=== PATIENT | male | born 1935 | race Caucasian/White ===

== ENCOUNTER → 2017-05-15 | Outpatient (CLI) | payer MEDICARE, OTHER ==
[2017-05-15 14:56] LABS: Blood Urea Nitrogen 20 mg/dL (9-20); Non-African American GFR(MDRD) >60 (>60 ml/min/1.73 sqM)
--- NOTE | 2017-05-15 21:36 | CT ---
EXAMINATION TYPE: CT lumbar spine wo/w con DATE OF EXAM: 05/15/2017 COMPARISON: CT chest abdomen and pelvis July 28, 2014 HISTORY: Low back and right hip pain. History of prostate, liver and lung cancer. Possible wedge defo rmity L3 level per order. CT DLP: 4098.10 mGycm Automated exposure control for dose reduction was used. CONTRAST: Performed without and with IV Contrast, patient injected with 100 mL of Omnipaque 300. FINDINGS: There are 5 lumbar type vertebra identified. Lumbar spine shows satisfactory alignment without eviden ce of acute fracture or dislocation. There is persistent round lytic area with surrounding sclerosis felt to reflect enchondroma are prominent Schmorl node in the inferior L2 endplate unchanged from janice or CT. Vertebral body heights are maintained. There is multilevel fairly moderate disc space narrowin g with more advanced disc space narrowing and vacuum disc phenomenon noted at L4-L5 level. There is m oderate multilevel anterior and lateral spurring. Posterior disc herniations are seen effacing anteri or thecal sac at L2-L3, L3-L4, and L4-L5 levels on sagittal images. No suspicious postcontrast enhanc ement is seen. Axial images at the T12-L1 level are felt within normal limits. Axial images at the L1-L2 level show mild facet degenerative changes and mild broad disc bulge mildly effacing anterior thecal sac. Bilateral neural foramina are patent. Axial images at the L2-L3 level show mild facet degenerative changes with broad-based central disc pr otrusion effacing anterior thecal sac causing spinal canal stenosis on axial image 38. There is moder ate to severe bilateral neural foraminal narrowing at this level identified. Axial images at the L3-L4 level show moderate facet degenerative changes bilaterally. There is modera te to severe broad disc bulge causing more prominent spinal canal stenosis on axial image 55. There i s moderate to severe bilateral neural foraminal narrowing at this level identified. Axial images at L4-L5 level show moderate facet degenerative changes bilaterally. There is broad-base d posterior disc protrusion causing spinal canal stenosis at this level on axial image 64. There is m oderate to severe bilateral neural foraminal narrowing at this level identified. Axial images at L5-S1 level show posterior spur disc complex but spinal canal is preserved. There are mild to moderate facet degenerative changes seen bilaterally. Bilateral neural foramina are patent. Elevated left hemidiaphragm is redemonstrated. Visualized liver is hypodense consistent with fatty in filtration. Surgical clips along posterior margin of liver are redemonstrated from partial hepatectom y. There is moderate to severe mixed plaque in the aorta extending into branch vessels. There is stab le stenosis likely greater than 50% in the right common iliac artery. Prominent sigmoid colonic diver ticulosis is partially imaged. IMPRESSION: MULTILEVEL DEGENERATIVE CHANGES IN LUMBAR SPINE DETAILED ABOVE WITH MOST PROMINENT FINDINGS AT L2- L3 THROUGH THE L4-L5 LEVELS THERE IS MODERATE TO SEVERE BILATERAL NEURAL FORAMINAL NARROWING AND S MEY CANAL STENOSIS PRESENT AT ALL LEVELS MORE PROMINENT AT L3-L4 AND L4-L5 LEVELS. NO SUSPICIOUS FO UMM OSSEOUS LESIONS ARE SEEN TO SUGGEST METASTATIC DISEASE.
== END | disposition home or self-care (01) ==
LOC: RADCTMAIN 14:08
PROVIDERS: ATTEND Physical Medicine & Rehabilitation
DX: M99.73 Connective tissue and disc stenosis of intervertebral foramina of lumbar region (principal); M47.816 Spondylosis without myelopathy or radiculopathy, lumbar region; M54.5 Low back pain
CPT/HCPCS: 82565; 84520; 72133; 36415; Q9967

== ENCOUNTER → 2018-06-11 | Outpatient (CLI) | payer MEDICARE ==
--- NOTE | 2018-06-11 14:41 | US ---
EXAMINATION TYPE: US venous doppler duplex LE DATE OF EXAM: 06/11/2018 1:50 PM COMPARISON: LOWER EXTREMITY VENOUS INSUFFICIENCY SIDE PERFORMED: Bilateral 1) Color flow is present and patency is documented in the following vessels. No DVT or SVT is noted . EIV Common Femoral Vein Deep Femoral Vein Femoral Vein Popliteal Vein Proximal Calf Veins Greater Saph Vein Upper Small Saph Vein 2) no venous reflux noted at the following venous levels: No reflux visualized IMPRESSION: 1. Lower extremity venous system negative for venous reflux. Thrombosis is not identified.
--- NOTE | 2018-06-17 09:08 | P.ARTDOP ---
Arterial Doppler LOWER EXTREMITY ARTERIAL DOPPLER: DATE OF SERVICE: 06/11/2018 Reason for study: Right leg ulcer. Doppler waveforms: Multiphasic bilaterally throughout. Pulse volume recording: Normal configuration. Pressure gradients: None. Ankle-brachial indices: Greater than 1 bilaterally. Toe pressures: 107 on the right, 100 on the left Impression: Normal study.
== END | disposition home or self-care (01) ==
LOC: RADUSWWP 13:14
PROVIDERS: ATTEND Internal Medicine Infectious Disease
DX: R60.9 Edema, unspecified (principal); E63.8 Other specified nutritional deficiencies
CPT/HCPCS: 93923; 93970

== ENCOUNTER → 2018-09-04 | Outpatient (CLI) | payer MEDICARE ==
[2018-09-04 14:51] LABS: Anion Gap 6 mmol/L; Blood Urea Nitrogen 18 mg/dL (9-20); Carbon Dioxide 31 mmol/L (22-30); Chloride 107 mmol/L (98-107); Sodium 144 mmol/L (137-145)
[2018-09-04 14:53] LABS: HCT 49.1 % (39.0-53.0); HGB 16.6 gm/dL (13.0-17.5); MCH 33.1 pg (25.0-35.0); MCHC 33.9 g/dL (31.0-37.0); MCV 97.6 fL (80.0-100.0); Mean Platelet Volume 7.5; Platelet Count 133 k/uL (150-450); RBC 5.03 m/uL (4.30-5.90); RDW 14.5 % (11.5-15.5); WBC 8.6 k/uL (3.8-10.6)
[2018-09-04 15:07] LABS: INR 2.4 (<1.2); Partial Thromboplastin Time 32.6 sec (22.0-30.0); Prothrombin Time 21.3 sec (9.0-12.0)
[2018-09-04 15:30] LABS: Amorphous Sediment,Urine Rare /hpf; Appearance,Urine Clear (Clear); Bilirubin,Urine Negative (Negative); Blood,Urine Negative (Negative); Color,Urine Yellow; Glucose,Urine (UA) Negative (Negative); Hyaline Casts,Urine 4 /lpf (0-2); Ketones,Urine Negative (Negative); Leukocyte Esterase,Urine Moderate (Negative); Mucus,Urine Occasional /hpf; Nitrite,Urine Negative (Negative); Protein,Urine Negative (Negative); RBC,Urine 6 /hpf (0-5); Specific Gravity,Urine 1.018 (1.001-1.035); Squamous Epithelial Cell,Urine 4 /hpf (0-4); Urobilinogen,Urine <2.0 mg/dL (<2.0); WBC,Urine 18 /hpf (0-5)
== END | disposition home or self-care (01) ==
LOC: LABPAT 14:08
PROVIDERS: ATTEND Orthopaedic Surgery
DX: Z01.812 Encounter for preprocedural laboratory examination (principal)
CPT/HCPCS: 80051; 81001; 82565; 84520; 85027; 85610; 85730; 86850; 86900; 86901; 87070

== ENCOUNTER 2018-09-15 14:00 | Inpatient (IN) | payer MEDICARE ==
[2018-10-21 09:38] VITALS: BMI 37.3
[2018-10-27] MEDS ORDERED: TRANEXAMIC ACID 1,000 MG in SODIUM CHLORIDE 0.9% 50 ML IVPB ONE ×4 (05:00)
[2018-10-27] MEDS ORDERED: MELOXICAM 7.5 MG TAB PO ONE (05:00)
[2018-10-27] MEDS ORDERED: ACETAMINOPHEN TAB 500 MG TAB PO ONE (05:00)
[2018-10-27] MEDS ORDERED: ROPIVACAINE 246.25 MG, EPINEPHrine 0.5 MG, KETOROLAC 30 MG, cloNIDine HCL/PF 80 MCG, WA... MISCELLANE ONE ×5 (06:01)
[2018-10-27] MEDS ORDERED: ONDANSETRON 4 MG/2 ML VIAL IVP ONE (06:25)
[2018-10-27] MEDS ORDERED: DEXAMETHASONE SOD PHOSPHATE 10 MG/ML 1 ML VIAL IV ONE (06:25)
[2018-10-27] MEDS ORDERED: SCOPOLAMINE 1.5MG/72HR PATCH TRANSDERM ONE (06:25)
[2018-10-27] MEDS ORDERED: LIDOCAINE 1% 20 ML VIAL (10MG/ML) FOR IV START INTRADERMA PRN (06:25)
[2018-10-27] MEDS ORDERED: LIDOCAINE 1% 20 ML VIAL (10MG/ML) FOR IV START INTRADERMA ONE (06:42)
[2018-10-27] MEDS: LACTATED RINGERS 1,000 ML IV SCH (06:42)
[2018-10-27 07:01] LABS: Glucose,Whole Blood 109 mg/dL (75-99)
[2018-10-27] MEDS ORDERED: HYDROmorphone 0.5 MG/0.5 ML SYRINGE IVP PRN ×3 (07:04)
[2018-10-27] MEDS ORDERED: hydrOXYzine PAMOATE 25 MG CAP PO PRN (07:04)
[2018-10-27] MEDS ORDERED: ONDANSETRON 4 MG/2 ML VIAL IVP PRN (07:04)
[2018-10-27] MEDS ORDERED: MAGNESIUM HYDROXIDE 2,400 MG/10 ML CUP PO PRN (07:04)
[2018-10-27] MEDS ORDERED: DIAZEPAM 5 MG TAB PO PRN (07:04)
[2018-10-27] MEDS ORDERED: NALOXONE 0.4 MG/ML 1 ML VIAL IV PRN (07:04)
[2018-10-27 07:06] LABS: INR 1.5 (<1.2); Prothrombin Time 14.9 sec (9.0-12.0)
[2018-10-27] MEDS ORDERED: PROPOFOL 10 MG/ML 20 ML VIAL IV ONE (07:08)
[2018-10-27] MEDS ORDERED: SODIUM CHLORIDE 0.9% 100 ML BAG ONE (07:08)
[2018-10-27] MEDS ORDERED: ROCURONIUM BROMIDE 10 MG/ML 10 ML VIAL IV ONE (07:08)
[2018-10-27] MEDS ORDERED: TRANEXAMIC ACID 1,000 MG/10 ML VIAL ONE (07:08)
[2018-10-27] MEDS ORDERED: GLYCOPYRROLATE 0.2 MG/ML 2 ML VIAL ONE (07:08)
[2018-10-27] MEDS ORDERED: PHENYLEPHRINE-0.9% NACL SYG 1 MG/10 ML SYRINGE ONE (07:08)
[2018-10-27] MEDS ORDERED: SUCCINYLCHOLINE CHLORIDE VIAL 200 MG/10 ML VIAL IV ONE (07:08)
[2018-10-27] MEDS ORDERED: NEOSTIGMINE 1 MG/ML 10 ML VIAL ONE (07:08)
[2018-10-27] MEDS ORDERED: ePHEDrine SULFATE/0.9% NACL/PF 50 MG/5 ML SYRINGE IV ONE (07:08)
[2018-10-27] MEDS ORDERED: WATER FOR INJECTION, STERILE 10 ML VIAL IV ONE (07:08)
[2018-10-27] MEDS ORDERED: ceFAZolin 3,000 MG in SODIUM CHLORIDE 0.9% IRRIGATIO 3,000 ML IRRIGATION ONE (07:15)
[2018-10-27] MEDS ORDERED: LACTATED RINGERS 1,000 ML IV ONE (08:05)
--- NOTE | 2018-10-27 08:56 | P.OP ---
Date of Procedure: 10/27/18 Preoperative Diagnosis: Severe osteoarthritis right hip Postoperative Diagnosis: Severe osteoarthritis right hip Procedure(s) Performed: Right total hip arthroplasty with a direct anterior approach Implants: Nation and nephew Polarstem size 6 standard [employer]hew R3, 3 hole acetabular shell, 54 mm [employer]hew reflection 6.5 mm cancellus screw, 20 mm 2 [employer]hew R3, XLPE 20 acetabular liner [employer]hew Oxinium femoral head 36 m, +0 All components were press-fit. The articulation is Oxinium on polyethylene. Anesthesia: spinal Surgeon: Juan Luis Joaquin Right Of Way Buyer #1: Traci Figueredo Estimated Blood Loss (ml): 350 (139 mL returned with Cell Saver) Pathology: other (Femoral head) Condition: stable Disposition: PACU Indications for Procedure: After failure of conservative treatment we discussed the surgical and nonsurgical treatment options at length. Patient wishes to proceed with a total hip arthroplasty with a direct anterior approach. Complications specific to this procedure were discussed at length, including but not limited to infection, leg length discrepancy, dislocation, and nerve injury. Patient is aware of all these complications and informed consent was obtained Operative Findings: The operative findings are consistent with severe osteoarthritis of the right hip Description of Procedure: Patient was seen and evaluated in the preoperative area, consent was reviewed, and the surgical site was marked with a skin marker. Patient was then brought to the operating room and given prophylactic antibiotics intravenously. 1 g of Tranexamic acid was also given. A spinal anesthetic was administered by the anesthesia department. The patient was then placed on the Chandler table with the bony prominences well-padded. The hip area was then prepped and draped in usual sterile fashion. A universal timeout was then performed, which confirmed the patient's name, surgical site, ALLERGIES, and procedure being performed. Next the incision site was located at 1 cm distal and 1 cm lateral to the anterior superior iliac spine. The skin and subcutaneous tissues were sharply incised. Incision was carefully dissected down to the fascia overlying the tensor fascia amie muscle. This fascia was then incised in line with the incision. Next, using blunt finger dissection, the tensor fascia amie muscle was dissected off its investing fascia. The muscle was then carefully retracted laterally with a cobra retractor over the lateral neck of the femur. Next, the circumflex vessels were identified and cauterized using the AquaMantis device. The anterior hip capsule was then exposed. The capsule was then opened and an inverted T fashion. Cobra retractors were then placed intracapsularly. The proximal femur was then visualized. The femoral neck was then osteotomized appropriate level above the lesser trochanter. Small amount of traction was placed with the Chandler table. A small wedge of bone was then removed from the remaining femoral head. Next, using a corkscrew femoral head was easily removed from the acetabulum. On gross visual inspection, the femoral head had complete loss of articular cartilage in multiple periarticular osteophytes. Attention was then turned to the acetabulum. the acetabulum was exposed and any remaining labrum was excised. Sequential reaming of the acetabulum was performed using fluoroscopic guidance. When the appropriate size was reached, a trial was then placed. The position and fit of the trial was checked with fluoroscopy. The trial was then removed. Then, using fluoroscopic guidance, the final implant was impacted at 20 of anteversion and 40 of abduction, and fully seated in the acetabulum. 2 screws were then placed in the acetabulum. Again fluoroscopy was used to check position of the screws. Next, the liner was then impacted, with a 20 elevated liner located in the anterior superior quadrant. Component locking was confirmed. Attention was then directed to the femur. With the aid of the Chandler table, the femur was externally rotated to approximately 130, extended, and abducted under the opposite leg. A side hook was then placed under the proximal femur, and the side hook elevator was used to elevate the proximal femur. Retractors were then placed. A capsular release was performed, as well as a release of the conjoined tendon, which afforded excellent visualization of the proximal femur. Next, a box osteotome was used to lateralize the proximal femur. A hand box coverer was then used to locate the femoral canal. Sequential broaching was then performed with appropriate size which afforded excellent fixation in the proximal femur. A trial was then placed with appropriate head and neck, and the hip was gently reduced with the aid of the Chandler table. Fluoroscopy was then used to check position of the components, as well as to ensure equal leg lengths. The hip was then gently dislocated and the trials were then removed. Final implants were then impacted and the hip was again reduced. Final fluoroscopic x-rays confirmed that the components were in anatomic position, as well as equal leg lengths. The hip was also taken through range of motion, and found to be stable. The hip was then copiously irrigated with antibiotic solution with pulsatile lavage. The hip was then irrigated with Irrisept solution. The soft tissues were then injected with a ropivacaine solution, which consisted of 246.25 mg of ropivacaine, 0.5 mg of epinephrine, 30 mg of Toradol, 80 g of clonidine, and 48.45 mL of sterile water, for a total of 100 mL of fluid injected. A second dose of 1 g of Tranexamic acid was also given. the fascia was then closed with 2-0 strata fix suture. The subcutaneous tissue was closed with 3-0 Vicryl. The subcuticular tissue was closed with 3-0 strata fix suture. The skin was then closed with Dermabond glue and a sterile silver dressing. The patient was then transferred to the recovery room in stable condition. The financial legal assistant DELPHINE Grover was required due to the complexity of surgery, and the need for skilled surgical instrument mechanic for positioning, draping, exposure, retraction, and closure of the wound.
[2018-10-27] MEDS: HYDROmorphone 0.5 MG/0.5 ML SYRINGE IVP PRN ×2 (09:16→09:21)
[2018-10-27] MEDS: fentaNYL (PF) 50 MCG/ML 2 ML AMP IVP ONE ×3 (09:31→10:50)
[2018-10-27 09:52] LABS: Glucose,Whole Blood 162 mg/dL (75-99)
--- NOTE | 2018-10-27 10:10 | XR ---
Limited right hip HISTORY: Status post right hip arthroplasty Single frontal view of the right hip Patient is status post right hip arthroplasty. There is anatomic alignment. Surgical clips present in the right hemipelvis. Vascular calcifications are noted incidentally. Technique somewhat limited by patient body habitus. Lucency in the soft tissues compatible with postop state. IMPRESSION: Orthopedic follow-up as described.
--- NOTE | 2018-10-27 12:54 | XR ---
Limited right hip HISTORY: Anterior hip replacement 2 intraoperative C-arm images document the procedure
--- NOTE | 2018-10-27 12:55 | FL ---
Fluoroscopy HISTORY: Anterior hip replacement 50 seconds fluoroscopy time supplied to the referring clinician. 2 intraoperative C-arm images docum ent the procedure. See dictated report from orthopedic surgery.
[2018-10-27] MEDS: SODIUM CHLORIDE 0.9% 1,000 ML IV SCH (13:51)
--- NOTE | 2018-10-27 14:15 | P.CONS ---
History of Present Illness - Reason for Consult Consult date: 10/27/18 Medical management - History of Present Illness This is an 83-year-old male patient of Dr. Blake Patiño with past history of chronic atrial fibrillation on Coumadin, diabetes mellitus type 2, hyperlipidemia, hypothyroidism, history of prostate, liver and lung cancers all primary status post resections. Patient did receive chemotherapy with lung cancer. No radiation treatment. Past history for pacemaker placement in 2004 with battery replacement 2017, heart catheterization and stent done in 2005. Patient was brought into the hospital by Dr. Joaquin and is status post right total hip arthroplasty with anterior approach. Patient states his pain is currently controlled. He denies having any chest pain, shortness of breath, lightheadedness dizziness, no abdominal pain, nausea is improved. No diarrhea. Patient's is at the bedside. Medication reconciliation completed. Noted blood pressures on the low side and losartan will be held for today, parameters placed on amlodipine for bedtime dose. Review of Systems All systems: negative Constitutional: Denies anorexia, Denies chills, Denies fatigue, Denies fever, Denies lethargy, Denies malaise, Denies poor appetite, Denies weakness Eyes: denies blurred vision, denies pain Ears, nose, mouth and throat: Denies dental pain, Denies headache, Denies hoarseness, Denies mouth pain, Denies nasal congestion, Denies sore throat, Denies vertigo Cardiovascular: Denies chest pain, Denies decreased exercise tolerance, Denies dyspnea on exertion, Denies edema, Denies leg edema, Denies shortness of breath , Denies syncope Respiratory: Denies cough, Denies cough with sputum, Denies dyspnea, Denies excessive sputum, Denies hemoptysis, Denies home oxygen, Denies wheezing Gastrointestinal: Denies abdominal pain, Denies diarrhea, Denies loss of appetite, Denies melena, Denies nausea, Denies vomiting Genitourinary: Denies dysuria, Denies urinary frequency Musculoskeletal: Denies frequent falls, Denies gait dysfunction, Denies muscle weakness, Denies myalgias Integumentary: Denies color changes, Denies darkening of skin, Denies pruritus, Denies rash Neurological: Denies aphasia, Denies change in mentation, Denies change in speech, Denies confusion, Denies gait dysfunction, Denies head injury, Denies headaches, Denies numbness, Denies seizures, Denies weakness Psychiatric: Denies anxiety, Denies depression Endocrine: Denies fatigue, Denies weight change Past Medical History Past Medical History: Atrial Fibrillation, Cancer, Diabetes Mellitus, Hyperlipidemia, Osteoarthritis (OA), Thyroid Disorder Additional Past Medical History / Comment(s): Hx prostate, liver, lung cancer, diet controllled diabetes. History of Any Multi-Drug Resistant Organisms: None Reported Past Surgical History: Heart Catheterization, Heart Catheterization With Stent, Joint Replacement, Orthopedic Surgery, Pacemaker, Prostate Surgery, Tonsillectomy Additional Past Surgical History / Comment(s): Removal of right lobe of liver, upper left lobe of lung removed, right knee replacement, left arm fx surgery. Past Anesthesia/Blood Transfusion Reactions: No Reported Reaction Date of Last Stent Placement:: 2005 Type of Cardiac Device: Permanent Pacemaker Device Placement Date:: 2005 Past Psychological History: No Psychological Hx Reported Smoking Status: Former smoker Past Alcohol Use History: Heavy Additional Past Alcohol Use History / Comment(s): 2 alcoholic drinks 5-6 days per week the patient has had no alcohol intake since October 06. He lives at home with his .. Past Drug Use History: None Reported - Past Family History Father Family Medical History: Cancer Additional Family Medical History / Comment(s): Father from lung cancer with history of heavy smoking. Mother Additional Family Medical History / Comment(s): Mother from complications of diabetes. No history of cancer. Brother(s) Additional Family Medical History / Comment(s): Patient has one brother and 4 sisters with no major medical problems. Patient has 2 sons with no major medical problems. No cancers. Medications and Allergies Home Medications Medication Instructions Recorded Confirmed Type Cholecalciferol [Vitamin D3] 1,000 unit PO DAILY 06/09/15 10/27/18 History Levothyroxine Sodium [Levoxyl] 75 mcg PO QAM 06/09/15 10/27/18 History Metoprolol Succinate [Toprol XL] 100 mg PO HS 06/09/15 10/27/18 History Simvastatin [Zocor] 20 mg PO HS 06/09/15 10/27/18 History Warfarin [Coumadin] 5 mg PO SUWEFR 06/09/15 10/27/18 History amLODIPine BESYLATE [Norvasc] 5 mg PO HS 06/09/15 10/27/18 History Acetaminophen Tab [Tylenol] 650 mg PO Q6HR PRN #0 tab 06/14/15 10/27/18 Rx HYDROcodone/APAP 5-325MG [[place] 1 each PO Q4HR PRN #10 tab 06/14/15 10/27/18 Rx 5-325] Losartan [Cozaar] 50 mg PO HS 10/21/18 10/27/18 History Warfarin [Coumadin] 2.5 mg PO MOTUTHSA 10/21/18 10/27/18 History Allergies Allergy/AdvReac Type Severity Reaction Status Date / Time No Known Allergies Allergy Verified 10/27/18 12:50 Physical Exam Vitals: Vital Signs Temp Pulse Pulse Resp BP BP Pulse Ox 10/27/18 10:45 74 18 93/63 96 10/27/18 10:30 69 18 85/47 97 10/27/18 10:15 74 18 84/50 95 10/27/18 10:00 71 18 82/58 94 L 10/27/18 09:55 63 16 95/48 94 L 10/27/18 09:40 79 18 101/52 92 L 10/27/18 09:25 82 16 113/56 96 10/27/18 09:09 98.4 F 76 16 114/68 96 10/27/18 06:33 97.7 F 64 16 104/67 96 Intake and Output 10/26/18 10/27/18 10/27/18 22:59 06:59 14:59 Intake Total 300 1351 Output Total 350 Balance 300 1001 Intake: IV 300 1351 Output: Estimated Blood Loss 350 Gen: This is an 83-year-old male. He is sitting up in bed and appears to be comfortable and in no acute distress. HEENT: Head is atraumatic, normocephalic. Pupils equal, round. Sclerae is anicteric. NECK: Supple. No JVD. No lymphadenopathy. No thyromegaly. LUNGS: Clear to auscultation. No wheezes or rhonchi. No intercostal retractions. HEART: Regular rate and rhythm. No murmur. ABDOMEN: Soft. Bowel sounds are present. No masses. No tenderness. EXTREMITIES: No pedal edema. No calf tenderness. Small dressing in place to the right hip with no breakthrough bleeding or drainage. NEUROLOGICAL: Patient is awake, alert and oriented x3. Cranial nerves 2 through 12 are grossly intact. Results CBC & Chem 7: 10/27/18 07:04 Labs: Abnormal Lab Results - Last 24 Hours (Table) 10/27/18 10/27/18 10/27/18 Range/Units 06:43 06:44 09:38 PT 14.9 H (9.0-12.0) sec INR 1.5 H (<1.2) POC Glucose (mg/dL) 109 H 162 H (75-99) mg/dL Assessment and Plan Plan: 1. Severe osteoarthritis of the right hip status post right total hip arthroplasty direct anterior approach. Patient has had no postop complications. Continue current pain management, PT OT per orthopedics, incentive spirometry to reduce incidence of atelectasis and hospital-acquired pneumonia. 2. Chronic atrial fibrillation. Continue Coumadin at home dosing, metoprolol succinate 100 mg at bedtime. 3. Hypertension. Continue Norvasc 5 mg at bedtime, Toprol-XL 100 mg at bedtime , losartan 50 mg will be held as blood pressures on the low side. 4. Hypothyroidism. Continue levothyroxine 75 g daily. 5. Hyperlipidemia. Continue simvastatin 20 mg at bedtime. 6. GI prophylaxis. Pepcid. 7. DVT prophylaxis. Coumadin. Patient will be admitted to the hospital for a minimum of 2 night stay. Discharge plan: To be determined Impression and plan of care have been directed as dictated by the signing physician. Joceline Hoyos nurse practitioner acting as scribe for signing physician.
[2018-10-27] MEDS: HYDROcodone/APAP 5-325MG 1 EACH TAB PO PRN (15:29)
[2018-10-27] MEDS ORDERED: WARFARIN 5 MG TAB PO ONE (18:00)
[2018-10-27 20:03] LABS: Glucose,Whole Blood 235 mg/dL (75-99)
[2018-10-27] MEDS: ATORVASTATIN 10 MG TAB PO SCH (20:54)
[2018-10-27] MEDS: amLODIPine 5 MG TAB PO SCH (20:55)
[2018-10-27] MEDS: SENNOSIDES-DOCUSATE SODIUM 1 EACH TAB PO SCH (20:55)
[2018-10-27] MEDS: METOPROLOL SUCCINATE (ER) 100 MG TAB.ER.24H PO SCH (20:55)
[2018-10-28] MEDS: SODIUM CHLORIDE 0.9% 1,000 ML IV SCH ×2 (01:55→16:20)
[2018-10-28 07:22] LABS: Glucose,Whole Blood 128 mg/dL (75-99)
[2018-10-28] MEDS: LEVOTHYROXINE 75 MCG TAB PO SCH (07:42)
[2018-10-28] MEDS: LACTATED RINGERS 1,000 ML IV SCH (07:44)
[2018-10-28] MEDS: CHOLECALCIFEROL 1,000 UNIT TAB PO SCH (07:45)
[2018-10-28 07:47] LABS: INR 1.2 (<1.2); Prothrombin Time 12.3 sec (9.0-12.0)
[2018-10-28 09:02] LABS: Basophils % (A) 0 %; Eosinophils % (A) 0 %; HCT 44.8 % (39.0-53.0); HGB 13.9 gm/dL (13.0-17.5); Lymphocytes # (A) 1.5 k/uL (1.0-4.8); Lymphocytes % (A) 10 %; MCH 31.4 pg (25.0-35.0); MCHC 31.1 g/dL (31.0-37.0); Macrocytosis Slight; Mean Platelet Volume 7.4; Monocytes # (A) 0.7 k/uL (0-1.0); Monocytes % (A) 4 %; Neutrophils % (A) 84 %; RBC 4.43 m/uL (4.30-5.90); RDW 13.5 % (11.5-15.5); WBC 15.4 k/uL (3.8-10.6)
--- NOTE | 2018-10-28 09:22 | P.PN ---
Subjective Progress Note Date: 10/28/18 This is an 83-year-old male who is status post right total hip arthroplasty. This is postoperative day #1. Patient is seen and evaluated at bedside with Dr. Juan Luis Joaquin. Patient states that his pain is well controlled and he has been up and walking with physical therapy. Patient denies any fever/chills, numbness, weakness, tingling, abdominal pain, shortness of breath or chest pain. Objective - Vital Signs Vital signs: Vital Signs Temp 97.5 F L 10/28/18 07:00 Pulse 66 10/28/18 07:00 Resp 16 10/28/18 07:36 BP 108/72 10/28/18 07:00 Pulse Ox 96 10/28/18 07:00 Intake & Output 10/27/18 10/28/18 10/28/18 18:59 06:59 18:59 Intake Total 1416 Output Total 350 Balance 1066 Intake: IV 1351 Intake, IV Titration 65 Amount Sodium Chloride 0.9% 1, 65 000 ml @ 65 mls/hr IV . [id number] [facility] Rx#:[id number] Output: Estimated Blood Loss 350 Other: # Voids 1 - Exam Vital signs are stable. Patient is in no acute distress and is alert and oriented 3. Calf is soft and nontender to palpation. Dressing is clean, dry, and intact. Patient has full foot and ankle motion without pain or difficulty. Neurovascular status and circulatory status are intact. - Labs CBC & Chem 7: 10/28/18 06:39 10/27/18 07:04 Labs: Abnormal Lab Results - Last 24 Hours (Table) 10/27/18 10/27/18 10/28/18 Range/Units 09:38 19:51 06:39 WBC 15.4 H (3.8-10.6) k/uL MCV 101.0 H (80.0-100.0) fL PT (9.0-12.0) sec INR (<1.2) POC Glucose (mg/dL) 162 H 235 H (75-99) mg/dL 10/28/18 10/28/18 Range/Units 06:39 07:10 WBC (3.8-10.6) k/uL MCV (80.0-100.0) fL PT 12.3 H (9.0-12.0) sec INR 1.2 H (<1.2) POC Glucose (mg/dL) 128 H (75-99) mg/dL Assessment and Plan Assessment: Atrial fibrillation Diabetes mellitus Hyperlipidemia Thyroid disorder History of prostate, liver and lung cancer Plan: Continue routine postop care. Continue antocoagulation with Coumadin. Weightbearing as tolerated with a walker. Leave dressing in place for 10 days. Patient would like to discharge to [facility]. Anticipate discharge in the next 1-2 days.
[2018-10-28 10:19] LABS: Platelet Count 94 k/uL (150-450)
[2018-10-28] MEDS: HYDROcodone/APAP 5-325MG 1 EACH TAB PO PRN ×2 (11:05→22:39)
[2018-10-28 11:59] LABS: Glucose,Whole Blood 109 mg/dL (75-99)
--- NOTE | 2018-10-28 14:31 | P.PN ---
Subjective Progress Note Date: 10/28/18 This is an 83-year-old male patient of Dr. Blake Patiño with past history of chronic atrial fibrillation on Coumadin, diabetes mellitus type 2, hyperlipidemia, hypothyroidism, history of prostate, liver and lung cancers all primary status post resections. Patient did receive chemotherapy with lung cancer. No radiation treatment. Past history for pacemaker placement in 2004 with battery replacement 2018, heart catheterization and stent done in 2005. Patient was brought into the hospital by Dr. Joaquin and is status post right total hip arthroplasty with anterior approach. Patient states his pain is currently controlled. He denies having any chest pain, shortness of breath, lightheadedness dizziness, no abdominal pain, nausea is improved. No diarrhea. Patient's is at the bedside. Medication reconciliation completed. Noted blood pressures on the low side and losartan will be held for today, parameters placed on amlodipine for bedtime dose. 10/28: Patient states that he is feeling well this morning and pain is well controlled. He is ambulating in the hallway and back without difficulty. He has had no difficulty with urination. No bowel movement yet. White count was 15.4, hemoglobin 13.9, INR 1.2, pharmacy is dosing Coumadin. Blood sugars running between 128 and 235. Patient states that he was hoping to go to subacute rehab but he is doing so well that he'll probably have to go home with homecare. Discharge is planned for tomorrow. Review of Systems All systems: negative Constitutional: Denies anorexia, Denies chills, Denies fatigue, Denies fever, Denies lethargy, Denies malaise, Denies poor appetite, Denies weakness Eyes: denies blurred vision, denies pain Ears, nose, mouth and throat: Denies dental pain, Denies headache, Denies hoarseness, Denies mouth pain, Denies nasal congestion, Denies sore throat, Denies vertigo Cardiovascular: Denies chest pain, Denies decreased exercise tolerance, Denies dyspnea on exertion, Denies edema, Denies leg edema, Denies shortness of breath , Denies syncope Respiratory: Denies cough, Denies cough with sputum, Denies dyspnea, Denies excessive sputum, Denies hemoptysis, Denies home oxygen, Denies wheezing Gastrointestinal: Denies abdominal pain, Denies diarrhea, Denies loss of appetite, Denies melena, Denies nausea, Denies vomiting Genitourinary: Denies dysuria, Denies urinary frequency Musculoskeletal: Denies frequent falls, Denies gait dysfunction, Denies muscle weakness, Denies myalgias, denies hip pain Integumentary: Denies color changes, Denies darkening of skin, Denies pruritus, Denies rash Neurological: Denies aphasia, Denies change in mentation, Denies change in speech, Denies confusion, Denies gait dysfunction, Denies head injury, Denies headaches, Denies numbness, Denies seizures, Denies weakness Psychiatric: Denies anxiety, Denies depression Endocrine: Denies fatigue, Denies weight change Objective - Vital Signs Vital signs: Vital Signs Temp 97.5 F L 10/28/18 07:00 Pulse 66 10/28/18 07:00 Resp 16 10/28/18 07:36 BP 108/72 10/28/18 07:00 Pulse Ox 96 10/28/18 07:00 Intake & Output 10/27/18 10/28/18 10/28/18 18:59 06:59 18:59 Intake Total 1416 Output Total 350 Balance 1066 Intake: IV 1351 Intake, IV Titration 65 Amount Sodium Chloride 0.9% 1, 65 000 ml @ 65 mls/hr IV . [id number] [facility] Rx#:[id number] Output: Estimated Blood Loss 350 Other: # Voids 1 - Exam Gen: This is an 83-year-old male. He is sitting up in recliner and appears to be comfortable and in no acute distress. HEENT: Head is atraumatic, normocephalic. Pupils equal, round. Sclerae is anicteric. NECK: Supple. No JVD. No lymphadenopathy. No thyromegaly. LUNGS: Clear to auscultation. No wheezes or rhonchi. No intercostal retractions. HEART: Regular rate and rhythm. No murmur. ABDOMEN: Soft. Bowel sounds are present. No masses. No tenderness. EXTREMITIES: No pedal edema. No calf tenderness. Small dressing in place to the right hip with no breakthrough bleeding or drainage. NEUROLOGICAL: Patient is awake, alert and oriented x3. Cranial nerves 2 through 12 are grossly intact. - Labs CBC & Chem 7: 10/28/18 06:39 10/27/18 07:04 Labs: Abnormal Lab Results - Last 24 Hours (Table) 10/27/18 10/27/18 10/28/18 Range/Units 09:38 19:51 06:39 PT 12.3 H (9.0-12.0) sec INR 1.2 H (<1.2) POC Glucose (mg/dL) 162 H 235 H (75-99) mg/dL 10/28/18 Range/Units 07:10 PT (9.0-12.0) sec INR (<1.2) POC Glucose (mg/dL) 128 H (75-99) mg/dL Assessment and Plan Plan: 1. Severe osteoarthritis of the right hip status post right total hip arthroplasty direct anterior approach. Patient has had no postop complications. Continue current pain management, PT OT per orthopedics, incentive spirometry to reduce incidence of atelectasis and hospital-acquired pneumonia. 2. Chronic atrial fibrillation. Continue Coumadin-pharmacy dosing, metoprolol succinate 100 mg at bedtime. INR daily 3. Hypertension. Continue Norvasc 5 mg at bedtime, Toprol-XL 100 mg at bedtime , losartan 50 mg will be held as blood pressures on the low side. 4. Hypothyroidism. Continue levothyroxine 75 g daily. 5. Hyperlipidemia. Continue simvastatin 20 mg at bedtime. 6. GI prophylaxis. Pepcid. 7. DVT prophylaxis. Coumadin. Discharge plan: Most likely home with homecare Impression and plan of care have been directed as dictated by the signing physician. Joceline Hoyos nurse practitioner acting as scribe for signing physician.
[2018-10-28 16:36] LABS: Glucose,Whole Blood 129 mg/dL (75-99)
[2018-10-28] MEDS ORDERED: WARFARIN 5 MG TAB PO ONE (18:00)
[2018-10-28 20:11] LABS: Glucose,Whole Blood 138 mg/dL (75-99)
[2018-10-28] MEDS: ATORVASTATIN 10 MG TAB PO SCH (21:19)
[2018-10-28] MEDS: SENNOSIDES-DOCUSATE SODIUM 1 EACH TAB PO SCH (21:19)
[2018-10-28] MEDS: METOPROLOL SUCCINATE (ER) 100 MG TAB.ER.24H PO SCH (21:19)
[2018-10-28] MEDS: amLODIPine 5 MG TAB PO SCH (21:19)
[2018-10-29] MEDS: SODIUM CHLORIDE 0.9% 1,000 ML IV SCH ×2 (05:53→22:17)
[2018-10-29] MEDS: LEVOTHYROXINE 75 MCG TAB PO SCH (05:54)
[2018-10-29] MEDS: HYDROcodone/APAP 5-325MG 1 EACH TAB PO PRN ×3 (05:54→22:09)
[2018-10-29 07:08] LABS: Glucose,Whole Blood 136 mg/dL (75-99)
[2018-10-29] MEDS: LACTATED RINGERS 1,000 ML IV SCH (08:29)
[2018-10-29 08:38] LABS: INR 1.2 (<1.2); Prothrombin Time 12.8 sec (9.0-12.0)
--- NOTE | 2018-10-29 08:45 | P.PN ---
Subjective Progress Note Date: 10/29/18 This is an 83-year-old male who is status post right total hip arthroplasty. This is postoperative day #2. Patient is seen and evaluated at bedside. Patient states that his pain is well controlled and he has been up and walking with physical therapy. Patient denies any fever/chills, numbness, weakness, tingling, abdominal pain, shortness of breath or chest pain. Objective - Vital Signs Vital signs: Vital Signs Temp 98.4 F 10/29/18 07:39 Pulse 64 10/29/18 07:39 Resp 16 10/29/18 07:39 BP 115/88 10/29/18 07:39 Pulse Ox 97 10/29/18 07:39 Intake & Output 10/28/18 10/29/18 10/29/18 18:59 06:59 18:59 Intake Total 550 Balance 550 Intake: Oral 550 Other: # Voids 2 1 - Exam Vital signs are stable. Patient is in no acute distress and is alert and oriented 3. Calf is soft and nontender to palpation. Dressing is clean, dry, and intact. Patient has full foot and ankle motion without pain or difficulty. Neurovascular status and circulatory status are intact. - Labs CBC & Chem 7: 10/28/18 06:39 10/27/18 07:04 Labs: Abnormal Lab Results - Last 24 Hours (Table) 10/28/18 10/28/18 10/28/18 Range/Units 06:39 11:45 16:24 WBC 15.4 H (3.8-10.6) k/uL MCV 101.0 H (80.0-100.0) fL Plt Count 94 L (150-450) k/uL Neutrophils # 13.0 H (1.3-7.7) k/uL PT (9.0-12.0) sec INR (<1.2) POC Glucose (mg/dL) 109 H 129 H (75-99) mg/dL 10/28/18 10/29/18 10/29/18 Range/Units 20:00 07:04 07:37 WBC (3.8-10.6) k/uL MCV (80.0-100.0) fL Plt Count (150-450) k/uL Neutrophils # (1.3-7.7) k/uL PT 12.8 H (9.0-12.0) sec INR 1.2 H (<1.2) POC Glucose (mg/dL) 138 H 136 H (75-99) mg/dL Assessment and Plan Assessment: Atrial fibrillation Diabetes mellitus Hyperlipidemia Thyroid disorder History of prostate, liver and lung cancer Plan: Continue routine postop care. Continue antocoagulation with Coumadin. Weightbearing as tolerated with a walker. Leave dressing in place for 10 days. Awaiting approval for rehab placement. Anticipate discharge in the next 1-2 days.
[2018-10-29] MEDS: CHOLECALCIFEROL 1,000 UNIT TAB PO SCH (08:46)
[2018-10-29 12:12] LABS: Glucose,Whole Blood 101 mg/dL (75-99)
[2018-10-29] MEDS ORDERED: HYDROmorphone 2 MG TAB PO PRN ×3 (12:25→12:27)
--- NOTE | 2018-10-29 13:17 | P.PN ---
Subjective Progress Note Date: 10/29/18 This is an 83-year-old male patient of Dr. Blake Patiño with past history of chronic atrial fibrillation on Coumadin, diabetes mellitus type 2, hyperlipidemia, hypothyroidism, history of prostate, liver and lung cancers all primary status post resections. Patient did receive chemotherapy with lung cancer. No radiation treatment. Past history for pacemaker placement in 2004 with battery replacement 2017, heart catheterization and stent done in 2005. Patient was brought into the hospital by Dr. Joaquin and is status post right total hip arthroplasty with anterior approach. Patient states his pain is currently controlled. He denies having any chest pain, shortness of breath, lightheadedness dizziness, no abdominal pain, nausea is improved. No diarrhea. Patient's is at the bedside. Medication reconciliation completed. Noted blood pressures on the low side and losartan will be held for today, parameters placed on amlodipine for bedtime dose. 10/28: Patient states that he is feeling well this morning and pain is well controlled. He is ambulating in the hallway and back without difficulty. He has had no difficulty with urination. No bowel movement yet. White count was 15.4, hemoglobin 13.9, INR 1.2, pharmacy is dosing Coumadin. Blood sugars running between 128 and 235. Patient states that he was hoping to go to subacute rehab but he is doing so well that he'll probably have to go home with homecare. Discharge is planned for tomorrow. 10/29: Patient remains afebrile, heart rate running in the 60s and 70s, blood pressure 115/88. INR is 1.2. Patient is hoping to go to subacute rehab tomorrow. He is complaining of some abdominal discomfort which was thought to be related to positioning for his surgery at across the mid abdomen. The patient has not had a bowel movement since admission. MiraLAX will be added to his stool softeners. Anticipate discharge tomorrow. Review of Systems All systems: negative Constitutional: Denies anorexia, Denies chills, Denies fatigue, Denies fever, Denies lethargy, Denies malaise, Denies poor appetite Eyes: denies blurred vision, denies pain Ears, nose, mouth and throat: Denies dental pain, Denies headache, Denies hoarseness, Denies mouth pain, Denies nasal congestion, Denies sore throat, Denies vertigo Cardiovascular: Denies chest pain, Denies decreased exercise tolerance, Denies dyspnea on exertion, Denies edema, Denies leg edema, Denies shortness of breath , Denies syncope Respiratory: Denies cough, Denies cough with sputum, Denies dyspnea, Denies excessive sputum, Denies hemoptysis, Denies home oxygen, Denies wheezing Gastrointestinal: Denies abdominal pain, Denies diarrhea, Denies loss of appetite, Denies melena, Denies nausea, Denies vomiting Genitourinary: Denies dysuria, Denies urinary frequency Musculoskeletal: Denies frequent falls, Denies gait dysfunction, Denies muscle weakness, Denies myalgias, denies hip pain Integumentary: Denies color changes, Denies darkening of skin, Denies pruritus, Denies rash Neurological: Denies aphasia, Denies change in mentation, Denies change in speech, Denies confusion, Denies gait dysfunction, Denies head injury, Denies headaches, Denies numbness, Denies seizures, Denies weakness Psychiatric: Denies anxiety, Denies depression Endocrine: Denies fatigue, Denies weight change Objective - Vital Signs Vital signs: Vital Signs Temp 98.4 F 10/29/18 07:39 Pulse 64 10/29/18 07:39 Resp 16 10/29/18 07:39 BP 115/88 10/29/18 07:39 Pulse Ox 97 10/29/18 07:39 Intake & Output 10/28/18 10/29/18 10/29/18 18:59 06:59 18:59 Intake Total 550 Balance 550 Intake: Oral 550 Other: # Voids 2 1 - Exam Gen: This is an 83-year-old male. He is sitting up in recliner and appears to be comfortable and in no acute distress. HEENT: Head is atraumatic, normocephalic. Pupils equal, round. Sclerae is anicteric. NECK: Supple. No JVD. No lymphadenopathy. No thyromegaly. LUNGS: Clear to auscultation. No wheezes or rhonchi. No intercostal retractions. HEART: Regular rate and rhythm. No murmur. ABDOMEN: Soft. Bowel sounds are present. No masses. Mild generalized tenderness. EXTREMITIES: No pedal edema. No calf tenderness. Small dressing in place to the right hip with no breakthrough bleeding or drainage. NEUROLOGICAL: Patient is awake, alert and oriented x3. Cranial nerves 2 through 12 are grossly intact. - Labs CBC & Chem 7: 10/28/18 06:39 10/27/18 07:04 Labs: Abnormal Lab Results - Last 24 Hours (Table) 10/28/18 10/28/18 10/28/18 Range/Units 06:39 11:45 16:24 WBC 15.4 H (3.8-10.6) k/uL MCV 101.0 H (80.0-100.0) fL Plt Count 94 L (150-450) k/uL Neutrophils # 13.0 H (1.3-7.7) k/uL PT (9.0-12.0) sec INR (<1.2) POC Glucose (mg/dL) 109 H 129 H (75-99) mg/dL 10/28/18 10/29/18 10/29/18 Range/Units 20:00 07:04 07:37 WBC (3.8-10.6) k/uL MCV (80.0-100.0) fL Plt Count (150-450) k/uL Neutrophils # (1.3-7.7) k/uL PT 12.8 H (9.0-12.0) sec INR 1.2 H (<1.2) POC Glucose (mg/dL) 138 H 136 H (75-99) mg/dL Assessment and Plan Plan: 1. Severe osteoarthritis of the right hip status post right total hip arthroplasty direct anterior approach. Patient has had no postop complications. Continue current pain management, PT OT per orthopedics, incentive spirometry to reduce incidence of atelectasis and hospital-acquired pneumonia. 2. Chronic atrial fibrillation. Continue Coumadin-pharmacy dosing, metoprolol succinate 100 mg at bedtime. INR daily 3. Hypertension. Continue Norvasc 5 mg at bedtime, Toprol-XL 100 mg at bedtime , losartan 50 mg will be held as blood pressures on the low side. 4. Hypothyroidism. Continue levothyroxine 75 g daily. 5. Hyperlipidemia. Continue simvastatin 20 mg at bedtime. 6. GI prophylaxis. Pepcid. 7. DVT prophylaxis. Coumadin. 8. Constipation. MiraLAX added to stool softeners. Discharge plan: Subacute rehab or home with homecare tomorrow. Impression and plan of care have been directed as dictated by the signing physician. Joceline Hoyos nurse practitioner acting as scribe for signing physician.
[2018-10-29] MEDS: POLYETHYLENE GLYCOL 3350 17 GM POWD.PACK PO SCH (17:30)
[2018-10-29 17:34] LABS: Glucose,Whole Blood 139 mg/dL (75-99)
[2018-10-29] MEDS ORDERED: WARFARIN 3 MG TAB PO ONE (18:00)
[2018-10-29 20:11] VITALS: RESP 16
[2018-10-29 20:14] LABS: Glucose,Whole Blood 107 mg/dL (75-99)
[2018-10-29] MEDS: amLODIPine 5 MG TAB PO SCH (20:55)
[2018-10-29] MEDS: ATORVASTATIN 10 MG TAB PO SCH (20:56)
[2018-10-29] MEDS: METOPROLOL SUCCINATE (ER) 100 MG TAB.ER.24H PO SCH (20:56)
[2018-10-29] MEDS: SENNOSIDES-DOCUSATE SODIUM 1 EACH TAB PO SCH (20:56)
[2018-10-30] MEDS: LACTATED RINGERS 1,000 ML IV SCH (05:29)
[2018-10-30] MEDS: LEVOTHYROXINE 75 MCG TAB PO SCH (05:30)
[2018-10-30 07:23] LABS: Glucose,Whole Blood 103 mg/dL (75-99)
[2018-10-30 07:54] LABS: Basophils # (A) 0.1 k/uL (0-0.2); Basophils % (A) 0 %; Eosinophils # (A) 0.2 k/uL (0-0.7); Eosinophils % (A) 2 %; HCT 44.9 % (39.0-53.0); HGB 14.6 gm/dL (13.0-17.5); Lymphocytes # (A) 4.3 k/uL (1.0-4.8); Lymphocytes % (A) 34 %; MCH 32.5 pg (25.0-35.0); MCHC 32.5 g/dL (31.0-37.0); MCV 100.1 fL (80.0-100.0); Mean Platelet Volume 7.9; Monocytes # (A) 0.7 k/uL (0-1.0); Monocytes % (A) 6 %; Neutrophils % (A) 55 %; Platelet Count 124 k/uL (150-450); RBC 4.49 m/uL (4.30-5.90); RDW 13.8 % (11.5-15.5); WBC 12.6 k/uL (3.8-10.6)
[2018-10-30] MEDS: CHOLECALCIFEROL 1,000 UNIT TAB PO SCH (07:57)
[2018-10-30] MEDS: POLYETHYLENE GLYCOL 3350 17 GM POWD.PACK PO SCH (07:57)
[2018-10-30 08:01] VITALS: BP 94/61; PULSE 71; TEMP 98.9
[2018-10-30 08:17] LABS: INR 1.3 (<1.2); Prothrombin Time 13.7 sec (9.0-12.0)
--- NOTE | 2018-10-30 08:44 | P.DS ---
Providers Date of admission: 10/27/18 06:07 Expected date of discharge: 10/30/18 Attending physician: Juan Luis Joaquin Consults: 10/27/18 07:04 Consult Physician Routine Consulting Provider: Blake Patiño Consult Reason/Comments: medical management Do you want consulting provider notified?: Yes 10/27/18 11:09 Consult Physician Routine Consulting Provider: Mariano Mckeon Consult Reason/Comments: medical managment Do you want consulting provider notified?: Already Contacted Primary care physician: Blake Patiño - Discharge Diagnosis(es) (1) Primary osteoarthritis of right hip Current Visit: Yes Status: Acute (2) Status post total replacement of right hip Current Visit: Yes Status: Acute Hospital Course: This is a 83-year-old male with known history of degenerative arthritis of the right hip. The patient presents for evaluation. After discussion and consideration patient elects to proceed with total hip arthroplasty. The patient is seen preoperatively by Dr. Joaquin and medically cleared for surgery by their primary care physician. Patient is admitted to [facility] on 10/27/2018 for total hip arthroplasty. The procedures performed without complication or sequelae. The patient is doing well postoperatively. Labs and vital signs are stable on day of discharge. On day of discharge patient's hip incision is healing well. There is minimal erythema. There is no drainage noted at this time. There is minimal soft tissue swelling to the hip and thigh. Patient has full foot and ankle motion without difficulty or pain. Neurovascular status to the right lower extremity is intact. Patient is discharged to rehab in good condition. Please see med rec for accurate list of home medications. Plan - Discharge Summary Discharge Rx Participant: Yes New Discharge Prescriptions: New HYDROcodone/APAP 5-325MG [[place] 5-325] 1 - 2 tab PO Q4-6H PRN #84 tab PRN Reason: Pain Sennosides [Senokot] 1 tab PO BID #60 tablet No Action Metoprolol Succinate [Toprol XL] 100 mg PO HS amLODIPine BESYLATE [Norvasc] 5 mg PO HS Levothyroxine Sodium [Levoxyl] 75 mcg PO QAM Warfarin [Coumadin] 5 mg PO SUWEFR Simvastatin [Zocor] 20 mg PO HS Cholecalciferol [Vitamin D3] 1,000 unit PO DAILY Acetaminophen Tab [Tylenol] 650 mg PO Q6HR PRN #0 tab PRN Reason: Mild Pain HYDROcodone/APAP 5-325MG [[place] 5-325] 1 each PO Q4HR PRN #10 tab PRN Reason: Pain Losartan [Cozaar] 50 mg PO HS Warfarin [Coumadin] 2.5 mg PO MOTUTHSA Discharge Medication List Cholecalciferol [Vitamin D3] 1,000 unit PO DAILY 06/09/15 [History] Levothyroxine Sodium [Levoxyl] 75 mcg PO QAM 06/09/15 [History] Metoprolol Succinate [Toprol XL] 100 mg PO HS 06/09/15 [History] Simvastatin [Zocor] 20 mg PO HS 06/09/15 [History] Warfarin [Coumadin] 5 mg PO SUWEFR 06/09/15 [History] amLODIPine BESYLATE [Norvasc] 5 mg PO HS 06/09/15 [History] Acetaminophen Tab [Tylenol] 650 mg PO Q6HR PRN #0 tab 06/14/15 [Rx] HYDROcodone/APAP 5-325MG [[place] 5-325] 1 each PO Q4HR PRN #10 tab 06/14/15 [Rx] Losartan [Cozaar] 50 mg PO HS 10/21/18 [History] Warfarin [Coumadin] 2.5 mg PO MOTUTHSA 10/21/18 [History] HYDROcodone/APAP 5-325MG [[place] 5-325] 1 - 2 tab PO Q4-6H PRN #84 tab 10/29/18 [ Rx] Sennosides [Senokot] 1 tab PO BID #60 tablet 10/29/18 [Rx] Follow up Appointment(s)/Referral(s): [facility], [NON-STAFF] - As Needed Blake Patiño MD [Primary Care Provider] - 1 Week [facility], [NON-STAFF] - As Needed Juan Luis Joaquin DO [Doctor of Osteopathic Medicine] - 2 Weeks Activity/Diet/Wound Care/Special Instructions: Weightbearing as tolerated with walker. DVT prophylaxis with Coumadin. Coumadin dosing per internal medicine. Leave dressing intact. Dressing may be removed by home care nurse in 10 days. May shower with dressing on. Please follow-up with [facility] in 2 weeks and call with any questions or concerns, . Discharge Disposition: TRANSFER TO SNF/ECF
[2018-10-30 11:57] LABS: Glucose,Whole Blood 101 mg/dL (75-99)
--- NOTE | 2018-10-30 13:58 | P.PN ---
Subjective Progress Note Date: 10/30/18 This is an 83-year-old male patient of Dr. Blake Patiño with past history of chronic atrial fibrillation on Coumadin, diabetes mellitus type 2, hyperlipidemia, hypothyroidism, history of prostate, liver and lung cancers all primary status post resections. Patient did receive chemotherapy with lung cancer. No radiation treatment. Past history for pacemaker placement in 2004 with battery replacement 2017, heart catheterization and stent done in 2005. Patient was brought into the hospital by Dr. Joaquin and is status post right total hip arthroplasty with anterior approach. Patient states his pain is currently controlled. He denies having any chest pain, shortness of breath, lightheadedness dizziness, no abdominal pain, nausea is improved. No diarrhea. Patient's is at the bedside. Medication reconciliation completed. Noted blood pressures on the low side and losartan will be held for today, parameters placed on amlodipine for bedtime dose. 10/28: Patient states that he is feeling well this morning and pain is well controlled. He is ambulating in the hallway and back without difficulty. He has had no difficulty with urination. No bowel movement yet. White count was 15.4, hemoglobin 13.9, INR 1.2, pharmacy is dosing Coumadin. Blood sugars running between 128 and 235. Patient states that he was hoping to go to subacute rehab but he is doing so well that he'll probably have to go home with homecare. Discharge is planned for tomorrow. 10/29: Patient remains afebrile, heart rate running in the 60s and 70s, blood pressure 115/88. INR is 1.2. Patient is hoping to go to subacute rehab tomorrow. He is complaining of some abdominal discomfort which was thought to be related to positioning for his surgery at across the mid abdomen. The patient has not had a bowel movement since admission. MiraLAX will be added to his stool softeners. Anticipate discharge tomorrow. 10/30: Patient denies any new complaints. Pain is currently controlled. He did have a bowel movement today. INR is at 1.3 and patient will be placed on Lovenox for the next 3 days and Coumadin will be at 5 mg daily and then resume his normal dosing. Repeat INR on Friday. Medication reconciliation has been reviewed. Patient is scheduled for discharge to [facility] today in stable condition. Review of Systems All systems: negative Constitutional: Denies anorexia, Denies chills, Denies fatigue, Denies fever, Denies lethargy, Denies malaise, Denies poor appetite Eyes: denies blurred vision, denies pain Ears, nose, mouth and throat: Denies dental pain, Denies headache, Denies hoarseness, Denies mouth pain, Denies nasal congestion, Denies sore throat, Denies vertigo Cardiovascular: Denies chest pain, Denies decreased exercise tolerance, Denies dyspnea on exertion, Denies edema, Denies leg edema, Denies shortness of breath , Denies syncope Respiratory: Denies cough, Denies cough with sputum, Denies dyspnea, Denies excessive sputum, Denies hemoptysis, Denies home oxygen, Denies wheezing Gastrointestinal: Denies abdominal pain, Denies diarrhea, Denies loss of appetite, Denies melena, Denies nausea, Denies vomiting, constipation resolved Genitourinary: Denies dysuria, Denies urinary frequency Musculoskeletal: Denies frequent falls, Denies gait dysfunction, Denies muscle weakness, Denies myalgias, denies hip pain Integumentary: Denies color changes, Denies darkening of skin, Denies pruritus, Denies rash Neurological: Denies aphasia, Denies change in mentation, Denies change in speech, Denies confusion, Denies gait dysfunction, Denies head injury, Denies headaches, Denies numbness, Denies seizures, Denies weakness Psychiatric: Denies anxiety, Denies depression Endocrine: Denies fatigue, Denies weight change Objective - Vital Signs Vital signs: Vital Signs Temp 98.9 F 10/30/18 07:58 Pulse 71 10/30/18 07:58 Resp 16 10/30/18 07:58 BP 94/61 10/30/18 07:58 Pulse Ox 97 10/30/18 07:58 Intake & Output 10/29/18 10/30/18 10/30/18 18:59 06:59 18:59 Intake Total 280 Balance 280 Intake: Oral 280 Other: # Voids 2 2 1 - Exam Gen: This is an 83-year-old male. He is sitting up in recliner and appears to be comfortable and in no acute distress. HEENT: Head is atraumatic, normocephalic. Pupils equal, round. Sclerae is anicteric. NECK: Supple. No JVD. No lymphadenopathy. No thyromegaly. LUNGS: Clear to auscultation. No wheezes or rhonchi. No intercostal retractions. HEART: Regular rate and rhythm. No murmur. ABDOMEN: Soft. Bowel sounds are present. No masses. No tenderness. EXTREMITIES: No pedal edema. No calf tenderness. Small dressing in place to the right hip with no breakthrough bleeding or drainage. NEUROLOGICAL: Patient is awake, alert and oriented x3. Cranial nerves 2 through 12 are grossly intact. - Labs CBC & Chem 7: 10/30/18 07:24 10/27/18 07:04 Labs: Abnormal Lab Results - Last 24 Hours (Table) 10/29/18 10/29/18 10/30/18 Range/Units 17:32 20:13 07:11 WBC (3.8-10.6) k/uL MCV (80.0-100.0) fL Plt Count (150-450) k/uL PT (9.0-12.0) sec INR (<1.2) POC Glucose (mg/dL) 139 H 107 H 103 H (75-99) mg/dL 10/30/18 10/30/18 10/30/18 Range/Units 07:24 07:24 11:44 WBC 12.6 H (3.8-10.6) k/uL MCV 100.1 H (80.0-100.0) fL Plt Count 124 L (150-450) k/uL PT 13.7 H (9.0-12.0) sec INR 1.3 H (<1.2) POC Glucose (mg/dL) 101 H (75-99) mg/dL Assessment and Plan Plan: 1. Severe osteoarthritis of the right hip status post right total hip arthroplasty direct anterior approach. Patient has had no postop complications. Continue current pain management, PT OT per orthopedics, incentive spirometry to reduce incidence of atelectasis and hospital-acquired pneumonia. 2. Chronic atrial fibrillation. Continue Coumadin-pharmacy dosing, metoprolol succinate 100 mg at bedtime. At [facility], patient will be placed on Lovenox for the next 3 days and Coumadin will be at 5 mg daily and then resume his normal dosing. Repeat INR on Friday. 3. Hypertension. Continue Norvasc 5 mg at bedtime, Toprol-XL 100 mg at bedtime , losartan 50 mg will be held as blood pressures on the low side. 4. Hypothyroidism. Continue levothyroxine 75 g daily. 5. Hyperlipidemia. Continue simvastatin 20 mg at bedtime. 6. GI prophylaxis. Pepcid. 7. DVT prophylaxis. Coumadin. 8. Constipation. MiraLAX added to stool softeners. Discharge plan: [facility]. Impression and plan of care have been directed as dictated by the signing physician. Joceline Hoyos nurse practitioner acting as scribe for signing physician.
[2018-10-30] MEDS ORDERED: WARFARIN 3 MG TAB PO ONE (18:00)
== END 2018-10-30 14:15 | DRG 470 ==
LOC: 2ORMAIN 10-27 06:07 → 4SSUR 10-27 09:02
PROVIDERS: ADMIT Orthopaedic Surgery; ATTEND Orthopaedic Surgery
PROC: 30233N0 Transfusion of Autologous Red Blood Cells into Peripheral Vein, Percutaneous Approach (ICD-10-PCS; 2018-10-27)
PROC: 0SR906A Replacement of Right Hip Joint with Oxidized Zirconium on Polyethylene Synthetic Substitute, Uncemented, Open Approach (ICD-10-PCS; principal; 2018-10-27 07:00)
DX: M16.11 Unilateral primary osteoarthritis, right hip (principal); I48.2 Chronic atrial fibrillation; E11.9 Type 2 diabetes mellitus without complications; E03.9 Hypothyroidism, unspecified; E78.2 Mixed hyperlipidemia; I25.10 Atherosclerotic heart disease of native coronary artery without angina pectoris; K59.00 Constipation, unspecified; Z79.01 Long term (current) use of anticoagulants; Z79.890 Hormone replacement therapy; Z79.899 Other long term (current) drug therapy; Z85.118 Personal history of other malignant neoplasm of bronchus and lung; Z96.651 Presence of right artificial knee joint; Z95.0 Presence of cardiac pacemaker; Z87.891 Personal history of nicotine dependence; Z85.46 Personal history of malignant neoplasm of prostate; Z85.05 Personal history of malignant neoplasm of liver; Z90.2 Acquired absence of lung [part of]; Z90.79 Acquired absence of other genital organ(s); Z90.49 Acquired absence of other specified parts of digestive tract; Z95.5 Presence of coronary angioplasty implant and graft; Z88.7 Allergy status to serum and vaccine; Z92.21 Personal history of antineoplastic chemotherapy; Z80.1 Family history of malignant neoplasm of trachea, bronchus and lung; Z81.2 Family history of tobacco abuse and dependence; Z83.3 Family history of diabetes mellitus
CPT/HCPCS: 73501; 84132; 85025; 85610; 86850; 86891; 86900; 86901; 88305; 88311

== ENCOUNTER → 2018-10-16 | Outpatient (CLI) | payer MEDICARE ==
[2018-10-16 14:56] LABS: HGB 16.6 gm/dL (13.0-17.5); MCH 31.8 pg (25.0-35.0); MCHC 31.9 g/dL (31.0-37.0); MCV 99.6 fL (80.0-100.0); Mean Platelet Volume 7.5; Platelet Count 128 k/uL (150-450); RBC 5.22 m/uL (4.30-5.90); RDW 13.8 % (11.5-15.5); WBC 9.2 k/uL (3.8-10.6)
[2018-10-16 15:04] LABS: Appearance,Urine Clear (Clear); Bilirubin,Urine Negative (Negative); Blood,Urine Negative (Negative); Color,Urine Yellow; Glucose,Urine (UA) Negative (Negative); Ketones,Urine Negative (Negative); Leukocyte Esterase,Urine Small (Negative); Mucus,Urine Occasional /hpf; Nitrite,Urine Negative (Negative); Protein,Urine Trace (Negative); RBC,Urine <1 /hpf (0-5); Squamous Epithelial Cell,Urine 3 /hpf (0-4); Urobilinogen,Urine <2.0 mg/dL (<2.0); WBC,Urine 3 /hpf (0-5)
[2018-10-16 15:05] LABS: ALT 45 U/L (21-72); AST 53 U/L (17-59); Albumin 4.4 g/dL (3.5-5.0); Alkaline Phosphatase 135 U/L (38-126); Anion Gap 6 mmol/L; Blood Urea Nitrogen 18 mg/dL (9-20); Calcium 9.7 mg/dL (8.4-10.2); Carbon Dioxide 28 mmol/L (22-30); Chloride 108 mmol/L (98-107); Glucose 93 mg/dL (74-99); Potassium 5.5 mmol/L (3.5-5.1); Sodium 142 mmol/L (137-145); Total Bilirubin 0.9 mg/dL (0.2-1.3); Total Protein 7.4 g/dL (6.3-8.2)
[2018-10-16 15:10] LABS: INR 1.7 (<1.2); Prothrombin Time 17.2 sec (9.0-12.0)
== END | disposition home or self-care (01) ==
LOC: LABPAT 13:40
PROVIDERS: ATTEND Orthopaedic Surgery
DX: Z01.812 Encounter for preprocedural laboratory examination (principal); Z79.01 Long term (current) use of anticoagulants
CPT/HCPCS: 36415; 80053; 81001; 85027; 85610; 85730; 86850; 86900; 86901

== ENCOUNTER 2018-12-30 12:24 | Emergency (ER) | payer MEDICARE ==
[2018-12-30 12:56] VITALS: TEMP 97.4
--- NOTE | 2018-12-30 13:46 | ED ---
Eye Problem HPI - General Chief complaint: Eye Problems Stated complaint: Rt eye vision problems Time Seen by Provider: 12/30/18 13:05 Source: patient Mode of arrival: ambulatory Limitations: no limitations - History of Present Illness Initial comments: 83-year-old male past medical history of atrial fibrillation on warfarin with subtherapeutic INR of 1.2 presents today as sent by ophthalmology for evaluation of BRAO. Patient states that on he has been following ophthalmology due to retinal scarring of the left eye for the past 4 months. She states he presented for evaluation of vision change of the right eye. Patient states Friday around 5:30 the whole room 18 bright blue he states this lasted 15 minutes and went away. He states he then noticed a curtaining of the top of the right eye. Patient states this has stayed constant since Friday. Patient was evaluated today eye doctor Murray, the neurologist specializing in retina's. 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 Patient states he felt it be helpful to have his INR checked prior to presentation. He states he stopped the clinic where he has his INR checked revealing an INR of 1.2. Patient then presented to the ER for evaluation. Both eyes dilated by ophthalmology. Patient denies any muscle weakness, speech changes, paresthesias or sensation deficit denies any differences of facial expressions, difficulty speaking or articulating sentences he denies any acute changes of the left eye, headache, nausea, vomiting, chest pain, dyspnea, dyspepsia exertion. Patient states he feels like his usual self aside from the right upper visual loss that has been present since Friday. - Related Data Home Medications Medication Instructions Recorded Confirmed Cholecalciferol [Vitamin D3] 1,000 unit PO DAILY 06/09/15 10/27/18 Levothyroxine Sodium [Levoxyl] 75 mcg PO QAM 06/09/15 10/27/18 Metoprolol Succinate [Toprol XL] 100 mg PO HS 06/09/15 10/27/18 Simvastatin [Zocor] 20 mg PO HS 06/09/15 10/27/18 Warfarin [Coumadin] 5 mg PO SUWEFR 06/09/15 10/27/18 Losartan [Cozaar] 50 mg PO HS 10/21/18 10/27/18 Warfarin [Coumadin] 2.5 mg PO MOTUTHSA 10/21/18 10/27/18 Atenolol [Tenormin] 50 mg PO HS 12/30/18 12/30/18 Previous Rx's Medication Instructions Recorded Acetaminophen Tab [Tylenol] 650 mg PO Q6HR PRN #0 tab 06/14/15 HYDROcodone/APAP 5-325MG [[place] 1 - 2 tab PO Q4-6H PRN #84 tab 10/29/18 5-325] Allergies Allergy/AdvReac Type Severity Reaction Status Date / Time No Known Allergies Allergy Verified 12/30/18 13:53 Review of Systems ROS Statement: Those systems with pertinent positive or pertinent negative responses have been documented in the HPI. ROS Other: All systems not noted in ROS Statement are negative. Past Medical History Past Medical History: Cancer, Diabetes Mellitus, Hyperlipidemia, Prostate Disorder, Thyroid Disorder Additional Past Medical History / Comment(s): SOB, hx prostate,liver,lung cancer, see Dr Ambrosio H&P, diet control diabetic History of Any Multi-Drug Resistant Organisms: None Reported Past Surgical History: Heart Catheterization, Heart Catheterization With Stent, Joint Replacement, Orthopedic Surgery, Pacemaker, Prostate Surgery, Tonsillectomy Additional Past Surgical History / Comment(s): removal of rt lobe of liver, upper left lobe of lung removed, rt knee replacement, left arm-fx, Past Anesthesia/Blood Transfusion Reactions: No Reported Reaction Date of Last Stent Placement:: 2005 Type of Cardiac Device: Permanent Pacemaker Device Placement Date:: 2005 Past Psychological History: No Psychological Hx Reported Smoking Status: Former smoker Past Alcohol Use History: Daily Past Drug Use History: None Reported - Past Family History Mother Additional Family Medical History / Comment(s): Mother from complications of diabetes. No history of cancer. Brother(s) Additional Family Medical History / Comment(s): Patient has one brother and 4 sisters with no major medical problems. Patient has 2 sons with no major medical problems. No cancers. Father Family Medical History: Cancer Additional Family Medical History / Comment(s): Father from lung cancer with history of heavy smoking. General Exam - General Exam Comments Initial Comments: General: The patient is awake and alert, in no distress, and does not appear acutely ill. Eye: +5mm pupils are equal, round and reactive to light, extra-ocular movements are intact. No nystagmus. There is normal conjunctiva bilaterally. No signs of icterus. (chemically dilated, prior to arrival) Ears, nose, mouth and throat: There are moist mucous membranes and no oral lesions. Neck: The neck is supple, there is no tenderness or JVD. Cardiovascular: There is a regular rate and rhythm. No murmur, rub or gallop is appreciated. Respiratory: Lungs are clear to auscultation, respirations are non-labored, breath sounds are equal. No wheezes, stridor, rales, or rhonchi. Gastrointestinal: Soft, non-distended, non-tender abdomen without masses or organomegaly noted. There is no rebound or guarding present. No CVA tenderness. Bowel sounds are unremarkable. Musculoskeletal: Normal ROM, no tenderness. Strength 5/5. Sensation intact. Pulses equal bilaterally 2+. Neurological: A&O x 3. CN II-XII intact,memory intact to immediately, intermedi ate and airline lounge receptionist recall. Able to follow simple verbal. Able to name a common object (pen). High quality, labial (pa) and lingual (la) speech. Low quality posterior pharynx/larynx (ga) voice sounds. Able to express general knowledge (days in a week). No hemineglect or inattention noted. Finger agnosia (-) and spatially oriented. Light touch and temperature sensation present over the face, chest, abdomen, back, UE bilaterally, and LE bilaterally. Able to localize point during point localization b/l and extinction. No visible bulk atrophy, hypertrophy, fasciculations, or myoclonus of the UE or LE b/l. Full PROM in UE and LE b/l. Bilateral muscle strength 5/5 for the following muscles: deltoid, biceps, triceps, brachioradialis, wrist extensors/flexor, hip flexor, hip abductors/adductors, hamstrings, quadriceps, feet dorsiflexors/plantar flexors. Finger to nose, finger to the examiners finger, and heel to matthews coordinated and accurate b/l. Coordinated and even demonstration of hand flip, finger to thumb, and toe tap b/l. (-) pronator drift. No nuchal rigidity. (-) Brudzinskis and Kernig signs . Skin: Skin is warm and dry and no rashes or lesions are noted. Psychiatric: Cooperative, appropriate mood & affect, normal judgment. Limitations: no limitations Course Vital Signs 12/30/18 12:52 Temperature 97.4 F L Pulse Rate 78 Respiratory 16 Rate Blood Pressure 110/74 O2 Sat by Pulse 96 Oximetry Medical Decision Making - Medical Decision Making 83-year-old male presenting today for chief complaint of sent by ophthalmology. Patient was sent for evaluation of branch retinal artery occlusion. Of the right eye. This appears acute, patient has history of atrial fibrillation most likely cause. Patient has been subtherapeutic on INR. Patient has no focal neurological deficits on examination aside from visual field defect of upper right ceja. Remaining ROS (-). CT (-). US pending. His time given we have no neurology available for consult patient be transferred to facility with both ophthalmology and neurology available for consultation. [facility] accepted transfer via EMS-Dr. Stephens. I discussed the case with attending provider Dr. Joiner prior to patient's transfer. Patient remained stable in the emergency department transferred appearing well. - Lab Data Result diagrams: 12/30/18 13:18 12/30/18 13:18 Lab Results 12/30/18 12/30/18 12/30/18 Range/Units 13:18 13:18 13:18 WBC 10.2 (3.8-10.6) k/uL RBC 5.35 (4.30-5.90) m/uL Hgb 16.1 (13.0-17.5) gm/dL Hct 51.7 (39.0-53.0) % MCV 96.6 (80.0-100.0) fL MCH 30.0 (25.0-35.0) pg MCHC 31.1 (31.0-37.0) g/dL RDW 14.8 (11.5-15.5) % Plt Count 148 L (150-450) k/uL Neutrophils % 58 % Lymphocytes % 31 % Monocytes % 6 % Eosinophils % 2 % Basophils % 0 % Neutrophils # 5.9 (1.3-7.7) k/uL Lymphocytes # 3.2 (1.0-4.8) k/uL Monocytes # 0.6 (0-1.0) k/uL Eosinophils # 0.2 (0-0.7) k/uL Basophils # 0.0 (0-0.2) k/uL PT 15.0 H (9.0-12.0) sec INR 1.5 H (<1.2) APTT 27.6 (22.0-30.0) sec Sodium 141 (137-145) mmol/L Potassium 4.8 (3.5-5.1) mmol/L Chloride 105 (98-107) mmol/L Carbon Dioxide 29 (22-30) mmol/L Anion Gap 7 mmol/L BUN 19 (9-20) mg/dL Creatinine 0.76 (0.66-1.25) mg/dL Est GFR (CKD-EPI)AfAm >90 (>60 ml/min/1.73 sqM) Est GFR (CKD-EPI)NonAf 85 (>60 ml/min/1.73 sqM) Glucose 93 (74-99) mg/dL Calcium 9.7 (8.4-10.2) mg/dL Total Bilirubin 0.9 (0.2-1.3) mg/dL AST 39 (17-59) U/L ALT 47 (21-72) U/L Alkaline Phosphatase 220 H (38-126) U/L Total Protein 7.8 (6.3-8.2) g/dL Albumin 4.6 (3.5-5.0) g/dL Ventricular rate 61 bpm, QRS duration 112 ms, QT/QTC 450/453. This is atrial fibrillation with PVCs. Left axis. Incomplete LBBB. No previous EKG for comparison. Nonspecific ST. 12/30/18 14:21 Disposition Clinical Impression: Branch retinal artery occlusion of right eye, Posterior vitreous detachment of both eyes Disposition: OTHER INSTITUTION NOT DEFINED Condition: Stable Is patient prescribed a controlled substance at d/c from ED?: No Referrals: Blake Patiño MD [Primary Care Provider] - 1-2 days Time of Disposition: 14:20 - Out of Hospital Transfer - Req. Specs Out of Hospital Transfer - Requested Specifics: Other Emergency Center ([facility])
[2018-12-30 13:49] LABS: Basophils % (A) 0 %; Eosinophils # (A) 0.2 k/uL (0-0.7); Eosinophils % (A) 2 %; HCT 51.7 % (39.0-53.0); HGB 16.1 gm/dL (13.0-17.5); Lymphocytes # (A) 3.2 k/uL (1.0-4.8); Lymphocytes % (A) 31 %; MCHC 31.1 g/dL (31.0-37.0); MCV 96.6 fL (80.0-100.0); Mean Platelet Volume 7.8; Monocytes # (A) 0.6 k/uL (0-1.0); Monocytes % (A) 6 %; Neutrophils # (A) 5.9 k/uL (1.3-7.7); Neutrophils % (A) 58 %; Platelet Count 148 k/uL (150-450); RBC 5.35 m/uL (4.30-5.90); RDW 14.8 % (11.5-15.5); WBC 10.2 k/uL (3.8-10.6)
--- NOTE | 2018-12-30 13:55 | CT ---
EXAMINATION TYPE: CT brain wo con DATE OF EXAM: 12/30/2018 COMPARISON: None HISTORY: 83-year-old male with right eye vision disturbance, abn eye exam, branch retinal artery occl usion TECHNIQUE: Examination was done in axial plane without intravenous contrast. Coronal and sagittal r econstructions performed. CT DLP: 1094.4 mGycm Automated exposure control for dose reduction was used. FINDINGS: There is no evidence of acute intracranial hemorrhage, acute ischemic changes, mass, mass-effect, or extra-axial fluid collection. There is no effacement of cerebral sulci or basal subarachnoid cister ns. There is no hydrocephalus. There is no midline shift. Camacho-white matter distinction is preserv ed. Mild age-related cerebral cortical atrophy. Mild mucosal thickening right maxillary sinus and trace within the ethmoid air cells. Bilateral cataract surgery. Orbits and globes otherwise appear intact. Mastoid air cells well pneumat ized. IMPRESSION: Age-related mild cerebral atrophy. No acute intracranial abnormality seen. Mild chronic right maxilla ry sinus disease.
[2018-12-30 14:01] LABS: ALT 47 U/L (21-72); AST 39 U/L (17-59); Albumin 4.6 g/dL (3.5-5.0); Alkaline Phosphatase 220 U/L (38-126); Anion Gap 7 mmol/L; Blood Urea Nitrogen 19 mg/dL (9-20); Calcium 9.7 mg/dL (8.4-10.2); Carbon Dioxide 29 mmol/L (22-30); Chloride 105 mmol/L (98-107); Glucose 93 mg/dL (74-99); Potassium 4.8 mmol/L (3.5-5.1); Sodium 141 mmol/L (137-145); Total Bilirubin 0.9 mg/dL (0.2-1.3); Total Protein 7.8 g/dL (6.3-8.2)
[2018-12-30 14:04] LABS: INR 1.5 (<1.2); Partial Thromboplastin Time 27.6 sec (22.0-30.0)
[2018-12-30 14:50] LABS: Erythrocyte Sedimentation Rate 7 mm/hr (0-15)
--- NOTE | 2018-12-30 15:05 | US ---
EXAMINATION TYPE: US carotid duplex BILAT DATE OF EXAM: 12/30/2018 COMPARISON: NONE CLINICAL HISTORY: Pain. right eye visual disturbance EXAM MEASUREMENTS: RIGHT: Peak Systolic Velocity (PSV) cm/sec ----- Right CCA: 42.7 ----- Right ICA: 124.2 ----- Right ECA: 49.4 ICA/CCA ratio: 2.9 RIGHT: End Diastole cm/sec ----- Right CCA: 11.3 ----- Right ICA: 54.8 ----- Right ECA: 7.6 LEFT: Peak Systolic Velocity (PSV) cm/sec ----- Left CCA: 49.0 ----- Left ICA: 56.6 ----- Left ECA: 59.4 ICA/CCA ratio: 1.2 LEFT: End Diastole cm/sec ----- Left CCA: 14.1 ----- Left ICA: 25.4 ----- Left ECA: 7.5 VERTEBRALS (direction of flow): Right Vertebral: Antegrade Left Vertebral: Antegrade Rhythm: Normal Moderate atherosclerotic changes bilaterallly bulbs extending into proximal ICAs Stenosis noted on right. IMPRESSION: 1. Right internal carotid artery stenosis is present and estimated by criteria to be 50-69%. 2. No hemodynamically significant stenosis on the left with moderate atherosclerosis of the common ca rotid artery on the left. Criteria for Assigning % of Stenosis / Diameter reduction (Estimation based on the indirect measurements of the internal carotid artery velocities (ICA PSV). 1. Normal (no stenosis)=ICA PSV < 125 cm/s: ratio < 2.0: ICA EDV<40 cm/s. 2. Less than 50% stenosis=ICA PSV < 125 cm/s: ratio < 2.0: ICA EDV<40 cm/s. 3. 50 to 69% stenosis=ICA PSV of 125 to 230 cm/s: ration 2.0 ? 4.0: ICA EDV 40-100 cm/s. 4. Greater than 70% stenosis to near occlusion= ICA PSV > 230 cm/s: ratio > 4.0: ICA EDV > 100 cm/s. 5. Near occlusion= ICA PSV velocities may be low or undetectable: variable ratio and ICA EDV. 6. Total occlusion=unable to detect flow.
[2018-12-30 17:12] VITALS: BP 131/78; PULSE 80; RESP 18
== END 2018-12-30 17:24 | disposition other institution (70) ==
LOC: EC 12:24
DX: H34.231 Retinal artery branch occlusion, right eye (principal); H43.813 Vitreous degeneration, bilateral; E78.5 Hyperlipidemia, unspecified; E07.9 Disorder of thyroid, unspecified; I48.91 Unspecified atrial fibrillation; Z85.46 Personal history of malignant neoplasm of prostate; Z85.118 Personal history of other malignant neoplasm of bronchus and lung; Z85.05 Personal history of malignant neoplasm of liver; Z95.818 Presence of other cardiac implants and grafts; Z95.5 Presence of coronary angioplasty implant and graft; Z95.0 Presence of cardiac pacemaker; Z96.651 Presence of right artificial knee joint; Z87.891 Personal history of nicotine dependence; Z79.890 Hormone replacement therapy; Z79.01 Long term (current) use of anticoagulants; Z79.899 Other long term (current) drug therapy
CPT/HCPCS: 36415; 70450; 80053; 85025; 85610; 85652; 85730; 86140; 93880; 99285

== ENCOUNTER → 2020-03-13 | Outpatient (CLI) | payer MEDICARE ==
[2020-03-13 18:00] LABS: African American GFR (CKD) 80.3 (60.0-200.0); Albumin 4.3 g/dL (3.80-4.90); Albumin/Globulin Ratio 1.79 (1.60-3.17); Anion Gap 5.9 mmol/L (4.00-12.00); Calcium 9.5 mg/dL (8.7-10.3); Carbon Dioxide 29.1 mmol/L (21.6-31.8); Globulin 2.4 g/dL (1.6-3.3); Non-African American GFR(CKD) 69.3 (60.0-200.0); Potassium 4.9 mmol/L (3.5-5.5); Total Bilirubin 1.3 mg/dL (0.3-1.2); Total Protein 6.7 g/dL (6.2-8.2)
== END | disposition home or self-care (01) ==
LOC: LABWHC1 10:48
PROVIDERS: ATTEND Family Medicine
DX: I10 Essential (primary) hypertension (principal); E11.9 Type 2 diabetes mellitus without complications; E55.9 Vitamin D deficiency, unspecified
CPT/HCPCS: 36415; 80053; 82306; 83036; 84443

== ENCOUNTER → 2020-03-13 | Outpatient (CLI) | payer MEDICARE ==
[2020-03-13 11:38] LABS: Basophils % (A) 0 %; Eosinophils # (A) 0.3 k/uL (0-0.7); Eosinophils % (A) 2 %; HCT 46.6 % (39.0-53.0); HGB 15.2 gm/dL (13.0-17.5); Lymphocytes # (A) 4.3 k/uL (1.0-4.8); Lymphocytes % (A) 35 %; MCH 32.3 pg (25.0-35.0); MCHC 32.6 g/dL (31.0-37.0); MCV 99.3 fL (80.0-100.0); Mean Platelet Volume 7.7; Monocytes # (A) 0.8 k/uL (0-1.0); Monocytes % (A) 7 %; Neutrophils # (A) 6.5 k/uL (1.3-7.7); Neutrophils % (A) 54 %; Platelet Count 105 k/uL (150-450); RBC 4.69 m/uL (4.30-5.90); RDW 14.8 % (11.5-15.5); WBC 12.1 k/uL (3.8-10.6)
== END | disposition home or self-care (01) ==
LOC: LABWHC1 10:44
PROVIDERS: ATTEND Internal Medicine Cardiovascular Disease
DX: Z01.818 Encounter for other preprocedural examination (principal); I20.0 Unstable angina
CPT/HCPCS: 85025; 36415; U0003; 80053; 82306; 83036; 84443

== ENCOUNTER 2020-03-15 09:26 | Day surgery (SDC) | payer MEDICARE ==
[2020-03-14 08:47] VITALS: BMI 38.7
[~2020-03-15 09:26] MED LIST: ALPRAZolam 0.25 MG TAB PO PRN; ALPRAZolam 0.5 MG TAB PO PRN; ASPIRIN 325 MG TAB PO STA; ATORVASTATIN 80 MG TAB PO STA; NITROGLYCERIN SL TABS 0.4 MG TAB SUBLINGUAL PRN; SODIUM CHLORIDE 0.9% 1,000 ML in EMPTY BAG 1 BAG IV ONE
[2020-03-15] MEDS ORDERED: ASPIRIN 81 MG ONE (09:59)
[2020-03-15 10:19] LABS: Glucose,Whole Blood 127 mg/dL (75-99)
[2020-03-15] MEDS ORDERED: SODIUM CHLORIDE 0.9% 1,000 ML IV ONE (10:27)
[2020-03-15 10:29] LABS: Basophils % (A) 0 %; Eosinophils # (A) 0.3 k/uL (0-0.7); Eosinophils % (A) 3 %; HCT 46.3 % (39.0-53.0); HGB 14.7 gm/dL (13.0-17.5); Lymphocytes % (A) 40 %; MCH 31.2 pg (25.0-35.0); MCHC 31.7 g/dL (31.0-37.0); MCV 98.3 fL (80.0-100.0); Mean Platelet Volume 7.9; Monocytes # (A) 0.6 k/uL (0-1.0); Monocytes % (A) 6 %; Neutrophils # (A) 4.8 k/uL (1.3-7.7); Neutrophils % (A) 48 %; Platelet Count 119 k/uL (150-450); RBC 4.71 m/uL (4.30-5.90); RDW 14.9 % (11.5-15.5); WBC 9.9 k/uL (3.8-10.6)
[2020-03-15] MEDS ORDERED: LIDOCAINE 1% INJ 10MG/ML (20 ML MDV) ONE (10:50)
[2020-03-15] MEDS ORDERED: fentaNYL (PF) 50 MCG/ML 2 ML AMP ONE (10:51)
[2020-03-15] MEDS ORDERED: MIDAZOLAM 2 MG/2 ML VIAL IV ONE (10:57)
[2020-03-15] MEDS ORDERED: LIDOCAINE 1% INJ 10MG/ML (20 ML MDV) SQ ONE (10:57)
[2020-03-15] MEDS ORDERED: BIVALIRUDIN BOLUS 250 MG/50 ML IV ONE (11:30)
[2020-03-15] MEDS ORDERED: BIVALIRUDIN 250 MG in SODIUM CHLORIDE 0.9% 50 ML IV ONE (11:32)
[2020-03-15] MEDS ORDERED: IOPAMIDOL-370 125ML BTL INJ ONE (11:37)
[2020-03-15] MEDS ORDERED: CLOPIDOGREL 75 MG TAB ONE (11:50)
[2020-03-15] MEDS ORDERED: NITROGLYCERIN 1000MCG/10ML SYRINGE INTRACORON ONE (11:50)
[2020-03-15] MEDS ORDERED: niCARdipine 25 MG/10 ML VIAL ONE (11:52)
[2020-03-15] MEDS ORDERED: niCARdipine Syringe (1,000 mcg/10 mL) INTRACORON ONE (11:53)
[2020-03-15] MEDS ORDERED: CLOPIDOGREL 75 MG TAB PO ONE (11:53)
[2020-03-15] MEDS ORDERED: MAG HYDROX/AL HYDROX/SIMETH 30 ML CUP PO PRN (12:00)
[2020-03-15] MEDS ORDERED: ATROPINE SULFATE 0.1 MG/ML 10ML SYRINGE IV PRN (12:00)
[2020-03-15] MEDS ORDERED: SODIUM CHLORIDE 0.9% 1,000 ML IV SCH (12:00)
[2020-03-15] MEDS ORDERED: NITROGLYCERIN SL TABS 0.4 MG TAB SUBLINGUAL PRN (12:00)
[2020-03-15] MEDS ORDERED: ZOLPIDEM 5 MG TAB PO PRN (12:00)
[2020-03-15] MEDS ORDERED: RX INFO: IV CONTRAST WAS GIVEN 1 EACH MISC MISCELLANE PRN (12:00)
[2020-03-15] MEDS ORDERED: IOPAMIDOL-370 100ML BTL INJ ONE (12:03)
[2020-03-15] MEDS ORDERED: fentaNYL (PF) 50 MCG/ML 2 ML AMP IV ONE (12:03)
[2020-03-15] MEDS ORDERED: ACETAMINOPHEN TAB 325 MG TAB ONE (12:46)
--- NOTE | 2020-03-15 15:26 | CC ---
CARDIAC CATHETERIZATION REPORT INDICATION: Unstable angina in a patient with known CAD status post prior angioplasty of circumflex coronary artery. PROCEDURE NOTE: After obtaining informed consent, left heart catheterization and coronary angiogram were performed via the right femoral artery using standard Maryann catheters. The patient tolerated the procedure well without any obvious immediate complication. A femoral angiogram was performed. The patient received moderate conscious sedation. Total sedation time was 18 minutes. FINDINGS: HEMODYNAMICS: Left ventricular end-diastolic pressure is 12 mm. There is no gradient across the atrial valve. LEFT VENTRICULOGRAM: Left ventriculogram nephrogram is not performed. ANGIOGRAPHIC DATA LEFT MAIN CORONARY ARTERY: Left main coronary artery is a normal-sized vessel and is free of stenosis. Divides into left anterior descending coronary artery and circumflex coronary artery, Circumflex coronary artery gives off a large caliber OM branch that has a long segment of narrowing in the proximal part, at its worst it seems to be a 70% stenosis. The [place] circumflex continues in the AV groove circumflex and is free of significant disease. There are extensive collaterals to the distal RCA. LAD is a short vessel that does not reach the apex of the heart, shows a mild to moderate atherosclerotic plaque in the proximal portion. Right coronary artery appears totally occluded in the midportion. CONCLUSION: 1. Chronic occlusion of the right coronary artery. 2. Long segment of moderate to severe stenosis involving the OM branch. PLAN: Patient will have angioplasty of the same by Dr. Mane, the on-call chief operating engineer. MMBEENA / CARMELITA: [id number] /
--- NOTE | 2020-03-15 15:32 | LTR ---
DATE OF SERVICE: 03/15/2020 RE: Edwin Jeong Dear Pat; I performed cardiac catheterization on Edwin Jeong. A detailed catheterization note is enclosed for your records. In brief, this 84-year-old gentleman care presented to me with symptoms of unstable angina and underwent cardiac catheterization that revealed a moderate to severe obstructive disease involving the OM branch and he will undergo angioplasty with stent placement of the same. Thank you for giving me the privilege to participate in the care of this pleasant gentleman. Sincerely, MD MALIKA Celis / CARMELITA: [id number] /
--- NOTE | 2020-03-15 16:11 | PTCA ---
PERCUTANEOUSTRANS CORORONARY ANGIOGRAPHY DATE OF SERVICE: 03/15/2020 PERFORMING PHYSICIAN: Nikhil Mane MD. PROCEDURE PERFORMED: Successful stenting of OM1 of the left circumflex using a 3.0 x 18 mm Xience WENDY with an excellent angiographic results and reduction of stenosis from 80% to 0%. INDICATION: This is an 84-year-old gentleman who sees Dr. Khalil in the office as an outpatient with coronary artery disease and prior stenting of the left circumflex as well as hypertension and dyslipidemia who was experiencing symptoms of chest discomfort concerning for angina. He was seen by Dr. Khalil who performed a heart catheterization and that revealed severe disease involving OM1 of the left circumflex. The decision was made toward percutaneous coronary intervention. APPROACH: Right common femoral artery. COMPLICATION: None. LEVEL OF SEDATION: Moderate with sedation length of 26 minutes. PROCEDURE DESCRIPTION: Please refer to diagnostic heart catheterization that was performed by Dr. Khalil earlier today. Anticoagulation was initiated using Angiomax. Subsequently, initially I tried to engage the left main using an XB 3.5 guide, but the guide will not engage the left main in coaxial way and because of that I decided to go with JL 4.5 guide. Subsequently. I did wire the left circumflex and then OM1 using initially a run-through wire and subsequently with a annabelle wire which was a run-through wire because OM1 has a very tortuous takeoff. After that, I did balloon angioplasty using 3.0 x 12 mm balloon which was inflated twice in the OM1 of the left circumflex. Subsequently, I did advance a 3.0 x 18 mm Xience WENDY where the stent was positioned under fluoroscopy guidance and deployed under 18 atmospheres for 20 seconds. The following angiogram showed excellent angiographic results and the procedure was completed without any complication. POSTPROCEDURE MANAGEMENT: 1. Dual anti-platelet therapy. 2. Risk factor modifications. 3. Follow up with the patient. MMODL / IJN: [id number] /
[2020-03-15 20:33] LABS: Glucose,Whole Blood 145 mg/dL (75-99)
[2020-03-15] MEDS ORDERED: CHOLECALCIFEROL 1,000 UNIT TAB PO SCH (21:00)
[2020-03-15] MEDS ORDERED: LOSARTAN 50 MG TAB PO SCH (21:00)
[2020-03-15] MEDS ORDERED: METOPROLOL SUCCINATE (ER) 100 MG TAB.ER.24H PO SCH (21:00)
[2020-03-16 04:42] VITALS: TEMP 98.2
[2020-03-16 06:13] LABS: Glucose,Whole Blood 120 mg/dL (75-99)
[2020-03-16] MEDS ORDERED: LEVOTHYROXINE 75 MCG TAB PO SCH (06:30)
[2020-03-16 07:03] LABS: Basophils % (A) 0 %; Eosinophils # (A) 0.2 k/uL (0-0.7); Eosinophils % (A) 2 %; HGB 13.9 gm/dL (13.0-17.5); Lymphocytes # (A) 2.9 k/uL (1.0-4.8); Lymphocytes % (A) 36 %; MCH 32.3 pg (25.0-35.0); MCHC 32.3 g/dL (31.0-37.0); MCV 99.9 fL (80.0-100.0); Macrocytosis Slight; Monocytes # (A) 0.5 k/uL (0-1.0); Monocytes % (A) 7 %; Neutrophils # (A) 4.3 k/uL (1.3-7.7); Neutrophils % (A) 53 %; RDW 14.8 % (11.5-15.5); WBC 8.1 k/uL (3.8-10.6)
[2020-03-16 07:19] LABS: African American GFR (CKD) >90 (>60 ml/min/1.73 sqM); Anion Gap 6 mmol/L; Blood Urea Nitrogen 18 mg/dL (9-20); Calcium 8.5 mg/dL (8.4-10.2); Carbon Dioxide 27 mmol/L (22-30); Chloride 106 mmol/L (98-107); Glucose 118 mg/dL (74-99); Non-African American GFR(CKD) 81 (>60 ml/min/1.73 sqM); Potassium 4.5 mmol/L (3.5-5.1); Sodium 139 mmol/L (137-145)
[2020-03-16 07:42] VITALS: PULSE 63
[2020-03-16] MEDS ORDERED: ISOSORBIDE MONONITRATE ER 30 MG TAB.ER.24H PO SCH (09:00)
[2020-03-16] MEDS ORDERED: ASPIRIN 81 MG PO SCH (09:00)
[2020-03-16] MEDS ORDERED: CLOPIDOGREL 75 MG TAB PO SCH (09:00)
[2020-03-16] MEDS ORDERED: MONTELUKAST 10 MG TAB PO SCH (09:00)
[2020-03-16] MEDS ORDERED: amLODIPine 5 MG TAB PO SCH (09:00)
[2020-03-16] MEDS ORDERED: ATORVASTATIN 40 MG TAB PO SCH (09:00)
[2020-03-16 10:46] LABS: Platelet Count 97 k/uL (150-450)
[2020-03-16 11:48] LABS: Glucose,Whole Blood 98 mg/dL (75-99)
[2020-03-16 12:39] VITALS: BP 103/58; RESP 18
--- NOTE | 2020-03-16 13:53 | P.DS ---
Providers Attending physician: Luis Enrique Khalil Consults: 03/15/20 12:00 Consult Physician Routine Consulting Provider: [facility] Consult Reason/Comments: Post Interventional patient Do you want consulting provider notified?: Already Contacted Primary care physician: Blake Pena [facility] Course: This is a pleasant 84-year-old male past medical history significant for coronary artery disease, chronic persistent atrial fibrillation, hypertension, sick sinus syndrome s/p permanent pacemaker implantation and dyslipidemia. He presented to the hospital for an elective outpatient cardiac catheterization that revealed left main artery free of stenosis, circumflex gives off 2 large OM has a long segment of narrowing in the proximal portion greater than 70%, the [place] circumflex is free of significant disease, there is extensive collaterals to the distal artery CVA, LAD shows mild to moderate atherosclerotic plaque in the proximal portion, the RCA is totally occluded in the midportion. He underwent successful stenting of the OM branch of the circumflex by Dr. Mane. Plavix was initiated along with aspirin and Xarelto he will be on triple therapy for one month. Right groin is soft, nontender with no evidence of hematoma, bleeding, bruising or tenderness. Blood pressure 103/58 heart rate 63 afebrile maintaining oxygen saturation on room air. Laboratory data reviewed, WBC 8.1, hemoglobin 13.9, platelets 97, sodium 139, potassium 4.5, creatinine 0.83. He has been up ambulating without difficulty. He has no symptoms of chest pain, shortness of breath, dizziness or palpitations. EKG is paced. GENERAL: Well-appearing, well-nourished and in no acute distress. Obese. NECK: Supple without JVD or thyromegaly. LUNGS: Breath sounds clear to auscultation bilaterally. Respiration equal and unlabored. No wheezes, rales or rhonchi. HEART: Irregular rate and rhythm without murmurs, rubs or gallops. S1 and S2 heard. EXTREMITIES: Normal range of motion, no edema. No clubbing or cyanosis. P eripheral pulses intact. Right femoral groin site soft, non-tender, no hematoma, no ecchymosis or oozing. ASSESSMENT Coronary artery disease status post PCI Chronic persistent atrial fibrillation on long-term anticoagulation Permanent pacemaker implantation secondary to sick sinus syndrome Hypertension Dyslipidemia PLAN Patient will be maintained on triple therapy for 30 days then will be decreased in the office. Plavix has been sent to the pharmacy. Follow up with Dr. Khalil in 1-week for groin check. Nurse Practitioner note has been reviewed, I agree with a documented findings and plan of care. Patient was seen and examined. Plan - Discharge Summary Discharge Rx Participant: No New Discharge Prescriptions: New Clopidogrel [Plavix] 75 mg PO DAILY #90 tab Continue Metoprolol Succinate [Toprol XL] 100 mg PO HS Levothyroxine Sodium [Levoxyl] 75 mcg PO QAM Cholecalciferol [Vitamin D3 (25 Mcg = 1000 Iu)] 1,000 unit PO HS Losartan [Cozaar] 50 mg PO HS Rivaroxaban [Xarelto] 20 mg PO DAILY Montelukast [Singulair] 10 mg PO DAILY Isosorbide Mononitrate [Isosorbide Mononitrate ER] 30 mg PO DAILY Atorvastatin [Lipitor] 40 mg PO DAILY amLODIPine BESYLATE 5 mg PO DAILY Aspirin [Adult Low Dose Aspirin EC] 81 mg PO DAILY Discharge Medication List Cholecalciferol [Vitamin D3 (25 Mcg = 1000 Iu)] 1,000 unit PO HS 06/09/15 [History] Levothyroxine Sodium [Levoxyl] 75 mcg PO QAM 06/09/15 [History] Metoprolol Succinate [Toprol XL] 100 mg PO HS 06/09/15 [History] Losartan [Cozaar] 50 mg PO HS 10/21/18 [History] Aspirin [Adult Low Dose Aspirin EC] 81 mg PO DAILY 03/14/20 [History] Atorvastatin [Lipitor] 40 mg PO DAILY 03/14/20 [History] Isosorbide Mononitrate [Isosorbide Mononitrate ER] 30 mg PO DAILY 03/14/20 [History] Montelukast [Singulair] 10 mg PO DAILY 03/14/20 [History] Rivaroxaban [Xarelto] 20 mg PO DAILY 03/14/20 [History] amLODIPine BESYLATE 5 mg PO DAILY 03/14/20 [History] Clopidogrel [Plavix] 75 mg PO DAILY #90 tab 03/16/20 [Rx] Follow up Appointment(s)/Referral(s): Luis Enrique Khalil MD [STAFF PHYSICIAN] - 03/22/20 12:45 pm Patient Instructions/Handouts: *Surgery [facility] - After Heart Catheterization - [employer] Instructions, Left Heart Catheterization (DC) Activity/Diet/Wound Care/Special Instructions: low fat/low salt diet activity limitations post cath do not submerge area in water no heavy lifting for 1 week apply pressure if straining during a bowel movement
== END 2020-03-16 13:43 | disposition home or self-care (01) ==
LOC: CATHCVL 09:26 → 3SCARD 17:34 → CATHCVL 03-16 13:43
PROVIDERS: ATTEND Internal Medicine Cardiovascular Disease
DX: I25.110 Atherosclerotic heart disease of native coronary artery with unstable angina pectoris (principal); I25.82 Chronic total occlusion of coronary artery; I10 Essential (primary) hypertension; I48.21 Permanent atrial fibrillation; I49.5 Sick sinus syndrome; I65.23 Occlusion and stenosis of bilateral carotid arteries; E78.2 Mixed hyperlipidemia; E11.9 Type 2 diabetes mellitus without complications; E66.9 Obesity, unspecified; Z79.82 Long term (current) use of aspirin; Z79.01 Long term (current) use of anticoagulants; Z79.890 Hormone replacement therapy; Z79.899 Other long term (current) drug therapy; Z95.0 Presence of cardiac pacemaker; Z68.39 Body mass index [BMI] 39.0-39.9, adult; Z72.0 Tobacco use
CPT/HCPCS: 93458; 80048; 85025 ×2; C9600; C1769 ×4; C1887 ×2; C1725; C1894; C1874; J2250; J2001; J3010; J0583; Q9967 ×2

== ENCOUNTER 2020-08-29 18:39 | Emergency (ER) | payer MEDICARE ==
[2020-08-29 18:47] VITALS: BP 167/100; PULSE 84; RESP 18; TEMP 97.2
[2020-08-29 19:53] LABS: Basophils % (A) 1 %; Eosinophils # (A) 0.2 k/uL (0-0.7); Eosinophils % (A) 3 %; HCT 43.6 % (39.0-53.0); Lymphocytes # (A) 1.9 k/uL (1.0-4.8); Lymphocytes % (A) 25 %; MCH 31.1 pg (25.0-35.0); MCHC 32.2 g/dL (31.0-37.0); MCV 96.8 fL (80.0-100.0); Mean Platelet Volume 7.9; Monocytes # (A) 0.5 k/uL (0-1.0); Monocytes % (A) 6 %; Neutrophils # (A) 4.7 k/uL (1.3-7.7); Neutrophils % (A) 64 %; Platelet Count 113 k/uL (150-450); WBC 7.4 k/uL (3.8-10.6)
[2020-08-29 20:00] LABS: ALT 35 U/L (4-49); AST 50 U/L (17-59); African American GFR (CKD) >90 (>60 ml/min/1.73 sqM); Albumin 4.2 g/dL (3.5-5.0); Alkaline Phosphatase 178 U/L (38-126); Anion Gap 10 mmol/L; Blood Urea Nitrogen 15 mg/dL (9-20); Calcium 9.2 mg/dL (8.4-10.2); Carbon Dioxide 25 mmol/L (22-30); Chloride 106 mmol/L (98-107); Glucose 100 mg/dL (74-99); Non-African American GFR(CKD) 83 (>60 ml/min/1.73 sqM); Potassium 4.6 mmol/L (3.5-5.1); Sodium 141 mmol/L (137-145); Total Bilirubin 1.1 mg/dL (0.2-1.3); Total Protein 7.3 g/dL (6.3-8.2)
[2020-08-29 20:10] LABS: INR 1.2 (<1.2); Partial Thromboplastin Time 29.5 sec (22.0-30.0)
[2020-08-29 20:18] LABS: Appearance,Urine Clear (Clear); Bacteria,Urine Few /hpf; Bilirubin,Urine Negative (Negative); Blood,Urine Large (Negative); Color,Urine Light Red; Glucose,Urine (UA) Negative (Negative); Ketones,Urine Negative (Negative); Leukocyte Esterase,Urine Small (Negative); Nitrite,Urine Negative (Negative); Protein,Urine Trace (Negative); RBC,Urine >182 /hpf (0-5); Specific Gravity,Urine 1.014 (1.001-1.035); Urobilinogen,Urine <2.0 mg/dL (<2.0)
[2020-08-29] MEDS ORDERED: cefTRIAXone IN SWFI 1,000 MG/10 ML SYRINGE IVP STA (20:38)
--- NOTE | 2020-08-29 21:02 | ED ---
Male Urogenital HPI - General Chief complaint: Urogenital Stated complaint: Urogential/Bleeding Time Seen by Provider: 08/29/20 18:59 Source: patient Mode of arrival: ambulatory Limitations: no limitations - History of Present Illness Initial comments: 85-year-old male patient presents to the emergency department today for evaluation of bleeding from his penis. Patient states he went to go to the restroom around 6 PM this evening when he noticed his underwear was soaked with blood. Patient states that the bleeding persisted so presented here for further evaluation. Denies any history of similar symptoms. Denies any hematuria, dysuria, urinary frequency, urinary urgency leading up to the symptoms. He denies any abdominal pain. Denies any dizziness or weakness. He does take Xarelto. Does have a history of prostate cancer, completed treatment. Patient denies any recent rash, fever, chills, cough, shortness of breath, chest pain, nausea, vomiting, diarrhea, constipation, back pain, numbness, tingling, headache, visual changes, or any other complaints. - Related Data Home Medications Medication Instructions Recorded Confirmed Cholecalciferol [Vitamin D3 (25 1,000 unit PO HS 06/09/15 03/15/20 Mcg = 1000 Iu)] Levothyroxine Sodium [Levoxyl] 75 mcg PO QA 06/09/15 03/15/20 Metoprolol Succinate [Toprol XL] 100 mg PO HS 06/09/15 03/15/20 Losartan [Cozaar] 50 mg PO HS 10/21/18 03/15/20 Aspirin [Adult Low Dose Aspirin EC] 81 mg PO DAILY 03/14/20 03/15/20 Atorvastatin [Lipitor] 40 mg PO DAILY 03/14/20 03/15/20 Isosorbide Mononitrate [Isosorbide 30 mg PO DAILY 03/14/20 03/15/20 Mononitrate ER] Montelukast [Singulair] 10 mg PO DAILY 03/14/20 03/15/20 Rivaroxaban [Xarelto] 20 mg PO DAILY 03/14/20 03/14/20 amLODIPine BESYLATE 5 mg PO DAILY 03/14/20 03/15/20 Previous Rx's Medication Instructions Recorded Clopidogrel [Plavix] 75 mg PO DAILY #90 tab 03/16/20 Cephalexin [Keflex] 500 mg PO Q6HR #40 cap 08/29/20 Allergies Allergy/AdvReac Type Severity Reaction Status Date / Time Tetanus Vaccines and Toxoid Allergy Unknown Verified 08/29/20 18:49 Review of Systems ROS Statement: Those systems with pertinent positive or pertinent negative responses have been documented in the HPI. ROS Other: All systems not noted in ROS Statement are negative. Past Medical History Past Medical History: Cancer, Diabetes Mellitus, Hyperlipidemia, Hypertension, Prostate Disorder, Thyroid Disorder Additional Past Medical History / Comment(s): SOB, hx prostate,liver,lung cancer, see Dr Ambrosio H&P, diet control diabetic History of Any Multi-Drug Resistant Organisms: None Reported Past Surgical History: Heart Catheterization With Stent, Prostate Surgery, Tonsillectomy Additional Past Surgical History / Comment(s): removal of rt lobe of liver, upper left lobe of lung removed, rt knee replacement, left arm-fx, pacemaker, (R) hip replacement. Past Anesthesia/Blood Transfusion Reactions: No Reported Reaction Date of Last Stent Placement:: 2005 Type of Cardiac Device: Permanent Pacemaker Device Placement Date:: 2005 Past Psychological History: No Psychological Hx Reported Smoking Status: Never smoker Past Alcohol Use History: Daily Past Drug Use History: None Reported - Past Family History Mother Additional Family Medical History / Comment(s): Mother from complications of diabetes. No history of cancer. Brother(s) Additional Family Medical History / Comment(s): Patient has one brother and 4 sisters with no major medical problems. Patient has 2 sons with no major medical problems. No cancers. Father Family Medical History: Cancer Additional Family Medical History / Comment(s): Father from lung cancer with history of heavy smoking. General Exam Limitations: no limitations General appearance: alert, in no apparent distress, other (This is a well- developed, well-nourished elderly male patient in no acute distress. Vital signs upon presentation are temperature 97.2F, pulse 84, respirations 18, blood pressure 167/100, pulse ox 96% on room air) ENT exam: Present: normal exam, normal oropharynx, mucous membranes moist Respiratory exam: Present: normal lung sounds bilaterally. Absent: respiratory distress, wheezes, rales, rhonchi, stridor Cardiovascular Exam: Present: regular rate, normal rhythm, normal heart sounds. Absent: systolic murmur, diastolic murmur, rubs, gallop, clicks GI/Abdominal exam: Present: soft, normal bowel sounds. Absent: distended, te nderness, guarding, rebound, rigid exam: Present: other (Bleeding coming from the urinary meatus, persistent, bright red.) Neurological exam: Present: alert, oriented X3, CN II-XII intact Psychiatric exam: Present: normal affect, normal mood Skin exam: Present: warm, dry, intact, normal color. Absent: rash Course Vital Signs 08/29/20 18:40 Temperature 97.2 F L Pulse Rate 84 Respiratory 18 Rate Blood Pressure 167/100 O2 Sat by Pulse 96 Oximetry Medical Decision Making - Medical Decision Making 85-year-old male patient presented to the emergency department today for evalua tion of blood coming from his penis. Started around 6 PM this evening. Physical examination did reveal losing blood from the urinary meatus. Urinalysis did show bacteria and red blood cells. We will treat with antibiotics for possible infection. He does takes relatives is instructed to stop this. Labs reviewed and showed normal hemoglobin. My attending Dr. Joiner was in to evaluate the patient did speak with the urologist who recommends discharge home at this time. He'll be discharged follow-up with the urologist for recheck as soon as possible. He is instructed to return immediately should develop any dizziness, weakness, or syncope. He is instructed to follow up with his primary care physician for recheck in 1-2 days. Return parameters discussed in detail. He verbalizes understanding and agrees with this plan. - Lab Data Result diagrams: 08/29/20 19:31 08/29/20 19:31 Lab Results 08/29/20 08/29/20 08/29/20 Range/Units 19:31 19:31 19:31 WBC 7.4 (3.8-10.6) k/uL RBC 4.50 (4.30-5.90) m/uL Hgb 14.0 (13.0-17.5) gm/dL Hct 43.6 (39.0-53.0) % MCV 96.8 (80.0-100.0) fL MCH 31.1 (25.0-35.0) pg MCHC 32.2 (31.0-37.0) g/dL RDW 15.0 (11.5-15.5) % Plt Count 113 L (150-450) k/uL MPV 7.9 Neutrophils % 64 % Lymphocytes % 25 % Monocytes % 6 % Eosinophils % 3 % Basophils % 1 % Neutrophils # 4.7 (1.3-7.7) k/uL Lymphocytes # 1.9 (1.0-4.8) k/uL Monocytes # 0.5 (0-1.0) k/uL Eosinophils # 0.2 (0-0.7) k/uL Basophils # 0.0 (0-0.2) k/uL PT 12.0 (9.0-12.0) sec INR 1.2 H (<1.2) APTT 29.5 (22.0-30.0) sec Sodium 141 (137-145) mmol/L Potassium 4.6 (3.5-5.1) mmol/L Chloride 106 (98-107) mmol/L Carbon Dioxide 25 (22-30) mmol/L Anion Gap 10 mmol/L BUN 15 (9-20) mg/dL Creatinine 0.78 (0.66-1.25) mg/dL Est GFR (CKD-EPI)AfAm >90 (>60 ml/min/1.73 sqM) Est GFR (CKD-EPI)NonAf 83 (>60 ml/min/1.73 sqM) Glucose 100 H (74-99) mg/dL Calcium 9.2 (8.4-10.2) mg/dL Total Bilirubin 1.1 (0.2-1.3) mg/dL AST 50 (17-59) U/L ALT 35 (4-49) U/L Alkaline Phosphatase 178 H (38-126) U/L Total Protein 7.3 (6.3-8.2) g/dL Albumin 4.2 (3.5-5.0) g/dL Urine Color Urine Appearance (Clear) Urine pH (5.0-8.0) Ur Specific [place] (1.001-1.035) Urine Protein (Negative) Urine Glucose (UA) (Negative) Urine Ketones (Negative) Urine Blood (Negative) Urine Nitrite (Negative) Urine Bilirubin (Negative) Urine Urobilinogen (<2.0) mg/dL Ur Leukocyte Esterase (Negative) Urine RBC (0-5) /hpf Urine Bacteria (None) /hpf 08/29/20 Range/Units 19:56 WBC (3.8-10.6) k/uL RBC (4.30-5.90) m/uL Hgb (13.0-17.5) gm/dL Hct (39.0-53.0) % MCV (80.0-100.0) fL MCH (25.0-35.0) pg MCHC (31.0-37.0) g/dL RDW (11.5-15.5) % Plt Count (150-450) k/uL MPV Neutrophils % % Lymphocytes % % Monocytes % % Eosinophils % % Basophils % % Neutrophils # (1.3-7.7) k/uL Lymphocytes # (1.0-4.8) k/uL Monocytes # (0-1.0) k/uL Eosinophils # (0-0.7) k/uL Basophils # (0-0.2) k/uL PT (9.0-12.0) sec INR (<1.2) APTT (22.0-30.0) sec Sodium (137-145) mmol/L Potassium (3.5-5.1) mmol/L Chloride (98-107) mmol/L Carbon Dioxide (22-30) mmol/L Anion Gap mmol/L BUN (9-20) mg/dL Creatinine (0.66-1.25) mg/dL Est GFR (CKD-EPI)AfAm (>60 ml/min/1.73 sqM) Est GFR (CKD-EPI)NonAf (>60 ml/min/1.73 sqM) Glucose (74-99) mg/dL Calcium (8.4-10.2) mg/dL Total Bilirubin (0.2-1.3) mg/dL AST (17-59) U/L ALT (4-49) U/L Alkaline Phosphatase (38-126) U/L Total Protein (6.3-8.2) g/dL Albumin (3.5-5.0) g/dL Urine Color Light Red Urine Appearance Clear (Clear) Urine pH 5.0 (5.0-8.0) Ur Specific [place] 1.014 (1.001-1.035) Urine Protein Trace H (Negative) Urine Glucose (UA) Negative (Negative) Urine Ketones Negative (Negative) Urine Blood Large H (Negative) Urine Nitrite Negative (Negative) Urine Bilirubin Negative (Negative) Urine Urobilinogen <2.0 (<2.0) mg/dL Ur Leukocyte Esterase Small H (Negative) Urine RBC >182 H (0-5) /hpf Urine Bacteria Few H (None) /hpf Disposition Clinical Impression: Penile bleeding, UTI (urinary tract infection) Disposition: HOME SELF-CARE Condition: Good Instructions (If sedation given, give patient instructions): Urinary Tract Infection in Men (ED) Additional Instructions: Stop your xarelto for the next 2-3 days. Call the urologist in the morning for further instructions. Return to the emergency department if you become weak, dizzy, or short of breath. Follow up with her primary care physician for recheck in 1-2 days. Return to the emergency department immediately for any new, worsening, or concerning symptoms. Prescriptions: Cephalexin [Keflex] 500 mg PO Q6HR #40 cap Is patient prescribed a controlled substance at d/c from ED?: No Referrals: Blake Patiño MD [Primary Care Provider] - 1-2 days Rock Hollingsworth MD [STAFF PHYSICIAN] - 1-2 days Time of Disposition: 23:03
== END 2020-08-29 23:17 | disposition home or self-care (01) ==
LOC: EC 18:39
DX: N48.89 Other specified disorders of penis (principal); N39.0 Urinary tract infection, site not specified; I10 Essential (primary) hypertension; E78.5 Hyperlipidemia, unspecified; E07.9 Disorder of thyroid, unspecified; Z79.899 Other long term (current) drug therapy; Z79.82 Long term (current) use of aspirin; Z79.890 Hormone replacement therapy; Z79.01 Long term (current) use of anticoagulants; Z88.7 Allergy status to serum and vaccine; Z85.46 Personal history of malignant neoplasm of prostate; Z85.05 Personal history of malignant neoplasm of liver; Z85.118 Personal history of other malignant neoplasm of bronchus and lung; Z90.2 Acquired absence of lung [part of]; Z90.89 Acquired absence of other organs; Z96.651 Presence of right artificial knee joint; Z96.641 Presence of right artificial hip joint
CPT/HCPCS: 36415; 80053; 85025; 85610; 85730; 81001; 99283; 96374; J0696

== ENCOUNTER → 2020-11-27 | Outpatient (CLI) | payer MEDICARE ==
--- NOTE | 2020-11-27 14:10 | CT ---
EXAMINATION TYPE: High-resolution CT chest DATE OF EXAM: 11/27/2020 COMPARISON: Radiograph 11/16/[address] 07/28/2014 HISTORY: 85-year-old male R06.00, shortness of breath, Dyspnea TECHNIQUE: Contiguous high-resolution axial scanning of the chest without IV contrast utilizing 1 mm slice thickness and [address] protocol. Both supine and prone imaging is performed. CT DLP: 1257.8 mGycm Automated exposure control for dose reduction was used. FINDINGS: Left anterior chest wall pacemaker generator with right atrial and right ventricular leads. Heart borderline in size. Extensive three-vessel coronary artery calcifications are present in remark able for coronary artery disease. Mildly aneurysmal ascending aorta 4.1 cm, unchanged from 2014. In the chart was a branching anatomy. Scattered mild atherosclerotic calcifications throughout. Large caliber to the main right and left pulmonary arteries measuring up to 3.0 and 3.2 cm, respectiv zaynab, suggesting underlying pulmonary arterial hypertension. Allowing for HRCT technique, no obvious mediastinal lymphadenopathy though assessment is limited. The lungs show pleural parenchymal opacity at the peripheral left base which seems to have been prese nt to some extent on 07/28/2014. Difficult to determine if this has increased given HRCT technique. No thickening of the bronchovascular bundles, centrilobular nodules, tree-in-bud opacities, honeycomb ing, cystic change, or dominant groundglass. No consolidation or pleural effusion. 5 mm right lower lobe pulmonary nodule, axial image 22 is slightly larger from 3 mm on 2014. A 6 delano h follow-up exam can be performed. Visualized upper abdomen suggests prior right hepatectomy. Bones: Endplate spondylosis mid to lower thoracic spine. IMPRESSION: 1. CAD WITH EXTENSIVE THREE-VESSEL CORONARY ARTERY CALCIFICATIONS. EVIDENCE OF PULMONARY ARTERIAL HYP ERTENSION. 2. NO SPECIFIC HRCT FINDINGS OF INTERSTITIAL LUNG DISEASE. 3. PLEURAL PARENCHYMAL OPACITY AT THE PERIPHERY OF THE LEFT BASE APPEARS IN PART CHRONIC. GIVEN HRCT TECHNIQUE, DIFFICULT TO DETERMINE IF SOME OF THE OPACITY HAS INCREASED. SIX-MONTH FOLLOW-UP CONVENTIO NAL CT RECOMMENDED TO REASSESS. 4. A 5 MM RIGHT LOWER LOBE PULMONARY NODULE IS SLIGHTLY LARGER FROM 3 MM, PREVIOUSLY. THIS SHOULD ALS O BE REASSESSED AT THE 6 MONTH FOLLOW-UP. 5. 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 6. THERE APPEARS TO HAVE BEEN PRIOR RIGHT HEPATECTOMY.
== END | disposition home or self-care (01) ==
LOC: RADCTMAIN 11:55
PROVIDERS: ATTEND Internal Medicine Critical Care Medicine
DX: I25.10 Atherosclerotic heart disease of native coronary artery without angina pectoris (principal); I27.21 Secondary pulmonary arterial hypertension; I71.2 Thoracic aortic aneurysm, without rupture; R91.8 Other nonspecific abnormal finding of lung field; R91.1 Solitary pulmonary nodule
CPT/HCPCS: 71250

== ENCOUNTER 2021-03-07 12:32 | Emergency (ER) | payer MEDICARE ==
[2021-03-07 13:01] VITALS: RESP 18
[2021-03-07] MEDS ORDERED: OXYMETAZOLINE 0.05% NASL SPRAY 1 SPRAY BOTTLE NASAL STA (13:01)
--- NOTE | 2021-03-07 13:04 | ED ---
General Adult HPI <Jaya Joiner - Last Filed: 03/07/21 16:48> - General Source: patient, EMS Mode of arrival: EMS Limitations: no limitations <Ines Lucero - Last Filed: 03/07/21 19:10> - General Chief complaint: Recheck/Abnormal Lab/Rx Stated complaint: nosebleed Time Seen by Provider: 03/07/21 12:54 - History of Present Illness Initial comments: 85 year-old male patient presents to the emergency department for evaluation of nose bleed. States that around 12:00 this afternoon he blew his nose and started having bleeding out of the right nostril. He was unable to get it to stop so he came in for further evaluation. He takes xarelto. Denies history of nasal trauma or surgery. Denies any history of problems with nose bleeds. Denies any weakness or dizziness. (Ines Lucero) - Related Data Home Medications Medication Instructions Recorded Confirmed Levothyroxine Sodium [Levoxyl] 75 mcg PO DAILY 06/09/15 03/07/21 Metoprolol Succinate [Toprol XL] 100 mg PO HS 06/09/15 03/07/21 Losartan [Cozaar] 50 mg PO HS 10/21/18 03/07/21 Aspirin [Adult Low Dose Aspirin EC] 81 mg PO HS 03/14/20 03/07/21 Atorvastatin [Lipitor] 40 mg PO HS 03/14/20 03/07/21 Isosorbide Mononitrate [Isosorbide 30 mg PO DAILY 03/14/20 03/07/21 Mononitrate ER] Montelukast [Singulair] 10 mg PO HS 03/14/20 03/07/21 Rivaroxaban [Xarelto] 20 mg PO W/SUPPER 03/14/20 03/07/21 amLODIPine BESYLATE 5 mg PO HS 03/14/20 03/07/21 Budesonide [Pulmicort] 0.5 mg INHALATION RT-BID 03/07/21 03/07/21 Clopidogrel [Plavix] 75 mg PO HS 03/07/21 03/07/21 Allergies Allergy/AdvReac Type Severity Reaction Status Date / Time Tetanus Vaccines and Toxoid Allergy Unknown Verified 03/07/21 13:33 Review of Systems ROS Other: All systems not noted in ROS Statement are negative. <Jaya Joiner - Last Filed: 03/07/21 16:48> ROS Other: All systems not noted in ROS Statement are negative. <Ines Lucero - Last Filed: 03/07/21 19:10> ROS Statement: Those systems with pertinent positive or pertinent negative responses have been documented in the HPI. Past Medical History Past Medical History: Atrial Fibrillation, Cancer, Diabetes Mellitus, Hyperlipid emia, Hypertension, Prostate Disorder, Thyroid Disorder Additional Past Medical History / Comment(s): SOB, hx prostate,liver,lung cancer, see Dr Ambrosio H&P, diet control diabetic History of Any Multi-Drug Resistant Organisms: None Reported Past Surgical History: Heart Catheterization With Stent, Prostate Surgery, Tonsi llectomy Additional Past Surgical History / Comment(s): removal of rt lobe of liver, upper left lobe of lung removed, rt knee replacement, left arm-fx, pacemaker, (R) hip replacement. Past Anesthesia/Blood Transfusion Reactions: No Reported Reaction Date of Last Stent Placement:: 2005 Type of Cardiac Device: Permanent Pacemaker Device Placement Date:: 2005 Past Psychological History: No Psychological Hx Reported Smoking Status: Never smoker Past Alcohol Use History: Daily Past Drug Use History: None Reported - Past Family History Mother Additional Family Medical History / Comment(s): Mother from complications of diabetes. No history of cancer. Brother(s) Additional Family Medical History / Comment(s): Patient has one brother and 4 sisters with no major medical problems. Patient has 2 sons with no major medical problems. No cancers. Father Family Medical History: Cancer Additional Family Medical History / Comment(s): Father from lung cancer with history of heavy smoking. <Ines Lucero - Last Filed: 03/07/21 19:10> General Exam Limitations: no limitations General appearance: alert, in no apparent distress ENT exam: Present: mucous membranes moist, other (bleeding from right nare). Absent: normal exam Respiratory exam: Present: normal lung sounds bilaterally. Absent: respiratory distress, wheezes, rales, rhonchi, stridor Cardiovascular Exam: Present: regular rate, normal rhythm, normal heart sounds. Absent: systolic murmur, diastolic murmur, rubs, gallop, clicks Neurological exam: Present: alert, oriented X3, CN II-XII intact Psychiatric exam: Present: normal affect, normal mood Skin exam: Present: warm, dry, intact, normal color. Absent: rash <Ines Lucero - Last Filed: 03/07/21 19:10> Course <Jaya Joiner - Last Filed: 03/07/21 16:48> <Ines Lucero - Last Filed: 03/07/21 19:10> Vital Signs 03/07/21 03/07/21 03/07/21 12:54 15:28 16:37 Pulse Rate 65 69 62 Respiratory 18 18 18 Rate Blood Pressure 103/68 116/63 135/84 O2 Sat by Pulse 97 97 97 Oximetry - Reevaluation(s) Reevaluation #1: 03/07/21 16:48 Patient reevaluated by myself, Dr. Joiner. Patient resting at bedside with still some mild bleeding. Patient is having some bleeding down his throat. Patient has clear anterior nasal cavity without identifiable site of bleeding. Rhino Rocket placed on the right side with hemostasis at this time. (Jaya Joiner) 03/07/21 13:23 Patient blew all clots from nose. Sprayed afrin to the right nostril. Inserted gauze soaked with afrin, applied clamp and pressure. Will monitor bleeding. (Ines Lucero) Procedures <Jaya Joiner - Last Filed: 03/07/21 16:48> - Procedures Initial comment: Right nares cleared with patient blowing. Unable to identify site of bleeding. Rhino Rocket placed on the right without any complications. (Jaya Joiner) Medical Decision Making - Lab Data Result diagrams: 03/07/21 17:16 <Ines Lucero - Last Filed: 03/07/21 19:10> - Medical Decision Making 85 year-old male patient with multiple medical problems presents to ED with complaint of right sided nose bleed. Symptoms started around 12:00pm. Physical exam did show bleeding from the right nostril. Patient does take xarelto for afib. No history of nose bleeds or trauma. Afrin was ordered, patient blew all blood clots out of nose, afrin sprayed to right nostril, afrin soaked gauze was packed, clamp applied. Pressure held for about 25 minutes. Upon re-evaluation bleeding continued. Placed 8cm merocel to the right nasal passage, left in place for about 10 minutes, seemed fully expanded, bleeding persisted. Merocel was removed, rhino rocket placed to the right nostril. Approximately 3ml of air was instilled to each balloon. Bleeding persisted around the rocket. Rhino rocket removed. 200mg of aerosolized TXA as administered, bleeding persisted. TXA gauze was packed to the right nostril. Clamp applied for 35 minutes. Upon re-evaluation bleeding persists from the right nostril. Added CBC. My attending Dr. Joiner in to evaluate the patient. Unable to visualize source of bleeding. Bleeding slowed but still present. He placed rhino rocket to the right nasal passage. Bleeding cessation achieved. No bleeding noted to the pharynx. CBC resulted and showed Hgb 8.2. Called patient's primary care physician who stated that last Hgb was 11.5 in January 2021. I discussed result with the patient and recommend admission for serial hemoglobin and monitoring for further bleeding. I did call Dr. Mckeon glass ribbon machine operator assistant for his physician, she is not comfortable keeping the patient in this hospital due to not having ENT glass ribbon machine operator assistant today. I discussed this with the patient. After much deliberation with him and his family he has decided he is willing to be transferred to [facility] for ENT consultation. Dr. Dye accepting. ([facility] - Lab Data Lab Results 03/07/21 Range/Units 17:16 WBC 5.9 (3.8-10.6) k/uL RBC 3.14 L (4.30-5.90) m/uL Hgb 8.2 L (13.0-17.5) gm/dL Hct 26.1 L (39.0-53.0) % MCV 83.3 (80.0-100.0) fL MCH 26.2 (25.0-35.0) pg MCHC 31.5 (31.0-37.0) g/dL RDW 16.2 H (11.5-15.5) % Plt Count 102 L (150-450) k/uL MPV 8.4 Neutrophils % 62 % Lymphocytes % 25 % Monocytes % 8 % Eosinophils % 2 % Basophils % 0 % Neutrophils # 3.6 (1.3-7.7) k/uL Lymphocytes # 1.5 (1.0-4.8) k/uL Monocytes # 0.5 (0-1.0) k/uL Eosinophils # 0.1 (0-0.7) k/uL Basophils # 0.0 (0-0.2) k/uL Hypochromasia Marked Poikilocytosis Slight Anisocytosis Slight Disposition <Jaya Joiner - Last Filed: 03/07/21 16:48> - Out of Hospital Transfer - Req. Specs Out of Hospital Transfer - Requested Specifics: Other Emergency Center ([facility]) <Ines Lucero - Last Filed: 03/07/21 19:10> Clinical Impression: Epistaxis, Anemia Disposition: OTHER INSTITUTION NOT DEFINED Condition: Serious Referrals: Blake Patiño MD [Primary Care Provider] - 1-2 days Samuel Garcia MD [STAFF PHYSICIAN] - 1-2 days
[2021-03-07] MEDS ORDERED: BACITRACIN OINT 1 EACH PACKET TOPICAL ONE (14:02)
[2021-03-07] MEDS ORDERED: TRANEXAMIC ACID 1,000 MG/10 ML VIAL MISCELLANE STA (15:06)
[2021-03-07 16:40] VITALS: BP 135/84; PULSE 62
[2021-03-07 17:24] LABS: Anisocytosis Slight; Basophils % (A) 0 %; Eosinophils # (A) 0.1 k/uL (0-0.7); Eosinophils % (A) 2 %; HCT 26.1 % (39.0-53.0); HGB 8.2 gm/dL (13.0-17.5); Hypochromasia Marked; Lymphocytes # (A) 1.5 k/uL (1.0-4.8); Lymphocytes % (A) 25 %; MCH 26.2 pg (25.0-35.0); MCHC 31.5 g/dL (31.0-37.0); MCV 83.3 fL (80.0-100.0); Mean Platelet Volume 8.4; Monocytes # (A) 0.5 k/uL (0-1.0); Monocytes % (A) 8 %; Neutrophils # (A) 3.6 k/uL (1.3-7.7); Neutrophils % (A) 62 %; Platelet Count 102 k/uL (150-450); Poikilocytosis Slight; RBC 3.14 m/uL (4.30-5.90); RDW 16.2 % (11.5-15.5); WBC 5.9 k/uL (3.8-10.6)
[2021-03-07 19:34] LABS: INR 1.9 (<1.2); Partial Thromboplastin Time 32.4 sec (22.0-30.0); Prothrombin Time 18.8 sec (9.0-12.0)
[2021-03-07 20:20] LABS: Albumin 3.7 g/dL (3.5-5.0); Potassium 4.6 mmol/L (3.5-5.1); Total Bilirubin 0.9 mg/dL (0.2-1.3); Total Protein 6.4 g/dL (6.3-8.2)
== END 2021-03-07 19:54 | disposition other institution (70) ==
LOC: EC 12:32
DX: R04.0 Epistaxis (principal); D64.9 Anemia, unspecified; I48.91 Unspecified atrial fibrillation; E11.9 Type 2 diabetes mellitus without complications; E78.5 Hyperlipidemia, unspecified; I10 Essential (primary) hypertension; Z79.82 Long term (current) use of aspirin; Z79.01 Long term (current) use of anticoagulants
CPT/HCPCS: 30903; 36415; 80053; 85025; 85610; 85730; 99284

== ENCOUNTER 2021-04-24 13:45 | Inpatient (IN) | payer MEDICARE ==
[2021-04-24] MEDS ORDERED: ONDANSETRON 4 MG/2 ML VIAL IVP STA (15:08)
--- NOTE | 2021-04-24 15:16 | ED ---
General Adult HPI - General Chief complaint: Recheck/Abnormal Lab/Rx Stated complaint: dehydration Time Seen by Provider: 04/24/21 15:00 Source: patient Mode of arrival: wheelchair Limitations: no limitations - History of Present Illness Initial comments: 86 year-old male patient with past medical history significant for type 2 diabetes, hypertension, coronary artery disease, atrial fibrillation, with demand pacemaker, liver/lung/prostate cancer in remission, presents to the emergency department today for evaluation of generalized weakness, nausea, dehydration. Patient states that he went golfing for the first time in a while a couple days ago. States he only got to the third hole when he started to feel weak and nauseous. States he did have dry heaves yesterday. Had low grade temperature 100.1 degrees Fahrenheit. Denies any vomiting today. Denies any abdominal pain, constipation, or diarrhea. Denies any hematuria, dysuria, urinary frequency, urinary urgency. States he has been somewhat incontinent of urine. Denies any chest pain. States he just went to the bathroom and came back and he did feel winded but hasn't been feeling short of breath until now. Patient denies any recent rash, wounds, cough, back pain, numbness, tingling, dizziness, weakness, headache, visual changes, or any other complaints. - Related Data Home Medications Medication Instructions Recorded Confirmed Levothyroxine Sodium [Levoxyl] 75 mcg PO DAILY 06/09/15 04/24/21 Metoprolol Succinate [Toprol XL] 100 mg PO HS 06/09/15 04/24/21 Losartan [Cozaar] 50 mg PO HS 10/21/18 04/24/21 Aspirin [Adult Low Dose Aspirin EC] 81 mg PO HS 03/14/20 04/24/21 Atorvastatin [Lipitor] 40 mg PO HS 03/14/20 04/24/21 Isosorbide Mononitrate [Isosorbide 30 mg PO DAILY 03/14/20 04/24/21 Mononitrate ER] Montelukast [Singulair] 10 mg PO HS 03/14/20 04/24/21 Rivaroxaban [Xarelto] 20 mg PO W/SUPPER 03/14/20 04/24/21 amLODIPine BESYLATE 5 mg PO HS 03/14/20 04/24/21 Budesonide [Pulmicort] 0.5 mg INHALATION RT-BID 03/07/21 04/24/21 Clopidogrel [Plavix] 75 mg PO HS 03/07/21 04/24/21 Allergies Allergy/AdvReac Type Severity Reaction Status Date / Time Tetanus Vaccines and Toxoid Allergy Unknown Verified 04/24/21 14:09 Review of Systems ROS Statement: Those systems with pertinent positive or pertinent negative responses have been documented in the HPI. ROS Other: All systems not noted in ROS Statement are negative. Past Medical History Past Medical History: Cancer, Diabetes Mellitus, Hyperlipidemia, Hypertension, Prostate Disorder, Thyroid Disorder Additional Past Medical History / Comment(s): SOB, hx prostate,liver,lung cancer, see Dr Ambrosio H&P, diet control diabetic History of Any Multi-Drug Resistant Organisms: None Reported Past Surgical History: Heart Catheterization With Stent, Prostate Surgery, Tonsillectomy Additional Past Surgical History / Comment(s): removal of rt lobe of liver, upper left lobe of lung removed, rt knee replacement, left arm-fx, pacemaker, (R) hip replacement. Past Anesthesia/Blood Transfusion Reactions: No Reported Reaction Date of Last Stent Placement:: 2005 Type of Cardiac Device: Permanent Pacemaker Device Placement Date:: 2005 Past Psychological History: No Psychological Hx Reported Smoking Status: Never smoker Past Alcohol Use History: Daily Past Drug Use History: None Reported - Past Family History Mother Additional Family Medical History / Comment(s): Mother from complications of diabetes. No history of cancer. Brother(s) Additional Family Medical History / Comment(s): Patient has one brother and 4 sisters with no major medical problems. Patient has 2 sons with no major medical problems. No cancers. Father Family Medical History: Cancer Additional Family Medical History / Comment(s): Father from lung cancer with history of heavy smoking. General Exam Limitations: no limitations General appearance: alert, in no apparent distress, other (This is a well- developed, well-nourished adult male patient in no acute distress. Vital signs upon presentation are temperature 100.0F, pulse 95, respirations 18, blood pressure 137/82, pulse ox 97% on room air.) ENT exam: Present: normal exam, normal oropharynx, mucous membranes moist Respiratory exam: Present: normal lung sounds bilaterally. Absent: respiratory distress, wheezes, rales, rhonchi, stridor Cardiovascular Exam: Present: tachycardia, irregular rhythm, normal heart sounds. Absent: systolic murmur, diastolic murmur, rubs, gallop, clicks GI/Abdominal exam: Present: soft, normal bowel sounds. Absent: distended, tende rness, guarding, rebound, rigid Neurological exam: Present: alert, oriented X3, CN II-XII intact Psychiatric exam: Present: normal affect, normal mood Skin exam: Present: warm, dry, intact, normal color. Absent: rash Course Vital Signs 04/24/21 04/24/21 04/24/21 14:07 15:12 15:57 Temperature 100.0 F H 100.2 F H 102.6 F H Pulse Rate 95 118 H Respiratory 18 18 Rate Blood Pressure 137/82 169/89 O2 Sat by Pulse 97 97 Oximetry 04/24/21 04/24/21 04/24/21 16:05 17:09 18:11 Temperature 99.5 F Pulse Rate 99 111 H 91 Respiratory 18 18 18 Rate Blood Pressure 149/94 119/96 91/58 O2 Sat by Pulse 95 98 94 L Oximetry 04/24/21 04/24/21 20:09 21:15 Temperature 98.3 F Pulse Rate 96 94 Respiratory 18 18 Rate Blood Pressure 151/94 110/74 O2 Sat by Pulse 95 98 Oximetry - Reevaluation(s) Reevaluation #1: 04/24/21 16:40 Lactic acid elevated at 3.4. Sepsis diagnosed at this time. Antibiotics ordered. EKG Findings - EKG Comments: EKG Findings:: EKG obtained at 1452 showed atrial fibrillation with RVR with a rate of 111, QRS duration 112, QT 324, QTC 440. No evidence of ST elevation or depression. Medical Decision Making - Medical Decision Making 86-year-old male patient presenting today for concerns for dehydration and weakness. Upon arrival temperature is elevated 102.6F. Labs reviewed and did reveal white blood cell count is 7.5, plasma lactic acid 3.2. Evidence for urinary tract infection. Covid was negative. Chest x-ray is negative. He did have A. fib RVR arrival, after receiving antipyretic medication his rate did improve. Does have history of A. fib and takes Xarelto. He'll be admitted to the hospital on IV antibiotics with IV fluids. Case was discussed with my attending Dr. Beth. - Lab Data Result diagrams: 04/24/21 15:54 04/24/21 15:54 Lab Results 04/24/21 04/24/21 04/24/21 Range/Units 15:54 15:54 15:54 WBC 7.5 (3.8-10.6) k/uL RBC 4.24 L (4.30-5.90) m/uL Hgb 11.5 L D (13.0-17.5) gm/dL Hct 36.5 L (39.0-53.0) % MCV 86.2 (80.0-100.0) fL MCH 27.1 (25.0-35.0) pg MCHC 31.4 (31.0-37.0) g/dL RDW 19.1 H (11.5-15.5) % Plt Count 86 L (150-450) k/uL MPV 8.3 Neutrophils % 81 % Lymphocytes % 10 % Monocytes % 7 % Eosinophils % 0 % Basophils % 0 % Neutrophils # 6.1 (1.3-7.7) k/uL Lymphocytes # 0.7 L (1.0-4.8) k/uL Monocytes # 0.5 (0-1.0) k/uL Eosinophils # 0.0 (0-0.7) k/uL Basophils # 0.0 (0-0.2) k/uL Anisocytosis Slight PT 13.4 H (9.0-12.0) sec INR 1.3 H (<1.2) APTT 29.1 (22.0-30.0) sec Sodium (137-145) mmol/L Potassium (3.5-5.1) mmol/L Chloride (98-107) mmol/L Carbon Dioxide (22-30) mmol/L Anion Gap mmol/L BUN (9-20) mg/dL Creatinine (0.66-1.25) mg/dL Est GFR (CKD-EPI)AfAm (>60 ml/min/1.73 sqM) Est GFR (CKD-EPI)NonAf (>60 ml/min/1.73 sqM) Glucose (74-99) mg/dL Lactic Ac Sepsis Rflx Plasma Lactic Acid Aren (0.7-2.0) mmol/L Calcium (8.4-10.2) mg/dL Total Bilirubin (0.2-1.3) mg/dL AST (17-59) U/L ALT (4-49) U/L Alkaline Phosphatase (38-126) U/L Troponin I (0.000-0.034) ng/mL Total Protein (6.3-8.2) g/dL Albumin (3.5-5.0) g/dL Urine Color Yellow Urine Appearance Cloudy (Clear) Urine pH 7.0 (5.0-8.0) Ur Specific [place] 1.009 (1.001-1.035) Urine Protein Trace H (Negative) Urine Glucose (UA) Negative (Negative) Urine Ketones Negative (Negative) Urine Blood Small H (Negative) Urine Nitrite Negative (Negative) Urine Bilirubin Negative (Negative) Urine Urobilinogen <2.0 (<2.0) mg/dL Ur Leukocyte Esterase Large H (Negative) Urine RBC 7 H (0-5) /hpf Urine WBC 74 H (0-5) /hpf Urine Bacteria Occasional H (None) /hpf Urine Mucus Rare H (None) /hpf Urine Yeast (Budding) Many H (None) /hpf Coronavirus (PCR) (Not Detectd) 04/24/21 04/24/21 04/24/21 Range/Units 15:54 15:54 15:54 WBC (3.8-10.6) k/uL RBC (4.30-5.90) m/uL Hgb (13.0-17.5) gm/dL Hct (39.0-53.0) % MCV (80.0-100.0) fL MCH (25.0-35.0) pg MCHC (31.0-37.0) g/dL RDW (11.5-15.5) % Plt Count (150-450) k/uL MPV Neutrophils % % Lymphocytes % % Monocytes % % Eosinophils % % Basophils % % Neutrophils # (1.3-7.7) k/uL Lymphocytes # (1.0-4.8) k/uL Monocytes # (0-1.0) k/uL Eosinophils # (0-0.7) k/uL Basophils # (0-0.2) k/uL Anisocytosis PT (9.0-12.0) sec INR (<1.2) APTT (22.0-30.0) sec Sodium 133 L (137-145) mmol/L Potassium 3.8 (3.5-5.1) mmol/L Chloride 97 L (98-107) mmol/L Carbon Dioxide 24 (22-30) mmol/L Anion Gap 12 mmol/L BUN 7 L (9-20) mg/dL Creatinine 0.70 (0.66-1.25) mg/dL Est GFR (CKD-EPI)AfAm >90 (>60 ml/min/1.73 sqM) Est GFR (CKD-EPI)NonAf 86 (>60 ml/min/1.73 sqM) Glucose 130 H (74-99) mg/dL Lactic Ac Sepsis Rflx Plasma Lactic Acid Aren 3.2 H* (0.7-2.0) mmol/L Calcium 8.9 (8.4-10.2) mg/dL Total Bilirubin 1.9 H (0.2-1.3) mg/dL AST 38 (17-59) U/L ALT 18 (4-49) U/L Alkaline Phosphatase 165 H (38-126) U/L Troponin I 0.021 (0.000-0.034) ng/mL Total Protein 7.0 (6.3-8.2) g/dL Albumin 4.0 (3.5-5.0) g/dL Urine Color Urine Appearance (Clear) Urine pH (5.0-8.0) Ur Specific [place] (1.001-1.035) Urine Protein (Negative) Urine Glucose (UA) (Negative) Urine Ketones (Negative) Urine Blood (Negative) Urine Nitrite (Negative) Urine Bilirubin (Negative) Urine Urobilinogen (<2.0) mg/dL Ur Leukocyte Esterase (Negative) Urine RBC (0-5) /hpf Urine WBC (0-5) /hpf Urine Bacteria (None) /hpf Urine Mucus (None) /hpf Urine Yeast (Budding) (None) /hpf Coronavirus (PCR) (Not Detectd) 04/24/21 04/24/21 Range/Units 16:37 18:13 WBC (3.8-10.6) k/uL RBC (4.30-5.90) m/uL Hgb (13.0-17.5) gm/dL Hct (39.0-53.0) % MCV (80.0-100.0) fL MCH (25.0-35.0) pg MCHC (31.0-37.0) g/dL RDW (11.5-15.5) % Plt Count (150-450) k/uL MPV Neutrophils % % Lymphocytes % % Monocytes % % Eosinophils % % Basophils % % Neutrophils # (1.3-7.7) k/uL Lymphocytes # (1.0-4.8) k/uL Monocytes # (0-1.0) k/uL Eosinophils # (0-0.7) k/uL Basophils # (0-0.2) k/uL Anisocytosis PT (9.0-12.0) sec INR (<1.2) APTT (22.0-30.0) sec Sodium (137-145) mmol/L Potassium (3.5-5.1) mmol/L Chloride (98-107) mmol/L Carbon Dioxide (22-30) mmol/L Anion Gap mmol/L BUN (9-20) mg/dL Creatinine (0.66-1.25) mg/dL Est GFR (CKD-EPI)AfAm (>60 ml/min/1.73 sqM) Est GFR (CKD-EPI)NonAf (>60 ml/min/1.73 sqM) Glucose (74-99) mg/dL Lactic Ac Sepsis Rflx Y Plasma Lactic Acid Aren (0.7-2.0) mmol/L Calcium (8.4-10.2) mg/dL Total Bilirubin (0.2-1.3) mg/dL AST (17-59) U/L ALT (4-49) U/L Alkaline Phosphatase (38-126) U/L Troponin I (0.000-0.034) ng/mL Total Protein (6.3-8.2) g/dL Albumin (3.5-5.0) g/dL Urine Color Urine Appearance (Clear) Urine pH (5.0-8.0) Ur Specific [place] (1.001-1.035) Urine Protein (Negative) Urine Glucose (UA) (Negative) Urine Ketones (Negative) Urine Blood (Negative) Urine Nitrite (Negative) Urine Bilirubin (Negative) Urine Urobilinogen (<2.0) mg/dL Ur Leukocyte Esterase (Negative) Urine RBC (0-5) /hpf Urine WBC (0-5) /hpf Urine Bacteria (None) /hpf Urine Mucus (None) /hpf Urine Yeast (Budding) (None) /hpf Coronavirus (PCR) Not Detected (Not Detectd) - Radiology Data Radiology results: report reviewed, image reviewed Two-view x-ray of the chest is obtained. Report was reviewed in its entirety. Impression by Dr. Miller shows cardiomegaly. No heart failure seen. There is some pleural reaction at the left lung base consistent with scarring that is not changed compared to old exam. Disposition Clinical Impression: Sepsis, UTI (urinary tract infection) Disposition: ADMITTED IP TO THIS HOSP Condition: Serious Decision to Admit Reason: Admit from EC Decision Date: 04/24/21 Decision Time: 18:18
[2021-04-24] MEDS: SODIUM CHLORIDE 0.9% 500 ML 500 ML IV SCH ×2 (16:02→16:04)
[2021-04-24 16:07] LABS: Anisocytosis Slight; Basophils % (A) 0 %; Eosinophils % (A) 0 %; HCT 36.5 % (39.0-53.0); Lymphocytes # (A) 0.7 k/uL (1.0-4.8); Lymphocytes % (A) 10 %; MCH 27.1 pg (25.0-35.0); MCHC 31.4 g/dL (31.0-37.0); MCV 86.2 fL (80.0-100.0); Mean Platelet Volume 8.3; Monocytes # (A) 0.5 k/uL (0-1.0); Monocytes % (A) 7 %; Neutrophils # (A) 6.1 k/uL (1.3-7.7); Neutrophils % (A) 81 %; RBC 4.24 m/uL (4.30-5.90); RDW 19.1 % (11.5-15.5); WBC 7.5 k/uL (3.8-10.6)
[2021-04-24] MEDS ORDERED: ACETAMINOPHEN TAB 500 MG TAB PO STA (16:07)
[2021-04-24 16:08] LABS: HGB 11.5 gm/dL (13.0-17.5); Platelet Count 86 k/uL (150-450)
[2021-04-24 16:12] LABS: Appearance,Urine Cloudy (Clear); Bacteria,Urine Occasional /hpf; Bilirubin,Urine Negative (Negative); Blood,Urine Small (Negative); Budding Yeast,Urine Many /hpf; Color,Urine Yellow; Glucose,Urine (UA) Negative (Negative); Ketones,Urine Negative (Negative); Leukocyte Esterase,Urine Large (Negative); Mucus,Urine Rare /hpf; Nitrite,Urine Negative (Negative); Protein,Urine Trace (Negative); RBC,Urine 7 /hpf (0-5); Specific Gravity,Urine 1.009 (1.001-1.035); Urobilinogen,Urine <2.0 mg/dL (<2.0); WBC,Urine 74 /hpf (0-5)
[2021-04-24 16:18] LABS: ALT 18 U/L (4-49); AST 38 U/L (17-59); African American GFR (CKD) >90 (>60 ml/min/1.73 sqM); Alkaline Phosphatase 165 U/L (38-126); Anion Gap 12 mmol/L; Blood Urea Nitrogen 7 mg/dL (9-20); Calcium 8.9 mg/dL (8.4-10.2); Carbon Dioxide 24 mmol/L (22-30); Chloride 97 mmol/L (98-107); Glucose 130 mg/dL (74-99); Non-African American GFR(CKD) 86 (>60 ml/min/1.73 sqM); Potassium 3.8 mmol/L (3.5-5.1); Sodium 133 mmol/L (137-145); Total Bilirubin 1.9 mg/dL (0.2-1.3)
[2021-04-24 16:19] LABS: INR 1.3 (<1.2); Partial Thromboplastin Time 29.1 sec (22.0-30.0); Prothrombin Time 13.4 sec (9.0-12.0)
[2021-04-24] MEDS ORDERED: cefTRIAXone IN SWFI 1,000 MG/10 ML SYRINGE IVP STA (16:39)
--- NOTE | 2021-04-24 17:13 | XR ---
EXAMINATION TYPE: XR chest 2V DATE OF EXAM: 04/24/2021 COMPARISON: 11/16/2020 HISTORY: Fever TECHNIQUE: FINDINGS: Heart is enlarged. There is no gross heart failure. There is blunting of the left costophre serafin angle. There is left axillary pacemaker. Bony thorax appears intact. IMPRESSION: Cardiomegaly. No heart failure seen. There is some pleural reaction at the left lung base consistent with scarring that is not changed compared to old exam.
[2021-04-24] MEDS ORDERED: SODIUM CHLORIDE 0.9% 1,000 ML IV ONE (18:05)
[2021-04-24] MEDS: SODIUM CHLORIDE 0.9% 1,000 ML IV SCH (18:11)
[2021-04-24] MEDS ORDERED: ONDANSETRON 4 MG/2 ML VIAL IVP PRN (18:16)
[2021-04-24] MEDS ORDERED: NALOXONE 0.4 MG/ML 1 ML VIAL IV PRN (18:16)
[2021-04-24] MEDS ORDERED: HYDROcodone/APAP 5-325MG 1 EACH TAB PO PRN (22:25)
[2021-04-24] MEDS: FERROUS SULFATE 325 MG TAB PO SCH (22:57)
[2021-04-24] MEDS: METOPROLOL SUCCINATE (ER) 100 MG TAB.ER.24H PO SCH (22:57)
[2021-04-24] MEDS: RIVAROXABAN 20 MG TAB PO SCH (22:57)
[2021-04-24] MEDS: amLODIPine 5 MG TAB PO SCH (22:57)
[2021-04-24] MEDS: MONTELUKAST 10 MG TAB PO SCH (22:57)
[2021-04-24] MEDS: LOSARTAN 50 MG TAB PO SCH (22:57)
[2021-04-24] MEDS: ATORVASTATIN 40 MG TAB PO SCH (22:57)
[2021-04-25] MEDS: ACETAMINOPHEN TAB 325 MG TAB PO PRN ×2 (02:30→21:37)
[2021-04-25] MEDS: LEVOTHYROXINE 75 MCG TAB PO SCH (05:28)
[2021-04-25] MEDS: SODIUM CHLORIDE 0.9% 1,000 ML IV SCH ×2 (05:28→16:22)
[2021-04-25] MEDS: BUDESONIDE 0.5 MG/2 ML NEBU INHALATION SCH ×2 (08:40→20:12)
[2021-04-25] MEDS: ISOSORBIDE MONONITRATE ER 30 MG TAB.ER.24H PO SCH (08:49)
[2021-04-25] MEDS: FUROSEMIDE 20 MG TAB PO SCH (08:49)
[2021-04-25 11:31] LABS: Glucose,Whole Blood 116 mg/dL (75-99)
[2021-04-25] MEDS: INSULIN ASPART (NovoLOG) 100 UNIT/ML VIAL SQ SCH ×3 (12:31→21:19)
[2021-04-25 16:28] LABS: Glucose,Whole Blood 112 mg/dL (75-99)
[2021-04-25] MEDS: RIVAROXABAN 20 MG TAB PO SCH (16:55)
[2021-04-25 20:16] LABS: Glucose,Whole Blood 110 mg/dL (75-99)
[2021-04-25] MEDS: METOPROLOL SUCCINATE (ER) 100 MG TAB.ER.24H PO SCH (21:37)
[2021-04-25] MEDS: LOSARTAN 50 MG TAB PO SCH (21:37)
[2021-04-25] MEDS: ATORVASTATIN 40 MG TAB PO SCH (21:37)
[2021-04-25] MEDS: MONTELUKAST 10 MG TAB PO SCH (21:37)
[2021-04-25] MEDS: amLODIPine 5 MG TAB PO SCH (21:37)
--- NOTE | 2021-04-25 22:11 | P.CONS ---
History of Present Illness - Reason for Consult Consult date: 04/25/21 Gram-negative bacteremia Requesting physician: Rojelio Louis - Chief Complaint Weakness 1 day - History of Present Illness Patient is 86-year male with a past medical history significant for cancer of the prostate lung and liver currently in remission and not on any chemotherapy presenting to the ER last evening for evaluation of generalized weakness nausea and dehydration apparently the patient went for golf Friday a day before presentation to the hospital after the third hold the patient started feeling weak and nauseous and did have dry heaves all day yesterday patient also have some fever and chills at home patient denies having any headache or URI sym ptoms no chest pain shortness with no cough no abdominal pain no diarrhea no burning or frequency of urine however did mention some incontinence of urine with the symptoms the patient was evaluated by ER physician on arrival to the ER the patient had did have a fever 100 F subsequently spiked a fever of 102.6 F patient did have an episode there was negative patient did have a normal white count with some lymphopenia kidney function was normal creatinine was normal lactic acid was mildly elevated AST ALT were normal did have a positive UA patient was started on Rocephin the blood cultures gram-positive gram-negative bacilli ID was consulted for further management of antibiotic therapy. Review of Systems Positive point has been mentioned in the HPI rest of the systems are negative Past Medical History Past Medical History: Atrial Fibrillation, Cancer, Diabetes Mellitus, Hyperlipidemia, Hypertension, Prostate Disorder, Thyroid Disorder Additional Past Medical History / Comment(s): hx prostate,liver,lung cancer, see Dr Ambrosio H&P, diet control diabetic, A-fib with pacemaker in on 2016 History of Any Multi-Drug Resistant Organisms: None Reported Past Surgical History: Heart Catheterization With Stent, Prostate Surgery, Tonsillectomy Additional Past Surgical History / Comment(s): removal of rt lobe of liver, upper left lobe of lung removed, rt knee replacement, left arm-fx, pacemaker, (R) hip replacement. Past Anesthesia/Blood Transfusion Reactions: No Reported Reaction Date of Last Stent Placement:: 2019 Type of Cardiac Device: Permanent Pacemaker Device Placement Date:: 2005 Past Psychological History: No Psychological Hx Reported Additional Psychological History / Comment(s): lives with family home with his . Retired. No recent travel. No animals. Reformed smoker Smoking Status: Former smoker Past Alcohol Use History: Daily Additional Past Alcohol Use History / Comment(s): 2 alcoholic drinks 5-6 days per week the patient has had no alcohol intake since October 06. He lives at home with his .. Past Drug Use History: None Reported - Past Family History Mother Additional Family Medical History / Comment(s): Mother from complications of diabetes. No history of cancer. Brother(s) Additional Family Medical History / Comment(s): Patient has one brother and 4 sisters with no major medical problems. Patient has 2 sons with no major medical problems. No cancers. Father Family Medical History: Cancer Additional Family Medical History / Comment(s): Father from lung cancer with history of heavy smoking. Medications and Allergies Home Medications Medication Instructions Recorded Confirmed Type Levothyroxine Sodium [Levoxyl] 75 mcg PO DAILY 06/09/15 04/24/21 History Metoprolol Succinate [Toprol XL] 100 mg PO HS 06/09/15 04/24/21 History Losartan [Cozaar] 50 mg PO HS 10/21/18 04/24/21 History Atorvastatin [Lipitor] 40 mg PO HS 03/14/20 04/24/21 History Isosorbide Mononitrate [Isosorbide 30 mg PO DAILY 03/14/20 04/24/21 History Mononitrate ER] Montelukast [Singulair] 10 mg PO HS 03/14/20 04/24/21 History Rivaroxaban [Xarelto] 20 mg PO W/SUPPER 03/14/20 04/24/21 History amLODIPine BESYLATE 5 mg PO HS 03/14/20 04/24/21 History Budesonide [Pulmicort] 0.5 mg INHALATION RT-BID 03/07/21 04/24/21 History Ferrous Sulfate [Iron] 325 mg PO Q48H 04/24/21 04/24/21 History Furosemide [Lasix] 20 mg PO DAILY 04/24/21 04/24/21 History HYDROcodone/APAP 5-325MG [[place] 1 tab PO Q6HR PRN 04/24/21 04/24/21 History 5-325] Allergies Allergy/AdvReac Type Severity Reaction Status Date / Time Tetanus Vaccines and Toxoid Allergy Unknown Verified 04/24/21 14:09 Physical Exam Vitals: Vital Signs Temp Pulse Pulse Resp BP BP Pulse Ox 04/25/21 12:24 98.9 F 78 17 128/78 04/25/21 08:50 80 04/25/21 08:43 72 04/25/21 07:15 98.3 F 69 18 107/71 04/25/21 02:00 99.9 F H 97 16 119/68 92 L 04/24/21 21:56 98.2 F 107 H 16 150/88 95 04/24/21 21:15 98.3 F 94 18 110/74 98 04/24/21 20:09 96 18 151/94 95 04/24/21 18:11 99.5 F 91 18 91/58 94 L 04/24/21 17:09 111 H 18 119/96 98 Intake and Output 04/25/21 04/25/21 04/25/21 06:59 14:59 22:59 Other: # Voids 3 GENERAL DESCRIPTION: An elderly male lying in bed, no distress. No tachypnea or accessory muscle of respiration use. HEENT: Shows Pallor , no scleral icterus. Oral mucous membrane is dry. No pharyngeal erythema or thrush NECK: Trachea central, no thyromegaly. LUNGS: Unlabored breathing. Clear to auscultation anteriorly. No wheeze or crackle. HEART: S1, S2, regular rate and rhythm. No loud murmur ABDOMEN: Soft, no tenderness , guarding or rigidity, no organomegaly EXTREMITIES: No edema of feet. SKIN: No rash, no masses palpable. NEUROLOGICAL: The patient is awake, alert, oriented x3, mood and affect normal. Results CBC & Chem 7: 04/24/21 15:54 04/24/21 15:54 Labs: Abnormal Lab Results - Last 24 Hours (Table) 04/25/21 04/25/21 Range/Units 11:29 16:26 POC Glucose (mg/dL) 116 H 112 H (75-99) mg/dL Microbiology - Last 24 Hours (Table) 04/24/21 15:54 Blood Culture Gram Stain - Preliminary Blood 04/24/21 15:54 Blood Culture - Final Blood 04/24/21 15:54 Urine Culture - Preliminary Urine,Clean Catch Assessment and Plan Assessment: patient with gram-negative bacteremia source likely urinary as the patient did have positive UA and did have some urinary symptoms of incontinence but no significant burning or suprapubic pain and the patient currently do not have any other obvious focus of infection abdominal soft on clinical admission no evidence of pneumonia clinically and no cellulitis (1) Gram-negative bacteremia Current Visit: Yes Status: Acute Code(s): R78.81 - BACTEREMIA SNOMED Code(s): 075312843603 (2) Sepsis Current Visit: Yes Status: Acute Code(s): A41.9 - SEPSIS, UNSPECIFIED ORGANISM SNOMED Code(s): 31462084 (3) UTI (urinary tract infection) Current Visit: Yes Status: Acute Code(s): N39.0 - URINARY TRACT INFECTION, SITE NOT SPECIFIED SNOMED Code(s): 47081302 Plan: 1-antibiotics switched to cefepime 2 g every 8 while waiting for the culture to finalize 2-obtain ultrasound of the kidneys to make sure evidence of any hydronephrosis or abscess 3-gentle IV fluid We will follow on clinical condition and cultures to further adjust medication if needed Thank you for this consultation we will follow the patient along with you Time with Patient: Greater than 30
[2021-04-26] MEDS: CEFEPIME 2 GM in SODIUM CHLORIDE 0.9% 100 ML IVPB SCH ×2 (00:54→08:18)
[2021-04-26] MEDS: LEVOTHYROXINE 75 MCG TAB PO SCH (06:24)
[2021-04-26] MEDS: SODIUM CHLORIDE 0.9% 1,000 ML IV SCH ×2 (06:24→16:35)
[2021-04-26 07:05] LABS: Glucose,Whole Blood 99 mg/dL (75-99)
[2021-04-26] MEDS: INSULIN ASPART (NovoLOG) 100 UNIT/ML VIAL SQ SCH ×4 (07:12→21:49)
[2021-04-26 07:50] LABS: Anisocytosis Slight; HGB 10.4 gm/dL (13.0-17.5); Hypochromasia Marked; MCH 27.8 pg (25.0-35.0); MCHC 30.7 g/dL (31.0-37.0); MCV 90.5 fL (80.0-100.0); Mean Platelet Volume 8.4; RBC 3.76 m/uL (4.30-5.90); RDW 18.9 % (11.5-15.5); WBC 4.6 k/uL (3.8-10.6)
[2021-04-26] MEDS: BUDESONIDE 0.5 MG/2 ML NEBU INHALATION SCH ×2 (08:01→20:03)
[2021-04-26 08:09] LABS: African American GFR (CKD) >90 (>60 ml/min/1.73 sqM); Anion Gap 8 mmol/L; Blood Urea Nitrogen 9 mg/dL (9-20); Calcium 8.3 mg/dL (8.4-10.2); Carbon Dioxide 23 mmol/L (22-30); Chloride 107 mmol/L (98-107); Glucose 98 mg/dL (74-99); Non-African American GFR(CKD) 88 (>60 ml/min/1.73 sqM); Potassium 3.3 mmol/L (3.5-5.1); Sodium 138 mmol/L (137-145)
[2021-04-26] MEDS: ISOSORBIDE MONONITRATE ER 30 MG TAB.ER.24H PO SCH (08:17)
[2021-04-26] MEDS: FUROSEMIDE 20 MG TAB PO SCH (08:17)
[2021-04-26 08:18] LABS: Platelet Count 83 k/uL (150-450)
--- NOTE | 2021-04-26 08:49 | US ---
EXAMINATION TYPE: US kidneys/renal and bladder DATE OF EXAM: 04/26/2021 COMPARISON: 07/28/2014 CLINICAL HISTORY: uti and bacteremia. Diabetic; Lung, prostate and liver CA. EXAM MEASUREMENTS: Right Kidney: 11.4 x 6.1 x 5.4 cm Left Kidney: 10.6 x 4.9 x 5.5 cm Post Void Residual Volume: not assessed on inpatient Right Kidney: No hydronephrosis or masses seen Left Kidney: No hydronephrosis or masses seen ; lobular cortex is noted Bladder: wnl Bilateral Jets seen: no, as constant motion artifact is present due to patient's respirations Ascites is noted in all 4 abdominal quadrants with largest in RLQ = 6.1cm A/P. There is no evidence for hydronephrosis at this point in time. No nephrolithiasis is seen. No pablito s are identified. The urinary bladder is anechoic. IMPRESSION: 1. Limited examination due to patient respirations. 2. Ascites.
[2021-04-26] MEDS ORDERED: POTASSIUM CHLORIDE ER 20 MEQ TAB.ER PO STA (09:26)
--- NOTE | 2021-04-26 09:55 | P.HPIM ---
History of Present Illness H&P Date: 04/25/21 HISTORY OF PRESENT ILLNESS This is an 86-year-old male patient of Dr. Patiño and Dr. Samra Khalil with past medical history of chronic persistent atrial fibrillation on Xarelto, coronary artery disease with prior stenting of the left circumflex and the OM branch of the circumflex on 03/15/2020, history of sick sinus syndrome with permanent pacemaker implantation, hypertension, hyperlipidemia, diabetes mellitus type 2- diet controlled, hypothyroidism, history of prostate, liver and lung cancers all primary status post resections. Patient did receive chemotherapy with lung cancer, no radiation treatment, history of nonhealing ulcer to the right tibial [facility]. Patient states that he was golfing with a friend and only made it to the third hole was not feeling well, drowsy, tired. He went home and his son stayed with him overnight the patient was not feeling much improved by Friday morning and his son brought him into the emergency center for evaluation. Patient does state that he was at [facility] 2 weeks ago. He states he was at his retinal specialist and he had some loss of vision on the right thigh there was concern that he had a stroke. He states he spent one week there and stroke was ruled out. It was only bleedin g in his eye. He has had a follow-up with Dr. Miguel. He is off aspirin and Plavix and on Xarelto only. He states he was also treated for fluid overload while in the hospital. Patient denies having dysuria. Patient presented to [facility] emergency center due to concerns for dehydration and weakness. Patient was found to be febrile with temperature of 102.6, heart rate 96, blood pressure 151/94, pulse ox 95% on room air. WBC 7.5, hemoglobin 11.5, platelet count 86. Sodium 133, potassium 3.8, chloride 97, CO2 24, BUN 7 and creatinine 0.7. Blood sugar 130. Urinalysis is cloudy, leukoesterase large, bacteria occasional, budding yeast many. Lactic acid 3.2 with repeat 1.1. Total bilirubin 1.9, AST 38, ALT 18, alkaline phosphatase 165. Troponin 0.021. Coronavirus PCR not detected. Chest x-ray reveals cardiomegaly. No heart failure. There is some pleural reaction at the left lung base consistent with scarring that is not changed compared to old exam. EKG was atrial fibrillation at a heart rate of 111. No acute ST changes. Patient admitted to the [facility] floor and consults requested with Dr. Hickman after her blood culture came back positive. REVIEW OF SYSTEMS Constitutional: Reports fever, Reports chills, no night sweats. No weight change. Reports weakness, Reports fatigue Reports lethargy. No daytime sleepiness. EENT: No headache. No blurred vision or double vision, no loss of vision. No loss of Hearing, no ringing in the ears, no dizziness. No nasal drainage or congestion. No epistaxis. No sore throat. Lungs: No shortness of breath, cough, no sputum production. No wheezing. Cardiovascular: No chest pain, no lower extremity edema. No palpitations. No paroxysmal nocturnal dyspnea. No orthopnea. No lightheadedness or dizziness. No syncopal episodes. Abdominal: No abdominal pain. Reports nausea, Reports vomiting. No diarrhea. No constipation. No bloody or tarry stools.. No loss of appetite. Genitourinary: No dysuria, increased frequency, urgency. No urinary retention. Musculoskeletal: No myalgias. Reports muscle weakness, no gait dysfunction, no frequent falls. No back pain. No neck pain. Integumentary: No wounds, no lesions. No rash or pruritus. No unusual bruising. No change in hair or nails. Neurologic: No aphasia. No facial droop. No change in mentation. No head injury. No headache. No paralysis. No paresthesia. Psychiatric: No depression. No anxiety. No mood swings. Endocrine: No abnormal blood sugars. No weight change. No excessive sweating or thirst. No cold intolerance. SOCIAL HISTORY Patient is a for one year and lives by himself. He smoked on and off for 15-20 years ago quit in 1983. He does drink a couple glasses of wine every day. He denies having any withdrawals or DTs in the past if he does not drink. Patient has a nebulizer at home that he uses twice a day. He does not have oxygen and he does not have CPAP but he is scheduled to have workup for obstructive sleep apnea. 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 FAMILY HISTORY Father from lung cancer with history of heavy smoking. Mother from complications of diabetes. No history of cancer. Patient has one brother and 4 sisters with no major medical problems. Patient has 2 sons with no major medical problems. No cancers. PHYSICAL EXAMINATION Gen: This is an 86-year-old male patient. Patient is resting bed appears to be comfortable and in no acute distress. HEENT: Head is atraumatic, normocephalic. Pupils equal, round. Sclerae is anicteric. NECK: Supple. No JVD. No lymphadenopathy. No thyromegaly. LUNGS: Clear to auscultation. No wheezes or rhonchi. No intercostal retractions. HEART: Irregular rate and rhythm. No murmur. ABDOMEN: Soft. Bowel sounds are present. No masses. No tenderness. EXTREMITIES: No pedal edema. No calf tenderness. NEUROLOGICAL: Patient is awake, alert and oriented x3. Cranial nerves 2 through 12 are grossly intact. ASSESSMENT AND PLAN 1. Sepsis secondary to UTI and possible bacteremia. Patient started on ROcephin 1 gm daily, urine culture in process. Consult with Dr. Hickman. Renal ultrasound 2. Lactic acidosis secondary to sepsis, resolved. 3. Thrombocytopenia most likely secondary to sepsis. 4. Chronic persistent atrial fibrillation. Continue Xarelto 20 mg daily, Toprol-XL 100 mg at bedtime. 5. Coronary artery disease with prior stenting of the left circumflex and OM branch of the circumflex. 6. History of sick sinus syndrome with permanent pacemaker implantation, stable. 7. Elevated alkaline phosphatase most likely secondary to history of liver cancer 8. Hypertension. Continue Norvasc 5 mg daily, Lasix 20 mg daily, Cozaar 50 mg daily, Toprol-XL 100 mg at bedtime. 9. Hyperlipidemia. Continue Lipitor 80 mg at bedtime 10. Diabetes mellitus type 2, diet controlled. Continue consistent carb diet. 11. History of prostate, liver and lung cancers, all primary status post resections with chemotherapy for lung cancer. 12. COVID-19 testing negative. Patient has been hospitalized during a pandemic. Patient will be admitted to the hospital for a minimum of 2 night stay. DISCHARGE PLAN TBD. Most likely return home with home care. Impression and plan of care have been directed as dictated by the signing physician. Joceline Hoyos nurse practitioner acting as scribe for signing physician. Past Medical History Past Medical History: Atrial Fibrillation, Cancer, Diabetes Mellitus, Hyperlipidemia, Hypertension, Prostate Disorder, Thyroid Disorder Additional Past Medical History / Comment(s): hx prostate,liver,lung cancer, see Dr Ambrosio H&P, diet control diabetic, A-fib with pacemaker in on 2017 History of Any Multi-Drug Resistant Organisms: None Reported Past Surgical History: Heart Catheterization With Stent, Prostate Surgery, Tonsillectomy Additional Past Surgical History / Comment(s): removal of rt lobe of liver, upper left lobe of lung removed, rt knee replacement, left arm-fx, pacemaker, (R) hip replacement. Past Anesthesia/Blood Transfusion Reactions: No Reported Reaction Date of Last Stent Placement:: 2019 Type of Cardiac Device: Permanent Pacemaker Device Placement Date:: 2005 Past Psychological History: No Psychological Hx Reported Additional Psychological History / Comment(s): lives with family home with his . Retired. No recent travel. No animals. Reformed smoker Smoking Status: Former smoker Past Alcohol Use History: Daily Additional Past Alcohol Use History / Comment(s): 2 alcoholic drinks 5-6 days per week the patient has had no alcohol intake since October 06. He lives at home with his .. Past Drug Use History: None Reported - Past Family History Mother Additional Family Medical History / Comment(s): Mother from complications of diabetes. No history of cancer. Brother(s) Additional Family Medical History / Comment(s): Patient has one brother and 4 sisters with no major medical problems. Patient has 2 sons with no major medical problems. No cancers. Father Family Medical History: Cancer Additional Family Medical History / Comment(s): Father from lung cancer with history of heavy smoking. Medications and Allergies Home Medications Medication Instructions Recorded Confirmed Type Levothyroxine Sodium [Levoxyl] 75 mcg PO DAILY 06/09/15 04/24/21 History Metoprolol Succinate [Toprol XL] 100 mg PO HS 06/09/15 04/24/21 History Losartan [Cozaar] 50 mg PO HS 10/21/18 04/24/21 History Atorvastatin [Lipitor] 40 mg PO HS 03/14/20 04/24/21 History Isosorbide Mononitrate [Isosorbide 30 mg PO DAILY 03/14/20 04/24/21 History Mononitrate ER] Montelukast [Singulair] 10 mg PO HS 03/14/20 04/24/21 History Rivaroxaban [Xarelto] 20 mg PO W/SUPPER 03/14/20 04/24/21 History amLODIPine BESYLATE 5 mg PO HS 03/14/20 04/24/21 History Budesonide [Pulmicort] 0.5 mg INHALATION RT-BID 03/07/21 04/24/21 History Ferrous Sulfate [Iron] 325 mg PO Q48H 04/24/21 04/24/21 History Furosemide [Lasix] 20 mg PO DAILY 04/24/21 04/24/21 History HYDROcodone/APAP 5-325MG [[place] 1 tab PO Q6HR PRN 04/24/21 04/24/21 History 5-325] Allergies Allergy/AdvReac Type Severity Reaction Status Date / Time Tetanus Vaccines and Toxoid Allergy Unknown Verified 04/24/21 14:09 Physical Exam Vitals: Vital Signs Temp Pulse Pulse Resp BP BP Pulse Ox 04/25/21 08:50 80 04/25/21 08:43 72 04/25/21 07:15 98.3 F 69 18 107/71 04/25/21 02:00 99.9 F H 97 16 119/68 92 L 04/24/21 21:56 98.2 F 107 H 16 150/88 95 04/24/21 21:15 98.3 F 94 18 110/74 98 04/24/21 20:09 96 18 151/94 95 04/24/21 18:11 99.5 F 91 18 91/58 94 L 04/24/21 17:09 111 H 18 119/96 98 04/24/21 16:05 99 18 149/94 95 04/24/21 15:57 102.6 F H 04/24/21 15:12 100.2 F H 118 H 18 169/89 97 04/24/21 14:07 100.0 F H 95 18 137/82 97 Intake and Output 04/24/21 04/25/21 04/25/21 22:59 06:59 14:59 Other: # Voids 3 Weight 116.12 kg Results CBC & Chem 7: 04/26/21 07:17 04/26/21 07:17 Labs: Abnormal Lab Results - Last 24 Hours (Table) 04/24/21 04/24/21 04/24/21 Range/Units 15:54 15:54 15:54 RBC 4.24 L (4.30-5.90) m/uL Hgb 11.5 L D (13.0-17.5) gm/dL Hct 36.5 L (39.0-53.0) % RDW 19.1 H (11.5-15.5) % Plt Count 86 L (150-450) k/uL Lymphocytes # 0.7 L (1.0-4.8) k/uL PT 13.4 H (9.0-12.0) sec INR 1.3 H (<1.2) Sodium (137-145) mmol/L Chloride (98-107) mmol/L BUN (9-20) mg/dL Glucose (74-99) mg/dL Plasma Lactic Acid Aren (0.7-2.0) mmol/L Total Bilirubin (0.2-1.3) mg/dL Alkaline Phosphatase (38-126) U/L Urine Protein Trace H (Negative) Urine Blood Small H (Negative) Ur Leukocyte Esterase Large H (Negative) Urine RBC 7 H (0-5) /hpf Urine WBC 74 H (0-5) /hpf Urine Bacteria Occasional H (None) /hpf Urine Mucus Rare H (None) /hpf Urine Yeast (Budding) Many H (None) /hpf 04/24/21 04/24/21 Range/Units 15:54 15:54 RBC (4.30-5.90) m/uL Hgb (13.0-17.5) gm/dL Hct (39.0-53.0) % RDW (11.5-15.5) % Plt Count (150-450) k/uL Lymphocytes # (1.0-4.8) k/uL PT (9.0-12.0) sec INR (<1.2) Sodium 133 L (137-145) mmol/L Chloride 97 L (98-107) mmol/L BUN 7 L (9-20) mg/dL Glucose 130 H (74-99) mg/dL Plasma Lactic Acid Aren 3.2 H* (0.7-2.0) mmol/L Total Bilirubin 1.9 H (0.2-1.3) mg/dL Alkaline Phosphatase 165 H (38-126) U/L Urine Protein (Negative) Urine Blood (Negative) Ur Leukocyte Esterase (Negative) Urine RBC (0-5) /hpf Urine WBC (0-5) /hpf Urine Bacteria (None) /hpf Urine Mucus (None) /hpf Urine Yeast (Budding) (None) /hpf Microbiology - Last 24 Hours (Table) 04/24/21 15:54 Urine Culture - Preliminary Urine,Clean Catch Thrombosis Risk Factor Assmnt - Choose All That Apply Each Factor Represents 1 point: Obesity (BMI >25) Each Risk Factor Represents 3 Points: Age 75 years or older Thrombosis Risk Factor Assessment Total Risk Factor Score: 4 Thrombosis Risk Factor Assessment Level: Moderate Risk
--- NOTE | 2021-04-26 09:59 | P.PN ---
Subjective Progress Note Date: 04/26/21 HISTORY OF PRESENT ILLNESS This is an 86-year-old male patient of Dr. Patiño and Dr. Samra Khalil with past medical history of chronic persistent atrial fibrillation on Xarelto, coronary artery disease with prior stenting of the left circumflex and the OM branch of the circumflex on 03/15/2020, history of sick sinus syndrome with permanent pacemaker implantation, hypertension, hyperlipidemia, diabetes mellitus type 2- diet controlled, hypothyroidism, history of prostate, liver and lung cancers all primary status post resections. Patient did receive chemotherapy with lung cancer, no radiation treatment, history of nonhealing ulcer to the right tibial [facility]. Patient states that he was golfing with a friend and only made it to the third hole was not feeling well, drowsy, tired. He went home and his son stayed with him overnight the patient was not feeling much improved by Friday morning and his son brought him into the emergency center for evaluation. Patient does state that he was at [facility] 2 weeks ago. He states he was at his retinal specialist and he had some loss of vision on the right thigh there was concern that he had a stroke. He states he spent one week there and stroke was ruled out. It was only bleeding in his eye. He has had a follow-up with Dr. Miguel. He is off aspirin and Plavix and on Xarelto only. He states he was also treated for fluid overload while in the hospital. Patient denies having dysuria. Patient presented to [facility] emergency center due to concerns for dehydration and weakness. Patient was found to be febrile with temperature of 102.6, heart rate 96, blood pressure 151/94, pulse ox 95% on room air. WBC 7.5, hemoglobin 11.5, platelet count 86. Sodium 133, potassium 3.8, chloride 97, CO2 24, BUN 7 and creatinine 0.7. Blood sugar 130. Urinalysis is cloudy, leukoesterase large, bacteria occasional, budding yeast many. Lactic acid 3.2 with repeat 1.1. Total bilirubin 1.9, AST 38, ALT 18, alkaline phosphatase 165. Troponin 0.021. Coronavirus PCR not detected. Chest x-ray reveals cardiomegaly. No heart failure. There is some pleural reaction at the left lung base consistent with scarring that is not changed compared to old exam. EKG was atrial fibrillation at a heart rate of 111. No acute ST changes. Patient admitted to the [facility] floor and consults requested with Dr. Hickman after her blood culture came back positive. 04/26: Patient has been seen by Dr. Hickman and patient placed on cefepime. Renal ultrasound showed no hydronephrosis. Patient had temperature max of 100.2, heart rate 81, blood pressure 150/88, pulse ox 97% on room air. Blood cultures positive for E. coli and sensitivity is pending. Urine culture is in process. Repeat blood work reveals WBC 4.6, hemoglobin 10.4, platelet count 83. Potassium was 3.3 otherwise basic metabolic panel normal. Potassium will be replaced with 40 mEq of potassium. Await finalization of cultures and recommendations from Dr. Hickman. Possible discharge tomorrow. REVIEW OF SYSTEMS Constitutional: Reports fever, Reports chills-improved, no night sweats. No weight change. Reports weakness, Reports fatigue Reports lethargy. No daytime sleepiness. EENT: No headache. No blurred vision or double vision, no loss of vision. No loss of Hearing, no ringing in the ears, no dizziness. No nasal drainage or congestion. No epistaxis. No sore throat. Lungs: No shortness of breath, cough, no sputum production. No wheezing. Cardiovascular: No chest pain, no lower extremity edema. No palpitations. No paroxysmal nocturnal dyspnea. No orthopnea. No lightheadedness or dizziness. No syncopal episodes. Abdominal: No abdominal pain. Reports nausea, Reports vomiting. No diarrhea. No constipation. No bloody or tarry stools. No loss of appetite. Genitourinary: No dysuria, increased frequency, urgency. No urinary retention. Musculoskeletal: No myalgias. Reports muscle weakness, no gait dysfunction, no frequent falls. No back pain. No neck pain. Integumentary: No wounds, no lesions. No rash or pruritus. No unusual bruising. No change in hair or nails. Neurologic: No aphasia. No facial droop. No change in mentation. No head injury. No headache. No paralysis. No paresthesia. Psychiatric: No depression. No anxiety. No mood swings. Endocrine: No abnormal blood sugars. No weight change. No excessive sweating or thirst. No cold intolerance. PHYSICAL EXAMINATION Gen: This is an 86-year-old male patient. Patient is resting bed appears to be comfortable and in no acute distress. HEENT: Head is atraumatic, normocephalic. Pupils equal, round. Sclerae is anicteric. NECK: Supple. No JVD. No lymphadenopathy. No thyromegaly. LUNGS: Clear to auscultation. No wheezes or rhonchi. No intercostal retractions. HEART: Irregular rate and rhythm. No murmur. ABDOMEN: Soft. Bowel sounds are present. No masses. No tenderness. EXTREMITIES: No pedal edema. No calf tenderness. NEUROLOGICAL: Patient is awake, alert and oriented x3. Cranial nerves 2 through 12 are grossly intact. ASSESSMENT AND PLAN 1. Sepsis secondary to UTI and E coli bacteremia. Patient started on ROcephin 1 gm daily, urine culture in process. Consult with Dr. Hickman. Renal ultrasound 2. Lactic acidosis secondary to sepsis, resolved. 3. Thrombocytopenia most likely secondary to sepsis. 4. Chronic persistent atrial fibrillation. Continue Xarelto 20 mg daily, Toprol-XL 100 mg at bedtime. 5. Coronary artery disease with prior stenting of the left circumflex and OM branch of the circumflex. 6. History of sick sinus syndrome with permanent pacemaker implantation, stable. 7. Elevated alkaline phosphatase most likely secondary to history of liver cancer 8. Hypertension. Continue Norvasc 5 mg daily, Lasix 20 mg daily, Cozaar 50 mg daily, Toprol-XL 100 mg at bedtime. 9. Hyperlipidemia. Continue Lipitor 80 mg at bedtime 10. Diabetes mellitus type 2, diet controlled. Continue consistent carb diet. 11. History of prostate, liver and lung cancers, all primary status post resections with chemotherapy for lung cancer. DISCHARGE PLAN TBD. Most likely return home with home care. Impression and plan of care have been directed as dictated by the signing physi cian. Joceline Hoyos nurse practitioner acting as scribe for signing physician. Objective - Vital Signs Vital signs: Vital Signs Temp 97.8 F 04/26/21 07:36 Pulse 76 04/26/21 08:10 Resp 18 04/26/21 07:36 BP 150/88 04/26/21 07:36 Pulse Ox 92 L 04/26/21 07:53 Intake & Output 04/25/21 04/26/21 04/26/21 18:59 06:59 18:59 Other: # Voids 3 2 - Labs CBC & Chem 7: 04/26/21 07:17 04/26/21 07:17 Labs: Abnormal Lab Results - Last 24 Hours (Table) 04/25/21 04/25/21 04/25/21 Range/Units 11:29 16:26 20:10 RBC (4.30-5.90) m/uL Hgb (13.0-17.5) gm/dL Hct (39.0-53.0) % MCHC (31.0-37.0) g/dL RDW (11.5-15.5) % Plt Count (150-450) k/uL Potassium (3.5-5.1) mmol/L POC Glucose (mg/dL) 116 H 112 H 110 H (75-99) mg/dL Calcium (8.4-10.2) mg/dL 04/26/21 04/26/21 Range/Units 07:17 07:17 RBC 3.76 L (4.30-5.90) m/uL Hgb 10.4 L (13.0-17.5) gm/dL Hct 34.0 L (39.0-53.0) % MCHC 30.7 L (31.0-37.0) g/dL RDW 18.9 H (11.5-15.5) % Plt Count 83 L (150-450) k/uL Potassium 3.3 L (3.5-5.1) mmol/L POC Glucose (mg/dL) (75-99) mg/dL Calcium 8.3 L (8.4-10.2) mg/dL Microbiology - Last 24 Hours (Table) 04/24/21 15:54 Blood Culture Gram Stain - Preliminary Blood Blood Culture - Preliminary Escherichia coli 04/24/21 15:54 Blood Culture - Preliminary Blood No Growth after 24 hours 04/24/21 15:54 Blood Culture - Final Blood
[2021-04-26 11:32] LABS: Glucose,Whole Blood 107 mg/dL (75-99)
[2021-04-26 16:19] LABS: Glucose,Whole Blood 101 mg/dL (75-99)
[2021-04-26] MEDS: RIVAROXABAN 20 MG TAB PO SCH (16:35)
--- NOTE | 2021-04-26 16:38 | PN ---
PROGRESS NOTE DATE OF SERVICE: 04/26/2021 REASON FOR FOLLOWUP: E coli UTI and bacteremia. INTERVAL HISTORY: Patient is afebrile. The patient is breathing comfortably. The patient denies having any chest pain, shortness of breath, abdominal pain or diarrhea. PHYSICAL EXAMINATION: Blood pressure 115/71, pulse of 73, temperature 98.3, he is 92% on room air. GENERAL DESCRIPTION: Patient is an elderly male lying in bed in no distress. RESPIRATORY SYSTEM: Unlabored breathing, clear to auscultation anteriorly. HEART: S1, S2. Regular rate and rhythm. ABDOMEN: Soft, no tenderness. LABS: Hemoglobin is 10.1, white count 4.7, BUN of 9, creatinine 0.66. Blood in urine is with Gram-negative E coli. Ultrasound on the bladder did not show any hydronephrosis or nephrolithiasis. DIAGNOSTIC IMPRESSION AND PLAN: Patient with an E coli bacteremia, source likely urinary. No evidence of any hydronephrosis. Also some ( ) on ultrasound of the kidneys. Patient ( ) to Rocephin and seems to be sensitive pathogen. Waiting for sensitivity to determine his discharge antibiotics. Continue supportive care. MMODL / IJN: [id number] /
[2021-04-26 20:23] LABS: Glucose,Whole Blood 130 mg/dL (75-99)
[2021-04-26] MEDS: FERROUS SULFATE 325 MG TAB PO SCH (21:57)
[2021-04-26] MEDS: ATORVASTATIN 40 MG TAB PO SCH (21:57)
[2021-04-26] MEDS: amLODIPine 5 MG TAB PO SCH (21:57)
[2021-04-26] MEDS: LOSARTAN 50 MG TAB PO SCH (21:57)
[2021-04-26] MEDS: MONTELUKAST 10 MG TAB PO SCH (21:57)
[2021-04-26] MEDS: METOPROLOL SUCCINATE (ER) 100 MG TAB.ER.24H PO SCH (22:14)
[2021-04-27] MEDS: LEVOTHYROXINE 75 MCG TAB PO SCH (06:38)
[2021-04-27] MEDS: SODIUM CHLORIDE 0.9% 1,000 ML IV SCH (06:38)
[2021-04-27 06:55] LABS: Glucose,Whole Blood 108 mg/dL (75-99)
[2021-04-27 07:08] VITALS: TEMP 98.1
[2021-04-27] MEDS: BUDESONIDE 0.5 MG/2 ML NEBU INHALATION SCH (07:23)
[2021-04-27] MEDS: INSULIN ASPART (NovoLOG) 100 UNIT/ML VIAL SQ SCH ×2 (08:00→13:02)
--- NOTE | 2021-04-27 10:34 | P.DS ---
Providers Date of admission: 04/24/21 19:57 Expected date of discharge: 04/27/21 Attending physician: Rojelio Louis Consults: 04/25/21 14:11 Consult Physician Routine Consulting Provider: Macario Hickman Consult Reason/Comments: sepsis, uti, bacteremia Do you want consulting provider notified?: Yes Primary care physician: Blake Patiño [facility] Course: HISTORY OF PRESENT ILLNESS This is an 86-year-old male patient of Dr. Patiño and Dr. Samra Khalil with past medical history of chronic persistent atrial fibrillation on Xarelto, coronary artery disease with prior stenting of the left circumflex and the OM branch of the circumflex on 03/15/2020, history of sick sinus syndrome with permanent pacemaker implantation, hypertension, hyperlipidemia, diabetes mellitus type 2- diet controlled, hypothyroidism, history of prostate, liver and lung cancers all primary status post resections. Patient did receive chemotherapy with lung cancer, no radiation treatment, history of nonhealing ulcer to the right tibial area [facility]. Patient states that he was golfing with a friend and only made it to the third hole was not feeling well, drowsy, tired. He went home and his son stayed with him overnight the patient was not feeling much improved by Friday and his son brought him into the emergency center for evaluation. Patient does state that he was at [facility] 2 weeks ago. He states he was at his retinal specialist and he had some loss of vision on the right thigh there was concern that he had a stroke. He states he spent one week there and stroke was ruled out. It was only bleeding in his eye. He has had a follow-up with Dr. Miguel. He is off aspirin and Plavix and on Xarelto only. He states he was also treated for fluid overload while in the hospital. Patient denies having dysuria. Patient presented to [facility] emergency center due to concerns for dehydration and weakness. Patient was found to be febrile with temperature of 102.6, heart rate 96, blood pressure 151/94, pulse ox 95% on room air. WBC 7.5, hemoglobin 11.5, platelet count 86. Sodium 133, potassium 3.8, chloride 97, CO2 24, BUN 7 and creatinine 0.7. Blood sugar 130. Urinalysis is cloudy, leukoesterase large, bacteria occasional, budding yeast many. Lactic acid 3.2 with repeat 1.1. Total bilirubin 1.9, AST 38, ALT 18, alkaline phosphatase 165. Troponin 0.021. Coronavirus PCR not detected. Chest x-ray reveals cardiomegaly. No heart failure. There is some pleural reaction at the left lung base consistent with scarring that is not changed compared to old exam. EKG was atrial fibrillation at a heart rate of 111. No acute ST changes. Patient admitted to the [facility] floor and consults requested with Dr. Hickman after her blood culture came back positive. 04/26: Patient has been seen by Dr. Hickman and patient placed on cefepime. Renal ultrasound showed no hydronephrosis. Patient had temperature max of 100.2, heart rate 81, blood pressure 150/88, pulse ox 97% on room air. Blood cultures positive for E. coli and sensitivity is pending. Urine culture is in process. Repeat blood work reveals WBC 4.6, hemoglobin 10.4, platelet count 83. Potassium was 3.3 otherwise basic metabolic panel normal. Potassium will be replaced with 40 mEq of potassium. Await finalization of cultures and recom mendations from Dr. Hickman. Possible discharge tomorrow. 04/27: Patient has been afebrile, heart rate 67, blood pressure 112/64, pulse ox 94% on room air. Repeat blood work reveals sodium 140, potassium 3.8, chloride 108, CO2 26, BUN 10 and creatinine 0.67. Blood sugar 126. Blood culture and urine culture positive for E. coli. Dr. Hickman is recommended oral Cipro for 12 days and patient will be discharged home today in stable condition. ASSESSMENT AND PLAN 1. Sepsis secondary to UTI and E coli bacteremia. 2. Lactic acidosis secondary to sepsis, resolved. 3. Thrombocytopenia most likely secondary to sepsis. 4. Chronic persistent atrial fibrillation. 5. Coronary artery disease with prior stenting of the left circumflex and OM branch of the circumflex. 6. History of sick sinus syndrome with permanent pacemaker implantation, stable. 7. Elevated alkaline phosphatase most likely secondary to history of liver cancer 8. Hypertension. 9. Hyperlipidemia. 10. Diabetes mellitus type 2, diet controlled. 11. History of prostate, liver and lung cancers, all primary status post resections with chemotherapy for lung cancer. DISCHARGE PLAN home Impression and plan of care have been directed as dictated by the signing physician. Joceline Hoyos nurse practitioner acting as scribe for signing physician. Patient Condition at Discharge: Good Plan - Discharge Summary Discharge Rx Participant: No New Discharge Prescriptions: New Ciprofloxacin HCl [Cipro] 500 mg PO BID 12 Days #24 tab Continue Metoprolol Succinate [Toprol XL] 100 mg PO HS Levothyroxine Sodium [Levoxyl] 75 mcg PO DAILY Losartan [Cozaar] 50 mg PO HS Rivaroxaban [Xarelto] 20 mg PO W/SUPPER Montelukast [Singulair] 10 mg PO HS Isosorbide Mononitrate [Isosorbide Mononitrate ER] 30 mg PO DAILY Atorvastatin [Lipitor] 40 mg PO HS amLODIPine BESYLATE 5 mg PO HS Budesonide [Pulmicort] 0.5 mg INHALATION RT-BID HYDROcodone/APAP 5-325MG [[place] 5-325] 1 tab PO Q6HR PRN PRN Reason: pain Furosemide [Lasix] 20 mg PO DAILY Ferrous Sulfate [Iron] 325 mg PO Q48H Discharge Medication List Levothyroxine Sodium [Levoxyl] 75 mcg PO DAILY 06/09/15 [History] Metoprolol Succinate [Toprol XL] 100 mg PO HS 06/09/15 [History] Losartan [Cozaar] 50 mg PO HS 10/21/18 [History] Atorvastatin [Lipitor] 40 mg PO HS 03/14/20 [History] Isosorbide Mononitrate [Isosorbide Mononitrate ER] 30 mg PO DAILY 03/14/20 [History] Montelukast [Singulair] 10 mg PO HS 03/14/20 [History] Rivaroxaban [Xarelto] 20 mg PO W/SUPPER 03/14/20 [History] amLODIPine BESYLATE 5 mg PO HS 03/14/20 [History] Budesonide [Pulmicort] 0.5 mg INHALATION RT-BID 03/07/21 [History] Ferrous Sulfate [Iron] 325 mg PO Q48H 04/24/21 [History] Furosemide [Lasix] 20 mg PO DAILY 04/24/21 [History] HYDROcodone/APAP 5-325MG [[place] 5-325] 1 tab PO Q6HR PRN 04/24/21 [History] Ciprofloxacin HCl [Cipro] 500 mg PO BID 12 Days #24 tab 04/27/21 [Rx] Follow up Appointment(s)/Referral(s): Blake Patiño MD [Primary Care Provider] - 1 Week Macario Hickman MD [STAFF PHYSICIAN] - 1 Week Discharge Disposition: HOME SELF-CARE
[2021-04-27] MEDS: ISOSORBIDE MONONITRATE ER 30 MG TAB.ER.24H PO SCH (10:43)
[2021-04-27] MEDS: FUROSEMIDE 20 MG TAB PO SCH (10:43)
[2021-04-27] MEDS ORDERED: CEPHALEXIN 500 MG CAP PO SCH (10:45)
[2021-04-27 11:24] LABS: Glucose,Whole Blood 126 mg/dL (75-99)
[2021-04-27] MEDS ORDERED: CIPROFLOXACIN HCL 500 MG TAB PO STA (11:49)
[2021-04-27 12:32] LABS: African American GFR (CKD) >90 (>60 ml/min/1.73 sqM); Anion Gap 6 mmol/L; Blood Urea Nitrogen 10 mg/dL (9-20); Calcium 8.3 mg/dL (8.4-10.2); Carbon Dioxide 26 mmol/L (22-30); Chloride 108 mmol/L (98-107); Glucose 114 mg/dL (74-99); Non-African American GFR(CKD) 88 (>60 ml/min/1.73 sqM); Potassium 3.8 mmol/L (3.5-5.1); Sodium 140 mmol/L (137-145)
[2021-04-27 12:59] VITALS: BP 123/82; PULSE 68; RESP 18
--- NOTE | 2021-04-27 13:49 | PN ---
PROGRESS NOTE DATE OF SERVICE: 04/27/2021 REASON FOR FOLLOWUP: E coli bacteremia secondary to urinary source. INTERVAL HISTORY: Patient is afebrile. The patient is feeling better. Breathing comfortably. Denies any chest pain, shortness of breath, or cough. No abdominal pain or diarrhea. PHYSICAL EXAMINATION: Blood pressure 112/64, pulse of 77, temperature 98.1. He is 94% on room air. General description is an elderly male up in the chair in no distress. Respiratory system: Unlabored breathing, clear to auscultation anteriorly. Heart S1, S2. Regular rate and rhythm. Abdomen soft, no tenderness. LABS: BUN of 10, creatinine 0.67. Urine blood with E coli sensitive pathogen. Blood culture repeat has been negative so far. DIAGNOSTIC IMPRESSION AND PLAN: Patient with an E coli bacteremia secondary to urinary source in this patient seemed to have shown overall clinical improvement. Plan at this time is to finish therapy with oral Cipro, prescription to be sent to the pharmacy and close outpatient followup. MMODL / IJN: [id number] /
== END 2021-04-27 13:50 | disposition home or self-care (01) | DRG 872 ==
LOC: EC 13:45 → 4SSUR 19:57
PROVIDERS: ADMIT Internal Medicine Geriatric Medicine; ATTEND Internal Medicine Geriatric Medicine
DX: A41.51 Sepsis due to Escherichia coli [E. coli] (principal); N39.0 Urinary tract infection, site not specified; I48.19 Other persistent atrial fibrillation; E87.2 Acidosis; I49.5 Sick sinus syndrome; D69.59 Other secondary thrombocytopenia; I11.9 Hypertensive heart disease without heart failure; E11.9 Type 2 diabetes mellitus without complications; E86.0 Dehydration; E03.9 Hypothyroidism, unspecified; Z20.822 Contact with and (suspected) exposure to COVID-19; I25.10 Atherosclerotic heart disease of native coronary artery without angina pectoris; E78.5 Hyperlipidemia, unspecified; S51.812A Laceration without foreign body of left forearm, initial encounter; R74.8 Abnormal levels of other serum enzymes; H54.61 Unqualified visual loss, right eye, normal vision left eye; R32 Unspecified urinary incontinence; N42.9 Disorder of prostate, unspecified; E66.9 Obesity, unspecified; Z68.36 Body mass index [BMI] 36.0-36.9, adult; Z79.890 Hormone replacement therapy; Z79.01 Long term (current) use of anticoagulants; Z79.899 Other long term (current) drug therapy; Z95.0 Presence of cardiac pacemaker; Z85.46 Personal history of malignant neoplasm of prostate; Z85.118 Personal history of other malignant neoplasm of bronchus and lung; Z85.05 Personal history of malignant neoplasm of liver; Z95.5 Presence of coronary angioplasty implant and graft; Z87.19 Personal history of other diseases of the digestive system; Z90.89 Acquired absence of other organs; Z90.2 Acquired absence of lung [part of]; Z96.651 Presence of right artificial knee joint; Z87.81 Personal history of (healed) traumatic fracture; Z87.891 Personal history of nicotine dependence; Z96.641 Presence of right artificial hip joint; Z90.49 Acquired absence of other specified parts of digestive tract; Z92.21 Personal history of antineoplastic chemotherapy; Z90.79 Acquired absence of other genital organ(s); Z98.890 Other specified postprocedural states; Z88.7 Allergy status to serum and vaccine; Z80.1 Family history of malignant neoplasm of trachea, bronchus and lung; Z81.2 Family history of tobacco abuse and dependence; Z83.3 Family history of diabetes mellitus
CPT/HCPCS: 36415; 71046; 76770; 80048; 80053; 81001; 83605; 84484; 85025; 85027; 85610; 85730; 87040; 87077; 87086; 87186; 87635; 93005; 94640; 94760; 96361; 96374; 96375; 99285

== ENCOUNTER → 2021-06-08 | Outpatient (CLI) | payer MEDICARE ==
[2021-06-08 12:30] LABS: African American GFR (CKD) >90 (>60 ml/min/1.73 sqM); Blood Urea Nitrogen 15 mg/dL (9-20); Non-African American GFR(CKD) 83 (>60 ml/min/1.73 sqM)
--- NOTE | 2021-06-08 13:16 | CT ---
EXAMINATION TYPE: CT chest w con DATE OF EXAM: 06/08/2021 COMPARISON: 11/27/2020 HISTORY: Malignant neoplasm of lung. CT DLP: 520.6 mGycm Automated exposure control for dose reduction was used. CONTRAST: CT scan of the chest is performed with IV Contrast, patient injected with 100 mL of Isovue M300. FINDINGS: LUNGS: Hyperinflation compatible with COPD. Basilar pleural effusions small in size. Pleural calcific ations left lower lobe. 4 mm pulmonary nodule right lower lobe. Parenchymal scarring left lower lobe. MEDIASTINUM: There are no greater than 1 cm hilar or mediastinal lymph nodes. No pericardial effusi on is seen. There is evidence of cardiomegaly. Prominence of the thoracic aorta measuring 4.1 cm comp atible with mild aneurysm unchanged from prior study. There is prominence of the pulmonary arteries. Correlate for pulmonary arterial hypertension. UPPER ABDOMEN: Hepatomegaly seen. Upper abdominal ascites. OTHER: No additional significant abnormality is seen. IMPRESSION: 1. COPD. 2. Right lower lobe pulmonary nodule is essentially unchanged from prior study. 3. Small pleural effusions.
== END | disposition home or self-care (01) ==
LOC: RADCTMAIN 11:40
PROVIDERS: ATTEND Internal Medicine Critical Care Medicine
DX: C34.90 Malignant neoplasm of unspecified part of unspecified bronchus or lung (principal); J44.9 Chronic obstructive pulmonary disease, unspecified; R91.1 Solitary pulmonary nodule; J90 Pleural effusion, not elsewhere classified
CPT/HCPCS: 82565; 84520; 71260; 36415; Q9967

== ENCOUNTER 2021-07-27 16:17 | Emergency (ER) | payer MEDICARE ==
[2021-07-27 16:28] VITALS: RESP 18; TEMP 98.8
--- NOTE | 2021-07-27 17:08 | ED ---
Fall HPI - General Chief Complaint: Fall Stated Complaint: fall Time Seen by Provider: 07/27/21 16:21 Source: patient, EMS Mode of arrival: EMS - History of Present Illness Initial Comments: Edwin is an 86-year-old gentleman who presents the ER today via ambulance for evaluation of head injury and skin tear to the right. Patient reports that he got out of his car to check the mail, he was turning from the mailbox to get back in the vehicle when he tripped over some uneven pavement and fell forward. His forehead struck the car tire his hand hit the car. He noticed abrasion to his forehead and skin tears to his right wrist and elbow. He did not lose consciousness. He is not having any headache or pain in the neck however he is on blood thinners was encouraged come the hospital for further evaluation. Patient states he had an ALLERGIC reaction to Tetanus vaccine when he was younger and therefore has not had the vaccine in the number of years. - Related Data Home Medications Medication Instructions Recorded Confirmed Levothyroxine Sodium [Levoxyl] 75 mcg PO DAILY 06/09/15 07/27/21 Metoprolol Succinate [Toprol XL] 100 mg PO HS 06/09/15 07/27/21 Losartan [Cozaar] 50 mg PO HS 10/21/18 07/27/21 Isosorbide Mononitrate [Isosorbide 30 mg PO DAILY 03/14/20 07/27/21 Mononitrate ER] Montelukast [Singulair] 10 mg PO HS 03/14/20 07/27/21 Rivaroxaban [Xarelto] 20 mg PO HS 03/14/20 07/27/21 amLODIPine BESYLATE 5 mg PO HS 03/14/20 07/27/21 Ferrous Sulfate [Iron] 325 mg PO DAILY 04/24/21 07/27/21 Furosemide [Lasix] 20 mg PO HS 04/24/21 07/27/21 HYDROcodone/APAP 5-325MG [[place] 1 tab PO Q6HR PRN 04/24/21 07/27/21 5-325] Cholecalciferol [Vitamin D3 (25 25 mcg PO DAILY 07/27/21 07/27/21 Mcg = 1000 Iu)] Omeprazole 40 mg PO HS 07/27/21 07/27/21 Allergies Allergy/AdvReac Type Severity Reaction Status Date / Time Tetanus Vaccines and Toxoid Allergy Unknown Verified 07/27/21 17:28 Review of Systems ROS Statement: Those systems with pertinent positive or pertinent negative responses have been documented in the HPI. ROS Other: All systems not noted in ROS Statement are negative. Past Medical History Past Medical History: Atrial Fibrillation, Cancer, Diabetes Mellitus, Hyperlipidemia, Hypertension, Prostate Disorder, Thyroid Disorder Additional Past Medical History / Comment(s): hx prostate,liver,lung cancer, see Dr Ambrosio H&P, diet control diabetic, A-fib with pacemaker in on 2017 History of Any Multi-Drug Resistant Organisms: None Reported Past Surgical History: Heart Catheterization With Stent, Prostate Surgery, Tonsillectomy Additional Past Surgical History / Comment(s): removal of rt lobe of liver, upper left lobe of lung removed, rt knee replacement, left arm-fx, pacemaker, (R) hip replacement. Past Anesthesia/Blood Transfusion Reactions: No Reported Reaction Date of Last Stent Placement:: 2019 Type of Cardiac Device: Permanent Pacemaker Device Placement Date:: 2005 Past Psychological History: No Psychological Hx Reported Smoking Status: Former smoker Past Alcohol Use History: Daily Past Drug Use History: None Reported - Past Family History Mother Additional Family Medical History / Comment(s): Mother from complications of diabetes. No history of cancer. Brother(s) Additional Family Medical History / Comment(s): Patient has one brother and 4 sisters with no major medical problems. Patient has 2 sons with no major medical problems. No cancers. Father Family Medical History: Cancer Additional Family Medical History / Comment(s): Father from lung cancer with history of heavy smoking. General Exam - General Exam Comments Initial Comments: Physical Exam GENERAL: Patient is well-developed and well-nourished. Patient is nontoxic and well-hydrated and is in no distress. HENT: Normocephalic Abrasion to the forehead EYES: PERRL, EOMI PULMONARY: Unlabored respirations. CARDIOVASCULAR: Warm and well perfused extremities ABDOMEN: Non-distended SKIN: Skin tear to right wrist and elbow, no active bleeding Abrasion left knee Abrasion to forehead no active bleeding : Deferred NEUROLOGIC: Alert and oriented Normal speech Normal gait MUSCULOSKELETAL: Moving all extremities with no apparent injury PSYCHIATRIC: No SI/HI Limitations: no limitations Course Vital Signs 07/27/21 07/27/21 07/27/21 16:21 18:59 19:22 Temperature 98.8 F 98.8 F Pulse Rate 60 66 66 Respiratory 18 18 18 Rate Blood Pressure 146/91 149/89 149/89 O2 Sat by Pulse 98 98 98 Oximetry Medical Decision Making - Medical Decision Making The patient was seen and evaluated, history is obtained from the patient, given the patient has had trauma and is on a blood thinner CT of the head and neck were obtained Abrasion on the forehead and knee were cleansed. Dressing was placed over the left knee. Skin tear on the right wrist and elbow were cleansed and Steri- Stripped closed. Discussed with the patient wound care and management. Patient states he gets frequent skin tears on his legs due to his thin skin and is comfortable with wound care. CT scans with no acute findings. Patient's remained awake alert oriented in no acute distress throughout his stay in the ER. This I do feel he is stable for discharge home. EMS was contacted they advised that the Scene Painter on scene move the patient's vehicle into his garage with the keys. Patient's neighbor was contacted for transport home and to open his home when he arrives. Disposition Clinical Impression: Fall, Abrasion of forehead, Skin tear of elbow without complication Disposition: HOME SELF-CARE Condition: Stable Instructions (If sedation given, give patient instructions): Fall Prevention (ED) Is patient prescribed a controlled substance at d/c from ED?: No Referrals: Blake Patiño MD [Primary Care Provider] - 1-2 days
--- NOTE | 2021-07-27 17:43 | CT ---
EXAMINATION TYPE: CT brain susan benitez DATE OF EXAM: 07/27/2021 COMPARISON: 12/30/2018 HISTORY: Fall with frontal injury. CT DLP: 1685.[address] of the brain was performed. The ventricles, basal cisterns and sulci overlying the cerebral convexities demonstrate mild enlargem ent. There is no evidence for intracranial hemorrhage or sulcal effacement. There is decreased attenuatio n about the periventricular white matter and deep white matter of both cerebral hemispheres, compatib le with chronic small vessel ischemia. No mass effects are seen. If symptoms persist consider MRI. Osseous calvarium is intact. IMPRESSION: 1. Age related atrophic and chronic small vessel ischemic change without acute intracranial process seen at this time. CT Cervical Spine: Unenhanced CT of the cervical spine was performed with bone and soft tissue window settings submitted . Coronal and sagittal reconstruction is obtained. There is normal alignment and prevertebral soft tissues. No evidence for acute cervical fracture . Scattered degenerative disc disease and spondylosis. Biapical scarring. IMPRESSION: 1. No evidence for acute fracture or subluxation of the cervical spine.
[2021-07-27 19:00] VITALS: BP 149/89; PULSE 66
== END 2021-07-27 19:34 | disposition home or self-care (01) ==
LOC: EC 16:17
DX: S00.81XA Abrasion of other part of head, initial encounter (principal); S51.011A Laceration without foreign body of right elbow, initial encounter; I10 Essential (primary) hypertension; I48.91 Unspecified atrial fibrillation; E11.9 Type 2 diabetes mellitus without complications; E78.5 Hyperlipidemia, unspecified; E07.9 Disorder of thyroid, unspecified; Z88.7 Allergy status to serum and vaccine; Z85.46 Personal history of malignant neoplasm of prostate; Z95.0 Presence of cardiac pacemaker; Z87.891 Personal history of nicotine dependence; Z96.641 Presence of right artificial hip joint; Z79.899 Other long term (current) drug therapy; W22.8XXA Striking against or struck by other objects, initial encounter
CPT/HCPCS: 70450; 72125; 99283

== ENCOUNTER → 2022-06-28 | Outpatient (CLI) | payer MEDICARE ==
[2022-06-28 11:53] LABS: Basophils # (A) 0.1 k/uL (0-0.2); Basophils % (A) 1 %; Eosinophils # (A) 0.2 k/uL (0-0.7); Eosinophils % (A) 4 %; HCT 49.2 % (39.0-53.0); HGB 15.5 gm/dL (13.0-17.5); Lymphocytes # (A) 1.5 k/uL (1.0-4.8); Lymphocytes % (A) 24 %; MCHC 31.5 g/dL (31.0-37.0); MCV 104.9 fL (80.0-100.0); Macrocytosis Moderate; Mean Platelet Volume 8.9; Monocytes # (A) 0.5 k/uL (0-1.0); Monocytes % (A) 7 %; Neutrophils # (A) 4.1 k/uL (1.3-7.7); Neutrophils % (A) 63 %; Platelet Count 105 k/uL (150-450); RDW 13.9 % (11.5-15.5); WBC 6.5 k/uL (3.8-10.6)
--- NOTE | 2022-06-28 13:22 | CT ---
EXAMINATION TYPE: CT brain wo/w con DATE OF EXAM: 06/28/2022 COMPARISON: 07/27/2021 HISTORY: Acute bilateral field loss, worse in RT eye CT DLP: 2238.90mGycm CONTRAST: CT scan of the head is performed with IV Contrast, patient injected with 70 mL of Isovue 300. Unenhanced followed by contrast enhanced CT of the brain is submitted for evaluation. The ventricles are midline. There is no evidence for intracranial hemorrhage or extra-axial collection. No mass e ffects are identified. Visualized bony calvarium is intact. Contrast is administered a Nd no enhan cing lesions are detected. No pathologic enhancement is identified. If symptoms persist consider MR I. IMPRESSION: Age-related atrophic change. No evidence for enhancing lesion or acute intracranial proce ss. Small area of remote insult left occipital lobe.
== END | disposition home or self-care (01) ==
LOC: RADCTMAIN 10:55
PROVIDERS: ATTEND Ophthalmology
DX: G31.9 Degenerative disease of nervous system, unspecified (principal)
CPT/HCPCS: 82565; 84520; 85025; 70470; 36415; Q9967

== ENCOUNTER → 2022-07-10 | Outpatient (CLI) | payer MEDICARE ==
--- NOTE | 2022-07-10 15:32 | CT ---
EXAMINATION TYPE: CT chest w con DATE OF EXAM: 07/10/2022 COMPARISON: 06/08/2021 HISTORY: f/u. hx lung, liver, prostate ca CT DLP: 564.40 mGycm, Automated exposure control for dose reduction was used. CONTRAST: Performed injected with 70 mL of Isovue 300. TECHNIQUE: Axial images were obtained at 5 mm thick sections. Reconstructed images are reviewed on [email or web address]) computer in the coronal plane. FINDINGS: Portion of the thyroid visualized is normal. There is a 0.5 cm nodule in the posterior lateral right lung. Series 4 image 46. This was present pre viously. No enlarged mediastinal or hilar adenopathy is evident. The ascending aorta diameter at the level o f the main pulmonary artery is 4.3 cm. The main pulmonary artery diameter at the bifurcation is 3.6 cm. Coronary artery calcification is present. Limited CT sections are obtained through the upper abdomen. Abdomen is essentially unremarkable. IMPRESSIONS: 1. No significant interval change. 2. Stable right lower lobe lung nodule.
== END | disposition home or self-care (01) ==
LOC: RADCTMAIN 11:57
PROVIDERS: ATTEND Internal Medicine Critical Care Medicine
DX: R91.1 Solitary pulmonary nodule (principal)
CPT/HCPCS: 82565; 84520; 71260; 36415; Q9967

== ENCOUNTER 2023-09-30 06:46 | Inpatient (IN) | payer MEDICARE ==
--- NOTE | 2023-09-30 06:57 | ED ---
General Adult HPI - General Source: patient, EMS, RN notes reviewed Mode of arrival: EMS Limitations: no limitations <Juan Luis Soto - Last Filed: 09/30/23 06:54> <Hilda Chirinos - Last Filed: 09/30/23 16:06> - General Stated complaint: Weakness Time Seen by Provider: 09/30/23 06:54 - History of Present Illness Initial comments: 88-year-old male presents emergency department via EMS with chief complaint of weakness. Patient states he had increased weakness last few days. Patient noted to have low-grade temp per EMS. Patient minimal cough states he just feels a little shaky distress from his usual. 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 (Juan Luis Soto) 88-year-old male presents emergency room reporting weakness, dizziness and shortness of breath. States that he woke up this morning was having difficulty ambulating due to weakness. He felt short of breath trying to ambulate to the bathroom. He denies any fevers but admits to chills. No chest pain. Has chronic lower extremity edema which he does not feels any worse than his normal. Denies productive cough. No abdominal pain. No changes in his bowel or bladder habits. He does take Lasix 20 mg once a day without any missed doses. No history of congestive heart failure. Follows with Dr. Khalil. (Hilda Chirinos) - Related Data Home Medications Medication Instructions Recorded Confirmed Levothyroxine Sodium [Levoxyl] 75 mcg PO DAILY 06/09/15 09/30/23 Metoprolol Succinate [Toprol XL] 100 mg PO HS 06/09/15 09/30/23 Losartan [Cozaar] 25 mg PO HS 10/21/18 09/30/23 Isosorbide Mononitrate [Isosorbide 30 mg PO HS 03/14/20 09/30/23 Mononitrate ER] Montelukast [Singulair] 10 mg PO HS 03/14/20 09/30/23 Rivaroxaban [Xarelto] 20 mg PO HS 03/14/20 09/30/23 Furosemide [Lasix] 20 mg PO DAILY 04/24/21 09/30/23 Atorvastatin [Lipitor] 80 mg PO HS 09/30/23 09/30/23 Fluticasone Nasal [place] [Flonase 2 spray EA NOSTRIL DAILY PRN 09/30/23 09/30/23 Nasal [place]] HYDROcodone/APAP 7.5-325MG [[place] 1 tab PO QID PRN 09/30/23 09/30/23 7.5-325] Nitroglycerin Sl Tabs [Nitrostat] 0.4 mg SL Q5M PRN 09/30/23 09/30/23 Allergies Allergy/AdvReac Type Severity Reaction Status Date / Time Tetanus Vaccines and Toxoid Allergy Unknown Verified 09/30/23 11:52 Review of Systems ROS Other: All systems not noted in ROS Statement are negative. <Juan Luis Soto - Last Filed: 09/30/23 06:54> ROS Other: All systems not noted in ROS Statement are negative. <Hilda Chirinos - Last Filed: 09/30/23 16:06> ROS Statement: Those systems with pertinent positive or pertinent negative responses have been documented in the HPI. Past Medical History Past Medical History: Atrial Fibrillation, Cancer, Diabetes Mellitus, Hyperlipidemia, Hypertension, Prostate Disorder, Thyroid Disorder Additional Past Medical History / Comment(s): hx prostate,liver,lung cancer, see Dr Ambrosio H&P, diet control diabetic, A-fib with pacemaker in on 2016 History of Any Multi-Drug Resistant Organisms: None Reported Past Surgical History: Heart Catheterization With Stent, Prostate Surgery, Tonsillectomy Additional Past Surgical History / Comment(s): removal of rt lobe of liver, upper left lobe of lung removed, rt knee replacement, left arm-fx, pacemaker, (R) hip replacement. Past Anesthesia/Blood Transfusion Reactions: No Reported Reaction Date of Last Stent Placement:: 2019 Type of Cardiac Device: Permanent Pacemaker Device Placement Date:: 2005 Past Psychological History: No Psychological Hx Reported Smoking Status: Former smoker Past Alcohol Use History: Daily Past Drug Use History: None Reported - Past Family History Mother Additional Family Medical History / Comment(s): Mother from complications of diabetes. No history of cancer. Brother(s) Additional Family Medical History / Comment(s): Patient has one brother and 4 sisters with no major medical problems. Patient has 2 sons with no major medical problems. No cancers. Father Family Medical History: Cancer Additional Family Medical History / Comment(s): Father from lung cancer with history of heavy smoking. <Juan Luis Soto - Last Filed: 09/30/23 06:54> General Exam <Juan Luis Soto - Last Filed: 09/30/23 06:54> General appearance: alert, in no apparent distress Head exam: Present: atraumatic, normocephalic, normal inspection Eye exam: Present: normal appearance, PERRL, EOMI. Absent: scleral icterus, conjunctival injection, periorbital swelling ENT exam: Present: normal exam, mucous membranes moist Neck exam: Present: normal inspection. Absent: tenderness, meningismus, lymphadenopathy Respiratory exam: Present: normal lung sounds bilaterally. Absent: respiratory distress, wheezes, rales, rhonchi, stridor Cardiovascular Exam: Present: regular rate, normal rhythm, normal heart sounds. Absent: systolic murmur, diastolic murmur, rubs, gallop, clicks GI/Abdominal exam: Present: soft, normal bowel sounds. Absent: distended, tenderness, guarding, rebound, rigid Extremities exam: Present: full ROM, normal capillary refill, pedal edema (2+ venous stasis bilateral lower extremities). Absent: tenderness, joint swelling, calf tenderness Back exam: Present: normal inspection Neurological exam: Present: alert, oriented X3, CN II-XII intact Psychiatric exam: Present: normal affect, normal mood Skin exam: Present: warm, dry, intact, normal color. Absent: rash <Hilda Chirinos Jean - Last Filed: 09/30/23 16:06> - General Exam Comments Initial Comments: Visual Physical Exam Vital signs reviewed General: Well-appearing, nontoxic, no acute distress. Head: Normocephalic, atraumatic Eyes: PERRLA, EOMI ENT: Airway patent Chest: Nonlabored breathing Skin: No visual rash, normal skin tone Neuro: Alert and oriented 3 Musculoskeletal: No gross abnormalities (Juan Luis Soto) Course Vital Signs 09/30/23 09/30/23 09/30/23 06:55 10:01 15:45 Temperature 97.8 F 97.9 F Pulse Rate 64 65 60 Respiratory 18 18 18 Rate Blood Pressure 120/74 116/62 113/43 O2 Sat by Pulse 100 100 95 Oximetry Medical Decision Making <Juan Luis Soto - Last Filed: 09/30/23 06:54> - Lab Data Result diagrams: 09/30/23 08:40 12/26/23 08:40 <Hilda Chirinos A - Last Filed: 09/30/23 16:06> - Medical Decision Making I completed the quick note portion of this chart signed Juan Luis Soto PA-C (Juan Luis Soto) Was pt. sent in by a medical professional or institution (, DELPHINE, CHLORINE CELLS OPERATOR, urgent care, hospital, or longterm...) When possible be specific @ -No Did you speak to anyone other than the patient for history (EMS, parent, family, police, friend...)? What history was obtained from this source @ -No Did you review nursing and triage notes (agree or disagree)? Why? @ -I reviewed and agree with nursing and triage notes Were old charts reviewed (outside hosp., previous admission, EMS record, old EKG, old radiological studies, urgent care reports/EKG's, longterm records)? Report findings @ -No old charts were reviewed Differential Diagnosis (chest pain, altered mental status, abdominal pain women, abdominal pain men, vaginal bleeding, weakness, fever, dyspnea, syncope, headache, dizziness, GI bleed, back pain, seizure, CVA, palpatations, mental health, musculoskeletal)? @ -Differential Weakness: Hypoglycemia, shock, sepsis, hyponatremia, anemia, infection, MD, ETOH, adverse medicine reaction, overdose, stroke, this is not meant to be an all-inclusive list. EKG interpreted by me (3pts min.). @ -Yes and demonstrates paced rhythm with a rate of 61. QRS 117. QTC of 484. No st elevation X-rays interpreted by me (1pt min.). @ -Yes and demonstrates a very vascular congestion CT interpreted by me (1pt min.). @ -None done U/S interpreted by me (1pt. min.). @ -None done What testing was considered but not performed or refused? (CT, X-rays, U/S, labs)? Why? @ -None What meds were considered but not given or refused? Why? @ -None Did you discuss the management of the patient with other professionals (professionals i.e. , DELPHINE, CHLORINE CELLS OPERATOR, lab, RT, psych nurse, social media content specialist, dumper [employer] concrete mixing [employer], teacher, combat systems officer, window caser)? Give summary @ -Spoke with Dr. Hussein to admit patient Was smoking cessation discussed for >3mins.? @ -No Was critical care preformed (if so, how long)? @ -No Were there social determinants of health that impacted care today? How? (Homelessness, low income, unemployed, alcoholism, drug addiction, transporta tion, low edu. Level, literacy, decrease access to med. care, fdc, rehab)? @ -No Was there de-escalation of care discussed even if they declined (Discuss DNR or withdrawal of care, Hospice)? DNR status @ -No What co-morbidities impacted this encounter? (DM, HTN, Smoking, COPD, CAD, Cancer, CVA, ARF, Chemo, Hep., AIDS, mental health diagnosis, sleep apnea, morbid obesity)? @ -Cancer, A. fib, diabetes Was patient admitted / discharged? Hospital course, mention meds given and route, prescriptions, significant lab abnormalities, going to OR and other pertinent info. @ -Upon arrival patient was placed into room 16. Thorough history and physical exam was performed. IV access was established and laboratory studies were conducted. Patient is anemic with a hemoglobin of 8. Platelet count of 73. INR of 2.4. Troponin mildly elevated at 0.05. BNP of 696. Creatinine 1.4. Chest x-ray demonstrates some pulmonary vascular congestion. Patient does have elevated potassium and therefore is given an amp of dextrose and 10 units of insulin. He is given slight fluid due to his elevated bun and creatinine. Chest x-ray demonstrates fluid overload however patient is saturating 100% without any increased work of breathing and therefore I will intravascularly r eplace the fluids to start. I did recommend admitting the patient in order to trend his troponins and have cardiology and nephrology see the patient. Patient was agreeable to this. Called and spoke with Dr. Hussein who agreed to admit the patient. He is currently pending a bed on the floor in stable condition Undiagnosed new problem with uncertain prognosis? @ -yes Drug Therapy requiring intensive monitoring for toxicity (Heparin, Nitro, In sulin, Cardizem)? @ -No Were any procedures done? @ -No Diagnosis/symptom? @ -Acute weakness, anemia, thrombocytopenia, AVNI, pulmonary vascular congestion, hyperkalemia Acute, or Chronic, or Acute on Chronic? @ -Acute Uncomplicated (without systemic symptoms) or Complicated (systemic symptoms)? @ -Complicated Side effects of treatment? @ -No Exacerbation, Progression, or Severe Exacerbation? @ -No Poses a threat to life or bodily function? How? (Chest pain, USA, MD, pneumonia, PE, COPD, DKA, ARF, appy, cholecystitis, CVA, Diverticulitis, Homicidal, Suicidal, threat to staff... and all critical care pts) @ -Yes hyperkalemia is life-threatening (Hilda Chirinos) - Lab Data Lab Results 09/30/23 09/30/23 09/30/23 Range/Units 08:40 08:40 08:40 WBC 7.2 (3.8-10.6) k/uL RBC 2.42 L (4.30-5.90) m/uL Hgb 8.0 L (13.0-17.5) gm/dL Hct 24.7 L (39.0-53.0) % MCV 102.3 H (80.0-100.0) fL MCH 33.1 (25.0-35.0) pg MCHC 32.3 (31.0-37.0) g/dL RDW 16.3 H (11.5-15.5) % Plt Count 73 L (150-450) k/uL MPV 8.6 Neutrophils % 65 % Lymphocytes % 23 % Monocytes % 6 % Eosinophils % 3 % Basophils % 0 % Neutrophils # 4.6 (1.3-7.7) k/uL Lymphocytes # 1.6 (1.0-4.8) k/uL Monocytes # 0.5 (0-1.0) k/uL Eosinophils # 0.2 (0-0.7) k/uL Basophils # 0.0 (0-0.2) k/uL Manual Slide Review Performed Hypochromasia Moderate Poikilocytosis (manual Present Anisocytosis Slight Macrocytosis Moderate PT 23.8 H (10.0-12.5) sec INR 2.4 H (<1.2) APTT 38.8 H (22.0-30.0) sec Sodium 135 L (137-145) mmol/L Potassium 5.6 H (3.5-5.1) mmol/L Chloride 105 (98-107) mmol/L Carbon Dioxide 17 L (22-30) mmol/L Anion Gap 13 mmol/L BUN 36 H (9-20) mg/dL Creatinine 1.46 H (0.66-1.25) mg/dL Est GFR (CKD-EPI)AfAm 49 (>60 ml/min/1.73 sqM) Est GFR (CKD-EPI)NonAf 43 (>60 ml/min/1.73 sqM) Glucose 85 (74-99) mg/dL Plasma Lactic Acid Aren (0.7-2.0) mmol/L Calcium 8.6 (8.4-10.2) mg/dL Magnesium 1.9 (1.6-2.3) mg/dL Total Bilirubin 1.1 (0.2-1.3) mg/dL AST 43 (17-59) U/L ALT 27 (4-49) U/L Alkaline Phosphatase 204 H (38-126) U/L Troponin I (0.000-0.034) ng/mL NT-Pro-B Natriuret Pep 696 pg/mL Total Protein 6.1 L (6.3-8.2) g/dL Albumin 3.1 L (3.5-5.0) g/dL Urine Color Urine Appearance (Clear) Urine pH (5.0-8.0) Ur Specific [place] (1.001-1.035) Urine Protein (Negative) Urine Glucose (UA) (Negative) Urine Ketones (Negative) Urine Blood (Negative) Urine Nitrite (Negative) Urine Bilirubin (Negative) Urine Urobilinogen (<2.0) mg/dL Ur Leukocyte Esterase (Negative) Urine RBC (0-5) /hpf Urine WBC (0-5) /hpf Ur Squamous Epith Cells (0-4) /hpf Urine Bacteria (None) /hpf Hyaline Casts (0-2) /lpf Influenza Type A (PCR) (Not Detectd) Influenza Type B (PCR) (Not Detectd) RSV (PCR) (Not Detectd) SARS-CoV-2 (PCR) (Not Detectd) 09/30/23 09/30/23 09/30/23 Range/Units 08:40 08:40 08:40 WBC (3.8-10.6) k/uL RBC (4.30-5.90) m/uL Hgb (13.0-17.5) gm/dL Hct (39.0-53.0) % MCV (80.0-100.0) fL MCH (25.0-35.0) pg MCHC (31.0-37.0) g/dL RDW (11.5-15.5) % Plt Count (150-450) k/uL MPV Neutrophils % % Lymphocytes % % Monocytes % % Eosinophils % % Basophils % % Neutrophils # (1.3-7.7) k/uL Lymphocytes # (1.0-4.8) k/uL Monocytes # (0-1.0) k/uL Eosinophils # (0-0.7) k/uL Basophils # (0-0.2) k/uL Manual Slide Review Hypochromasia Poikilocytosis (manual Anisocytosis Macrocytosis PT (10.0-12.5) sec INR (<1.2) APTT (22.0-30.0) sec Sodium (137-145) mmol/L Potassium (3.5-5.1) mmol/L Chloride (98-107) mmol/L Carbon Dioxide (22-30) mmol/L Anion Gap mmol/L BUN (9-20) mg/dL Creatinine (0.66-1.25) mg/dL Est GFR (CKD-EPI)AfAm (>60 ml/min/1.73 sqM) Est GFR (CKD-EPI)NonAf (>60 ml/min/1.73 sqM) Glucose (74-99) mg/dL Plasma Lactic Acid Aren 1.9 (0.7-2.0) mmol/L Calcium (8.4-10.2) mg/dL Magnesium (1.6-2.3) mg/dL Total Bilirubin (0.2-1.3) mg/dL AST (17-59) U/L ALT (4-49) U/L Alkaline Phosphatase (38-126) U/L Troponin I 0.050 H* (0.000-0.034) ng/mL NT-Pro-B Natriuret Pep pg/mL Total Protein (6.3-8.2) g/dL Albumin (3.5-5.0) g/dL Urine Color Urine Appearance (Clear) Urine pH (5.0-8.0) Ur Specific [place] (1.001-1.035) Urine Protein (Negative) Urine Glucose (UA) (Negative) Urine Ketones (Negative) Urine Blood (Negative) Urine Nitrite (Negative) Urine Bilirubin (Negative) Urine Urobilinogen (<2.0) mg/dL Ur Leukocyte Esterase (Negative) Urine RBC (0-5) /hpf Urine WBC (0-5) /hpf Ur Squamous Epith Cells (0-4) /hpf Urine Bacteria (None) /hpf Hyaline Casts (0-2) /lpf Influenza Type A (PCR) Not Detected (Not Detectd) Influenza Type B (PCR) Not Detected (Not Detectd) RSV (PCR) Not Detected (Not Detectd) SARS-CoV-2 (PCR) Not Detected (Not Detectd) 09/30/23 Range/Units 10:30 WBC (3.8-10.6) k/uL RBC (4.30-5.90) m/uL Hgb (13.0-17.5) gm/dL Hct (39.0-53.0) % MCV (80.0-100.0) fL MCH (25.0-35.0) pg MCHC (31.0-37.0) g/dL RDW (11.5-15.5) % Plt Count (150-450) k/uL MPV Neutrophils % % Lymphocytes % % Monocytes % % Eosinophils % % Basophils % % Neutrophils # (1.3-7.7) k/uL Lymphocytes # (1.0-4.8) k/uL Monocytes # (0-1.0) k/uL Eosinophils # (0-0.7) k/uL Basophils # (0-0.2) k/uL Manual Slide Review Hypochromasia Poikilocytosis (manual Anisocytosis Macrocytosis PT (10.0-12.5) sec INR (<1.2) APTT (22.0-30.0) sec Sodium (137-145) mmol/L Potassium (3.5-5.1) mmol/L Chloride (98-107) mmol/L Carbon Dioxide (22-30) mmol/L Anion Gap mmol/L BUN (9-20) mg/dL Creatinine (0.66-1.25) mg/dL Est GFR (CKD-EPI)AfAm (>60 ml/min/1.73 sqM) Est GFR (CKD-EPI)NonAf (>60 ml/min/1.73 sqM) Glucose (74-99) mg/dL Plasma Lactic Acid Aren (0.7-2.0) mmol/L Calcium (8.4-10.2) mg/dL Magnesium (1.6-2.3) mg/dL Total Bilirubin (0.2-1.3) mg/dL AST (17-59) U/L ALT (4-49) U/L Alkaline Phosphatase (38-126) U/L Troponin I (0.000-0.034) ng/mL NT-Pro-B Natriuret Pep pg/mL Total Protein (6.3-8.2) g/dL Albumin (3.5-5.0) g/dL Urine Color Yellow Urine Appearance Clear (Clear) Urine pH 6.0 (5.0-8.0) Ur Specific [place] 1.015 (1.001-1.035) Urine Protein Negative (Negative) Urine Glucose (UA) Negative (Negative) Urine Ketones Negative (Negative) Urine Blood Small H (Negative) Urine Nitrite Negative (Negative) Urine Bilirubin Negative (Negative) Urine Urobilinogen <2.0 (<2.0) mg/dL Ur Leukocyte Esterase Trace H (Negative) Urine RBC 1 (0-5) /hpf Urine WBC 4 (0-5) /hpf Ur Squamous Epith Cells <1 (0-4) /hpf Urine Bacteria Rare H (None) /hpf Hyaline Casts 1 (0-2) /lpf Influenza Type A (PCR) (Not Detectd) Influenza Type B (PCR) (Not Detectd) RSV (PCR) (Not Detectd) SARS-CoV-2 (PCR) (Not Detectd) Disposition <Juan Luis Soto - Last Filed: 09/30/23 06:54> Is patient prescribed a controlled substance at d/c from ED?: No Time of Disposition: 12:07 Decision to Admit Reason: Admit from EC Decision Date: 09/30/23 Decision Time: 12:07 <Hilda Chirinos - Last Filed: 09/30/23 16:06> Clinical Impression: Elevated troponin, AVNI (acute kidney injury), Hyperkalemia, Pulmonary edema Disposition: ADMITTED IP TO THIS [facility] Condition: Stable
--- NOTE | 2023-09-30 07:23 | XR ---
EXAMINATION TYPE: XR chest 2V DATE OF EXAM: 09/30/2023 7:19 AM CLINICAL INDICATION:Male, 88 years old with history of Weakness; COMPARISON: Chest radiographs from 04/24/2021. TECHNIQUE: XR chest 2V Frontal and lateral views of the chest. FINDINGS: Lungs/Pleura: No evidence of focal consolidation or pneumothorax. Blunting of the costophrenic angles is present. Pulmonary vascularity: Pulmonary vascular congestion. Heart/mediastinum: Cardiomediastinal silhouette is enlarged and stable. Two lead cardiac conduction d evice overlying the left hemithorax with lead tips projecting over the right ventricle and right atri um. Musculoskeletal: No acute osseous pathology. IMPRESSION: Cardiomegaly, pulmonary vascular congestion and bilateral pleural effusions. Correlate with BNP for c ongestive heart failure.
[2023-09-30 08:56] LABS: Anisocytosis Slight; Basophils % (A) 0 %; Eosinophils # (A) 0.2 k/uL (0-0.7); Eosinophils % (A) 3 %; HCT 24.7 % (39.0-53.0); Hypochromasia Moderate; Lymphocytes # (A) 1.6 k/uL (1.0-4.8); Lymphocytes % (A) 23 %; MCH 33.1 pg (25.0-35.0); MCHC 32.3 g/dL (31.0-37.0); MCV 102.3 fL (80.0-100.0); Macrocytosis Moderate; Mean Platelet Volume 8.6; Monocytes # (A) 0.5 k/uL (0-1.0); Monocytes % (A) 6 %; Neutrophils # (A) 4.6 k/uL (1.3-7.7); Neutrophils % (A) 65 %; RBC 2.42 m/uL (4.30-5.90); RDW 16.3 % (11.5-15.5); WBC 7.2 k/uL (3.8-10.6)
[2023-09-30 09:03] LABS: INR 2.4 (<1.2); Partial Thromboplastin Time 38.8 sec (22.0-30.0); Prothrombin Time 23.8 sec (10.0-12.5)
[2023-09-30 09:23] LABS: Platelet Count 73 k/uL (150-450)
[2023-09-30 09:34] LABS: Poikilocytosis (M) Present
[2023-09-30 09:46] LABS: NT-Pro-B-Type Natriuretic Pept 696 pg/mL
[2023-09-30 10:33] LABS: ALT 27 U/L (4-49); AST 43 U/L (17-59); African American GFR (CKD) 49 (>60 ml/min/1.73 sqM); Albumin 3.1 g/dL (3.5-5.0); Alkaline Phosphatase 204 U/L (38-126); Anion Gap 13 mmol/L; Blood Urea Nitrogen 36 mg/dL (9-20); Calcium 8.6 mg/dL (8.4-10.2); Carbon Dioxide 17 mmol/L (22-30); Chloride 105 mmol/L (98-107); Glucose 85 mg/dL (74-99); Magnesium 1.9 mg/dL (1.6-2.3); Non-African American GFR(CKD) 43 (>60 ml/min/1.73 sqM); Potassium 5.6 mmol/L (3.5-5.1); Sodium 135 mmol/L (137-145); Total Bilirubin 1.1 mg/dL (0.2-1.3); Total Protein 6.1 g/dL (6.3-8.2)
[2023-09-30 10:50] LABS: Appearance,Urine Clear (Clear); Bacteria,Urine Rare /hpf; Bilirubin,Urine Negative (Negative); Blood,Urine Small (Negative); Color,Urine Yellow; Glucose,Urine (UA) Negative (Negative); Hyaline Casts,Urine 1 /lpf (0-2); Ketones,Urine Negative (Negative); Leukocyte Esterase,Urine Trace (Negative); Nitrite,Urine Negative (Negative); Protein,Urine Negative (Negative); RBC,Urine 1 /hpf (0-5); Specific Gravity,Urine 1.015 (1.001-1.035); Squamous Epithelial Cell,Urine <1 /hpf (0-4); Urobilinogen,Urine <2.0 mg/dL (<2.0); WBC,Urine 4 /hpf (0-5)
[2023-09-30] MEDS ORDERED: INSULIN REGULAR 100 UNIT/ML VIAL (IV) IV ONE (10:57)
[2023-09-30] MEDS ORDERED: ASPIRIN 81 MG PO STA (10:57)
[2023-09-30] MEDS ORDERED: DEXTROSE 50% SYRINGE 50 ML IVP STA (10:58)
[2023-09-30] MEDS: SODIUM CHLORIDE 0.9% 1,000 ML IV SCH ×2 (12:00→23:27)
[2023-09-30] MEDS ORDERED: NALOXONE 0.4 MG/ML 1 ML VIAL IV PRN (12:08)
[2023-09-30] MEDS ORDERED: HYDROcodone/APAP 7.5-325MG 1 EACH TAB PO PRN (13:00)
[2023-09-30] MEDS ORDERED: FLUTICASONE 50MCG/SPRAY NASAL 16GM EA NOSTRIL PRN (13:00)
[2023-09-30 13:14] LABS: Glucose,Whole Blood 88 mg/dL (70-110)
--- NOTE | 2023-09-30 14:32 | P.HPIM ---
History of Present Illness H&P Date: 09/30/23 History of present illness; atrial fibrillation is a 88 year old gentleman with past medical history significant for chronic atrial fibrillation, hypertension, hypothyroidism presents to the ER because of generalized feeling of weakness. Patient stated that he has been feeling weak since last night. Patient stated that he was feeling bit dizzy and not his usual self. Denied any complaint of chest pain or shortness of breath. Patient was complaining of cough. Patient has swelling of lower extremities which is chronic and he states that he has not noticed any change in them. Patient woke up this morning, he had a hard time walking to the restroom and was very weak. Because of the symptoms, patient came to the ER Initial lab work done in the ER showed WBC 7.2, hemoglobin 8, platelet count 73, INR 2.4 sodium 135, potassium 5.6, BUN 36, creatinine 1.46 troponin 0.050 proBNP 696 UA negative for infection Influenza A not detected Influenza B not detected RSV not detected COVID-19 not detected EKG done in the ER showed pacemaker rhythm seen Chest x-ray done in the ER showed cardiomegaly, pulmonary vascular congestion and bilateral pleural effusions Patient admitted to internal medicine service REVIEW OF SYSTEMS: CONSTITUTIONAL: As mentioned in HPI HEENT: No recent visual problems or hearing problems. Denied any sore throat. CARDIOVASCULAR: As mentioned in HPI PULMONARY: As mentioned in HPI GASTROINTESTINAL: No diarrhea, no nausea, no vomiting, no abdominal pain. NEUROLOGICAL: No headaches, no weakness, no numbness. HEMATOLOGICAL: Denies any bleeding or petechiae. GENITOURINARY: Denies any burning micturition, frequency, or urgency. MUSCULOSKELETAL/RHEUMATOLOGICAL: Denies any joint pain, swelling, or any muscle pain. ENDOCRINE: Denies any polyuria or polydipsia. The rest of the 14-point review of systems is negative. PHYSICAL EXAMINATION: GENERAL: The patient is alert and oriented x3, not in any acute distress. Well developed, well nourished. HEENT: Pupils are round and equally reacting to light. EOMI. No scleral icterus. No conjunctival pallor. Normocephalic, atraumatic. No pharyngeal erythema. No thyromegaly. CARDIOVASCULAR: S1 and S2 present. No murmurs, rubs, or gallops. PULMONARY: Chest is clear to auscultation, no wheezing or crackles. ABDOMEN: Soft, nontender, nondistended, normoactive bowel sounds. No palpable organomegaly. MUSCULOSKELETAL: No joint swelling or deformity. EXTREMITIES: 2+ pitting edema lower extremities bilaterally NEUROLOGICAL: Gross neurological examination did not reveal any focal deficits. SKIN: No rashes. Assessment and plan Acute kidney injury Hyperkalemia Dizziness Chronic atrial fibrillation Hypertension Hyperlipidemia Hypothyroidism Monitor vital signs Monitor CBC Monitor CMP Continue telemetry monitoring Strict I's and O's, daily weights Low potassium diet DC losartan because of hyperkalemia Continue IV fluids Ordered ultrasound of kidneys Consult nephrology Consult cardiology Labs and medication were reviewed.. Continue same treatment. Continue with symptomatic treatment. Resume home medication. Monitor labs and vitals. DVT and GI prophylaxis. Further recommendations as per clinical course of the patient Dictation was produced using [employer] dictation software. please excuse any grammatical, word or spelling errors. Past Medical History Past Medical History: Atrial Fibrillation, Cancer, Diabetes Mellitus, Hyperlipidemia, Hypertension, Prostate Disorder, Thyroid Disorder Additional Past Medical History / Comment(s): hx prostate,liver,lung cancer, see Dr Ambrosio H&P, diet control diabetic, A-fib with pacemaker in on 2016 History of Any Multi-Drug Resistant Organisms: None Reported Past Surgical History: Heart Catheterization With Stent, Prostate Surgery, Tonsillectomy Additional Past Surgical History / Comment(s): removal of rt lobe of liver, upper left lobe of lung removed, rt knee replacement, left arm-fx, pacemaker, (R) hip replacement. Past Anesthesia/Blood Transfusion Reactions: No Reported Reaction Date of Last Stent Placement:: 2019 Type of Cardiac Device: Permanent Pacemaker Device Placement Date:: 2005 Past Psychological History: No Psychological Hx Reported Smoking Status: Former smoker Past Alcohol Use History: Daily Past Drug Use History: None Reported - Past Family History Mother Additional Family Medical History / Comment(s): Mother from complications of diabetes. No history of cancer. Brother(s) Additional Family Medical History / Comment(s): Patient has one brother and 4 sisters with no major medical problems. Patient has 2 sons with no major medical problems. No cancers. Father Family Medical History: Cancer Additional Family Medical History / Comment(s): Father from lung cancer with history of heavy smoking. Medications and Allergies Home Medications Medication Instructions Recorded Confirmed Type Levothyroxine Sodium [Levoxyl] 75 mcg PO DAILY 06/09/15 09/30/23 History Metoprolol Succinate [Toprol XL] 100 mg PO HS 06/09/15 09/30/23 History Losartan [Cozaar] 25 mg PO HS 10/21/18 09/30/23 History Isosorbide Mononitrate [Isosorbide 30 mg PO HS 03/14/20 09/30/23 History Mononitrate ER] Montelukast [Singulair] 10 mg PO HS 03/14/20 09/30/23 History Rivaroxaban [Xarelto] 20 mg PO HS 03/14/20 09/30/23 History Furosemide [Lasix] 20 mg PO DAILY 04/24/21 09/30/23 History Atorvastatin [Lipitor] 80 mg PO HS 09/30/23 09/30/23 History Fluticasone Nasal [place] [Flonase 2 spray EA NOSTRIL DAILY PRN 09/30/23 09/30/23 History Nasal [place]] HYDROcodone/APAP 7.5-325MG [[place] 1 tab PO QID PRN 09/30/23 09/30/23 History 7.5-325] Nitroglycerin Sl Tabs [Nitrostat] 0.4 mg SL Q5M PRN 09/30/23 09/30/23 History Allergies Allergy/AdvReac Type Severity Reaction Status Date / Time Tetanus Vaccines and Toxoid Allergy Unknown Verified 09/30/23 11:52 Physical Exam Vitals: Vital Signs Temp Pulse Resp BP Pulse Ox 09/30/23 10:01 65 18 116/62 100 09/30/23 06:55 97.8 F 64 18 120/74 100 Intake and Output 09/29/23 09/30/23 09/30/23 22:59 06:59 14:59 Other: Weight 103.419 kg Results CBC & Chem 7: 09/30/23 08:40 09/30/23 08:40 Labs: Abnormal Lab Results - Last 24 Hours (Table) 09/30/23 09/30/23 09/30/23 Range/Units 08:40 08:40 08:40 RBC 2.42 L (4.30-5.90) m/uL Hgb 8.0 L (13.0-17.5) gm/dL Hct 24.7 L (39.0-53.0) % MCV 102.3 H (80.0-100.0) fL RDW 16.3 H (11.5-15.5) % Plt Count 73 L (150-450) k/uL PT 23.8 H (10.0-12.5) sec INR 2.4 H (<1.2) APTT 38.8 H (22.0-30.0) sec Sodium 135 L (137-145) mmol/L Potassium 5.6 H (3.5-5.1) mmol/L Carbon Dioxide 17 L (22-30) mmol/L BUN 36 H (9-20) mg/dL Creatinine 1.46 H (0.66-1.25) mg/dL Alkaline Phosphatase 204 H (38-126) U/L Troponin I (0.000-0.034) ng/mL Total Protein 6.1 L (6.3-8.2) g/dL Albumin 3.1 L (3.5-5.0) g/dL Urine Blood (Negative) Ur Leukocyte Esterase (Negative) Urine Bacteria (None) /hpf 09/30/23 09/30/23 Range/Units 08:40 10:30 RBC (4.30-5.90) m/uL Hgb (13.0-17.5) gm/dL Hct (39.0-53.0) % MCV (80.0-100.0) fL RDW (11.5-15.5) % Plt Count (150-450) k/uL PT (10.0-12.5) sec INR (<1.2) APTT (22.0-30.0) sec Sodium (137-145) mmol/L Potassium (3.5-5.1) mmol/L Carbon Dioxide (22-30) mmol/L BUN (9-20) mg/dL Creatinine (0.66-1.25) mg/dL Alkaline Phosphatase (38-126) U/L Troponin I 0.050 H* (0.000-0.034) ng/mL Total Protein (6.3-8.2) g/dL Albumin (3.5-5.0) g/dL Urine Blood Small H (Negative) Ur Leukocyte Esterase Trace H (Negative) Urine Bacteria Rare H (None) /hpf
--- NOTE | 2023-09-30 15:04 | P.CRDCN ---
History of Present Illness Consult date: 09/30/23 History of present illness: History of Present Illness: The patient is an 88-year-old male, followed by Dr. Khalil with a history of chronic persistent atrial fibrillation, CAD and permanent pacemaker implantation who presented with symptoms of not feeling well for the last week, worse last night with dizziness and fatigue. He denies any chest discomfort. 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 His peripheral edema is unchanged. He has not gained any weight. He denies any palpitations. His activity is limited but stable. He has no clear PND nor orthopnea. In the emergency room he was noted to be in atrial fibrillation with controlled ventricular response. His worsening renal function compared to July 2022. His left ventricle ejection fraction is not available to me. Patient has underwent cardiac catheterization in 2019. At that time he had a chronic occlusion of his RCA and significant stenosis in the left circumflex and underwent stenting of the left circumflex by Dr. Mane. Patient has a prior stenting of the same vessel prior. In the emergency room his NT proBNP was 696 and troponin of 0.05. He is anemic with a hemoglobin of 8. His hemoglobin was 15.5 in June 2022. His MCV is 102. He has a history of hypertension and hyperlipidemia. He is a nonsmoker Medications:. Metoprolol succinate 100 mg daily, Lasix 20 mg daily, atorvastatin 80 mg daily, Singulair 10 mg daily, losartan 25 mg daily, Levoxyl, Xarelto 20 mg daily Review of Systems: Respiratory: Dyspnea on exertion with mild cough with clear sputum GI: No nausea or vomiting . No history of peptic ulcer disease. No recent GI bleed. : No hematuria or dysuria. Nervous System: No stroke or seizure. Physical Examination: 88-year-old male, alert and oriented, no apparent distress ,Blood pressure 116/60, Heart rate 60 Head: Normocephalic. Eyes: Sclerae nonicteric. Neck: Good carotid upstroke, no bruit, no jugular venous distention. Lungs: Clear to auscultation with mild decrease in the breath sounds at the bases. Heart: Irregular rate and rhythm, S1-S2, no S3, no rub. Systolic ejection murmur, 3/6 at the base. Abdomen: Soft nontender, positive bowel sounds no organomegaly. Extremities: +2 edema, intact distal pulses., Chronic skin discoloration Labs: BUN 36, creatinine 1.46, potassium 5.6, INR 2.4, hemoglobin of 8. Troponin 0.05, NT proBNP 696. Chest x-ray with bilateral pleural effusion EKG: Atrial fibrillation, permanent pacemaker activity Impression: 1. Symptoms of progressive fatigue could be worsened by the anemia and renal functions 2. Chronic persistent atrial fibrillation, rate controlled, anticoagulated 3. Post permanent pacemaker implantation 4. History of CAD with no evidence of acute chest discomfort. The troponin elevation could be related to the kidney disease 5. History of hypertension 6. History of hyperlipidemia 7. Anemia of unclear duration or etiology Plan: 1. Obtain an echocardiogram Doppler 2. Follow renal functions and hemoglobin 3. Continue beta micha and statin 4. Hold losartan and anticoagulation for now 5. Depending on his renal function and hemoglobin further recommendations will be made 6. Thank you for this consult we will follow with you Past Medical History Past Medical History: Atrial Fibrillation, Cancer, Diabetes Mellitus, Hyperlipidemia, Hypertension, Prostate Disorder, Thyroid Disorder Additional Past Medical History / Comment(s): hx prostate,liver,lung cancer, see Dr Ambrosio H&P, diet control diabetic, A-fib with pacemaker in on 2016 History of Any Multi-Drug Resistant Organisms: None Reported Past Surgical History: Heart Catheterization With Stent, Prostate Surgery, Tonsillectomy Additional Past Surgical History / Comment(s): removal of rt lobe of liver, upper left lobe of lung removed, rt knee replacement, left arm-fx, pacemaker, (R) hip replacement. Past Anesthesia/Blood Transfusion Reactions: No Reported Reaction Date of Last Stent Placement:: 2019 Type of Cardiac Device: Permanent Pacemaker Device Placement Date:: 2005 Past Psychological History: No Psychological Hx Reported Smoking Status: Former smoker Past Alcohol Use History: Daily Past Drug Use History: None Reported - Past Family History Mother Additional Family Medical History / Comment(s): Mother from complications of diabetes. No history of cancer. Brother(s) Additional Family Medical History / Comment(s): Patient has one brother and 4 sisters with no major medical problems. Patient has 2 sons with no major medical problems. No cancers. Father Family Medical History: Cancer Additional Family Medical History / Comment(s): Father from lung cancer with history of heavy smoking. Medications and Allergies Home Medications Medication Instructions Recorded Confirmed Type Levothyroxine Sodium [Levoxyl] 75 mcg PO DAILY 06/09/15 09/30/23 History Metoprolol Succinate [Toprol XL] 100 mg PO HS 06/09/15 09/30/23 History Losartan [Cozaar] 25 mg PO HS 10/21/18 09/30/23 History Isosorbide Mononitrate [Isosorbide 30 mg PO HS 03/14/20 09/30/23 History Mononitrate ER] Montelukast [Singulair] 10 mg PO HS 03/14/20 09/30/23 History Rivaroxaban [Xarelto] 20 mg PO HS 03/14/20 09/30/23 History Furosemide [Lasix] 20 mg PO DAILY 04/24/21 09/30/23 History Atorvastatin [Lipitor] 80 mg PO HS 09/30/23 09/30/23 History Fluticasone Nasal [place] [Flonase 2 spray EA NOSTRIL DAILY PRN 09/30/23 09/30/23 History Nasal [place]] HYDROcodone/APAP 7.5-325MG [[place] 1 tab PO QID PRN 09/30/23 09/30/23 History 7.5-325] Nitroglycerin Sl Tabs [Nitrostat] 0.4 mg SL Q5M PRN 09/30/23 09/30/23 History Allergies Allergy/AdvReac Type Severity Reaction Status Date / Time Tetanus Vaccines and Toxoid Allergy Unknown Verified 09/30/23 11:52 Physical Exam Vitals: Vital Signs Temp Pulse Resp BP Pulse Ox 09/30/23 10:01 65 18 116/62 100 09/30/23 06:55 97.8 F 64 18 120/74 100 Intake and Output 09/29/23 09/30/23 09/30/23 22:59 06:59 14:59 Other: Weight 103.419 kg Results 09/30/23 08:40 09/30/23 08:40 Cardiac Enzymes 09/30/23 09/30/23 Range/Units 08:40 08:40 AST 43 (17-59) U/L Troponin I 0.050 H* (0.000-0.034) ng/mL Coagulation 09/30/23 Range/Units 08:40 PT 23.8 H (10.0-12.5) sec APTT 38.8 H (22.0-30.0) sec CBC 12/26/23 Range/Units 08:40 WBC 7.2 (3.8-10.6) k/uL RBC 2.42 L (4.30-5.90) m/uL Hgb 8.0 L (13.0-17.5) gm/dL Hct 24.7 L (39.0-53.0) % Plt Count 73 L (150-450) k/uL Comprehensive Metabolic Panel 09/30/23 Range/Units 08:40 Sodium 135 L (137-145) mmol/L Potassium 5.6 H (3.5-5.1) mmol/L Chloride 105 (98-107) mmol/L Carbon Dioxide 17 L (22-30) mmol/L BUN 36 H (9-20) mg/dL Creatinine 1.46 H (0.66-1.25) mg/dL Glucose 85 (74-99) mg/dL Calcium 8.6 (8.4-10.2) mg/dL AST 43 (17-59) U/L ALT 27 (4-49) U/L Alkaline Phosphatase 204 H (38-126) U/L Total Protein 6.1 L (6.3-8.2) g/dL Albumin 3.1 L (3.5-5.0) g/dL Current Medications Generic Name Dose Route Start Last Admin Trade Name Freq PRN Reason Stop Dose Admin Hydrocodone Bitart/Acetaminophen 1 each 09/30/23 13:00 Hydrocodone/Apap 7.5-325mg 1 Each Tab PO QID PRN Pain Atorvastatin Calcium 80 mg 09/30/23 21:00 Atorvastatin 80 Mg Tab PO HS LAURA Fluticasone Propionate 2 spray 09/30/23 13:00 Fluticasone 50mcg/[place] Nasal 16gm EA NOSTRIL DAILY PRN Allergy Symptoms Sodium Chloride 1,000 mls @ 75 mls/hr 09/30/23 11:00 09/30/23 12:00 Saline 0.9% IV 75 mls/hr .[id number] LAURA Administration Isosorbide Mononitrate 30 mg 09/30/23 21:00 Isosorbide Mononitrate Er 30 Mg Tab.Er.24h PO HS LAURA Levothyroxine Sodium 75 mcg 10/01/23 06:30 Levothyroxine 75 [place] [address]30 LAURA Metoprolol Succinate 100 mg 09/30/23 21:00 Metoprolol Succinate (Er) 100 Mg Tab.Er.24h PO HS [facility] Montelukast Sodium 10 mg 09/30/23 21:00 Montelukast 10 Mg Tab PO HS [facility] Naloxone HCl 0.2 mg 09/30/23 12:08 Naloxone 0.4 Mg/Ml 1 Ml Vial IV Q2M PRN Opioid Reversal Rivaroxaban 15 mg 09/30/23 21:00 Rivaroxaban 15 Mg Tab PO HS [facility] Protocol Intake and Output 09/29/23 09/30/23 09/30/23 22:59 06:59 14:59 Other: Weight 103.419 kg 09/30/23 08:40 09/30/23 08:40
--- NOTE | 2023-09-30 15:51 | US ---
EXAMINATION TYPE: US kidneys/renal and bladder DATE OF EXAM: 09/30/2023 COMPARISON: US CLINICAL INDICATION: Male, 88 years old with history of Alex; ALEX EXAM MEASUREMENTS: Right Kidney: 11.6 x 5.2 x 5.8 cm Left Kidney: 11.4 x 5.7 x 4.5 cm Right Kidney: No evidence of hydro, lower pole gassed out Left Kidney: No evidence of hydro, upper pole gassed out Bladder: Unable to visualize, pt voided prior to exam Incidental finding- small amount of ascites There is no evidence for hydronephrosis at this point in time. No nephrolithiasis is seen. No pablito s are identified. The urinary bladder is anechoic. Bilateral ureteral jets are seen. IMPRESSION: 1. No evidence for obstructive uropathy. No calculi visualized. Cortical medullary differentiation m aintained. 2. Trace ascites.
[2023-09-30 17:49] LABS: African American GFR (CKD) 52 (>60 ml/min/1.73 sqM); Anion Gap 9 mmol/L; Blood Urea Nitrogen 39 mg/dL (9-20); Calcium 8.3 mg/dL (8.4-10.2); Carbon Dioxide 20 mmol/L (22-30); Chloride 106 mmol/L (98-107); Glucose 108 mg/dL (74-99); Non-African American GFR(CKD) 45 (>60 ml/min/1.73 sqM); Potassium 5.2 mmol/L (3.5-5.1); Sodium 135 mmol/L (137-145)
[2023-09-30 19:36] LABS: Creatinine,Urine Random 84.7 mg/dL
[2023-09-30] MEDS ORDERED: LOSARTAN 25 MG TAB PO SCH (21:00)
[2023-09-30] MEDS ORDERED: RIVAROXABAN 15 MG TAB PO SCH (21:00)
[2023-09-30] MEDS: MONTELUKAST 10 MG TAB PO SCH (21:13)
[2023-09-30] MEDS: ISOSORBIDE MONONITRATE ER 30 MG TAB.ER.24H PO SCH (21:13)
[2023-09-30] MEDS: METOPROLOL SUCCINATE (ER) 100 MG TAB.ER.24H PO SCH (21:14)
[2023-09-30] MEDS: ATORVASTATIN 80 MG TAB PO SCH (21:15)
[2023-10-01] MEDS: LEVOTHYROXINE 75 MCG TAB PO SCH (06:47)
--- NOTE | 2023-10-01 09:16 | PN ---
PROGRESS NOTE SUBJECTIVE: Edwin is an 88-year-old gentleman, who is admitted to hospital with anemia and renal insufficiency, mildly elevated troponin, and chronic diastolic heart failure. We were consulted because of elevated troponin that were due to renal insufficiency. His potassium is elevated at 5.2. CBC shows a hemoglobin of 8. He denies any chest pain or difficulty in breathing. He is unhappy that he is in the emergency room for nearly 26 hours, saturating well. His hemoglobin normally is around 13 to 15, so the hemoglobin of 8 is a precipitous drop. The admitting physician is evaluating and following it. The patient is currently on Coumadin, which is on hold until we figure out what is going on with his anemia. OBJECTIVE: VITAL SIGNS: Heart rate is 60 beats per minute, blood pressure is 106/54, respiratory rate 16, O2 saturation is 96% on room air. NECK: There is no jugular venous distention. CHEST: Reveals diminished air entry at the bases. HEART: Reveals first and second heart sounds. Systolic murmur at the apex. ABDOMEN: Soft. EXTREMITIES: Reveals bilateral pitting edema and chronic stasis changes. An echo had been ordered, but has not been obtained yet. ASSESSMENT: 1. Elevated troponin secondary to renal insufficiency. 2. Symptomatic anemia. 3. Chronic persistent atrial fibrillation. 4. Coronary artery disease, status post prior angioplasty. 5. History of permanent pacemaker. PLAN: I will continue him on his current medications. We are waiting for this morning CBC and electrolytes. His primary problem seems to be the severe anemia. MMODL / IJN: [id number] /
[2023-10-01 11:09] LABS: African American GFR (CKD) 61 (>60 ml/min/1.73 sqM); Anion Gap 12 mmol/L; Anisocytosis Slight; Basophils % (A) 1 %; Blood Urea Nitrogen 43 mg/dL (9-20); Calcium 8.5 mg/dL (8.4-10.2); Carbon Dioxide 18 mmol/L (22-30); Chloride 107 mmol/L (98-107); Eosinophils # (A) 0.2 k/uL (0-0.7); Eosinophils % (A) 3 %; Glucose 118 mg/dL (74-99); HCT 23.4 % (39.0-53.0); Hypochromasia Marked; Lymphocytes # (A) 1.1 k/uL (1.0-4.8); Lymphocytes % (A) 23 %; MCH 32.4 pg (25.0-35.0); MCHC 29.4 g/dL (31.0-37.0); MCV 109.9 fL (80.0-100.0); Macrocytosis Marked; Mean Platelet Volume 9.1; Monocytes # (A) 0.4 k/uL (0-1.0); Monocytes % (A) 8 %; Neutrophils % (A) 63 %; Non-African American GFR(CKD) 53 (>60 ml/min/1.73 sqM); RBC 2.13 m/uL (4.30-5.90); RDW 16.6 % (11.5-15.5); Sodium 137 mmol/L (137-145); WBC 4.8 k/uL (3.8-10.6)
[2023-10-01 11:10] LABS: Potassium 4.9 mmol/L (3.5-5.1)
[2023-10-01 11:12] LABS: Platelet Count 63 k/uL (150-450)
[2023-10-01 11:13] LABS: HGB 6.9 gm/dL (13.0-17.5)
--- NOTE | 2023-10-01 11:20 | P.NPCON ---
History of Present Illness - Reason for Consult acute renal failure - History of Present Illness Patient is an 88-year-old male with history of chronic A. fib, hypertension who was admitted to the hospital with complaints of increased weakness. Patient was also mildly short of breath. He has chronic lower extremity swelling and has not noticed increased swelling however diuretics were recently increased as outpatient. No history of kidney diseases Chest x-ray shows evidence of pulmonary vascular congestion and cardiomegaly. Serum creatinine at 1.4 mg/dL and decreased to 1.23 today. Blood pressure has been low with systolic in the 90s. No history of NSAIDs. Patient was maintained on Cozaar and Lasix prior to admission. Patient has been voiding. Review of Systems As per HPI Past Medical History Past Medical History: Atrial Fibrillation, Cancer, Diabetes Mellitus, Hyperlipidemia, Hypertension, Prostate Disorder, Thyroid Disorder Additional Past Medical History / Comment(s): hx prostate,liver,lung cancer, see Dr Ambrosio H&P, diet control diabetic, A-fib with pacemaker in on 2016 History of Any Multi-Drug Resistant Organisms: None Reported Past Surgical History: Heart Catheterization With Stent, Prostate Surgery, Tonsillectomy Additional Past Surgical History / Comment(s): removal of rt lobe of liver, upper left lobe of lung removed, rt knee replacement, left arm-fx, pacemaker, (R) hip replacement. Past Anesthesia/Blood Transfusion Reactions: No Reported Reaction Date of Last Stent Placement:: 2019 Type of Cardiac Device: Permanent Pacemaker Device Placement Date:: 2005 Past Psychological History: No Psychological Hx Reported Smoking Status: Former smoker Past Alcohol Use History: Daily Past Drug Use History: None Reported - Past Family History Mother Additional Family Medical History / Comment(s): Mother from complications of diabetes. No history of cancer. Brother(s) Additional Family Medical History / Comment(s): Patient has one brother and 4 sisters with no major medical problems. Patient has 2 sons with no major medical problems. No cancers. Father Family Medical History: Cancer Additional Family Medical History / Comment(s): Father from lung cancer with history of heavy smoking. Medications and Allergies Home Medications Medication Instructions Recorded Confirmed Type Levothyroxine Sodium [Levoxyl] 75 mcg PO DAILY 06/09/15 09/30/23 History Metoprolol Succinate [Toprol XL] 100 mg PO HS 06/09/15 09/30/23 History Losartan [Cozaar] 25 mg PO HS 10/21/18 09/30/23 History Isosorbide Mononitrate [Isosorbide 30 mg PO HS 03/14/20 09/30/23 History Mononitrate ER] Montelukast [Singulair] 10 mg PO HS 03/14/20 09/30/23 History Rivaroxaban [Xarelto] 20 mg PO HS 03/14/20 09/30/23 History Furosemide [Lasix] 20 mg PO DAILY 04/24/21 09/30/23 History Atorvastatin [Lipitor] 80 mg PO HS 09/30/23 09/30/23 History Fluticasone Nasal [place] [Flonase 2 spray EA NOSTRIL DAILY PRN 09/30/23 09/30/23 History Nasal [place]] HYDROcodone/APAP 7.5-325MG [[place] 1 tab PO QID PRN 09/30/23 09/30/23 History 7.5-325] Nitroglycerin Sl Tabs [Nitrostat] 0.4 mg SL Q5M PRN 09/30/23 09/30/23 History Allergies Allergy/AdvReac Type Severity Reaction Status Date / Time Tetanus Vaccines and Toxoid Allergy Unknown Verified 09/30/23 11:52 Physical Exam Vitals: Vital Signs Temp Pulse Resp BP Pulse Ox 10/01/23 08:06 62 16 106/54 96 10/01/23 06:40 61 18 106/74 98 10/01/23 02:00 98.0 F 64 18 96/60 100 09/30/23 23:00 64 18 106/75 100 09/30/23 18:50 66 18 118/55 100 09/30/23 15:45 97.9 F 60 18 113/43 95 Patient is awake, comfortable, in no acute distress Examination of the heart S1 and S2 Examination of the lungs bilateral breath sounds are heard with decreased breath sounds at the bases Abdomen is soft nontender Examination of lower extremity shows edema 2+ bilaterally with chronic skin changes [employer] exam grossly intact Results - Lab Results Most recent lab results Calcium 8.5 mg/dL (8.4-10.2) 10/01/23 10:23 Magnesium 1.9 mg/dL (1.6-2.3) 09/30/23 08:40 10/01/23 10:23 10/01/23 10:23 Assessment and Plan Assessment: 1. Acute kidney injury secondary to hypotension and component of cardiorenal syndrome. Rule out urine retention. UA is completely benign. Also component of acute kidney injury from severe anemia with hemoglobin of 6.9 g/dL. 2. Mild hyperkalemia associated with acute kidney injury 3. Volume overload 4. Anemia rule out iron deficiency. No active bleeding noted. 5. Chronic persistent A. fib Plan: check iron profile DC IV fluids Repeat labs in a.m. Continue off of Cozaar as blood pressure remains low Thank you for the consultation. We will continue to follow the patient with you during his hospitalization.
[2023-10-01] MEDS: FUROSEMIDE 10 MG/ML 4 ML VIAL IV SCH (12:24)
--- NOTE | 2023-10-01 14:22 | P.PN ---
Subjective Progress Note Date: 10/01/23 88 year old gentleman with past medical history significant for chronic atrial fibrillation, hypertension, hypothyroidism presents to the ER because of generalized feeling of weakness. Patient stated that he has been feeling weak since last night. Patient stated that he was feeling bit dizzy and not his usual self. Denied any complaint of chest pain or shortness of breath. Patient was complaining of cough. Patient has swelling of lower extremities which is chronic and he states that he has not noticed any change in them. Patient woke up this morning, he had a hard time walking to the restroom and was very weak. Because of the symptoms, patient came to the ER Initial lab work done in the ER showed WBC 7.2, hemoglobin 8, platelet count 73, INR 2.4 sodium 135, potassium 5.6, BUN 36, creatinine 1.46 troponin 0.050 proBNP 696 UA negative for infection Influenza A not detected Influenza B not detected RSV not detected COVID-19 not detected EKG done in the ER showed pacemaker rhythm seen Chest x-ray done in the ER showed cardiomegaly, pulmonary vascular congestion and bilateral pleural effusions Patient admitted to internal medicine service 10/01. Patient seen and examined. Hemoglobin this morning 6.9, ordered 1 unit of packed red blood cells. States shortness of breath on exertion. Still complaining of swelling of lower extremities REVIEW OF SYSTEMS: CONSTITUTIONAL: No fever, no malaise,. CARDIOVASCULAR: No chest pain, no palpitations, no syncope. PULMONARY: As mentioned above GASTROINTESTINAL: No diarrhea, no nausea, no vomiting, no abdominal pain. NEUROLOGICAL: No headaches, no weakness, PHYSICAL EXAMINATION: GENERAL: The patient is alert and oriented x3, not in any acute distress. Well developed, well nourished. HEENT: Pupils are round and equally reacting to light. EOMI. No scleral icterus. No conjunctival pallor. Normocephalic, atraumatic. No pharyngeal erythema. No thyromegaly. CARDIOVASCULAR: S1 and S2 present. No murmurs, rubs, or gallops. PULMONARY: Chest is clear to auscultation, no wheezing or crackles. ABDOMEN: Soft, nontender, nondistended, normoactive bowel sounds. No palpable organomegaly. MUSCULOSKELETAL: No joint swelling or deformity. EXTREMITIES: 2+ pitting edema lower extremities bilaterally NEUROLOGICAL: Gross neurological examination did not reveal any focal deficits. SKIN: No rashes. Assessment and plan Acute kidney injury Hyperkalemia Dizziness Chronic atrial fibrillation Hypertension Hyperlipidemia Hypothyroidism Monitor vital signs Monitor CBC Monitor CMP Continue telemetry monitoring Strict I's and O's, daily weights Low potassium diet DC fluids DC lsartan secondary to hyperkalemia Will order 1 unit of packed red blood cell, ordered anemia workup 2-D echo ordered ultrasound of kidneys showed no evidence of obstructive uropathy Nephrology following Cardiology following In regards to hypertension continue Toprol Regards to hyperlipidemia continue Lipitor Labs and medication were reviewed.. Continue same treatment. Continue with symptomatic treatment. Resume home medication. Monitor labs and vitals. DVT and GI prophylaxis. Further recommendations as per clinical course of the patient Dictation was produced using [employer] dictation software. please excuse any grammatical, word or spelling errors. Objective - Vital Signs Vital signs: Vital Signs Temp 98.0 F 10/01/23 02:00 Pulse 62 10/01/23 08:06 Resp 16 10/01/23 08:06 BP 106/54 10/01/23 08:06 Pulse Ox 96 10/01/23 08:06 FiO2 - Labs CBC & Chem 7: 10/01/23 10:23 10/01/23 10:23 Labs: Abnormal Lab Results - Last 24 Hours (Table) 09/30/23 09/30/23 09/30/23 Range/Units 08:40 10:30 15:37 Sodium 135 L (137-145) mmol/L Potassium 5.6 H (3.5-5.1) mmol/L Carbon Dioxide 17 L (22-30) mmol/L BUN 36 H (9-20) mg/dL Creatinine 1.46 H (0.66-1.25) mg/dL Glucose (74-99) mg/dL Calcium (8.4-10.2) mg/dL Alkaline Phosphatase 204 H (38-126) U/L Troponin I 0.052 H* (0.000-0.034) ng/mL Total Protein 6.1 L (6.3-8.2) g/dL Albumin 3.1 L (3.5-5.0) g/dL Urine Blood Small H (Negative) Ur Leukocyte Esterase Trace H (Negative) Urine Bacteria Rare H (None) /hpf Ur Random Sodium (40-220) mmol/L 1209/30/23 09/30/23 Range/Units 16:55 17:54 19:18 Sodium 135 L (137-145) mmol/L Potassium 5.2 H (3.5-5.1) mmol/L Carbon Dioxide 20 L (22-30) mmol/L BUN 39 H (9-20) mg/dL Creatinine 1.41 H (0.66-1.25) mg/dL Glucose 108 H (74-99) mg/dL Calcium 8.3 L (8.4-10.2) mg/dL Alkaline Phosphatase (38-126) U/L Troponin I 0.051 H* (0.000-0.034) ng/mL Total Protein (6.3-8.2) g/dL Albumin (3.5-5.0) g/dL Urine Blood (Negative) Ur Leukocyte Esterase (Negative) Urine Bacteria (None) /hpf Ur Random Sodium 36 L (40-220) mmol/L
[2023-10-01 16:33] LABS: Glucose,Whole Blood 128 mg/dL (70-110)
[2023-10-01] MEDS: ATORVASTATIN 80 MG TAB PO SCH (19:53)
[2023-10-01] MEDS: METOPROLOL SUCCINATE (ER) 100 MG TAB.ER.24H PO SCH (19:53)
[2023-10-01] MEDS: ISOSORBIDE MONONITRATE ER 30 MG TAB.ER.24H PO SCH (19:54)
[2023-10-01] MEDS: MONTELUKAST 10 MG TAB PO SCH (19:54)
[2023-10-01 20:41] LABS: Glucose,Whole Blood 140 mg/dL (70-110)
[2023-10-01 21:12] LABS: % Iron Saturation 11.82 (15.00-50.00)
[2023-10-02] MEDS: LEVOTHYROXINE 75 MCG TAB PO SCH (06:08)
[2023-10-02 06:17] LABS: Glucose,Whole Blood 116 mg/dL (70-110)
[2023-10-02] MEDS: FUROSEMIDE 10 MG/ML 4 ML VIAL IV SCH (07:52)
--- NOTE | 2023-10-02 10:00 | CA ---
Transthoracic Echo Report Name: Edwin Jeong Age: 88 Gender: M : 1935 Exam Date: 10/01/2023 16:07 Exam Location: [facility] Ht (in): 70 Wt (lb): 228 Ordering Physician: Molly Timmons MD ([id number]) Attending/Referring Phys: Acquisition Specialist Chyna Mantilla [facility] Procedure CPT: Indications: afib Cardiac Hx: Technical Quality: Fair Contrast 1: Total Dose (mL): Contrast 2: Total Dose (mL): MEASUREMENTS (Male / Female) Normal Values 2D ECHO LV Diastolic Diameter PLAX 6.0 cm 4.2 - 5.9 / 3.9 - 5.3 cm LV Systolic Diameter PLAX 4.0 cm IVS Diastolic Thickness 0.7 cm 0.6 - 1.0 / 0.6 - 0.9 cm LVPW Diastolic Thickness 0.9 cm 0.6 - 1.0 / 0.6 - 0.9 cm LV Relative Wall Thickness 0.3 LVOT Diameter 2.0 cm Ascending Aorta Diameter 4.0 cm M-MODE Aortic Root Diameter MM 3.2 cm LA Systolic Diameter MM 6.1 cm LA Ao Ratio MM 1.9 AV Cusp Separation MM 1.2 cm DOPPLER AV Peak Velocity 248.1 cm/s AV Peak Gradient 24.6 mmHg AV Mean Velocity 183.5 cm/s AV Mean Gradient 14.8 mmHg AV Velocity Time Integral 58.4 cm AI Peak Velocity 312.9 cm/s AI Peak Gradient 39.2 mmHg AI Pressure Half Time 705.3 ms LVOT Peak Velocity 132.0 cm/s LVOT Peak Gradient 7.0 mmHg LVOT Velocity Time Integral 28.3 cm LVOT Stroke Volume 92.9 cm??? LVOT Stroke Volume Index 42.1 ml/m??? LVOT Cardiac Index 2351.6 cm???/min???m??? AV Area Cont Eq vti 1.6 cm??? AV Area Cont Eq pk 1.7 cm??? Mitral E Point Velocity 102.0 cm/s Mitral A Point Velocity 31.7 cm/s Mitral E to A Ratio 3.2 MV Deceleration Time 214.4 ms LV E' Lateral Velocity 12.6 cm/s Mitral E to LV E' Lateral Ratio 8.1 LV E' Septal Velocity 6.4 cm/s Mitral E to LV E' Septal Ratio 15.9 TR Peak Velocity 309.8 cm/s TR Peak Gradient 38.4 mmHg Right Atrial Pressure 15.0 mmHg Pulmonary Artery Systolic Pressu 53.4 mmHg Right Ventricular Systolic Press 53.4 mmHg FINDINGS Left Ventricle Left ventricular wall thickness normal. Mildly increased left ventricular diastolic diameter. Mild left ventricular dilatation. Left ventricular ejection fraction is estimated at 45-50%. Inferior and inferolateral hypokinesis. Right Ventricle Moderate to severe right ventricular dilatation. Mildly reduced right ventricular global systolic function. Moderate pulmonary hypertension. Right Atrium Severe right atrial dilatation. Left Atrium Severe left atrial dilatation. Mitral Valve Mitral valve thickened. Mitral annular calcification. Moderate mitral regurgitation. Aortic Valve Diffuse thickening of the aortic valve cusps with reduced excursion. Trileaflet aortic valve. Mild aortic stenosis with a peak gradient of 24.62 mmHg and a mean gradient of 14.83 mmHg. Mild aortic regurgitation. Tricuspid Valve Structurally normal tricuspid valve. Moderate tricuspid regurgitation. Pulmonic Valve Pulmonic valve not well visualized. Pericardium No pericardial effusion. Aorta Normal size aortic root and mildly dilated proximal ascending aorta. CONCLUSIONS Left ventricular ejection fraction 45-50% with inferior and inferolateral hypokinesis RVSP 53 Moderate to severe right ventricular dilation Severe bilateral atrial enlargement Moderate mitral regurgitation At least mild aortic stenosis with likely some component of low-flow low gradient Moderate tricuspid regurgitation Previewed by: Dr. Gagandeep Sanchez DO (Electronically Signed) Final Date: 02 October 2023 09:59
[2023-10-02 10:08] LABS: African American GFR (CKD) 53 (>60 ml/min/1.73 sqM); Anion Gap 10 mmol/L; Blood Urea Nitrogen 42 mg/dL (9-20); Calcium 8.6 mg/dL (8.4-10.2); Carbon Dioxide 23 mmol/L (22-30); Chloride 105 mmol/L (98-107); Glucose 112 mg/dL (74-99); Non-African American GFR(CKD) 46 (>60 ml/min/1.73 sqM); Potassium 4.2 mmol/L (3.5-5.1); Sodium 138 mmol/L (137-145)
[2023-10-02 11:18] LABS: Anisocytosis Slight; Basophils % (A) 0 %; Eosinophils # (A) 0.2 k/uL (0-0.7); Eosinophils % (A) 4 %; HCT 21.9 % (39.0-53.0); Hypochromasia Moderate; Lymphocytes # (A) 1.1 k/uL (1.0-4.8); Lymphocytes % (A) 25 %; MCH 32.3 pg (25.0-35.0); MCHC 31.3 g/dL (31.0-37.0); Macrocytosis Moderate; Mean Platelet Volume 9.4; Monocytes # (A) 0.3 k/uL (0-1.0); Monocytes % (A) 7 %; Neutrophils # (A) 2.6 k/uL (1.3-7.7); Neutrophils % (A) 60 %; RBC 2.12 m/uL (4.30-5.90); RDW 17.2 % (11.5-15.5); WBC 4.3 k/uL (3.8-10.6)
[2023-10-02 11:21] LABS: MCV 103.3 fL (80.0-100.0)
[2023-10-02 11:22] LABS: HGB 6.9 gm/dL (13.0-17.5)
[2023-10-02 11:23] LABS: Platelet Count 52 k/uL (150-450)
[2023-10-02] MEDS: SODIUM FERRIC GLUCONAT-SUCROSE 125 MG in SODIUM CHLORIDE 0.9% 100 ML IVPB SCH (11:25)
[2023-10-02 11:37] LABS: Glucose,Whole Blood 137 mg/dL (70-110)
--- NOTE | 2023-10-02 12:18 | P.PN ---
Subjective HISTORY OF PRESENT ILLNESS: The patient is an 88-year-old male, followed by Dr. Khalil with a history of chronic persistent atrial fibrillation, CAD and permanent pacemaker implantation who presented with symptoms of not feeling well for the last week, worse last night with dizziness and fatigue. He denies any chest discomfort. He has chronic dyspnea on exertion, according to him stable. His peripheral edema is unchanged. He has not gained any weight. He denies any palpitations. His activity is limited but stable. He has no clear PND nor orthopnea. In the emergency room he was noted to be in atrial fibrillation with controlled ventricular response. His worsening renal function compared to July 2022. His left ventricle ejection fraction is not available to me. Patient has underwent cardiac catheterization in 2019. At that time he had a chronic occlusion of his RCA and significant stenosis in the left circumflex and underwent stenting of the left circumflex by Dr. Mane. Patient has a prior stenting of the same vessel prior. In the emergency room his NT proBNP was 696 and troponin of 0.05. He is anemic with a hemoglobin of 8. His hemoglobin was 15.5 in June 2022. His MCV is 102. He has a history of hypertension and hyperlipidemia. He is a nonsmoker Medications:. Metoprolol succinate 100 mg daily, Lasix 20 mg daily, atorvastatin 80 mg daily, Singulair 10 mg daily, losartan 25 mg daily, Levoxyl, Xarelto 20 mg daily 10/02/2023 Patient examined this morning at the bedside. Patient currently denies chest pain or pressure. He denies shortness of breath. Patient's hemoglobin yesterday was 6.9. He received 1 unit of RBCs. Repeat hemoglobin today remain ed 6.9. His Xarelto remains on hold. Telemetry reveals atrial fibrillation with controlled ventricular rate. Echocardiogram completed revealing ejection fraction 45-50%, inferior and inferior lateral hypokinesis, moderate mitral regurgitation, mild aortic stenosis, and moderate tricuspid regurgitation PHYSICAL EXAM: VITAL SIGNS: Reviewed. GENERAL: Well-developed in no acute distress. NECK: Supple. No JVD or thyromegaly LUNGS: Respirations even and unlabored. Lungs essentially clear to auscultation bilaterally. HEART: Irregular rate and rhythm. S1 and S2 heard. Systolic murmur noted. EXTREMITIES: Normal range of motion. No clubbing or cyanosis. Peripheral pulses intact. No lower extremity edema ASSESSMENT: Symptoms of progressive fatigue, could be worsened by anemia and renal function Persistent atrial fibrillation, rate controlled History of pacemaker implantation Coronary artery disease Hypertension Hyperlipidemia Anemia, etiology unclear PLAN: Recommend further workup for anemia. Will defer to internal medicine Continue to hold Xarelto Continue additional cardiac medications Further recommendations pending patient's course Nurse practitioner note has been reviewed by physician. Signing provider agrees with the documented findings, assessment, and plan of care. Objective - Vital Signs Vital signs: Vital Signs Temp 98.0 F 10/02/23 07:55 Pulse 60 10/02/23 11:16 Resp 14 10/02/23 07:55 BP 91/56 10/02/23 11:16 Pulse Ox 100 10/02/23 11:16 FiO2 Intake & Output 10/01/23 10/02/23 10/02/23 18:59 06:59 18:59 Intake Total 282 540 180 Output Total 300 650 400 Balance -18 110 -220 Weight 103.419 kg Intake: Oral 540 180 Blood Product 282 Rc Pheresis As-3 Unit 282 [id number] Output: Urine 300 650 400 Other: Voiding Method Toilet Toilet # Voids 1 # Bowel Movements 1 - Labs CBC & Chem 7: 10/02/23 09:09 10/02/23 09:09 Labs: Abnormal Lab Results - Last 24 Hours (Table) 09/30/23 10/01/23 10/01/23 Range/Units 08:40 10:23 11:33 RBC (4.30-5.90) m/uL Hgb (13.0-17.5) gm/dL Hct (39.0-53.0) % MCV (80.0-100.0) fL RDW (11.5-15.5) % Plt Count (150-450) k/uL BUN (9-20) mg/dL Creatinine (0.66-1.25) mg/dL Glucose (74-99) mg/dL POC Glucose (mg/dL) (70-110) mg/dL Iron 41 L (65-175) UG/DL % Saturation 11.82 L (15.00-50.00) RBC Folate 858 H (280 - 791) ng/mL Crossmatch See Detail 10/01/23 10/01/23 10/02/23 Range/Units 16:32 20:35 06:15 RBC (4.30-5.90) m/uL Hgb (13.0-17.5) gm/dL Hct (39.0-53.0) % MCV (80.0-100.0) fL RDW (11.5-15.5) % Plt Count (150-450) k/uL BUN (9-20) mg/dL Creatinine (0.66-1.25) mg/dL Glucose (74-99) mg/dL POC Glucose (mg/dL) 128 H 140 H 116 H (70-110) mg/dL Iron (65-175) UG/DL % Saturation (15.00-50.00) RBC Folate (280 - 791) ng/mL Crossmatch 10/02/23 10/02/23 10/02/23 Range/Units 09:09 09:09 11:35 RBC 2.12 L (4.30-5.90) m/uL Hgb 6.9 L* (13.0-17.5) gm/dL Hct 21.9 L (39.0-53.0) % MCV 103.3 H D (80.0-100.0) fL RDW 17.2 H (11.5-15.5) % Plt Count 52 L (150-450) k/uL BUN 42 H (9-20) mg/dL Creatinine 1.38 H (0.66-1.25) mg/dL Glucose 112 H (74-99) mg/dL POC Glucose (mg/dL) 137 H (70-110) mg/dL Iron (65-175) UG/DL % Saturation (15.00-50.00) RBC Folate (280 - 791) ng/mL Crossmatch
--- NOTE | 2023-10-02 12:28 | P.PN ---
Subjective Patient is seen for follow-up for acute kidney injury. He was admitted to the hospital with shortness of breath and increased lower extremity swelling. Currently being diuresed. Blood pressure has been low. Serum creatinine at 1.3 today. 24 hour urine output charted at 950 ML. Objective - Vital Signs Vital signs: Vital Signs Temp 98.0 F 10/02/23 07:55 Pulse 60 10/02/23 11:16 Resp 14 10/02/23 07:55 BP 91/56 10/02/23 11:16 Pulse Ox 100 10/02/23 11:16 FiO2 Intake & Output 10/01/23 10/02/23 10/02/23 18:59 06:59 18:59 Intake Total 282 540 180 Output Total 300 650 400 Balance - Weight 103.419 kg Intake: Oral 540 180 Blood Product 282 Rc Pheresis As-3 Unit 282 [id number] Output: Urine 300 650 400 Other: Voiding Method Toilet Toilet # Voids 1 # Bowel Movements 1 - Exam Patient is awake, comfortable, in no acute distress Examination of the heart S1 and S2 Examination of the lungs bilateral breath sounds are heard with decreased breath sounds at the bases Abdomen is soft nontender Examination of lower extremity shows edema 2+ bilaterally with chronic skin changes HANDYMAN exam grossly intact - Labs CBC & Chem 7: 10/02/23 09:09 10/02/23 09:09 Labs: Abnormal Lab Results - Last 24 Hours (Table) 09/30/23 10/01/23 10/01/23 Range/Units 08:40 10:23 11:33 RBC (4.30-5.90) m/uL Hgb (13.0-17.5) gm/dL Hct (39.0-53.0) % MCV (80.0-100.0) fL RDW (11.5-15.5) % Plt Count (150-450) k/uL BUN (9-20) mg/dL Creatinine (0.66-1.25) mg/dL Glucose (74-99) mg/dL POC Glucose (mg/dL) (70-110) mg/dL Iron 41 L (65-175) UG/DL % Saturation 11.82 L (15.00-50.00) RBC Folate 858 H (280 - 791) ng/mL Crossmatch See Detail 10/01/23 10/01/23 10/02/23 Range/Units 16:32 20:35 06:15 RBC (4.30-5.90) m/uL Hgb (13.0-17.5) gm/dL Hct (39.0-53.0) % MCV (80.0-100.0) fL RDW (11.5-15.5) % Plt Count (150-450) k/uL BUN (9-20) mg/dL Creatinine (0.66-1.25) mg/dL Glucose (74-99) mg/dL POC Glucose (mg/dL) 128 H 140 H 116 H (70-110) mg/dL Iron (65-175) UG/DL % Saturation (15.00-50.00) RBC Folate (280 - 791) ng/mL Crossmatch 10/02/23 10/02/23 10/02/23 Range/Units 09:09 09:09 11:35 RBC 2.12 L (4.30-5.90) m/uL Hgb 6.9 L* (13.0-17.5) gm/dL Hct 21.9 L (39.0-53.0) % MCV 103.3 H D (80.0-100.0) fL RDW 17.2 H (11.5-15.5) % Plt Count 52 L (150-450) k/uL BUN 42 H (9-20) mg/dL Creatinine 1.38 H (0.66-1.25) mg/dL Glucose 112 H (74-99) mg/dL POC Glucose (mg/dL) 137 H (70-110) mg/dL Iron (65-175) UG/DL % Saturation (15.00-50.00) RBC Folate (280 - 791) ng/mL Crossmatch Assessment and Plan Assessment: 1. Acute kidney injury secondary to hypotension and component of cardiorenal syndrome. Ultrasound shows no evidence of obstruction.. UA is completely benign. Also component of acute kidney injury from severe anemia with hemoglobin of 6.9 g/dL. 2. Mild hyperkalemia associated with acute kidney injury 3. Volume overload 4. Anemia with severe iron deficiency. No active bleeding noted. 5. Chronic persistent A. fib Plan: Continue IV Lasix Add IV iron Continue off of Cozaar as blood pressure remains low
--- NOTE | 2023-10-02 13:05 | P.PN ---
Subjective Progress Note Date: 10/02/23 88 year old gentleman with past medical history significant for chronic atrial fibrillation, hypertension, hypothyroidism presents to the ER because of generalized feeling of weakness. Patient stated that he has been feeling weak since last night. Patient stated that he was feeling bit dizzy and not his usual self. Denied any complaint of chest pain or shortness of breath. Patient was complaining of cough. Patient has swelling of lower extremities which is chronic and he states that he has not noticed any change in them. Patient woke up this morning, he had a hard time walking to the restroom and was very weak. Because of the symptoms, patient came to the ER Initial lab work done in the ER showed WBC 7.2, hemoglobin 8, platelet count 73, INR 2.4 sodium 135, potassium 5.6, BUN 36, creatinine 1.46 troponin 0.050 proBNP 696 UA negative for infection Influenza A not detected Influenza B not detected RSV not detected COVID-19 not detected EKG done in the ER showed pacemaker rhythm seen Chest x-ray done in the ER showed cardiomegaly, pulmonary vascular congestion and bilateral pleural effusions Patient admitted to internal medicine service 10/01. Patient seen and examined. Hemoglobin this morning 6.9, ordered 1 unit of packed red blood cells. States shortness of breath on exertion. Still complaining of swelling of lower extremities 10/02. Patient seen and examined. 2-D echo done showed LVEF of 45-50% with inferior and inferolateral hypokinesis, RVSP of 53, moderate to severe right ventricular dilatation, severe bilateral atrial enlargement. Anemia workup suggestive of iron deficiency, start IV Venofer REVIEW OF SYSTEMS: CONSTITUTIONAL: No fever, no malaise,. CARDIOVASCULAR: No chest pain, no palpitations, no syncope. PULMONARY: As mentioned above GASTROINTESTINAL: No diarrhea, no nausea, no vomiting, no abdominal pain. NEUROLOGICAL: No headaches, no weakness, PHYSICAL EXAMINATION: GENERAL: The patient is alert and oriented x3, not in any acute distress. Well developed, well nourished. HEENT: Pupils are round and equally reacting to light. EOMI. No scleral icterus. No conjunctival pallor. Normocephalic, atraumatic. No pharyngeal erythema. No thyromegaly. CARDIOVASCULAR: S1 and S2 present. No murmurs, rubs, or gallops. PULMONARY: Chest is clear to auscultation, no wheezing or crackles. ABDOMEN: Soft, nontender, nondistended, normoactive bowel sounds. No palpable organomegaly. MUSCULOSKELETAL: No joint swelling or deformity. EXTREMITIES: 2+ pitting edema lower extremities bilaterally NEUROLOGICAL: Gross neurological examination did not reveal any focal deficits. SKIN: No rashes. Assessment and plan Acute kidney injury Hyperkalemia Dizziness Chronic atrial fibrillation Hypertension Hyperlipidemia Hypothyroidism Monitor vital signs Monitor CBC Monitor CMP Continue telemetry monitoring Strict I's and O's, daily weights, continue IV Lasix 40 mg Low potassium diet Start IV Venofer DC lsartan secondary to hyperkalemia Received 1 unit of packed red blood cell on 10/01 2-D echo done showed LVEF of 45-50% with inferior and inferolateral hypokinesis, RVSP of 53, moderate to severe right ventricular dilatation, severe bilateral atrial enlargement ultrasound of kidneys showed no evidence of obstructive uropathy Nephrology following Cardiology following In regards to hypertension continue Toprol Regards to hyperlipidemia continue Lipitor Labs and medication were reviewed.. Continue same treatment. Continue with symptomatic treatment. Resume home medication. Monitor labs and vitals. DVT and GI prophylaxis. Further recommendations as per clinical course of the patient Dictation was produced using [employer] dictation software. please excuse any grammatical, word or spelling errors. Objective - Vital Signs Vital signs: Vital Signs Temp 98.0 F 10/02/23 07:55 Pulse 61 10/02/23 07:55 Resp 14 10/02/23 07:55 BP 101/59 10/02/23 07:55 Pulse Ox 100 10/02/23 07:55 FiO2 Intake & Output 10/01/23 10/02/23 10/02/23 18:59 06:59 18:59 Intake Total 282 540 180 Output Total 300 650 400 Balance -220 Weight 103.419 kg Intake: Oral 540 180 Blood Product 282 Rc Pheresis As-3 Unit 282 [id number] Output: Urine 300 650 400 Other: Voiding Method Toilet Toilet # Voids 1 # Bowel Movements 1 - Labs CBC & Chem 7: 10/02/23 09:09 10/02/23 09:09 Labs: Abnormal Lab Results - Last 24 Hours (Table) 10/01/23 10/01/23 10/01/23 Range/Units 10:23 10:23 10:23 RBC 2.13 L (4.30-5.90) m/uL Hgb 6.9 L* (13.0-17.5) gm/dL Hct 23.4 L (39.0-53.0) % MCV 109.9 H D (80.0-100.0) fL MCHC 29.4 L (31.0-37.0) g/dL RDW 16.6 H (11.5-15.5) % Plt Count 63 L (150-450) k/uL Macrocytosis Marked A Carbon Dioxide 18 L (22-30) mmol/L BUN 43 H (9-20) mg/dL Creatinine (0.66-1.25) mg/dL Glucose 118 H (74-99) mg/dL POC Glucose (mg/dL) (70-110) mg/dL Iron 41 L (65-175) UG/DL % Saturation 11.82 L (15.00-50.00) Crossmatch 10/01/23 10/01/23 10/01/23 Range/Units 11:33 16:32 20:35 RBC (4.30-5.90) m/uL Hgb (13.0-17.5) gm/dL Hct (39.0-53.0) % MCV (80.0-100.0) fL MCHC (31.0-37.0) g/dL RDW (11.5-15.5) % Plt Count (150-450) k/uL Macrocytosis Carbon Dioxide (22-30) mmol/L BUN (9-20) mg/dL Creatinine (0.66-1.25) mg/dL Glucose (74-99) mg/dL POC Glucose (mg/dL) 128 H 140 H (70-110) mg/dL Iron (65-175) UG/DL % Saturation (15.00-50.00) Crossmatch See Detail 10/02/23 10/02/23 Range/Units 06:15 09:09 RBC (4.30-5.90) m/uL Hgb (13.0-17.5) gm/dL Hct (39.0-53.0) % MCV (80.0-100.0) fL MCHC (31.0-37.0) g/dL RDW (11.5-15.5) % Plt Count (150-450) k/uL Macrocytosis Carbon Dioxide (22-30) mmol/L BUN 42 H (9-20) mg/dL Creatinine 1.38 H (0.66-1.25) mg/dL Glucose 112 H (74-99) mg/dL POC Glucose (mg/dL) 116 H (70-110) mg/dL Iron (65-175) UG/DL % Saturation (15.00-50.00) Crossmatch
[2023-10-02 13:18] LABS: Anisocytosis Slight; HCT 24.1 % (39.0-53.0); Hypochromasia Marked; MCH 34.2 pg (25.0-35.0); MCHC 33.4 g/dL (31.0-37.0); MCV 102.4 fL (80.0-100.0); Macrocytosis Moderate; Mean Platelet Volume 8.7; Platelet Count 61 k/uL (150-450); RBC 2.35 m/uL (4.30-5.90); RDW 16.8 % (11.5-15.5); WBC 5.3 k/uL (3.8-10.6)
[2023-10-02 16:51] LABS: Glucose,Whole Blood 128 mg/dL (70-110)
[2023-10-02] MEDS: MONTELUKAST 10 MG TAB PO SCH (19:53)
[2023-10-02] MEDS: ISOSORBIDE MONONITRATE ER 30 MG TAB.ER.24H PO SCH (19:53)
[2023-10-02] MEDS: ATORVASTATIN 80 MG TAB PO SCH (19:53)
[2023-10-02] MEDS: METOPROLOL SUCCINATE (ER) 100 MG TAB.ER.24H PO SCH (19:53)
[2023-10-02 20:03] LABS: Glucose,Whole Blood 118 mg/dL (70-110)
[2023-10-03 05:59] LABS: Glucose,Whole Blood 118 mg/dL (70-110)
[2023-10-03] MEDS: LEVOTHYROXINE 75 MCG TAB PO SCH (05:59)
[2023-10-03] MEDS: FUROSEMIDE 10 MG/ML 4 ML VIAL IV SCH (08:19)
[2023-10-03 08:31] LABS: Anisocytosis Slight; Basophils % (A) 0 %; Eosinophils # (A) 0.2 k/uL (0-0.7); Eosinophils % (A) 4 %; HGB 7.2 gm/dL (13.0-17.5); Hypochromasia Slight; Lymphocytes # (A) 0.8 k/uL (1.0-4.8); Lymphocytes % (A) 15 %; MCH 33.1 pg (25.0-35.0); MCHC 32.9 g/dL (31.0-37.0); MCV 100.6 fL (80.0-100.0); Macrocytosis Slight; Mean Platelet Volume 8.7; Monocytes # (A) 0.4 k/uL (0-1.0); Monocytes % (A) 7 %; Neutrophils # (A) 4.1 k/uL (1.3-7.7); Neutrophils % (A) 73 %; RBC 2.19 m/uL (4.30-5.90); RDW 17.1 % (11.5-15.5); WBC 5.6 k/uL (3.8-10.6)
[2023-10-03 08:39] LABS: Platelet Count 61 k/uL (150-450)
[2023-10-03 09:00] LABS: ALT 27 U/L (4-49); AST 47 U/L (17-59); African American GFR (CKD) 53 (>60 ml/min/1.73 sqM); Albumin 2.6 g/dL (3.5-5.0); Alkaline Phosphatase 156 U/L (38-126); Anion Gap 10 mmol/L; Blood Urea Nitrogen 43 mg/dL (9-20); Calcium 8.4 mg/dL (8.4-10.2); Carbon Dioxide 22 mmol/L (22-30); Chloride 109 mmol/L (98-107); Glucose 99 mg/dL (74-99); Non-African American GFR(CKD) 46 (>60 ml/min/1.73 sqM); Potassium 4.2 mmol/L (3.5-5.1); Sodium 141 mmol/L (137-145); Total Bilirubin 1.4 mg/dL (0.2-1.3); Total Protein 5.3 g/dL (6.3-8.2)
[2023-10-03 11:25] LABS: Glucose,Whole Blood 127 mg/dL (70-110)
--- NOTE | 2023-10-03 12:01 | P.PN ---
Subjective HISTORY OF PRESENT ILLNESS: The patient is an 88-year-old male, followed by Dr. Khalil with a history of chronic persistent atrial fibrillation, CAD and permanent pacemaker implantation who presented with symptoms of not feeling well for the last week, worse last night with dizziness and fatigue. He denies any chest discomfort. He has chronic dyspnea on exertion, according to him stable. His peripheral edema is unchanged. He has not gained any weight. He denies any palpitations. His activity is limited but stable. He has no clear PND nor orthopnea. In the emergency room he was noted to be in atrial fibrillation with controlled ventricular response. His worsening renal function compared to July 2022. His left ventricle ejection fraction is not available to me. Patient has underwent cardiac catheterization in 2019. At that time he had a chronic occlusion of his RCA and significant stenosis in the left circumflex and underwent stenting of the left circumflex by Dr. Mane. Patient has a prior stenting of the same vessel prior. In the emergency room his NT proBNP was 696 and troponin of 0.05. He is anemic with a hemoglobin of 8. His hemoglobin was 15.5 in June 2022. His MCV is 102. He has a history of hypertension and hyperlipidemia. He is a nonsmoker Medications:. Metoprolol succinate 100 mg daily, Lasix 20 mg daily, atorvastatin 80 mg daily, Singulair 10 mg daily, losartan 25 mg daily, Levoxyl, Xarelto 20 mg daily 10/02/2023 Patient examined this morning at the bedside. Patient currently denies chest pain or pressure. He denies shortness of breath. Patient's hemoglobin yesterday was 6.9. He received 1 unit of RBCs. Repeat hemoglobin today remain ed 6.9. His Xarelto remains on hold. Telemetry reveals atrial fibrillation with controlled ventricular rate. Echocardiogram completed revealing ejection fraction 45-50%, inferior and inferior lateral hypokinesis, moderate mitral regurgitation, mild aortic stenosis, and moderate tricuspid regurgitation 10/03/2023 Patient examined this morning to bedside. He is resting comfortably in bed. He denies chest pain or pressure. He denies shortness of breath. He remains on IV Lasix per nephrology. Creatinine today 1.38. Hemoglobin today is 7.2. His Xarelto remains on hold. PHYSICAL EXAM: VITAL SIGNS: Reviewed. GENERAL: Well-developed in no acute distress. NECK: Supple. No JVD or thyromegaly LUNGS: Respirations even and unlabored. Lungs essentially clear to auscultation bilaterally. HEART: Irregular rate and rhythm. S1 and S2 heard. Systolic murmur noted. EXTREMITIES: Normal range of motion. No clubbing or cyanosis. Peripheral pulses intact. No lower extremity edema ASSESSMENT: Symptoms of progressive fatigue, could be worsened by anemia and renal function Persistent atrial fibrillation, rate controlled History of pacemaker implantation Coronary artery disease Hypertension Hyperlipidemia Anemia, etiology unclear PLAN: Recommend further workup for anemia. Will defer to internal medicine Continue to hold Xarelto Continue IV diuretics per nephrology Continue additional cardiac medications We will sign off. Please reconsult if needed. Nurse practitioner note has been reviewed by physician. Signing provider agrees with the documented findings, assessment, and plan of care. Objective - Vital Signs Vital signs: Vital Signs Temp 97.9 F 10/03/23 08:16 Pulse 64 10/03/23 08:16 Resp 18 10/03/23 08:16 BP 96/53 10/03/23 08:16 Pulse Ox 100 10/03/23 08:16 FiO2 Intake & Output 10/02/23 10/03/23 10/03/23 18:59 06:59 18:59 Intake Total 540 110 Output Total 800 950 Balance -260 -840 Weight 102.1 kg Intake: IV 10 Invasive Line 2 10 Intake, IV Titration 100 Amount Sodium Ferric Gluconat- 100 Sucrose 125 mg In Sodium Chloride 0.9% 100 ml @ 100 mls/hr IVPB DAILY [facility] Rx#:[id number] Oral 540 0 Output: Urine 800 950 Other: Voiding Method Toilet Toilet Toilet # Voids 1 350 1 # Bowel Movements 1 1 - Labs CBC & Chem 7: 10/03/23 07:38 10/03/23 07:38 Labs: Abnormal Lab Results - Last 24 Hours (Table) 10/02/23 10/02/23 10/02/23 Range/Units 12:39 16:50 20:00 RBC 2.35 L (4.30-5.90) m/uL Hgb 8.0 L (13.0-17.5) gm/dL Hct 24.1 L (39.0-53.0) % MCV 102.4 H (80.0-100.0) fL RDW 16.8 H (11.5-15.5) % Plt Count 61 L (150-450) k/uL Lymphocytes # (1.0-4.8) k/uL Chloride (98-107) mmol/L BUN (9-20) mg/dL Creatinine (0.66-1.25) mg/dL POC Glucose (mg/dL) 128 H 118 H (70-110) mg/dL Total Bilirubin (0.2-1.3) mg/dL Alkaline Phosphatase (38-126) U/L Total Protein (6.3-8.2) g/dL Albumin (3.5-5.0) g/dL 10/03/23 10/03/23 10/03/23 Range/Units 05:54 07:38 07:38 RBC 2.19 L (4.30-5.90) m/uL Hgb 7.2 L (13.0-17.5) gm/dL Hct 22.0 L (39.0-53.0) % MCV 100.6 H (80.0-100.0) fL RDW 17.1 H (11.5-15.5) % Plt Count 61 L (150-450) k/uL Lymphocytes # 0.8 L (1.0-4.8) k/uL Chloride 109 H (98-107) mmol/L BUN 43 H (9-20) mg/dL Creatinine 1.38 H (0.66-1.25) mg/dL POC Glucose (mg/dL) 118 H (70-110) mg/dL Total Bilirubin 1.4 H (0.2-1.3) mg/dL Alkaline Phosphatase 156 H (38-126) U/L Total Protein 5.3 L (6.3-8.2) g/dL Albumin 2.6 L (3.5-5.0) g/dL 10/03/23 Range/Units 11:23 RBC (4.30-5.90) m/uL Hgb (13.0-17.5) gm/dL Hct (39.0-53.0) % MCV (80.0-100.0) fL RDW (11.5-15.5) % Plt Count (150-450) k/uL Lymphocytes # (1.0-4.8) k/uL Chloride (98-107) mmol/L BUN (9-20) mg/dL Creatinine (0.66-1.25) mg/dL POC Glucose (mg/dL) 127 H (70-110) mg/dL Total Bilirubin (0.2-1.3) mg/dL Alkaline Phosphatase (38-126) U/L Total Protein (6.3-8.2) g/dL Albumin (3.5-5.0) g/dL
[2023-10-03] MEDS: SODIUM FERRIC GLUCONAT-SUCROSE 125 MG in SODIUM CHLORIDE 0.9% 100 ML IVPB SCH (12:11)
--- NOTE | 2023-10-03 12:12 | P.PN ---
Subjective Patient is seen in follow-up for acute kidney injury. Renal function stable. On IV Lasix. Admits to good urine output. No active bleeding. Vital signs are stable. General: No acute distress. HEENT: Head exam is unremarkable. LUNGS: No audible rhonchi or wheezes. HEART: Rate and Rhythm are regular. ABDOMEN: Nontender. EXTREMITITES: Trace edema. Chronic changes noted. Objective - Vital Signs Vital signs: Vital Signs Temp 97.9 F 10/03/23 08:16 Pulse 64 10/03/23 08:16 Resp 18 10/03/23 08:16 BP 96/53 10/03/23 08:16 Pulse Ox 100 10/03/23 08:16 FiO2 Intake & Output 10/02/23 10/03/23 10/03/23 18:59 06:59 18:59 Intake Total 540 110 Output Total 800 950 Balance -260 -840 Weight 102.1 kg Intake: IV 10 Invasive Line 2 10 Intake, IV Titration 100 Amount Sodium Ferric Gluconat- 100 Sucrose 125 mg In Sodium Chloride 0.9% 100 ml @ 100 mls/hr IVPB DAILY [facility] Rx#:[id number] Oral 540 0 Output: Urine 800 950 Other: Voiding Method Toilet Toilet Toilet # Voids 1 350 1 # Bowel Movements 1 1 - Labs CBC & Chem 7: 10/03/23 07:38 10/03/23 07:38 Labs: Abnormal Lab Results - Last 24 Hours (Table) 10/02/23 10/02/23 10/02/23 Range/Units 12:39 16:50 20:00 RBC 2.35 L (4.30-5.90) m/uL Hgb 8.0 L (13.0-17.5) gm/dL Hct 24.1 L (39.0-53.0) % MCV 102.4 H (80.0-100.0) fL RDW 16.8 H (11.5-15.5) % Plt Count 61 L (150-450) k/uL Lymphocytes # (1.0-4.8) k/uL Chloride (98-107) mmol/L BUN (9-20) mg/dL Creatinine (0.66-1.25) mg/dL POC Glucose (mg/dL) 128 H 118 H (70-110) mg/dL Total Bilirubin (0.2-1.3) mg/dL Alkaline Phosphatase (38-126) U/L Total Protein (6.3-8.2) g/dL Albumin (3.5-5.0) g/dL 10/03/23 10/03/23 10/03/23 Range/Units 05:54 07:38 07:38 RBC 2.19 L (4.30-5.90) m/uL Hgb 7.2 L (13.0-17.5) gm/dL Hct 22.0 L (39.0-53.0) % MCV 100.6 H (80.0-100.0) fL RDW 17.1 H (11.5-15.5) % Plt Count 61 L (150-450) k/uL Lymphocytes # 0.8 L (1.0-4.8) k/uL Chloride 109 H (98-107) mmol/L BUN 43 H (9-20) mg/dL Creatinine 1.38 H (0.66-1.25) mg/dL POC Glucose (mg/dL) 118 H (70-110) mg/dL Total Bilirubin 1.4 H (0.2-1.3) mg/dL Alkaline Phosphatase 156 H (38-126) U/L Total Protein 5.3 L (6.3-8.2) g/dL Albumin 2.6 L (3.5-5.0) g/dL 10/03/23 Range/Units 11:23 RBC (4.30-5.90) m/uL Hgb (13.0-17.5) gm/dL Hct (39.0-53.0) % MCV (80.0-100.0) fL RDW (11.5-15.5) % Plt Count (150-450) k/uL Lymphocytes # (1.0-4.8) k/uL Chloride (98-107) mmol/L BUN (9-20) mg/dL Creatinine (0.66-1.25) mg/dL POC Glucose (mg/dL) 127 H (70-110) mg/dL Total Bilirubin (0.2-1.3) mg/dL Alkaline Phosphatase (38-126) U/L Total Protein (6.3-8.2) g/dL Albumin (3.5-5.0) g/dL Assessment and Plan Plan: Assessment: 1. Acute kidney injury secondary to ATN secondary to cardiorenal syndrome. UA benign. No hydronephrosis noted on kidney ultrasound. Creatinine stable at 1.3 today. 2. Volume overload. Improving with diuresis. 3. Acute blood loss anemia status post blood transfusion this admission. Also receiving IV iron. 4. Acute on chronic systolic CHF with ejection fraction of 45-50% with moderate mitral and tricuspid regurgitation. 5. Hyperkalemia secondary to acute kidney injury. Resolved. ARB held. Plan: Change Lasix to 40 mg orally once daily. Add 1500 mL fluid restriction. Maintain low salt diet. Avoid nephrotoxins.
--- NOTE | 2023-10-03 14:05 | P.GSCN ---
History of Present Illness Consult date: 10/03/23 Reason for Consult: GI bleed History of present illness: 88-year-old male comes in the hospital with complaints of weakness. He did have a cough. Hemoglobin was low at 8. Takes Xarelto for A. fib. Was found to have heme positive stools. Last colonoscopy many years ago. He says that was normal. No history of GI bleed. May have had an EGD many years ago as well. No history of ulcers. No family history of colon cancer. Patient had a personal history of liver cancer lung cancer and prostate cancer. Hemoglobin today 7.2. Patient did receive 1 unit of blood while here. We were consulted for endoscopy. Patient's INR was 2.4 on admission. Denies rectal bleeding or melena. No bowel complaints. No abdominal pain. Review of Systems The patient denies any acute changes in vision or hearing, no dysphagia or odynophagia, no chest pain or shortness of breath, no dysuria or hematuria, no headache, no runny nose, no rectal bleeding or melena, no unexplained weight loss Past Medical History Past Medical History: Atrial Fibrillation, Cancer, Diabetes Mellitus, Hyperlipidemia, Hypertension, Prostate Disorder, Thyroid Disorder Additional Past Medical History / Comment(s): hx prostate,liver,lung cancer, see Dr Ambrosio H&P, diet control diabetic, A-fib with pacemaker in on 2016 History of Any Multi-Drug Resistant Organisms: None Reported Past Surgical History: Heart Catheterization With Stent, Prostate Surgery, Tonsillectomy Additional Past Surgical History / Comment(s): removal of rt lobe of liver, upper left lobe of lung removed, rt knee replacement, left arm-fx, pacemaker, (R) hip replacement. Past Anesthesia/Blood Transfusion Reactions: No Reported Reaction Date of Last Stent Placement:: 2019 Type of Cardiac Device: Permanent Pacemaker Device Placement Date:: 2005 Past Psychological History: No Psychological Hx Reported Additional Psychological History / Comment(s): lives with family home with his . Retired. No recent travel. No animals. Reformed smoker Smoking Status: Former smoker Past Alcohol Use History: Daily Additional Past Alcohol Use History / Comment(s): 2 alcoholic drinks 5-6 days pe r week the patient has had no alcohol intake since October 06. He lives at home with his .. Past Drug Use History: None Reported - Past Family History Mother Additional Family Medical History / Comment(s): Mother from complications of diabetes. No history of cancer. Brother(s) Additional Family Medical History / Comment(s): Patient has one brother and 4 sisters with no major medical problems. Patient has 2 sons with no major medical problems. No cancers. Father Family Medical History: Cancer Additional Family Medical History / Comment(s): Father from lung cancer with history of heavy smoking. Medications and Allergies Home Medications Medication Instructions Recorded Confirmed Type Levothyroxine Sodium [Levoxyl] 75 mcg PO DAILY 06/09/15 09/30/23 History Metoprolol Succinate [Toprol XL] 100 mg PO HS 06/09/15 09/30/23 History Losartan [Cozaar] 25 mg PO HS 10/21/18 09/30/23 History Isosorbide Mononitrate [Isosorbide 30 mg PO HS 03/14/20 09/30/23 History Mononitrate ER] Montelukast [Singulair] 10 mg PO HS 03/14/20 09/30/23 History Rivaroxaban [Xarelto] 20 mg PO HS 03/14/20 09/30/23 History Furosemide [Lasix] 20 mg PO DAILY 04/24/21 09/30/23 History Atorvastatin [Lipitor] 80 mg PO HS 09/30/23 09/30/23 History Fluticasone Nasal [place] [Flonase 2 spray EA NOSTRIL DAILY PRN 09/30/23 09/30/23 History Nasal [place]] HYDROcodone/APAP 7.5-325MG [[place] 1 tab PO QID PRN 09/30/23 09/30/23 History 7.5-325] Nitroglycerin Sl Tabs [Nitrostat] 0.4 mg SL Q5M PRN 09/30/23 09/30/23 History Allergies Allergy/AdvReac Type Severity Reaction Status Date / Time Tetanus Vaccines and Toxoid Allergy Unknown Verified 09/30/23 11:52 Surgical - Exam Vital Signs Temp Pulse Resp BP Pulse Ox 97.8 F 64 18 120/74 100 09/30/23 06:55 09/30/23 06:55 09/30/23 06:55 09/30/23 06:55 09/30/23 06:55 Physical exam: General: Well-developed, well-nourished HEENT: Normocephalic, sclerae nonicteric Abdomen: Nontender, nondistended Extremities: No edema Neuro: Alert and oriented Results - Labs 10/03/23 07:38 10/03/23 07:38 Abnormal Lab Results - Last 24 Hours (Table) 10/02/23 10/02/23 10/03/23 Range/Units 16:50 20:00 05:54 RBC (4.30-5.90) m/uL Hgb (13.0-17.5) gm/dL Hct (39.0-53.0) % MCV (80.0-100.0) fL RDW (11.5-15.5) % Plt Count (150-450) k/uL Lymphocytes # (1.0-4.8) k/uL Chloride (98-107) mmol/L BUN (9-20) mg/dL Creatinine (0.66-1.25) mg/dL POC Glucose (mg/dL) 128 H 118 H 118 H (70-110) mg/dL Total Bilirubin (0.2-1.3) mg/dL Alkaline Phosphatase (38-126) U/L Total Protein (6.3-8.2) g/dL Albumin (3.5-5.0) g/dL 10/03/23 10/03/23 10/03/23 Range/Units 07:38 07:38 11:23 RBC 2.19 L (4.30-5.90) m/uL Hgb 7.2 L (13.0-17.5) gm/dL Hct 22.0 L (39.0-53.0) % MCV 100.6 H (80.0-100.0) fL RDW 17.1 H (11.5-15.5) % Plt Count 61 L (150-450) k/uL Lymphocytes # 0.8 L (1.0-4.8) k/uL Chloride 109 H (98-107) mmol/L BUN 43 H (9-20) mg/dL Creatinine 1.38 H (0.66-1.25) mg/dL POC Glucose (mg/dL) 127 H (70-110) mg/dL Total Bilirubin 1.4 H (0.2-1.3) mg/dL Alkaline Phosphatase 156 H (38-126) U/L Total Protein 5.3 L (6.3-8.2) g/dL Albumin 2.6 L (3.5-5.0) g/dL Diabetes panel 10/03/23 Range/Units 07:38 Sodium 141 (137-145) mmol/L Potassium 4.2 (3.5-5.1) mmol/L Chloride 109 H (98-107) mmol/L Carbon Dioxide 22 (22-30) mmol/L BUN 43 H (9-20) mg/dL Creatinine 1.38 H (0.66-1.25) mg/dL Glucose 99 (74-99) mg/dL Calcium 8.4 (8.4-10.2) mg/dL AST 47 (17-59) U/L ALT 27 (4-49) U/L Alkaline Phosphatase 156 H (38-126) U/L Total Protein 5.3 L (6.3-8.2) g/dL Albumin 2.6 L (3.5-5.0) g/dL Calcium panel 10/03/23 Range/Units 07:38 Calcium 8.4 (8.4-10.2) mg/dL Albumin 2.6 L (3.5-5.0) g/dL Pituitary panel 10/03/23 Range/Units 07:38 Sodium 141 (137-145) mmol/L Potassium 4.2 (3.5-5.1) mmol/L Chloride 109 H (98-107) mmol/L Carbon Dioxide 22 (22-30) mmol/L BUN 43 H (9-20) mg/dL Creatinine 1.38 H (0.66-1.25) mg/dL Glucose 99 (74-99) mg/dL Calcium 8.4 (8.4-10.2) mg/dL Adrenal panel 10/03/23 Range/Units 07:38 Sodium 141 (137-145) mmol/L Potassium 4.2 (3.5-5.1) mmol/L Chloride 109 H (98-107) mmol/L Carbon Dioxide 22 (22-30) mmol/L BUN 43 H (9-20) mg/dL Creatinine 1.38 H (0.66-1.25) mg/dL Glucose 99 (74-99) mg/dL Calcium 8.4 (8.4-10.2) mg/dL Total Bilirubin 1.4 H (0.2-1.3) mg/dL AST 47 (17-59) U/L ALT 27 (4-49) U/L Alkaline Phosphatase 156 H (38-126) U/L Total Protein 5.3 L (6.3-8.2) g/dL Albumin 2.6 L (3.5-5.0) g/dL Assessment and Plan (1) GI bleed Narrative/Plan: 88-year-old male with GI bleed. Patient on anticoagulation at home. No recent endoscopic workup. INR elevated on arrival. We'll repeat INR at this time. Tentatively plan upper and lower endoscopy on Friday. Current Visit: Yes Status: Acute Code(s): K92.2 - GASTROINTESTINAL HEMORRHAGE, UNSPECIFIED SNOMED Code(s): 89059000
--- NOTE | 2023-10-03 14:27 | P.PN ---
Subjective Progress Note Date: 10/03/23 88 year old gentleman with past medical history significant for chronic atrial fibrillation, hypertension, hypothyroidism presents to the ER because of generalized feeling of weakness. Patient stated that he has been feeling weak since last night. Patient stated that he was feeling bit dizzy and not his usual self. Denied any complaint of chest pain or shortness of breath. Patient was complaining of cough. Patient has swelling of lower extremities which is chronic and he states that he has not noticed any change in them. Patient woke up this morning, he had a hard time walking to the restroom and was very weak. Because of the symptoms, patient came to the ER Initial lab work done in the ER showed WBC 7.2, hemoglobin 8, platelet count 73, INR 2.4 sodium 135, potassium 5.6, BUN 36, creatinine 1.46 troponin 0.050 proBNP 696 UA negative for infection Influenza A not detected Influenza B not detected RSV not detected COVID-19 not detected EKG done in the ER showed pacemaker rhythm seen Chest x-ray done in the ER showed cardiomegaly, pulmonary vascular congestion and bilateral pleural effusions Patient admitted to internal medicine service 10/01. Patient seen and examined. Hemoglobin this morning 6.9, ordered 1 unit of packed red blood cells. States shortness of breath on exertion. Still complaining of swelling of lower extremities 10/02. Patient seen and examined. 2-D echo done showed LVEF of 45-50% with inferior and inferolateral hypokinesis, RVSP of 53, moderate to severe right ventricular dilatation, severe bilateral atrial enlargement. Anemia workup suggestive of iron deficiency, start IV Venofer 10/03. Patient seen and examined.This morning showed WBC 5.6, hemoglobin 7.2, sodium 141, potassium 4.2, BUN 43, creatinine 1.38. Patient had bowel movements yesterday and this morning, didn't notice any blood in it. FOBT was positive. REVIEW OF SYSTEMS: CONSTITUTIONAL: No fever, no malaise,. CARDIOVASCULAR: No chest pain, no palpitations, no syncope. PULMONARY: As mentioned above GASTROINTESTINAL: No diarrhea, no nausea, no vomiting, no abdominal pain. NEUROLOGICAL: No headaches, no weakness, PHYSICAL EXAMINATION: GENERAL: The patient is alert and oriented x3, not in any acute distress. Well developed, well nourished. HEENT: Pupils are round and equally reacting to light. EOMI. No scleral icterus. No conjunctival pallor. Normocephalic, atraumatic. No pharyngeal erythema. No thyromegaly. CARDIOVASCULAR: S1 and S2 present. No murmurs, rubs, or gallops. PULMONARY: Chest is clear to auscultation, no wheezing or crackles. ABDOMEN: Soft, nontender, nondistended, normoactive bowel sounds. No palpable organomegaly. MUSCULOSKELETAL: No joint swelling or deformity. EXTREMITIES: 2+ pitting edema lower extremities bilaterally NEUROLOGICAL: Gross neurological examination did not reveal any focal deficits. SKIN: No rashes. Assessment and plan Acute kidney injury Iron deficiency anemia FOBT positive Hyperkalemia Dizziness Chronic atrial fibrillation Hypertension Hyperlipidemia Hypothyroidism Monitor vital signs Monitor CBC Monitor CMP Continue telemetry monitoring Strict I's and O's, daily weights, continue IV Lasix 40 mg Low potassium diet Continue IV Venofer DC lsartan secondary to hyperkalemia Received 1 unit of packed red blood cell on 10/01 Anemia workup positive for iron deficiency, FOBT is positive xarelto on hold secondary to anemia 2-D echo done showed LVEF of 45-50% with inferior and inferolateral hypokinesis, RVSP of 53, moderate to severe right ventricular dilatation, severe bilateral atrial enlargement ultrasound of kidneys showed no evidence of obstructive uropathy Nephrology following Cardiology following Consulted surgery for evaluation for FOBT positive, no GI coverage at this time In regards to hypertension continue Toprol Regards to hyperlipidemia continue Lipitor Labs and medication were reviewed.. Continue same treatment. Continue with symptomatic treatment. Resume home medication. Monitor labs and vitals. DVT and GI prophylaxis. Further recommendations as per clinical course of the patient Dictation was produced using [employer] dictation software. please excuse any grammatical, word or spelling errors. Objective - Vital Signs Vital signs: Vital Signs Temp 97.9 F 10/03/23 08:16 Pulse 64 10/03/23 08:16 Resp 18 10/03/23 08:16 BP 96/53 10/03/23 08:16 Pulse Ox 100 10/03/23 08:16 FiO2 Intake & Output 10/02/23 10/03/23 10/03/23 18:59 06:59 18:59 Intake Total 540 10 Output Total 800 500 Balance -260 -490 Weight 102.1 kg Intake: IV 10 Invasive Line 2 10 Oral 540 0 Output: Urine 800 500 Other: Voiding Method Toilet Toilet Toilet # Voids 1 350 1 # Bowel Movements 1 - Labs CBC & Chem 7: 10/03/23 07:38 10/03/23 07:38 Labs: Abnormal Lab Results - Last 24 Hours (Table) 09/30/23 10/02/23 10/02/23 Range/Units 08:40 09:09 09:09 RBC 2.12 L (4.30-5.90) m/uL Hgb 6.9 L* (13.0-17.5) gm/dL Hct 21.9 L (39.0-53.0) % MCV 103.3 H D (80.0-100.0) fL RDW 17.2 H (11.5-15.5) % Plt Count 52 L (150-450) k/uL Lymphocytes # (1.0-4.8) k/uL Chloride (98-107) mmol/L BUN 42 H (9-20) mg/dL Creatinine 1.38 H (0.66-1.25) mg/dL Glucose 112 H (74-99) mg/dL POC Glucose (mg/dL) (70-110) mg/dL Total Bilirubin (0.2-1.3) mg/dL Alkaline Phosphatase (38-126) U/L Total Protein (6.3-8.2) g/dL Albumin (3.5-5.0) g/dL RBC Folate 858 H (280 - 791) ng/mL 10/02/23 10/02/23 10/02/23 Range/Units 11:35 12:39 16:50 RBC 2.35 L (4.30-5.90) m/uL Hgb 8.0 L (13.0-17.5) gm/dL Hct 24.1 L (39.0-53.0) % MCV 102.4 H (80.0-100.0) fL RDW 16.8 H (11.5-15.5) % Plt Count 61 L (150-450) k/uL Lymphocytes # (1.0-4.8) k/uL Chloride (98-107) mmol/L BUN (9-20) mg/dL Creatinine (0.66-1.25) mg/dL Glucose (74-99) mg/dL POC Glucose (mg/dL) 137 H 128 H (70-110) mg/dL Total Bilirubin (0.2-1.3) mg/dL Alkaline Phosphatase (38-126) U/L Total Protein (6.3-8.2) g/dL Albumin (3.5-5.0) g/dL RBC Folate (280 - 791) ng/mL 10/02/23 10/03/23 10/03/23 Range/Units 20:00 05:54 07:38 RBC 2.19 L (4.30-5.90) m/uL Hgb 7.2 L (13.0-17.5) gm/dL Hct 22.0 L (39.0-53.0) % MCV 100.6 H (80.0-100.0) fL RDW 17.1 H (11.5-15.5) % Plt Count 61 L (150-450) k/uL Lymphocytes # 0.8 L (1.0-4.8) k/uL Chloride (98-107) mmol/L BUN (9-20) mg/dL Creatinine (0.66-1.25) mg/dL Glucose (74-99) mg/dL POC Glucose (mg/dL) 118 H 118 H (70-110) mg/dL Total Bilirubin (0.2-1.3) mg/dL Alkaline Phosphatase (38-126) U/L Total Protein (6.3-8.2) g/dL Albumin (3.5-5.0) g/dL RBC Folate (280 - 791) ng/mL 10/03/23 Range/Units 07:38 RBC (4.30-5.90) m/uL Hgb (13.0-17.5) gm/dL Hct (39.0-53.0) % MCV (80.0-100.0) fL RDW (11.5-15.5) % Plt Count (150-450) k/uL Lymphocytes # (1.0-4.8) k/uL Chloride 109 H (98-107) mmol/L BUN 43 H (9-20) mg/dL Creatinine 1.38 H (0.66-1.25) mg/dL Glucose (74-99) mg/dL POC Glucose (mg/dL) (70-110) mg/dL Total Bilirubin 1.4 H (0.2-1.3) mg/dL Alkaline Phosphatase 156 H (38-126) U/L Total Protein 5.3 L (6.3-8.2) g/dL Albumin 2.6 L (3.5-5.0) g/dL RBC Folate (280 - 791) ng/mL
[2023-10-03 15:15] LABS: INR 1.3 (<1.2); Prothrombin Time 13.9 sec (10.0-12.5)
[2023-10-03 16:32] LABS: Glucose,Whole Blood 110 mg/dL (70-110)
[2023-10-03 19:43] LABS: Glucose,Whole Blood 112 mg/dL (70-110)
[2023-10-03] MEDS: ISOSORBIDE MONONITRATE ER 30 MG TAB.ER.24H PO SCH (21:01)
[2023-10-03] MEDS: METOPROLOL SUCCINATE (ER) 100 MG TAB.ER.24H PO SCH (21:01)
[2023-10-03] MEDS: ATORVASTATIN 80 MG TAB PO SCH (21:02)
[2023-10-03] MEDS: MONTELUKAST 10 MG TAB PO SCH (21:02)
[2023-10-04] MEDS: LEVOTHYROXINE 75 MCG TAB PO SCH (05:40)
[2023-10-04 06:07] LABS: Glucose,Whole Blood 124 mg/dL (70-110)
[2023-10-04 08:00] LABS: Anisocytosis Slight; Basophils % (A) 0 %; Eosinophils # (A) 0.2 k/uL (0-0.7); Eosinophils % (A) 5 %; HCT 22.6 % (39.0-53.0); HGB 7.2 gm/dL (13.0-17.5); Hypochromasia Marked; Lymphocytes # (A) 0.9 k/uL (1.0-4.8); Lymphocytes % (A) 21 %; MCH 32.8 pg (25.0-35.0); MCHC 31.6 g/dL (31.0-37.0); MCV 103.7 fL (80.0-100.0); Macrocytosis Moderate; Mean Platelet Volume 9.9; Monocytes # (A) 0.3 k/uL (0-1.0); Monocytes % (A) 7 %; Neutrophils # (A) 2.6 k/uL (1.3-7.7); Neutrophils % (A) 64 %; RBC 2.18 m/uL (4.30-5.90); RDW 17.1 % (11.5-15.5); WBC 4.1 k/uL (3.8-10.6)
[2023-10-04 08:20] LABS: Platelet Count 65 k/uL (150-450)
[2023-10-04 08:29] LABS: ALT 29 U/L (4-49); AST 49 U/L (17-59); African American GFR (CKD) 49 (>60 ml/min/1.73 sqM); Albumin 2.7 g/dL (3.5-5.0); Alkaline Phosphatase 142 U/L (38-126); Anion Gap 10 mmol/L; Blood Urea Nitrogen 39 mg/dL (9-20); Calcium 8.3 mg/dL (8.4-10.2); Carbon Dioxide 23 mmol/L (22-30); Chloride 106 mmol/L (98-107); Glucose 97 mg/dL (74-99); Non-African American GFR(CKD) 42 (>60 ml/min/1.73 sqM); Potassium 3.5 mmol/L (3.5-5.1); Sodium 139 mmol/L (137-145); Total Bilirubin 1.6 mg/dL (0.2-1.3); Total Protein 5.4 g/dL (6.3-8.2)
[2023-10-04] MEDS: SODIUM FERRIC GLUCONAT-SUCROSE 125 MG in SODIUM CHLORIDE 0.9% 100 ML IVPB SCH (09:34)
[2023-10-04] MEDS: FUROSEMIDE 40 MG TAB PO SCH (09:34)
[2023-10-04] MEDS ORDERED: POTASSIUM CHLORIDE ER 20 MEQ TAB.ER PO STA (10:58)
--- NOTE | 2023-10-04 11:00 | P.PN ---
Subjective Patient is seen in follow-up for acute kidney injury. Renal function stable. On po Lasix. Admits to good urine output. Had black stool overnight. Colonoscopy tomorrow. Vital signs are stable. General: No acute distress. HEENT: Head exam is unremarkable. LUNGS: No audible rhonchi or wheezes. HEART: Rate and Rhythm are regular. ABDOMEN: Nontender. EXTREMITITES: Trace edema. Chronic changes noted. Objective - Vital Signs Vital signs: Vital Signs Temp 97.5 F L 10/04/23 09:18 Pulse 67 10/04/23 09:18 Resp 18 10/04/23 09:18 BP 105/66 10/04/23 09:18 Pulse Ox 94 L 10/04/23 09:18 FiO2 Intake & Output 10/03/23 10/04/23 10/04/23 18:59 06:59 18:59 Intake Total 462 222 10 Output Total 2075 250 300 Balance -3883 -28 -181 Intake: IV 20 10 Invasive Line 2 20 10 Intake, IV Titration 100 Amount Sodium Ferric Gluconat- 100 Sucrose 125 mg In Sodium Chloride 0.9% 100 ml @ 100 mls/hr IVPB DAILY [facility] Rx#:[id number] Oral 342 222 Output: Urine 2075 250 300 Other: Voiding Method Toilet Toilet Toilet # Voids 2 1 # Bowel Movements 2 1 - Labs CBC & Chem 7: 10/04/23 07:38 10/04/23 07:38 Labs: Abnormal Lab Results - Last 24 Hours (Table) 10/03/23 10/03/23 10/03/23 Range/Units 11: 14:27 19:41 RBC (4.30-5.90) m/uL Hgb (13.0-17.5) gm/dL Hct (39.0-53.0) % MCV (80.0-100.0) fL RDW (11.5-15.5) % Plt Count (150-450) k/uL Lymphocytes # (1.0-4.8) k/uL PT 13.9 H (10.0-12.5) sec INR 1.3 H (<1.2) BUN (9-20) mg/dL Creatinine (0.66-1.25) mg/dL POC Glucose (mg/dL) 127 H 112 H (70-110) mg/dL Calcium (8.4-10.2) mg/dL Total Bilirubin (0.2-1.3) mg/dL Alkaline Phosphatase (38-126) U/L Total Protein (6.3-8.2) g/dL Albumin (3.5-5.0) g/dL 10/04/23 10/04/23 10/04/23 Range/Units 06:06 07:38 07:38 RBC 2.18 L (4.30-5.90) m/uL Hgb 7.2 L (13.0-17.5) gm/dL Hct 22.6 L (39.0-53.0) % MCV 103.7 H (80.0-100.0) fL RDW 17.1 H (11.5-15.5) % Plt Count 65 L (150-450) k/uL Lymphocytes # 0.9 L (1.0-4.8) k/uL PT (10.0-12.5) sec INR (<1.2) BUN 39 H (9-20) mg/dL Creatinine 1.48 H (0.66-1.25) mg/dL POC Glucose (mg/dL) 124 H (70-110) mg/dL Calcium 8.3 L (8.4-10.2) mg/dL Total Bilirubin 1.6 H (0.2-1.3) mg/dL Alkaline Phosphatase 142 H (38-126) U/L Total Protein 5.4 L (6.3-8.2) g/dL Albumin 2.7 L (3.5-5.0) g/dL Assessment and Plan Plan: Assessment: 1. Acute kidney injury secondary to ATN secondary to cardiorenal syndrome. UA benign. No hydronephrosis noted on kidney ultrasound. Creatinine fairly stable at 1.48 today. 2. Volume overload. Improved with diuresis. 3. Acute blood loss anemia status post blood transfusion this admission. Also receiving IV iron. 4. Acute on chronic systolic CHF with ejection fraction of 45-50% with moderate mitral and tricuspid regurgitation. 5. Hyperkalemia secondary to acute kidney injury. Resolved. ARB held. Now potassium on the lower side. Plan: Maintain oral Lasix. Maintain 1500 mL fluid restriction. Maintain low salt diet. Avoid nephrotoxins. Replace potassium. Colonoscopy tomorrow. Add Aranesp.
[2023-10-04 11:29] LABS: Glucose,Whole Blood 116 mg/dL (70-110)
--- NOTE | 2023-10-04 11:36 | P.PN ---
Subjective Progress Note Date: 10/04/23 Note events overnight. No abdominal pain. No melena or hematochezia. Admits to flatus. No bowel movement. Voiding and ambulatory Objective - Vital Signs Vital signs: Vital Signs Temp 97.5 F L 10/04/23 09:18 Pulse 67 10/04/23 09:18 Resp 18 10/04/23 09:18 BP 105/66 10/04/23 09:18 Pulse Ox 94 L 10/04/23 09:18 FiO2 Intake & Output 10/03/23 10/04/23 10/04/23 18:59 06:59 18:59 Intake Total 462 222 10 Output Total 2075 250 300 Balance -1613 -28 -290 Intake: IV 20 10 Invasive Line 2 20 10 Intake, IV Titration 100 Amount Sodium Ferric Gluconat- 100 Sucrose 125 mg In Sodium Chloride 0.9% 100 ml @ 100 mls/hr IVPB DAILY [facility] Rx#:[id number] Oral 342 222 Output: Urine 2075 250 300 Other: Voiding Method Toilet Toilet Toilet # Voids 2 1 # Bowel Movements 2 1 - Exam Gen: AxO, NAD Pulm: non-labored respirations Abd: soft, non-tender, minimally distended, no guarding/rebound/rigidity Extrem: no edema seen - Labs CBC & Chem 7: 10/04/23 07:38 10/04/23 07:38 Labs: Abnormal Lab Results - Last 24 Hours (Table) 10/03/23 10/03/23 10/04/23 Range/Units 14:27 19:41 06:06 RBC (4.30-5.90) m/uL Hgb (13.0-17.5) gm/dL Hct (39.0-53.0) % MCV (80.0-100.0) fL RDW (11.5-15.5) % Plt Count (150-450) k/uL Lymphocytes # (1.0-4.8) k/uL PT 13.9 H (10.0-12.5) sec INR 1.3 H (<1.2) BUN (9-20) mg/dL Creatinine (0.66-1.25) mg/dL POC Glucose (mg/dL) 112 H 124 H (70-110) mg/dL Calcium (8.4-10.2) mg/dL Total Bilirubin (0.2-1.3) mg/dL Alkaline Phosphatase (38-126) U/L Total Protein (6.3-8.2) g/dL Albumin (3.5-5.0) g/dL 10/04/23 10/04/23 10/04/23 Range/Units 07:38 07:38 11:27 RBC 2.18 L (4.30-5.90) m/uL Hgb 7.2 L (13.0-17.5) gm/dL Hct 22.6 L (39.0-53.0) % MCV 103.7 H (80.0-100.0) fL RDW 17.1 H (11.5-15.5) % Plt Count 65 L (150-450) k/uL Lymphocytes # 0.9 L (1.0-4.8) k/uL PT (10.0-12.5) sec INR (<1.2) BUN 39 H (9-20) mg/dL Creatinine 1.48 H (0.66-1.25) mg/dL POC Glucose (mg/dL) 116 H (70-110) mg/dL Calcium 8.3 L (8.4-10.2) mg/dL Total Bilirubin 1.6 H (0.2-1.3) mg/dL Alkaline Phosphatase 142 H (38-126) U/L Total Protein 5.4 L (6.3-8.2) g/dL Albumin 2.7 L (3.5-5.0) g/dL Assessment and Plan Assessment: Patient is an 88-year-old male who presents with anemia concerning for gastrointestinal bleeding Plan: -CLD as tolerated; NPO at midnight -Golytely prep ordered -Trend Hb; transfuse per primary -PRN pain and nausea control -Plan for EGD/Colonoscopy on 10/05/23 Dex Montaño MD General Surgery
[2023-10-04] MEDS ORDERED: DARBEPOETIN ALFA 40 MCG/0.4 ML SYRINGE SQ SCH (12:00)
[2023-10-04] MEDS ORDERED: PEG 3350 (236 GM/BTL) + LYTES 4,000 ML BOTTLE PO ONE (14:00)
--- NOTE | 2023-10-04 14:30 | P.PN ---
Subjective Progress Note Date: 10/04/23 88 year old gentleman with past medical history significant for chronic atrial fibrillation, hypertension, hypothyroidism presents to the ER because of generalized feeling of weakness. Patient stated that he has been feeling weak since last night. Patient stated that he was feeling bit dizzy and not his usual self. Denied any complaint of chest pain or shortness of breath. Patient was complaining of cough. Patient has swelling of lower extremities which is chronic and he states that he has not noticed any change in them. Patient woke up this morning, he had a hard time walking to the restroom and was very weak. Because of the symptoms, patient came to the ER Initial lab work done in the ER showed WBC 7.2, hemoglobin 8, platelet count 73, INR 2.4 sodium 135, potassium 5.6, BUN 36, creatinine 1.46 troponin 0.050 proBNP 696 UA negative for infection Influenza A not detected Influenza B not detected RSV not detected COVID-19 not detected EKG done in the ER showed pacemaker rhythm seen Chest x-ray done in the ER showed cardiomegaly, pulmonary vascular congestion and bilateral pleural effusions Patient admitted to internal medicine service 10/01. Patient seen and examined. Hemoglobin this morning 6.9, ordered 1 unit of packed red blood cells. States shortness of breath on exertion. Still complaining of swelling of lower extremities 10/02. Patient seen and examined. 2-D echo done showed LVEF of 45-50% with inferior and inferolateral hypokinesis, RVSP of 53, moderate to severe right ventricular dilatation, severe bilateral atrial enlargement. Anemia workup suggestive of iron deficiency, start IV Venofer 10/03. Patient seen and examined.This morning showed WBC 5.6, hemoglobin 7.2, sodium 141, potassium 4.2, BUN 43, creatinine 1.38. Patient had bowel movements yesterday and this morning, didn't notice any blood in it. FOBT was positive. 10/04. Patient seen and examined area at lab work done showed WBC 4.1, hemog lobin 7.2, sodium 139, potassium 3.5, BUN 39, creatinine 1.48. Patient had black stools overnight. Surgery planning EGD and colonoscopy in the morning, currently being prepped REVIEW OF SYSTEMS: CONSTITUTIONAL: No fever, no malaise,. CARDIOVASCULAR: No chest pain, no palpitations, no syncope. PULMONARY: As mentioned above GASTROINTESTINAL: No diarrhea, no nausea, no vomiting, no abdominal pain. NEUROLOGICAL: No headaches, no weakness, PHYSICAL EXAMINATION: GENERAL: The patient is alert and oriented x3, not in any acute distress. Well developed, well nourished. HEENT: Pupils are round and equally reacting to light. EOMI. No scleral icterus. No conjunctival pallor. Normocephalic, atraumatic. No pharyngeal erythema. No thyromegaly. CARDIOVASCULAR: S1 and S2 present. No murmurs, rubs, or gallops. PULMONARY: Chest is clear to auscultation, no wheezing or crackles. ABDOMEN: Soft, nontender, nondistended, normoactive bowel sounds. No palpable organomegaly. MUSCULOSKELETAL: No joint swelling or deformity. EXTREMITIES: 2+ pitting edema lower extremities bilaterally NEUROLOGICAL: Gross neurological examination did not reveal any focal deficits. SKIN: No rashes. Assessment and plan Acute kidney injury Iron deficiency anemia FOBT positive Hyperkalemia Dizziness Chronic atrial fibrillation Hypertension Hyperlipidemia Hypothyroidism Monitor vital signs Monitor CBC Monitor CMP Continue telemetry monitoring Strict I's and O's, daily weights, continue IV Lasix 40 mg Low potassium diet Continue IV Venofer DC lsartan secondary to hyperkalemia Received 1 unit of packed red blood cell on 10/01 Anemia workup positive for iron deficiency, FOBT is positive xarelto on hold secondary to anemia 2-D echo done showed LVEF of 45-50% with inferior and inferolateral hypokinesis, RVSP of 53, moderate to severe right ventricular dilatation, severe bilateral atrial enlargement ultrasound of kidneys showed no evidence of obstructive uropathy Nephrology following Cardiology following Consulted surgery for evaluation for FOBT positive, no GI coverage at this time, they evaluated the patient, planning EGD on Friday In regards to hypertension continue Toprol Regards to hyperlipidemia continue Lipitor Labs and medication were reviewed.. Continue same treatment. Continue with symptomatic treatment. Resume home medication. Monitor labs and vitals. DVT and GI prophylaxis. Further recommendations as per clinical course of the patient Dictation was produced using [employer] dictation software. please excuse any grammatical, word or spelling errors. Objective - Vital Signs Vital signs: Vital Signs Temp 97.5 F L 10/04/23 09:18 Pulse 67 10/04/23 09:18 Resp 18 10/04/23 09:18 BP 105/66 10/04/23 09:18 Pulse Ox 94 L 10/04/23 09:18 FiO2 Intake & Output 10/03/23 10/04/23 10/04/23 18:59 06:59 18:59 Intake Total 462 222 10 Output Total 5 250 300 Balance -8927 -45 -102 Intake: IV 20 10 Invasive Line 2 20 10 Intake, IV Titration 100 Amount Sodium Ferric Gluconat- 100 Sucrose 125 mg In Sodium Chloride 0.9% 100 ml @ 100 mls/hr IVPB DAILY [facility] Rx#:[id number] Oral 342 222 Output: Urine 2074 250 300 Other: Voiding Method Toilet Toilet Toilet # Voids 2 1 # Bowel Movements 2 1 - Labs CBC & Chem 7: 10/04/23 07:38 10/04/23 07:38 Labs: Abnormal Lab Results - Last 24 Hours (Table) 10/03/23 10/03/23 10/03/23 Range/Units 11:23 14:27 19:41 RBC (4.30-5.90) m/uL Hgb (13.0-17.5) gm/dL Hct (39.0-53.0) % MCV (80.0-100.0) fL RDW (11.5-15.5) % Plt Count (150-450) k/uL Lymphocytes # (1.0-4.8) k/uL PT 13.9 H (10.0-12.5) sec INR 1.3 H (<1.2) BUN (9-20) mg/dL Creatinine (0.66-1.25) mg/dL POC Glucose (mg/dL) 127 H 112 H (70-110) mg/dL Calcium (8.4-10.2) mg/dL Total Bilirubin (0.2-1.3) mg/dL Alkaline Phosphatase (38-126) U/L Total Protein (6.3-8.2) g/dL Albumin (3.5-5.0) g/dL 10/04/23 10/04/23 10/04/23 Range/Units 06:06 07:38 07:38 RBC 2.18 L (4.30-5.90) m/uL Hgb 7.2 L (13.0-17.5) gm/dL Hct 22.6 L (39.0-53.0) % MCV 103.7 H (80.0-100.0) fL RDW 17.1 H (11.5-15.5) % Plt Count 65 L (150-450) k/uL Lymphocytes # 0.9 L (1.0-4.8) k/uL PT (10.0-12.5) sec INR (<1.2) BUN 39 H (9-20) mg/dL Creatinine 1.48 H (0.66-1.25) mg/dL POC Glucose (mg/dL) 124 H (70-110) mg/dL Calcium 8.3 L (8.4-10.2) mg/dL Total Bilirubin 1.6 H (0.2-1.3) mg/dL Alkaline Phosphatase 142 H (38-126) U/L Total Protein 5.4 L (6.3-8.2) g/dL Albumin 2.7 L (3.5-5.0) g/dL
[2023-10-04 16:12] LABS: Glucose,Whole Blood 110 mg/dL (70-110)
[2023-10-04] MEDS: MONTELUKAST 10 MG TAB PO SCH (19:57)
[2023-10-04] MEDS: ATORVASTATIN 80 MG TAB PO SCH (19:57)
[2023-10-04] MEDS: ISOSORBIDE MONONITRATE ER 30 MG TAB.ER.24H PO SCH (19:57)
[2023-10-04] MEDS: METOPROLOL SUCCINATE (ER) 100 MG TAB.ER.24H PO SCH (19:57)
[2023-10-04 19:59] LABS: Glucose,Whole Blood 125 mg/dL (70-110)
[2023-10-05] MEDS: LEVOTHYROXINE 75 MCG TAB PO SCH (04:40)
[2023-10-05 05:49] LABS: Glucose,Whole Blood 109 mg/dL (70-110)
[2023-10-05] MEDS ORDERED: PROPOFOL 10 MG/ML 20 ML VIAL IV ONE (07:53)
[2023-10-05] MEDS ORDERED: LACTATED RINGERS 1,000 ML IV ONE (08:01)
--- NOTE | 2023-10-05 08:58 | P.PCN ---
Date of Procedure: 10/05/23 Procedure(s) Performed: PREOPERATIVE DIAGNOSIS: GI bleed, anemia POSTOPERATIVE DIAGNOSIS: Duodenitis with erosions, gastritis, hiatal hernia, distal esophagitis with Schatzki's ring, diverticulosis, hepatic flexure polyp PROCEDURE: 1. EGD with biopsy 2. Colonoscopy with snare polypectomy ANESTHESIA: MAC SURGEON: Dejuan Osborn M.D. SPECIMENS: Duodenum, antrum, distal esophagus, polyp ENDOSCOPIC PROCEDURE: The patient was on the endoscopy table in the left decubitus position. The Olympus gastroscope was inserted into the oropharynx and passed under direct visualization to the region of the third portion of the duodenum. From that point the scope was slowly withdrawn inspecting all surfaces carefully. There was duodenitis present with multiple small superficial erosions present. This could've been the source of bleeding with ongoing anticoagulant use at home. Biopsies of the duodenum took place. There were no deep ulcer crater seen. There was no active bleeding or adherent clot. The pylorus was patent. The stomach revealed mild diffuse gastritis as well. The patient had a small moderate-sized hiatal hernia. At the GE junction there was a single small area of esophagitis present and a biopsy was taken. There was some Schatzki's ring formation noted. The remainder the esophagus appear normal. The patient was kept on the endoscopy table in the left decubitus position. The Olympus colonoscope was inserted into the anus and passed under direct visualization to the base of the cecum. The appendiceal orifice was visualized. From that point the scope was slowly withdrawn inspecting all surfaces carefully. There were no neoplastic inflammatory or polypoid lesions throughout the cecum. In the distal ascending colon a small polyp was seen and removed using the snare with cautery technique. The remainder of the transverse descending sigmoid and rectum were free of any neoplastic inflammatory or polypoid lesions. The patient had scattered diverticulosis throughout the colon mostly on the left side. The patient's prep was somewhat suboptimal and there was some retained liquid and semisolid stool. Digital rectal examination revealed no masses. The patient was taken to the recovery room in stable condition per anesthesia guidelines. RECOMMENDATIONS: Resume diet. Continue antiacid therapy. Consider holding anticoagulation for a few days. Recommend family discuss with primary service whether ongoing anticoagulant use is advised. Await biopsy results. May discharge from my point of view.
[2023-10-05] MEDS: FUROSEMIDE 40 MG TAB PO SCH (09:20)
[2023-10-05] MEDS: PANTOPRAZOLE 40 MG/10 ML VIAL IVP SCH (09:20)
[2023-10-05] MEDS: SODIUM FERRIC GLUCONAT-SUCROSE 125 MG in SODIUM CHLORIDE 0.9% 100 ML IVPB SCH (09:23)
--- NOTE | 2023-10-05 10:10 | P.PN ---
Subjective Patient is seen in follow-up for acute kidney injury. Renal function stable as of yesterday. On po Lasix. Admits to good urine output. Underwent EGD and colonoscopy this morning which showed no acute bleeding. Vital signs are stable. General: No acute distress. HEENT: Head exam is unremarkable. LUNGS: No audible rhonchi or wheezes. HEART: Rate and Rhythm are regular. ABDOMEN: Nontender. EXTREMITITES: Trace edema. Chronic changes noted. Objective - Vital Signs Vital signs: Vital Signs Temp 97.7 F 10/05/23 07:45 Pulse 61 10/05/23 07:45 Resp 18 10/05/23 07:45 BP 105/66 10/05/23 07:45 Pulse Ox 99 10/05/23 07:45 FiO2 Intake & Output 10/04/23 10/05/23 10/05/23 18:59 06:59 18:59 Intake Total 500 10 150 Output Total 500 500 Balance 0 -490 150 Weight 100.3 kg Intake: IV 20 10 150 Invasive Line 2 10 Invasive Line 3 10 10 Oral 480 Output: Urine 500 Stool 500 Other: Voiding Method Toilet Toilet # Voids 2 # Bowel Movements 1 - Labs CBC & Chem 7: 10/04/23 07:38 10/04/23 07:38 Labs: Abnormal Lab Results - Last 24 Hours (Table) 10/04/23 10/04/23 Range/Units 11:27 19:58 POC Glucose (mg/dL) 116 H 125 H (70-110) mg/dL Assessment and Plan Plan: Assessment: 1. Acute kidney injury secondary to ATN secondary to cardiorenal syndrome. UA benign. No hydronephrosis noted on kidney ultrasound. Creatinine fairly stable at 1.48 as of yesterday. 2. Volume overload. Improved with diuresis. 3. Acute blood loss anemia status post blood transfusion this admission. On Aranesp. Also receiving IV iron. Underwent EGD and colonoscopy which showed no acute bleeding. Duodenitis with erosions, gastritis, hiatal hernia were noted. 4. Acute on chronic systolic CHF with ejection fraction of 45-50% with moderate mitral and tricuspid regurgitation. 5. Hyperkalemia secondary to acute kidney injury. Resolved. ARB held. Now potassium on the lower side. Plan: Maintain oral Lasix. Maintain 1500 mL fluid restriction. Maintain low salt diet. Avoid nephrotoxins. Morning labs pending.
[2023-10-05 10:13] LABS: African American GFR (CKD) 53 (>60 ml/min/1.73 sqM); Anion Gap 12 mmol/L; Blood Urea Nitrogen 38 mg/dL (9-20); Calcium 8.9 mg/dL (8.4-10.2); Carbon Dioxide 16 mmol/L (22-30); Chloride 115 mmol/L (98-107); Glucose 92 mg/dL (74-99); Non-African American GFR(CKD) 46 (>60 ml/min/1.73 sqM); Sodium 143 mmol/L (137-145)
[2023-10-05 10:20] LABS: Magnesium 1.9 mg/dL (1.6-2.3); Potassium 5.5 mmol/L (3.5-5.1)
[2023-10-05 11:28] LABS: Glucose,Whole Blood 141 mg/dL (70-110)
[2023-10-05] MEDS: SUCRALFATE 1 GM TAB PO SCH ×2 (11:57→17:21)
[2023-10-05] MEDS ORDERED: SODIUM ZIRCONIUM CYCLOSILICATE 10 GM PACKET PO ONE (12:30)
[2023-10-05 12:57] LABS: Anisocytosis Slight; Basophils % (A) 0 %; Eosinophils # (A) 0.2 k/uL (0-0.7); Eosinophils % (A) 4 %; HCT 24.4 % (39.0-53.0); HGB 7.5 gm/dL (13.0-17.5); Hypochromasia Marked; Lymphocytes # (A) 0.8 k/uL (1.0-4.8); Lymphocytes % (A) 19 %; MCH 33.4 pg (25.0-35.0); MCHC 30.6 g/dL (31.0-37.0); Macrocytosis Marked; Mean Platelet Volume 8.9; Monocytes # (A) 0.3 k/uL (0-1.0); Monocytes % (A) 8 %; Neutrophils # (A) 2.7 k/uL (1.3-7.7); Neutrophils % (A) 66 %; RBC 2.25 m/uL (4.30-5.90); RDW 17.2 % (11.5-15.5); WBC 4.1 k/uL (3.8-10.6)
[2023-10-05 13:02] LABS: MCV 108.9 fL (80.0-100.0); Platelet Count 66 k/uL (150-450)
--- NOTE | 2023-10-05 13:41 | P.PN ---
Subjective Progress Note Date: 10/05/23 88 year old gentleman with past medical history significant for chronic atrial fibrillation, hypertension, hypothyroidism presents to the ER because of generalized feeling of weakness. Patient stated that he has been feeling weak since last night. Patient stated that he was feeling bit dizzy and not his usual self. Denied any complaint of chest pain or shortness of breath. Patient was complaining of cough. Patient has swelling of lower extremities which is chronic and he states that he has not noticed any change in them. Patient woke up this morning, he had a hard time walking to the restroom and was very weak. Because of the symptoms, patient came to the ER Initial lab work done in the ER showed WBC 7.2, hemoglobin 8, platelet count 73, INR 2.4 sodium 135, potassium 5.6, BUN 36, creatinine 1.46 troponin 0.050 proBNP 696 UA negative for infection Influenza A not detected Influenza B not detected RSV not detected COVID-19 not detected EKG done in the ER showed pacemaker rhythm seen Chest x-ray done in the ER showed cardiomegaly, pulmonary vascular congestion and bilateral pleural effusions Patient admitted to internal medicine service 10/01. Patient seen and examined. Hemoglobin this morning 6.9, ordered 1 unit of packed red blood cells. States shortness of breath on exertion. Still complaining of swelling of lower extremities 10/02. Patient seen and examined. 2-D echo done showed LVEF of 45-50% with inferior and inferolateral hypokinesis, RVSP of 53, moderate to severe right ventricular dilatation, severe bilateral atrial enlargement. Anemia workup suggestive of iron deficiency, start IV Venofer 10/03. Patient seen and examined.This morning showed WBC 5.6, hemoglobin 7.2, sodium 141, potassium 4.2, BUN 43, creatinine 1.38. Patient had bowel movements yesterday and this morning, didn't notice any blood in it. FOBT was positive. 10/04. Patient seen and examined area at lab work done showed WBC 4.1, hemog lobin 7.2, sodium 139, potassium 3.5, BUN 39, creatinine 1.48. Patient had black stools overnight. Surgery planning EGD and colonoscopy in the morning, currently being prepped 10/05. Patient seen and examined. Patient had EGD done showed Duodenitis with erosions, gastritis, hiatal hernia, distal esophagitis with Schatzki's ring, colonoscopy showed diverticulosis, hepatic flexure polyp. Potassium level was elevated, lokelma ordered. REVIEW OF SYSTEMS: CONSTITUTIONAL: No fever, no malaise,. CARDIOVASCULAR: No chest pain, no palpitations, no syncope. PULMONARY: As mentioned above GASTROINTESTINAL: No diarrhea, no nausea, no vomiting, no abdominal pain. NEUROLOGICAL: No headaches, no weakness, PHYSICAL EXAMINATION: GENERAL: The patient is alert and oriented x3, not in any acute distress. Well developed, well nourished. HEENT: Pupils are round and equally reacting to light. EOMI. No scleral icterus. No conjunctival pallor. Normocephalic, atraumatic. No pharyngeal erythema. No thyromegaly. CARDIOVASCULAR: S1 and S2 present. No murmurs, rubs, or gallops. PULMONARY: Chest is clear to auscultation, no wheezing or crackles. ABDOMEN: Soft, nontender, nondistended, normoactive bowel sounds. No palpable organomegaly. MUSCULOSKELETAL: No joint swelling or deformity. EXTREMITIES: 1+ pitting edema lower extremities bilaterally NEUROLOGICAL: Gross neurological examination did not reveal any focal deficits. SKIN: No rashes. Assessment and plan Acute kidney injury Iron deficiency anemia FOBT positive Hyperkalemia Dizziness Chronic atrial fibrillation Hypertension Hyperlipidemia Hypothyroidism Monitor vital signs Monitor CBC Monitor CMP Continue telemetry monitoring Strict I's and O's, daily weights, continue Lasix 40 mg Low potassium diet Continue IV Venofer DC lsartan secondary to hyperkalemia Lokelil ordered Received 1 unit of packed red blood cell on 10/01 Anemia workup positive for iron deficiency, FOBT is positive xarelto on hold secondary to anemia 2-D echo done showed LVEF of 45-50% with inferior and inferolateral hypokinesis, RVSP of 53, moderate to severe right ventricular dilatation, severe bilateral atrial enlargement ultrasound of kidneys showed no evidence of obstructive uropathy Nephrology following Cardiology following Consulted surgery for evaluation for FOBT positive, EGD done showed Duodenitis with erosions, gastritis, hiatal hernia, distal esophagitis with Schatzki's ring, colonoscopy showed diverticulosis, hepatic flexure polyp. In regards to hypertension continue Toprol Regards to hyperlipidemia continue Lipitor Labs and medication were reviewed.. Continue same treatment. Continue with sy mptomatic treatment. Resume home medication. Monitor labs and vitals. DVT and GI prophylaxis. Further recommendations as per clinical course of the patient Dictation was produced using [employer] dictation software. please excuse any grammatical, word or spelling errors. Objective - Vital Signs Vital signs: Vital Signs Temp 97.4 F L 10/05/23 11:41 Pulse 60 10/05/23 11:41 Resp 16 10/05/23 11:41 BP 101/64 10/05/23 11:41 Pulse Ox 100 10/05/23 11:41 FiO2 Intake & Output 10/04/23 10/05/23 10/05/23 18:59 06:59 18:59 Intake Total 500 10 250 Output Total 500 500 Balance 0 -490 250 Weight 100.3 kg Intake: IV 20 10 150 Invasive Line 2 10 Invasive Line 3 10 10 Intake, IV Titration 100 Amount Sodium Ferric Gluconat- 100 Sucrose 125 mg In Sodium Chloride 0.9% 100 ml @ 100 mls/hr IVPB DAILY [facility] Rx#:[id number] Oral 480 Output: Urine 500 Stool 500 Other: Voiding Method Toilet Toilet Toilet # Voids 2 # Bowel Movements 1 - Labs CBC & Chem 7: 10/05/23 12:35 10/05/23 09:24 Labs: Abnormal Lab Results - Last 24 Hours (Table) 10/04/23 10/05/23 10/05/23 Range/Units 19:58 09:24 11:26 RBC (4.30-5.90) m/uL Hgb (13.0-17.5) gm/dL Hct (39.0-53.0) % MCV (80.0-100.0) fL MCHC (31.0-37.0) g/dL RDW (11.5-15.5) % Plt Count (150-450) k/uL Macrocytosis Potassium 5.5 H (3.5-5.1) mmol/L Chloride 115 H (98-107) mmol/L Carbon Dioxide 16 L (22-30) mmol/L BUN 38 H (9-20) mg/dL Creatinine 1.37 H (0.66-1.25) mg/dL POC Glucose (mg/dL) 125 H 141 H (70-110) mg/dL 10/05/23 Range/Units 12:35 RBC 2.25 L (4.30-5.90) m/uL Hgb 7.5 L (13.0-17.5) gm/dL Hct 24.4 L (39.0-53.0) % MCV 108.9 H D (80.0-100.0) fL MCHC 30.6 L (31.0-37.0) g/dL RDW 17.2 H (11.5-15.5) % Plt Count 66 L (150-450) k/uL Macrocytosis Marked A Potassium (3.5-5.1) mmol/L Chloride (98-107) mmol/L Carbon Dioxide (22-30) mmol/L BUN (9-20) mg/dL Creatinine (0.66-1.25) mg/dL POC Glucose (mg/dL) (70-110) mg/dL
[2023-10-05 14:04] LABS: Poikilocytosis (M) Present
[2023-10-05 16:30] LABS: Glucose,Whole Blood 119 mg/dL (70-110)
[2023-10-05] MEDS: ISOSORBIDE MONONITRATE ER 30 MG TAB.ER.24H PO SCH (19:52)
[2023-10-05] MEDS: METOPROLOL SUCCINATE (ER) 100 MG TAB.ER.24H PO SCH (19:52)
[2023-10-05] MEDS: ATORVASTATIN 80 MG TAB PO SCH (19:52)
[2023-10-05] MEDS: MONTELUKAST 10 MG TAB PO SCH (19:53)
[2023-10-05 20:04] LABS: Glucose,Whole Blood 252 mg/dL (70-110)
[2023-10-05 23:00] VITALS: RESP 16
[2023-10-06] MEDS: SUCRALFATE 1 GM TAB PO SCH (05:51)
[2023-10-06] MEDS: LEVOTHYROXINE 75 MCG TAB PO SCH (05:51)
[2023-10-06 05:54] LABS: Glucose,Whole Blood 130 mg/dL (70-110)
[2023-10-06 08:31] LABS: African American GFR (CKD) 54 (>60 ml/min/1.73 sqM); Anion Gap 8 mmol/L; Blood Urea Nitrogen 31 mg/dL (9-20); Calcium 7.6 mg/dL (8.4-10.2); Carbon Dioxide 22 mmol/L (22-30); Chloride 107 mmol/L (98-107); Glucose 94 mg/dL (74-99); Magnesium 1.8 mg/dL (1.6-2.3); Non-African American GFR(CKD) 47 (>60 ml/min/1.73 sqM); Potassium 3.3 mmol/L (3.5-5.1); Sodium 137 mmol/L (137-145)
[2023-10-06] MEDS: PANTOPRAZOLE 40 MG/10 ML VIAL IVP SCH (09:06)
[2023-10-06] MEDS: FUROSEMIDE 40 MG TAB PO SCH (09:06)
[2023-10-06] MEDS: SODIUM FERRIC GLUCONAT-SUCROSE 125 MG in SODIUM CHLORIDE 0.9% 100 ML IVPB SCH (09:11)
[2023-10-06 09:16] VITALS: BP 97/63; PULSE 60; TEMP 97.9
[2023-10-06] MEDS ORDERED: POTASSIUM CHLORIDE ER 20 MEQ TAB.ER PO STA (09:38)
--- NOTE | 2023-10-06 10:25 | P.PN ---
Subjective Patient is seen in follow-up for acute kidney injury. Renal function stable. On po Lasix. Admits to good urine output. Underwent EGD and colonoscopy this morning which showed no acute bleeding. Denies active bleeding. Vital signs are stable. General: No acute distress. HEENT: Head exam is unremarkable. LUNGS: No audible rhonchi or wheezes. HEART: Rate and Rhythm are regular. ABDOMEN: Nontender. EXTREMITITES: Trace edema. Chronic changes noted. Objective - Vital Signs Vital signs: Vital Signs Temp 97.9 F 10/06/23 08:00 Pulse 60 10/06/23 08:00 Resp 16 10/06/23 08:00 BP 97/63 10/06/23 08:00 Pulse Ox 100 10/06/23 08:00 FiO2 Intake & Output 10/05/23 10/06/23 10/06/23 18:59 06:59 18:59 Intake Total 1270 660 118 Output Total 700 Balance 1270 -40 118 Intake: IV 150 Intake, IV Titration 100 Amount Sodium Ferric Gluconat- 100 Sucrose 125 mg In Sodium Chloride 0.9% 100 ml @ 100 mls/hr IVPB DAILY [facility] Rx#:[id number] Oral 1020 660 118 Output: Urine 700 Other: Voiding Method Toilet Toilet # Voids 1 - Labs CBC & Chem 7: 10/05/23 12:35 10/06/23 07:37 Labs: Abnormal Lab Results - Last 24 Hours (Table) 10/05/23 10/05/23 10/05/23 Range/Units 09:24 11:26 12:35 RBC 2.25 L (4.30-5.90) m/uL Hgb 7.5 L (13.0-17.5) gm/dL Hct 24.4 L (39.0-53.0) % MCV 108.9 H D (80.0-100.0) fL MCHC 30.6 L (31.0-37.0) g/dL RDW 17.2 H (11.5-15.5) % Plt Count 66 L (150-450) k/uL Lymphocytes # 0.8 L (1.0-4.8) k/uL Macrocytosis Marked A Potassium 5.5 H (3.5-5.1) mmol/L Chloride 115 H (98-107) mmol/L Carbon Dioxide 16 L (22-30) mmol/L BUN 38 H (9-20) mg/dL Creatinine 1.37 H (0.66-1.25) mg/dL POC Glucose (mg/dL) 141 H (70-110) mg/dL Calcium (8.4-10.2) mg/dL 10/05/23 10/05/23 10/06/23 Range/Units 16:29 20:02 05:51 RBC (4.30-5.90) m/uL Hgb (13.0-17.5) gm/dL Hct (39.0-53.0) % MCV (80.0-100.0) fL MCHC (31.0-37.0) g/dL RDW (11.5-15.5) % Plt Count (150-450) k/uL Lymphocytes # (1.0-4.8) k/uL Macrocytosis Potassium (3.5-5.1) mmol/L Chloride (98-107) mmol/L Carbon Dioxide (22-30) mmol/L BUN (9-20) mg/dL Creatinine (0.66-1.25) mg/dL POC Glucose (mg/dL) 119 H 252 H 130 H (70-110) mg/dL Calcium (8.4-10.2) mg/dL 10/06/23 Range/Units 07:37 RBC (4.30-5.90) m/uL Hgb (13.0-17.5) gm/dL Hct (39.0-53.0) % MCV (80.0-100.0) fL MCHC (31.0-37.0) g/dL RDW (11.5-15.5) % Plt Count (150-450) k/uL Lymphocytes # (1.0-4.8) k/uL Macrocytosis Potassium 3.3 L (3.5-5.1) mmol/L Chloride (98-107) mmol/L Carbon Dioxide (22-30) mmol/L BUN 31 H (9-20) mg/dL Creatinine 1.35 H (0.66-1.25) mg/dL POC Glucose (mg/dL) (70-110) mg/dL Calcium 7.6 L (8.4-10.2) mg/dL Assessment and Plan Plan: Assessment: 1. Acute kidney injury secondary to ATN secondary to cardiorenal syndrome. UA benign. No hydronephrosis noted on kidney ultrasound. Creatinine fairly stable at 1.35. 2. Volume overload. Improved with diuresis. 3. Acute blood loss anemia status post blood transfusion this admission. On Aranesp. Also receiving IV iron. Underwent EGD and colonoscopy which showed no acute bleeding. Duodenitis with erosions, gastritis, hiatal hernia were noted. 4. Acute on chronic systolic CHF with ejection fraction of 45-50% with moderate mitral and tricuspid regurgitation. 5. Hyperkalemia secondary to acute kidney injury. Resolved. ARB held. Now potassium on the lower side, replaced. Yesterday's sample was hemolyzed. Plan: Maintain oral Lasix. Maintain 1500 mL fluid restriction. Maintain low salt diet. Avoid nephrotoxins. Replace potassium. Repeat BMP and magnesium level 2-3 days postdischarge. Follow up outpatient in 1 week.
[2023-10-06 11:29] LABS: Glucose,Whole Blood 132 mg/dL (70-110)
--- NOTE | 2023-10-06 12:14 | P.DS ---
Providers Date of admission: 09/30/23 12:14 Expected date of discharge: 10/06/23 Attending physician: Karen Bell Consults: 09/30/23 13:00 Consult Physician Urgent Consulting Provider: Diya Victoria Consult Reason/Comments: gilles, hyperkalemia Do you want consulting provider notified?: Yes 10/03/23 09:24 Consult Physician Routine Consulting Provider: Kwabena Barrett Consult Reason/Comments: Anemia, occult positive Do you want consulting provider notified?: Yes Primary care physician: Blake Patiño [facility] Course: Discharge diagnoses; Acute kidney injury Iron deficiency anemia Duodenitis with erosions Gastritis Hiatal hernia distal esophagitis with Schatzki's ring FOBT positive Hyperkalemia Dizziness Chronic atrial fibrillation Hypertension Hyperlipidemia Hypothyroidism Hospital course; 88 year old gentleman with past medical history significant for chronic atrial fibrillation, hypertension, hypothyroidism presents to the ER because of generalized feeling of weakness. Patient stated that he has been feeling weak since last night. Patient stated that he was feeling bit dizzy and not his usual self. Denied any complaint of chest pain or shortness of breath. Patient was complaining of cough. Patient has swelling of lower extremities which is chronic and he states that he has not noticed any change in them. Patient woke up this morning, he had a hard time walking to the restroom and was very weak. Because of the symptoms, patient came to the ER Initial lab work done in the ER showed WBC 7.2, hemoglobin 8, platelet count 73, INR 2.4 sodium 135, potassium 5.6, BUN 36, creatinine 1.46 troponin 0.050 proBNP 696 UA negative for infection Influenza A not detected Influenza B not detected RSV not detected COVID-19 not detected EKG done in the ER showed pacemaker rhythm seen Chest x-ray done in the ER showed cardiomegaly, pulmonary vascular congestion and bilateral pleural effusions Patient admitted to internal medicine service 10/01. Patient seen and examined. Hemoglobin this morning 6.9, ordered 1 unit of packed red blood cells. States shortness of breath on exertion. Still complaining of swelling of lower extremities 10/02. Patient seen and examined. 2-D echo done showed LVEF of 45-50% with inferior and inferolateral hypokinesis, RVSP of 53, moderate to severe right ventricular dilatation, severe bilateral atrial enlargement. Anemia workup suggestive of iron deficiency, start IV Venofer 10/03. Patient seen and examined.This morning showed WBC 5.6, hemoglobin 7.2, sodium 141, potassium 4.2, BUN 43, creatinine 1.38. Patient had bowel movements yesterday and this morning, didn't notice any blood in it. FOBT was positive. 10/04. Patient seen and examined area at lab work done showed WBC 4.1, hemoglobin 7.2, sodium 139, potassium 3.5, BUN 39, creatinine 1.48. Patient had black stools overnight. Surgery planning EGD and colonoscopy in the morning, currently being prepped 10/05. Patient seen and examined. Patient had EGD done showed Duodenitis with erosions, gastritis, hiatal hernia, distal esophagitis with Schatzki's ring, colonoscopy showed diverticulosis, hepatic flexure polyp. Potassium level was elevated, lokelma ordered. 10/06/23. Patient's potassium levels have normalized. General surgery recommend holding off on Xarelto for at least a week until patient sees his PCP and discuss with them regarding resuming it. Being discharged in stable condition PHYSICAL EXAMINATION: GENERAL: The patient is alert and oriented x3, not in any acute distress. Well developed, well nourished. HEENT: Pupils are round and equally reacting to light. EOMI. No scleral icterus. No conjunctival pallor. Normocephalic, atraumatic. No pharyngeal erythema. No thyromegaly. CARDIOVASCULAR: S1 and S2 present. No murmurs, rubs, or gallops. PULMONARY: Chest is clear to auscultation, no wheezing or crackles. ABDOMEN: Soft, nontender, nondistended, normoactive bowel sounds. No palpable organomegaly. MUSCULOSKELETAL: No joint swelling or deformity. EXTREMITIES: 1+ pitting edema lower extremities bilaterally NEUROLOGICAL: Gross neurological examination did not reveal any focal deficits. SKIN: No rashes. Dictation was produced using [employer] dictation software. please excuse any grammatical, word or spelling errors. Patient Condition at Discharge: Stable Plan - Discharge Summary New Discharge Prescriptions: New Omeprazole [PriLOSEC] 20 mg PO AC-BID #120 cap Sucralfate [Carafate] 1 gm PO AC-TID 10 Days #30 tab Furosemide [Lasix] 40 mg PO DAILY 30 Days #30 tab Continue Metoprolol Succinate [Toprol XL] 100 mg PO HS Levothyroxine Sodium [Levoxyl] 75 mcg PO DAILY Rivaroxaban [Xarelto] 20 mg PO HS Montelukast [Singulair] 10 mg PO HS Isosorbide Mononitrate [Isosorbide Mononitrate ER] 30 mg PO HS Nitroglycerin Sl Tabs [Nitrostat] 0.4 mg SL Q5M PRN PRN Reason: Chest Pain Atorvastatin [Lipitor] 80 mg PO HS HYDROcodone/APAP 7.5-325MG [Cut Off 7.5-325] 1 tab PO QID PRN PRN Reason: Pain Fluticasone Nasal [place] [Flonase Nasal [place]] 2 spray EA NOSTRIL DAILY PRN PRN Reason: Allergy Symptoms Discontinued Losartan [Cozaar] 25 mg PO HS Furosemide [Lasix] 20 mg PO DAILY Discharge Medication List Levothyroxine Sodium [Levoxyl] 75 mcg PO DAILY 06/09/15 [History] Metoprolol Succinate [Toprol XL] 100 mg PO HS 06/09/15 [History] Isosorbide Mononitrate [Isosorbide Mononitrate ER] 30 mg PO HS 03/14/20 [History] Montelukast [Singulair] 10 mg PO HS 03/14/20 [History] Rivaroxaban [Xarelto] 20 mg PO HS 03/14/20 [History] Atorvastatin [Lipitor] 80 mg PO HS 09/30/23 [History] Fluticasone Nasal [place] [Flonase Nasal [place]] 2 spray EA NOSTRIL DAILY PRN 09/30/23 [History] HYDROcodone/APAP 7.5-325MG [Cut Off 7.5-325] 1 tab PO QID PRN 09/30/23 [History] Nitroglycerin Sl Tabs [Nitrostat] 0.4 mg SL Q5M PRN 09/30/23 [History] Omeprazole [PriLOSEC] 20 mg PO AC-BID #120 cap 10/05/23 [Rx] Furosemide [Lasix] 40 mg PO DAILY 30 Days #30 tab 10/06/23 [Rx] Sucralfate [Carafate] 1 gm PO AC-TID 10 Days #30 tab 10/06/23 [Rx] Follow up Appointment(s)/Referral(s): [facility], [NON-STAFF] - Blake Patiño [Primary Care Provider] - 1-2 days Patient Instructions/Handouts: Pulmonary Edema (DC), Hyperkalemia (DC) Activity/Diet/Wound Care/Special Instructions: Hold Xarelto for 1 week, resume xarelto once he sees PCP and discuss with him regarding resuming it per surgery Discharge Disposition: HOME SELF-CARE
--- NOTE | 2023-10-06 12:36 | P.PN ---
Subjective Progress Note Date: 10/06/23 Principal diagnosis: GI bleed Patient doing well today. No pain. Tolerating diet. He would like to go home. Objective - Vital Signs Vital signs: Vital Signs Temp 97.9 F 10/06/23 08:00 Pulse 60 10/06/23 08:00 Resp 16 10/06/23 08:00 BP 97/63 10/06/23 08:00 Pulse Ox 100 10/06/23 08:00 FiO2 Intake & Output 10/05/23 10/06/23 10/06/23 18:59 06:59 18:59 Intake Total 1270 660 118 Output Total 700 Balance 1270 -40 118 Intake: IV 150 Intake, IV Titration 100 Amount Sodium Ferric Gluconat- 100 Sucrose 125 mg In Sodium Chloride 0.9% 100 ml @ 100 mls/hr IVPB DAILY [facility] Rx#:[id number] Oral 1020 660 118 Output: Urine 700 Other: Voiding Method Toilet Toilet # Voids 1 - Exam Abdomen: Soft, nontender, nondistended - Labs CBC & Chem 7: 10/05/23 12:35 10/06/23 07:37 Labs: Abnormal Lab Results - Last 24 Hours (Table) 10/05/23 10/05/23 10/05/23 Range/Units 12:35 16:29 20:02 RBC 2.25 L (4.30-5.90) m/uL Hgb 7.5 L (13.0-17.5) gm/dL Hct 24.4 L (39.0-53.0) % MCV 108.9 H D (80.0-100.0) fL MCHC 30.6 L (31.0-37.0) g/dL RDW 17.2 H (11.5-15.5) % Plt Count 66 L (150-450) k/uL Lymphocytes # 0.8 L (1.0-4.8) k/uL Macrocytosis Marked A Potassium (3.5-5.1) mmol/L BUN (9-20) mg/dL Creatinine (0.66-1.25) mg/dL POC Glucose (mg/dL) 119 H 252 H (70-110) mg/dL Calcium (8.4-10.2) mg/dL 10/06/23 10/06/23 10/06/23 Range/Units 05:51 07:37 11:28 RBC (4.30-5.90) m/uL Hgb (13.0-17.5) gm/dL Hct (39.0-53.0) % MCV (80.0-100.0) fL MCHC (31.0-37.0) g/dL RDW (11.5-15.5) % Plt Count (150-450) k/uL Lymphocytes # (1.0-4.8) k/uL Macrocytosis Potassium 3.3 L (3.5-5.1) mmol/L BUN 31 H (9-20) mg/dL Creatinine 1.35 H (0.66-1.25) mg/dL POC Glucose (mg/dL) 130 H 132 H (70-110) mg/dL Calcium 7.6 L (8.4-10.2) mg/dL Assessment and Plan (1) GI bleed Narrative/Plan: Patient doing well at this time. Hemoglobin 7.5 yesterday. Continue to hold anticoagulation for a minimum of 48 hours. Continue antiacids postdischarge. Await biopsies from recent endoscopy. Stable for discharge from my point of view. Current Visit: Yes Status: Acute Code(s): K92.2 - GASTROINTESTINAL HEMORRHAGE, UNSPECIFIED SNOMED Code(s): 42004154
== END 2023-10-06 13:27 | disposition home health service (06) | DRG 682 ==
LOC: EC 06:46 → 3SCARD 12:14
PROVIDERS: ADMIT Internal Medicine; ATTEND Internal Medicine
PROC: 30233N1 Transfusion of Nonautologous Red Blood Cells into Peripheral Vein, Percutaneous Approach (ICD-10-PCS; 2023-10-01)
PROC: 0DBK8ZX Excision of Ascending Colon, Via Natural or Artificial Opening Endoscopic, Diagnostic (ICD-10-PCS; principal; 2023-10-05 08:00)
PROC: 0DB48ZX Excision of Esophagogastric Junction, Via Natural or Artificial Opening Endoscopic, Diagnostic (ICD-10-PCS; principal; 2023-10-05 08:00)
PROC: 0DB98ZX Excision of Duodenum, Via Natural or Artificial Opening Endoscopic, Diagnostic (ICD-10-PCS; principal; 2023-10-05 08:00)
DX: N17.9 Acute kidney failure, unspecified (principal); I50.43 Acute on chronic combined systolic (congestive) and diastolic (congestive) heart failure; K26.4 Chronic or unspecified duodenal ulcer with hemorrhage; I13.0 Hypertensive heart and chronic kidney disease with heart failure and stage 1 through stage 4 chronic kidney disease, or unspecified chronic kidney disease; D62 Acute posthemorrhagic anemia; I48.19 Other persistent atrial fibrillation; D69.6 Thrombocytopenia, unspecified; I95.9 Hypotension, unspecified; E11.22 Type 2 diabetes mellitus with diabetic chronic kidney disease; N17.0 Acute kidney failure with tubular necrosis; Z66 Do not resuscitate; D50.9 Iron deficiency anemia, unspecified; E03.9 Hypothyroidism, unspecified; N18.9 Chronic kidney disease, unspecified; E78.5 Hyperlipidemia, unspecified; E87.5 Hyperkalemia; K29.70 Gastritis, unspecified, without bleeding; K20.90 Esophagitis, unspecified without bleeding; K22.2 Esophageal obstruction; K63.5 Polyp of colon; K57.30 Diverticulosis of large intestine without perforation or abscess without bleeding; I08.1 Rheumatic disorders of both mitral and tricuspid valves; I25.10 Atherosclerotic heart disease of native coronary artery without angina pectoris; K44.9 Diaphragmatic hernia without obstruction or gangrene; R79.1 Abnormal coagulation profile; R26.2 Difficulty in walking, not elsewhere classified; N42.9 Disorder of prostate, unspecified; R77.8 Other specified abnormalities of plasma proteins; Z79.890 Hormone replacement therapy; Z79.01 Long term (current) use of anticoagulants; Z79.899 Other long term (current) drug therapy; Z85.05 Personal history of malignant neoplasm of liver; Z87.891 Personal history of nicotine dependence; Z85.118 Personal history of other malignant neoplasm of bronchus and lung; Z85.46 Personal history of malignant neoplasm of prostate; Z95.0 Presence of cardiac pacemaker; Z96.641 Presence of right artificial hip joint; Z96.651 Presence of right artificial knee joint; Z88.7 Allergy status to serum and vaccine
CPT/HCPCS: 36415; 43239; 45385; 71046; 76770; 80048; 80053; 81001; 82272; 82570; 82607; 82728; 82747; 83540; 83550; 83605; 83735; 83880; 83930; 83935; 84132; 84300; 84484; 85025; 85027; 85610; 85730; 86850; 86900; 86901; 86920; 87205; 87636; 88305; 93005; 93306; 96361; 96374; 96375; 99285

== ENCOUNTER 2023-10-31 11:24 | Emergency (ER) | payer MEDICARE ==
[2023-10-31 11:47] VITALS: TEMP 98.5
--- NOTE | 2023-10-31 12:16 | ED ---
General Adult HPI - General Source: patient, RN notes reviewed Mode of arrival: ambulatory Limitations: no limitations <Juan Luis Soto - Last Filed: 10/31/23 12:15> - History of Present Illness -: days(s) Severity scale (1-10): 0 Consistency: constant Worsens with: other (Tertiary) Associated Symptoms: other (Edema) Treatments Prior to Arrival: none <Steven Preciado - Last Filed: 11/01/23 02:53> - General Chief complaint: Recheck/Abnormal Lab/Rx Stated complaint: anemia Time Seen by Provider: 10/31/23 12:15 - History of Present Illness Initial comments: 88-year-old male presents emergency department with chief complaint of anemia. Patient was sent in by his PCP Dr. Patiño. Patient states he was recently here few weeks ago for similar complaints he states his hemoglobin at the time was 4. He states he is having some leaking from his arms. Patient states he is fatigued, occasionally short of breath. (Juan Luis Soto) This patient is an 88-year-old man who states that his primary physician Dr. Patiño, sent him over here from clinic as the results of his last lab testing showed some abnormalities. The patient states that he believes is blood counts were low. He had blood drawn days ago as follow-up for chronic anemia. The patient states he also is having problems with edema but that this is a condition is been going on for nearly couple of months now. He denies any new complaints. No dyspnea at rest. He does have some exertional dyspnea. No chest pain. No fever or chills. Occasional cough, no sputum. (Steven Preciado) - Related Data Home Medications Medication Instructions Recorded Confirmed Levothyroxine Sodium [Levoxyl] 75 mcg PO DAILY 06/09/15 09/30/23 Metoprolol Succinate [Toprol XL] 100 mg PO HS 06/09/15 09/30/23 Isosorbide Mononitrate [Isosorbide 30 mg PO HS 03/14/20 09/30/23 Mononitrate ER] Montelukast [Singulair] 10 mg PO HS 03/14/20 09/30/23 Rivaroxaban [Xarelto] 20 mg PO HS 03/14/20 09/30/23 Atorvastatin [Lipitor] 80 mg PO HS 09/30/23 09/30/23 Fluticasone Nasal Victor [Flonase 2 spray EA NOSTRIL DAILY PRN 09/30/23 09/30/23 Nasal Victor] HYDROcodone/APAP 7.5-325MG [[place] 1 tab PO QID PRN 09/30/23 09/30/23 7.5-325] Nitroglycerin Sl Tabs [Nitrostat] 0.4 mg SL Q5M PRN 09/30/23 09/30/23 Previous Rx's Medication Instructions Recorded Omeprazole [PriLOSEC] 20 mg PO AC-BID #120 cap 10/05/23 Furosemide [Lasix] 40 mg PO DAILY 30 Days #30 tab 10/06/23 Sucralfate [Carafate] 1 gm PO AC-TID 10 Days #30 tab 10/06/23 Allergies Allergy/AdvReac Type Severity Reaction Status Date / Time Tetanus Vaccines and Toxoid Allergy Unknown Verified 10/31/23 11:45 Review of Systems ROS Other: All systems not noted in ROS Statement are negative. <Juan Luis Soto - Last Filed: 10/31/23 12:15> ROS Other: All systems not noted in ROS Statement are negative. Constitutional: Denies: fever, chills, weakness Respiratory: Denies: cough, dyspnea, hemoptysis Cardiovascular: Reports: dyspnea on exertion, edema. Denies: chest pain, palpitations, syncope Gastrointestinal: Denies: abdominal pain, vomiting, diarrhea Genitourinary: Denies: dysuria, hematuria Musculoskeletal: Denies: back pain Skin: Denies: rash Neurological: Denies: headache, weakness <Steven Preciado - Last Filed: 11/01/23 02:53> ROS Statement: Those systems with pertinent positive or pertinent negative responses have been documented in the HPI. Past Medical History Past Medical History: Atrial Fibrillation, Cancer, Diabetes Mellitus, Hyperlipidemia, Hypertension, Prostate Disorder, Thyroid Disorder Additional Past Medical History / Comment(s): hx prostate,liver,lung cancer, see Dr Ambrosio H&P, diet control diabetic, A-fib with pacemaker in on 2017 History of Any Multi-Drug Resistant Organisms: None Reported Past Surgical History: Heart Catheterization With Stent, Prostate Surgery, Tonsillectomy Additional Past Surgical History / Comment(s): removal of rt lobe of liver, upper left lobe of lung removed, rt knee replacement, left arm-fx, pacemaker, (R) hip replacement. Past Anesthesia/Blood Transfusion Reactions: No Reported Reaction Date of Last Stent Placement:: 2019 Type of Cardiac Device: Permanent Pacemaker Device Placement Date:: 2005 Past Psychological History: No Psychological Hx Reported Smoking Status: Former smoker Past Alcohol Use History: Daily Past Drug Use History: None Reported - Past Family History Mother Additional Family Medical History / Comment(s): Mother from complications of diabetes. No history of cancer. Brother(s) Additional Family Medical History / Comment(s): Patient has one brother and 4 sisters with no major medical problems. Patient has 2 sons with no major medical problems. No cancers. Father Family Medical History: Cancer Additional Family Medical History / Comment(s): Father from lung cancer with history of heavy smoking. <Juan Luis Soto - Last Filed: 10/31/23 12:15> General Exam Limitations: no limitations <Juan Luis Soto - Last Filed: 10/31/23 12:15> Limitations: no limitations General appearance: alert, in no apparent distress Head exam: Present: atraumatic, normocephalic Eye exam: Present: normal appearance. Absent: scleral icterus, conjunctival injection Neck exam: Present: normal inspection Respiratory exam: Present: normal lung sounds bilaterally. Absent: respiratory distress, wheezes, rales, rhonchi, stridor, accessory muscle use Cardiovascular Exam: Present: regular rate, irregular rhythm, normal heart sounds. Absent: systolic murmur, diastolic murmur, rubs, gallop GI/Abdominal exam: Present: soft. Absent: distended, tenderness, guarding, rebound, rigid, mass Extremities exam: Present: normal inspection, normal capillary refill, pedal edema (Symmetric edema and venous stasis changes). Absent: calf tenderness Back exam: Present: normal inspection. Absent: CVA tenderness (R), CVA tenderness (L) Neurological exam: Present: alert Skin exam: Present: warm, dry, intact, normal color. Absent: rash <Steven Preciado - Last Filed: 11/01/23 02:53> - General Exam Comments Initial Comments: Visual Physical Exam Vital signs reviewed General: Well-appearing, nontoxic, no acute distress. Head: Normocephalic, atraumatic Eyes: PERRLA, EOMI ENT: Airway patent Chest: Nonlabored breathing Skin: No visual rash, normal skin tone Neuro: Alert and oriented 3 Musculoskeletal: No gross abnormalities (Juan Luis Soto) Course Vital Signs 10/31/23 10/31/23 10/31/23 11:44 14:12 14:14 Temperature 98.5 F Pulse Rate 80 80 81 Respiratory 20 20 20 Rate Blood Pressure 97/65 107/72 O2 Sat by Pulse 100 100 Oximetry 10/31/23 17:18 Temperature Pulse Rate 82 Respiratory 18 Rate Blood Pressure 116/66 O2 Sat by Pulse 99 Oximetry EKG Findings - EKG Results: EKG: interpreted by [facility]MD EKG shows: atrial fibrillation (Rate 78 bpm) - Blocks, [place], Hypertrophy, ST Abn: QRS axis and voltage: left axis deviation (-30 to -90), pulmonary disease, low voltage (<0.5 MV total QRS and <1.0 MV in each precordial lead) <Steven Preciado - Last Filed: 11/01/23 02:53> Medical Decision Making <Juan Luis Soto - Last Filed: 10/31/23 12:15> - Lab Data Result diagrams: 10/31/23 12:04 10/31/23 12:04 <Steven Preciado - Last Filed: 11/01/23 02:53> - Medical Decision Making I completed the quick note portion of this chart signed Juan Luis Soto PA-C (Juan Luis Soto) The patient had chest x-ray which I interpreted as negative for congestive heart failure and pneumothorax. Was pt. sent in by a medical professional or institution ([facility], [employer] RN, urgent care, hospital, or correction...) When possible be specific @ -[No] Did you speak to anyone other than the patient for history (EMS, parent, family, police, friend...)? What history was obtained from this source @ -[The patient's son did give information Did you review nursing and triage notes (agree or disagree)? Why? @ -[I reviewed and agree with nursing and triage notes] Were old charts reviewed (outside hosp., previous admission, EMS record, old EKG, old radiological studies, urgent care reports/EKG's, correction records)? Report findings @ -Yes old charts were reviewed] Differential Diagnosis (chest pain, altered mental status, abdominal pain women, abdominal pain men, vaginal bleeding, weakness, fever, dyspnea, syncope, headache, dizziness, GI bleed, back pain, seizure, CVA, palpatations, mental health, musculoskeletal)? @ -[Differential Weakness: Hypoglycemia, shock, sepsis, hyponatremia, anemia, infection, VT, ETOH, adverse medicine reaction, overdose, stroke, this is not meant to be an all-inclusive list. EKG interpreted by me (3pts min.). @ -[I interpreted As above] X-rays interpreted by me (1pt min.). @ -[I interpreted as above CT interpreted by me (1pt min.). @ -[None done] U/S interpreted by me (1pt. min.). @ -[None done] What testing was considered but not performed or refused? (CT, X-rays, U/S, labs)? Why? @ -[None] What meds were considered but not given or refused? Why? @ -[None] Did you discuss the management of the patient with other professionals (professionals i.e. , PA, [employer] [employer] RN, lab, RT, psych nurse, secondary social studies teacher, head screen worker, teacher, career services officer, residential case manager)? Give summary @ -[No] Was smoking cessation discussed for >3mins.? @ -[No] Was critical care preformed (if so, how long)? @ -[No] Were there social determinants of health that impacted care today? How? (Homelessness, low income, unemployed, alcoholism, drug addiction, transportation, low edu. Level, literacy, decrease access to med. care, assisted, rehab)? @ -[No] Was there de-escalation of care discussed even if they declined (Discuss DNR or withdrawal of care, Hospice)? DNR status @ -[No] What co-morbidities impacted this encounter? (DM, HTN, Smoking, COPD, CAD, Cancer, CVA, ARF, Chemo, Hep., AIDS, mental health diagnosis, sleep apnea, morbid obesity)? @ -[None] Was patient admitted / discharged? Hospital course, mention meds given and route, prescriptions, significant lab abnormalities, going to OR and other pertinent info. @ -[Patient is an 88-year-old man here to have evaluation for his hemoglobin and troponin which were abnormal on outpatient labs. The patient's labs here today do show hemoglobin of 9.5 which has been roughly stable where he has been since he received transfusion last month. The patient's troponin is minimally elevated but this is where it has been since his admission last month and this appears probable to underlying component of congestive heart failure. The BNP is elevated. The patient weakness was evaluated he was ambulated with nursing staff and did tolerate distances he would face around the house without desaturating. I did discuss findings with Dr. Patiño. The patient is offered observation admission but states that he will at this point try going home with increased diuretics for a couple of days and see if this improves his symptoms, if not he is encouraged to return for further care Undiagnosed new problem with uncertain prognosis? @ -[No] Drug Therapy requiring intensive monitoring for toxicity (Heparin, Nitro, Insulin, Cardizem)? @ -[No] Were any procedures done? @ -[No] Diagnosis/symptom? @ -[Mild exacerbation of congestive heart failure Lower extremity edema Mild anemia Acute, or Chronic, or Acute on Chronic? @ -[Acute on chronic Uncomplicated (without systemic symptoms) or Complicated (systemic symptoms)? @ -[default] Side effects of treatment? @ -[No] Exacerbation, Progression, or Severe Exacerbation? @ -[No] Poses a threat to life or bodily function? How? (Chest pain, USA, VT, pneumonia, PE, COPD, DKA, ARF, appy, cholecystitis, CVA, Diverticulitis, Homicidal, Suicidal, threat to staff... and all critical care pts) @ -[No] (Steven Preciado) - Lab Data Lab Results 10/31/23 10/31/23 10/31/23 Range/Units 12:04 12:04 12:04 WBC 6.3 (3.8-10.6) k/uL RBC 2.78 L (4.30-5.90) m/uL Hgb 9.4 L D (13.0-17.5) gm/dL Hct 28.7 L (39.0-53.0) % MCV 102.9 H D (80.0-100.0) fL MCH 33.9 (25.0-35.0) pg MCHC 32.9 (31.0-37.0) g/dL RDW 15.9 H (11.5-15.5) % Plt Count 61 L (150-450) k/uL MPV 9.2 Neutrophils % 70 % Lymphocytes % 15 % Monocytes % 8 % Eosinophils % 3 % Basophils % 1 % Neutrophils # 4.4 (1.3-7.7) k/uL Lymphocytes # 1.0 (1.0-4.8) k/uL Monocytes # 0.5 (0-1.0) k/uL Eosinophils # 0.2 (0-0.7) k/uL Basophils # 0.0 (0-0.2) k/uL Manual Slide Review Performed Hypochromasia Moderate Macrocytosis Moderate PT 13.4 H (10.0-12.5) sec INR 1.3 H (<1.2) APTT 28.8 (22.0-30.0) sec Sodium 140 (137-145) mmol/L Potassium 4.6 (3.5-5.1) mmol/L Chloride 110 H (98-107) mmol/L Carbon Dioxide 26 (22-30) mmol/L Anion Gap 4 mmol/L BUN 21 H (9-20) mg/dL Creatinine 1.45 H (0.66-1.25) mg/dL Est GFR (CKD-EPI)AfAm 50 (>60 ml/min/1.73 sqM) Est GFR (CKD-EPI)NonAf 43 (>60 ml/min/1.73 sqM) Glucose 105 H (74-99) mg/dL Calcium 8.7 (8.4-10.2) mg/dL Total Bilirubin 2.2 H (0.2-1.3) mg/dL AST 52 (17-59) U/L ALT 29 (4-49) U/L Alkaline Phosphatase 160 H (38-126) U/L Troponin I (0.000-0.034) ng/mL NT-Pro-B Natriuret Pep pg/mL Total Protein 6.4 (6.3-8.2) g/dL Albumin 3.1 L (3.5-5.0) g/dL 10/31/23 10/31/23 Range/Units 12:04 12:04 WBC (3.8-10.6) k/uL RBC (4.30-5.90) m/uL Hgb (13.0-17.5) gm/dL Hct (39.0-53.0) % MCV (80.0-100.0) fL MCH (25.0-35.0) pg MCHC (31.0-37.0) g/dL RDW (11.5-15.5) % Plt Count (150-450) k/uL MPV Neutrophils % % Lymphocytes % % Monocytes % % Eosinophils % % Basophils % % Neutrophils # (1.3-7.7) k/uL Lymphocytes # (1.0-4.8) k/uL Monocytes # (0-1.0) k/uL Eosinophils # (0-0.7) k/uL Basophils # (0-0.2) k/uL Manual Slide Review Hypochromasia Macrocytosis PT (10.0-12.5) sec INR (<1.2) APTT (22.0-30.0) sec Sodium (137-145) mmol/L Potassium (3.5-5.1) mmol/L Chloride (98-107) mmol/L Carbon Dioxide (22-30) mmol/L Anion Gap mmol/L BUN (9-20) mg/dL Creatinine (0.66-1.25) mg/dL Est GFR (CKD-EPI)AfAm (>60 ml/min/1.73 sqM) Est GFR (CKD-EPI)NonAf (>60 ml/min/1.73 sqM) Glucose (74-99) mg/dL Calcium (8.4-10.2) mg/dL Total Bilirubin (0.2-1.3) mg/dL AST (17-59) U/L ALT (4-49) U/L Alkaline Phosphatase (38-126) U/L Troponin I 0.041 H* (0.000-0.034) ng/mL NT-Pro-B Natriuret Pep 2380 pg/mL Total Protein (6.3-8.2) g/dL Albumin (3.5-5.0) g/dL Disposition <Juan Luis Soto - Last Filed: 10/31/23 12:15> Is patient prescribed a controlled substance at d/c from ED?: No <Steven Preciado - Last Filed: 11/01/23 02:53> Clinical Impression: CHF exacerbation Disposition: HOME SELF-CARE Condition: Fair Instructions (If sedation given, give patient instructions): Heart Failure (ER), Leg Edema (ED) Additional Instructions: As we discussed, take your Lasix twice per day for the next 2 days. Referrals: [facility], [NON-STAFF] - Blake Patiño [Primary Care Provider] - 1-2 days
[2023-10-31 12:21] LABS: ALT 29 U/L (4-49); AST 52 U/L (17-59); African American GFR (CKD) 50 (>60 ml/min/1.73 sqM); Albumin 3.1 g/dL (3.5-5.0); Alkaline Phosphatase 160 U/L (38-126); Anion Gap 4 mmol/L; Basophils % (A) 1 %; Blood Urea Nitrogen 21 mg/dL (9-20); Calcium 8.7 mg/dL (8.4-10.2); Carbon Dioxide 26 mmol/L (22-30); Chloride 110 mmol/L (98-107); Eosinophils # (A) 0.2 k/uL (0-0.7); Eosinophils % (A) 3 %; Glucose 105 mg/dL (74-99); HCT 28.7 % (39.0-53.0); Hypochromasia Moderate; Lymphocytes % (A) 15 %; MCH 33.9 pg (25.0-35.0); MCHC 32.9 g/dL (31.0-37.0); Macrocytosis Moderate; Mean Platelet Volume 9.2; Monocytes # (A) 0.5 k/uL (0-1.0); Monocytes % (A) 8 %; Neutrophils # (A) 4.4 k/uL (1.3-7.7); Neutrophils % (A) 70 %; Non-African American GFR(CKD) 43 (>60 ml/min/1.73 sqM); Potassium 4.6 mmol/L (3.5-5.1); RBC 2.78 m/uL (4.30-5.90); RDW 15.9 % (11.5-15.5); Sodium 140 mmol/L (137-145); Total Bilirubin 2.2 mg/dL (0.2-1.3); Total Protein 6.4 g/dL (6.3-8.2); WBC 6.3 k/uL (3.8-10.6)
[2023-10-31 12:25] LABS: HGB 9.4 gm/dL (13.0-17.5); MCV 102.9 fL (80.0-100.0)
[2023-10-31 12:48] LABS: INR 1.3 (<1.2); Partial Thromboplastin Time 28.8 sec (22.0-30.0); Prothrombin Time 13.4 sec (10.0-12.5)
[2023-10-31 12:49] LABS: Platelet Count 61 k/uL (150-450)
--- NOTE | 2023-10-31 13:55 | XR ---
EXAMINATION TYPE: XR chest 2V DATE OF EXAM: 10/31/2023 1:48 PM CLINICAL INDICATION:Male, 88 years old with history of cough; [facility] COMPARISON: Chest radiographs from 09/30/2023 TECHNIQUE: XR chest 2V Frontal and lateral views of the chest. FINDINGS: Lungs/Pleura: Right midlung airspace opacities. There is no evidence of pleural effusion, focal conso lidation, or pneumothorax. Pulmonary vascularity: Unremarkable. Heart/mediastinum: Cardiomediastinal silhouette is unremarkable. Atherosclerotic calcifications are seen in the aorta. Two lead cardiac conduction device overlying the left hemithorax with lead tips pr ojecting over the right ventricle and right atrium. Musculoskeletal: No acute osseous pathology. Other findings: None IMPRESSION: Right midlung airspace opacities correlate for pneumonia
[2023-10-31] MEDS ORDERED: FUROSEMIDE 10 MG/ML 4 ML VIAL IV STA (15:45)
[2023-10-31 17:19] VITALS: BP 116/66; PULSE 82; RESP 18
== END 2023-10-31 17:18 | disposition home or self-care (01) ==
LOC: EC 11:24
DX: I11.0 Hypertensive heart disease with heart failure (principal); I50.9 Heart failure, unspecified; I48.91 Unspecified atrial fibrillation; E11.9 Type 2 diabetes mellitus without complications; E07.9 Disorder of thyroid, unspecified; E78.5 Hyperlipidemia, unspecified; Z79.01 Long term (current) use of anticoagulants; Z87.891 Personal history of nicotine dependence; Z79.890 Hormone replacement therapy; Z79.899 Other long term (current) drug therapy; Z88.7 Allergy status to serum and vaccine
CPT/HCPCS: 99284; 96374; 36415; 83880; 80053; 84484; 85025; 85610; 85730; 71046; J1940

== ENCOUNTER 2023-11-28 12:57 | Inpatient (IN) | payer MEDICARE ==
[2023-11-28] MEDS: SODIUM CHLORIDE 0.9% 500 ML 500 ML IV STA ×2 (13:51→16:12)
[2023-11-28 14:08] LABS: INR 1.3 (<1.2); Prothrombin Time 13.2 sec (10.0-12.5)
--- NOTE | 2023-11-28 14:10 | XR ---
EXAMINATION TYPE: XR chest 2V DATE OF EXAM: 11/28/2023 COMPARISON: 10/31/2023 TECHNIQUE: PA and lateral views submitted. HISTORY: Weakness FINDINGS: Improving right perihilar infiltrate. There is now left lower lobe infiltrate and small effusion and interstitial pattern. Cardiomegaly and cardiac device. No pneumothorax. IMPRESSION: 1. Correlate for mild CHF with small pleural effusion and basilar infiltrate. 2. Improving right perihilar infiltrate with persistent density. Recommend short-term follow-up CT of the chest to rule out neoplasm.
[2023-11-28 14:12] LABS: ALT 25 U/L (4-49); AST 58 U/L (17-59); African American GFR (CKD) 60 (>60 ml/min/1.73 sqM); Albumin 2.9 g/dL (3.5-5.0); Alkaline Phosphatase 194 U/L (38-126); Anion Gap 7 mmol/L; Blood Urea Nitrogen 11 mg/dL (9-20); Calcium 8.8 mg/dL (8.4-10.2); Carbon Dioxide 24 mmol/L (22-30); Chloride 103 mmol/L (98-107); Glucose 96 mg/dL (74-99); Magnesium 1.7 mg/dL (1.6-2.3); Non-African American GFR(CKD) 52 (>60 ml/min/1.73 sqM); Potassium 3.4 mmol/L (3.5-5.1); Sodium 134 mmol/L (137-145); Total Bilirubin 2.6 mg/dL (0.2-1.3); Total Protein 6.4 g/dL (6.3-8.2)
[2023-11-28 14:18] LABS: Basophils % (A) 1 %; Eosinophils # (A) 0.3 k/uL (0-0.7); Eosinophils % (A) 7 %; HCT 34.9 % (39.0-53.0); HGB 11.3 gm/dL (13.0-17.5); Lymphocytes # (A) 1.1 k/uL (1.0-4.8); Lymphocytes % (A) 26 %; MCH 31.5 pg (25.0-35.0); MCHC 32.4 g/dL (31.0-37.0); Monocytes # (A) 0.3 k/uL (0-1.0); Monocytes % (A) 7 %; Neutrophils # (A) 2.5 k/uL (1.3-7.7); Neutrophils % (A) 57 %; RBC 3.58 m/uL (4.30-5.90); RDW 15.2 % (11.5-15.5); WBC 4.3 k/uL (3.8-10.6)
[2023-11-28 14:20] LABS: NT-Pro-B-Type Natriuretic Pept 1340 pg/mL
[2023-11-28 14:22] LABS: MCV 97.3 fL (80.0-100.0)
[2023-11-28 14:23] LABS: Platelet Count 94 k/uL (150-450)
--- NOTE | 2023-11-28 15:07 | CT ---
EXAMINATION TYPE: CT brain wo con DATE OF EXAM: 11/28/2023 COMPARISON: 06/28/2022 HISTORY: Weakness. CT DLP: 1099.4 mGycm Automated exposure control for dose reduction was used. FINDINGS: The ventricles, basal cisterns and sulci convexities are moderately enlarged consistent with moderate atrophy but appropriate for the patient's age. There is mild ischemic white matter demyelination. There is no acute intra or extra-axial hemorrhage. There is no mass effect or shift of midline structures. Posterior fossa is grossly normal. The intraorbital contents are normal and symmetric. Mild chronic inflammatory changes in the maxillary sinuses. The mastoid air cells are well aerated. IMPRESSION: 1. AGE APPROPRIATE SENESCENT CHANGES DESCRIBED ABOVE. THERE IS BEEN NO INTERVAL CHANGE FROM PREVIO US. 2. NO ACUTE BLEED OR MASS EFFECT.
[2023-11-28] MEDS: ASPIRIN 81 MG PO STA (16:08)
[2023-11-28] MEDS ORDERED: NALOXONE 0.4 MG/ML 1 ML VIAL IV PRN (16:17)
--- NOTE | 2023-11-28 16:34 | ED ---
General Adult HPI - General Chief complaint: Weakness Stated complaint: Weakness Time Seen by Provider: 11/28/23 13:39 Source: EMS Mode of arrival: EMS Limitations: no limitations - History of Present Illness Initial comments: Patient is an 88-year-old male who presents emergency department complaining of weakness. An unwitnessed fall this morning. Has been having weakness for the last 2 weeks. Does have a mild nonproductive cough. Found at home by his caregiver. Endorses hitting the back of his head but denies loss of consciousness. States he was previously on blood thinners. Presents for further evaluation at this time. Denies any other injuries. Is resting comfortably at this time. Denies chest pain, abdominal pain, nausea, vomiting. - Related Data Home Medications Medication Instructions Recorded Confirmed Levothyroxine Sodium [Levoxyl] 75 mcg PO DAILY 06/09/15 11/28/23 Metoprolol Succinate [Toprol XL] 100 mg PO HS 06/09/15 11/28/23 Isosorbide Mononitrate [Isosorbide 30 mg PO HS 03/14/20 11/28/23 Mononitrate ER] Montelukast [Singulair] 10 mg PO HS 03/14/20 11/28/23 Atorvastatin [Lipitor] 80 mg PO HS 09/30/23 11/28/23 Fluticasone Nasal [place] [Flonase 2 spray EA NOSTRIL DAILY PRN 09/30/23 11/28/23 Nasal [place]] HYDROcodone/APAP 7.5-325MG [[place] 1 tab PO QID PRN 09/30/23 11/28/23 7.5-325] Nitroglycerin Sl Tabs [Nitrostat] 0.4 mg SL Q5M PRN 09/30/23 11/28/23 Ferrous Sulfate [Feosol] 325 mg PO BID 11/28/23 11/28/23 Furosemide [Lasix] 40 mg PO DAILY 11/28/23 11/28/23 Potassium Chloride ER [K-Dur 10] 10 meq PO DAILY 11/28/23 11/28/23 Previous Rx's Medication Instructions Recorded Omeprazole [PriLOSEC] 20 mg PO AC-BID #120 cap 10/05/23 Allergies Allergy/AdvReac Type Severity Reaction Status Date / Time Tetanus Vaccines and Toxoid Allergy Unknown Verified 11/28/23 18:04 Review of Systems ROS Statement: Those systems with pertinent positive or pertinent negative responses have been documented in the HPI. Review of Systems: CONST: Denies fever EYES: Denies blurry vision ENT: Denies nasal congestion C/V: Denies Chest pain RESP: Denies shortness of breath GI: Denies abdominal pain : Denies dysuria SKIN: Denies rash. MSK: Denies joint pain. NEURO: Denies headache ROS Other: All systems not noted in ROS Statement are negative. Past Medical History Past Medical History: Atrial Fibrillation, Cancer, Diabetes Mellitus, Hyperlipidemia, Hypertension, Prostate Disorder, Thyroid Disorder Additional Past Medical History / Comment(s): hx prostate,liver,lung cancer, see Dr Ambrosio H&P, diet control diabetic, A-fib with pacemaker in on 2016 History of Any Multi-Drug Resistant Organisms: None Reported Past Surgical History: Heart Catheterization With Stent, Prostate Surgery, Tonsillectomy Additional Past Surgical History / Comment(s): removal of rt lobe of liver, upper left lobe of lung removed, rt knee replacement, left arm-fx, pacemaker, (R) hip replacement. Past Anesthesia/Blood Transfusion Reactions: No Reported Reaction Date of Last Stent Placement:: 2019 Type of Cardiac Device: Permanent Pacemaker Device Placement Date:: 2005 Past Psychological History: No Psychological Hx Reported Smoking Status: Former smoker Past Alcohol Use History: Daily Past Drug Use History: None Reported - Past Family History Mother Additional Family Medical History / Comment(s): Mother from complications of diabetes. No history of cancer. Brother(s) Additional Family Medical History / Comment(s): Patient has one brother and 4 sisters with no major medical problems. Patient has 2 sons with no major medical problems. No cancers. Father Family Medical History: Cancer Additional Family Medical History / Comment(s): Father from lung cancer with history of heavy smoking. General Exam - General Exam Comments Initial Comments: General: Appears in no acute distress. HEAD: Normal with no signs of head trauma. Negative De La Garza sign, negative raccoon eyes. EYES: PERRLA, EOMI, conjunctiva normal, no discharge. Pupils are 3 mm and equal bilaterally. ENT: Hearing grossly intact, normal oropharynx. RESPIRATORY: Clear breath sounds bilaterally. No wheezes, rales, or rhonchi. C/V: Regular rate and rhythm. S1 and S2 auscultated, peripheral pulses 2+ and intact throughout ABD: Abd is soft, nontender, nondistended EXT: Normal range of motion, no obvious deformity. Pelvis is stable. No midline cervical, thoracic, lumbar spine tenderness to palpation. SKIN: No rashes or lesions observed on exposed skin. NEURO: Alert and oriented x 4. Cranial nerves II-XII intact. No focal sensory or strength deficits. GCS of 15. NIH is 0. Limitations: no limitations Course Vital Signs 11/28/23 11/28/23 11/28/23 13:06 13:13 14:00 Temperature 98.3 F Pulse Rate 60 72 78 Respiratory 18 18 18 Rate Blood Pressure 123/71 123/71 92/59 O2 Sat by Pulse 100 100 100 Oximetry 11/28/23 15:37 Temperature Pulse Rate 60 Respiratory 18 Rate Blood Pressure 116/71 O2 Sat by Pulse 100 Oximetry Medical Decision Making - Medical Decision Making Was pt. sent in by a medical professional or institution (, PA, OFFSET DUPLICATING MACHINE OPERATOR, urgent care, hospital, or intermediate...) When possible be specific @ -No Did you speak to anyone other than the patient for history (EMS, parent, family, police, friend...)? What history was obtained from this source @ -No Did you review nursing and triage notes (agree or disagree)? Why? @ -I reviewed and agree with nursing and triage notes Were old charts reviewed (outside hosp., previous admission, EMS record, old EKG, old radiological studies, urgent care reports/EKG's, intermediate records)? Report findings @ -Old charts reviewed Differential Diagnosis (chest pain, altered mental status, abdominal pain women, abdominal pain men, vaginal bleeding, weakness, fever, dyspnea, syncope, headache, dizziness, GI bleed, back pain, seizure, CVA, palpatations, mental health, musculoskeletal)? @ -Differential Weakness: Hypoglycemia, shock, sepsis, hyponatremia, anemia, infection, PR, ETOH, adverse medicine reaction, overdose, stroke, this is not meant to be an all-inclusive list. EKG interpreted by me (3pts min.). @ -As above X-rays interpreted by me (1pt min.). @ -Chest x-ray shows small pleural effusions as well as left basilar infiltrate. CT interpreted by me (1pt min.). @ -CT brain reveals no evidence of acute intracranial process or injury. U/S interpreted by me (1pt. min.). @ -None done What testing was considered but not performed or refused? (CT, X-rays, U/S, labs)? Why? @ -None What meds were considered but not given or refused? Why? @ -None Did you discuss the management of the patient with other professionals (professionals i.e. DrAdrian, PA, OFFSET DUPLICATING MACHINE OPERATOR, lab, RT, psych nurse, clinical social worker, aviation support equipment repairer, teacher, drug abuse resistance education officer, watch case polisher)? Give summary @ -I spoke with the admitting physician, Dr. Bell who accepted the admission. Was smoking cessation discussed for >3mins.? @ -No Was critical care preformed (if so, how long)? @ -No Were there social determinants of health that impacted care today? How? (Homelessness, low income, unemployed, alcoholism, drug addiction, transportation, low edu. Level, literacy, decrease access to med. care, fdc, rehab)? @ -No Was there de-escalation of care discussed even if they declined (Discuss DNR or withdrawal of care, Hospice)? DNR status @ -No What co-morbidities impacted this encounter? (DM, HTN, Smoking, COPD, CAD, Cancer, CVA, ARF, Chemo, Hep., AIDS, mental health diagnosis, sleep apnea, morbid obesity)? @ -None Was patient admitted / discharged? Hospital course, mention meds given and route, prescriptions, significant lab abnormalities, going to OR and other pertinent info. @ -Based on the patient's presentation and physical exam, presents complaining of 2 weeks of weakness, mild nonproductive cough. Patient also had a fall, possibly on blood thinners. We will obtain CT brain as well as generalized workup. He was in agreement this plan. Vital signs are within acceptable limits. EKG shows no signs of acute ischemia. Patient's laboratory studies remarkable for a chronic anemia of 11.3, chronic thrombocytopenia of 94, and elevated troponin of 0.068, as well as a BNP within acceptable limits. Viral swabs negative. Urine still pending. CT imaging unremarkable. Chest x-ray shows possible pneumonia. Patient will be empirically started on IV Rocephin and azithromycin for pneumonia. I updated him on the results of his labs. He will be given an aspirin. Home meds will be restarted. He will be admitted to the hospital. Cardiology consulted for the elevated troponin which is likely secondary to the weakness, dehydration, infection. Patient in agreement this plan. I spoke with the admitting physician, Dr. Bell who accepted the admission. Undiagnosed new problem with uncertain prognosis? @ -No Drug Therapy requiring intensive monitoring for toxicity (Heparin, Nitro, Insulin, Cardizem)? @ -No Were any procedures done? @ -No Diagnosis/symptom? @ -Elevated troponin, weakness, dehydration, pneumonia Acute, or Chronic, or Acute on Chronic? @ -Acute Uncomplicated (without systemic symptoms) or Complicated (systemic symptoms)? @ -Complicated Side effects of treatment? @ -No Exacerbation, Progression, or Severe Exacerbation? @ -No Poses a threat to life or bodily function? How? (Chest pain, USA, PR, pneumonia, PE, COPD, DKA, ARF, appy, cholecystitis, CVA, Diverticulitis, Homicidal, Suicidal, threat to staff... and all critical care pts) @ -Yes - Lab Data Result diagrams: 11/28/23 13:46 11/28/23 13:46 Lab Results 11/28/23 11/28/23 11/28/23 Range/Units 13:46 13:46 13:46 WBC 4.3 (3.8-10.6) k/uL RBC 3.58 L (4.30-5.90) m/uL Hgb 11.3 L (13.0-17.5) gm/dL Hct 34.9 L (39.0-53.0) % MCV 97.3 D (80.0-100.0) fL MCH 31.5 (25.0-35.0) pg MCHC 32.4 (31.0-37.0) g/dL RDW 15.2 (11.5-15.5) % Plt Count 94 L D (150-450) k/uL MPV 8.0 Neutrophils % 57 % Lymphocytes % 26 % Monocytes % 7 % Eosinophils % 7 % Basophils % 1 % Neutrophils # 2.5 (1.3-7.7) k/uL Lymphocytes # 1.1 (1.0-4.8) k/uL Monocytes # 0.3 (0-1.0) k/uL Eosinophils # 0.3 (0-0.7) k/uL Basophils # 0.0 (0-0.2) k/uL PT 13.2 H (10.0-12.5) sec INR 1.3 H (<1.2) APTT 31.0 H (22.0-30.0) sec Sodium 134 L (137-145) mmol/L Potassium 3.4 L (3.5-5.1) mmol/L Chloride 103 (98-107) mmol/L Carbon Dioxide 24 (22-30) mmol/L Anion Gap 7 mmol/L BUN 11 (9-20) mg/dL Creatinine 1.25 (0.66-1.25) mg/dL Est GFR (CKD-EPI)AfAm 60 (>60 ml/min/1.73 sqM) Est GFR (CKD-EPI)NonAf 52 (>60 ml/min/1.73 sqM) Glucose 96 (74-99) mg/dL Plasma Lactic Acid Aren (0.7-2.0) mmol/L Calcium 8.8 (8.4-10.2) mg/dL Magnesium 1.7 (1.6-2.3) mg/dL Total Bilirubin 2.6 H (0.2-1.3) mg/dL AST 58 (17-59) U/L ALT 25 (4-49) U/L Alkaline Phosphatase 194 H (38-126) U/L Troponin I (0.000-0.034) ng/mL NT-Pro-B Natriuret Pep 1340 pg/mL Total Protein 6.4 (6.3-8.2) g/dL Albumin 2.9 L (3.5-5.0) g/dL Influenza Type A (PCR) (Not Detectd) Influenza Type B (PCR) (Not Detectd) RSV (PCR) (Not Detectd) SARS-CoV-2 (PCR) (Not Detectd) 11/28/23 11/28/23 11/28/23 Range/Units 13:46 13:46 13:46 WBC (3.8-10.6) k/uL RBC (4.30-5.90) m/uL Hgb (13.0-17.5) gm/dL Hct (39.0-53.0) % MCV (80.0-100.0) fL MCH (25.0-35.0) pg MCHC (31.0-37.0) g/dL RDW (11.5-15.5) % Plt Count (150-450) k/uL MPV Neutrophils % % Lymphocytes % % Monocytes % % Eosinophils % % Basophils % % Neutrophils # (1.3-7.7) k/uL Lymphocytes # (1.0-4.8) k/uL Monocytes # (0-1.0) k/uL Eosinophils # (0-0.7) k/uL Basophils # (0-0.2) k/uL PT (10.0-12.5) sec INR (<1.2) APTT (22.0-30.0) sec Sodium (137-145) mmol/L Potassium (3.5-5.1) mmol/L Chloride (98-107) mmol/L Carbon Dioxide (22-30) mmol/L Anion Gap mmol/L BUN (9-20) mg/dL Creatinine (0.66-1.25) mg/dL Est GFR (CKD-EPI)AfAm (>60 ml/min/1.73 sqM) Est GFR (CKD-EPI)NonAf (>60 ml/min/1.73 sqM) Glucose (74-99) mg/dL Plasma Lactic Acid Aren 1.6 (0.7-2.0) mmol/L Calcium (8.4-10.2) mg/dL Magnesium (1.6-2.3) mg/dL Total Bilirubin (0.2-1.3) mg/dL AST (17-59) U/L ALT (4-49) U/L Alkaline Phosphatase (38-126) U/L Troponin I 0.068 H* (0.000-0.034) ng/mL NT-Pro-B Natriuret Pep pg/mL Total Protein (6.3-8.2) g/dL Albumin (3.5-5.0) g/dL Influenza Type A (PCR) Not Detected (Not Detectd) Influenza Type B (PCR) Not Detected (Not Detectd) RSV (PCR) Not Detected (Not Detectd) SARS-CoV-2 (PCR) Not Detected (Not Detectd) - EKG Data -: EKG Interpreted by Me EKG Comments: 12-lead Electrocardiogram Interpretation Note EKG was reviewed and interpreted by myself. 12-lead ECG performed at 1531 is interpreted by me as revealing ventricularly paced rhythm at a rate of 60 beats per minute. Left axis deviation QRS duration is 163 ms, QTc is 579 ms.. There were no ST or T wave abnormalities to suggest myocardial ischemia or injury. R wave progression across the precordium was delayed. By my interpretation this EKG is non-diagnostic for acute ischemia. Disposition Clinical Impression: Weakness, Elevated troponin, Pneumonia, Dehydration Disposition: ADMITTED IP TO THIS HOSP Condition: Stable Time of Disposition: 16:00
[2023-11-28] MEDS: AZITHROMYCIN 500 MG in SODIUM CHLORIDE 0.9% 250 ML IVPB STA (21:22)
[2023-11-28] MEDS ORDERED: FLUTICASONE 50MCG/SPRAY NASAL 16GM EA NOSTRIL PRN (22:52)
--- NOTE | 2023-11-28 23:42 | P.HPIM ---
History of Present Illness H&P Date: 11/28/23 Chief Complaint: Generalized weakness and fall Patient is a 88-year-old male with a past medical history of atrial fibrillation not on anticoagulation, hypertension, hyperlipidemia, diabetes type 2 diet controlled, hypothyroidism and history of lung cancer s/p resection, history of prostate, liver cancer, history of pacemaker placement in 2017 and prior history of smoking and alcohol use presents to ER with complaints of generalized weakness and fall. Patient lives by himself and able to walk with a walker. His caregiver helps with house chores and cooking. Patient was found on the floor this morning by his caregiver. Patient has been laid on the ground for 2 hours. Patient states that he felt so weak and could not get up. States that he lost his balance and fell on the floor. Denies any hitting his head. Patient was previously on anticoagulation. Currently patient is awake alert and orient x 3. Denies any chest pain or shortness of. No worsening leg swelling. No nausea vomiting or diarrhea. Denies abdominal pain. Denies any recent illnesses. Chest x-ray showed correlate for mild CHF with small pleural effusion and basilar infiltrate. Improving right perihilar infiltrate with persistent density. Recommend short- term follow-up CT of the chest to rule out neoplasm. CT head showed age- appropriate changes. No acute bleed or mass effect or infarct. EKG showed electronic ventricular paced rhythm. Laboratory showed WBC 4.3 hemoglobin 11.3 and platelets 94. INR 1.3, sodium 134 potassium 3.4 chloride 103 bicarb is 24 BUN 11 and creatinine 1.25. AST 58 ALT 25 alk phos 194 Troponin 0.068, 0.049 and 0.040 proBNP 1340 and albumin 2.9. Review of Systems Constitutional: Patient denies any fever or chills . generalized weakness. No weight loss. Abdomen: Patient denied nausea vomiting and diarrhea and abdominal pain. Cardiovascular: Patient denies any chest pain or short of breath no palpitations. Respiratory: patient denied any cough is from production. No shortness of breath Neurologic: Patient denied any numbness or tingling headache. Musculoskeletal: Patient denies any complaints of joint swelling or deformity. Skin: Negative Psychiatric: Negative Endocrine: No heat or cold intolerance. No recent weight gain. Genitourinary: No dysuria or hematuria. All other 14 point ROS negative except the above Past Medical History Past Medical History: Atrial Fibrillation, Cancer, Diabetes Mellitus, Hyperlipidemia, Hypertension, Prostate Disorder, Thyroid Disorder Additional Past Medical History / Comment(s): hx prostate,liver,lung cancer, see Dr Ambrosio H&P, diet control diabetic, A-fib with pacemaker in on 2017 History of Any Multi-Drug Resistant Organisms: None Reported Past Surgical History: Heart Catheterization With Stent, Prostate Surgery, Tonsillectomy Additional Past Surgical History / Comment(s): removal of rt lobe of liver, upper left lobe of lung removed, rt knee replacement, left arm-fx, pacemaker, (R) hip replacement. Past Anesthesia/Blood Transfusion Reactions: No Reported Reaction Date of Last Stent Placement:: 2019 Type of Cardiac Device: Permanent Pacemaker Device Placement Date:: 2005 Past Psychological History: No Psychological Hx Reported Smoking Status: Former smoker Past Alcohol Use History: Daily Past Drug Use History: None Reported - Past Family History Mother Additional Family Medical History / Comment(s): Mother from complications of diabetes. No history of cancer. Brother(s) Additional Family Medical History / Comment(s): Patient has one brother and 4 sisters with no major medical problems. Patient has 2 sons with no major medical problems. No cancers. Father Family Medical History: Cancer Additional Family Medical History / Comment(s): Father from lung cancer with history of heavy smoking. Medications and Allergies Home Medications Medication Instructions Recorded Confirmed Type Levothyroxine Sodium [Levoxyl] 75 mcg PO DAILY 06/09/15 11/28/23 History Metoprolol Succinate [Toprol XL] 100 mg PO HS 06/09/15 11/28/23 History Isosorbide Mononitrate [Isosorbide 30 mg PO HS 03/14/20 11/28/23 History Mononitrate ER] Montelukast [Singulair] 10 mg PO HS 03/14/20 11/28/23 History Atorvastatin [Lipitor] 80 mg PO HS 09/30/23 11/28/23 History Fluticasone Nasal [place] [Flonase 2 spray EA NOSTRIL DAILY PRN 09/30/23 11/28/23 History Nasal [place]] HYDROcodone/APAP 7.5-325MG [[place] 1 tab PO QID PRN 09/30/23 11/28/23 History 7.5-325] Nitroglycerin Sl Tabs [Nitrostat] 0.4 mg SL Q5M PRN 09/30/23 11/28/23 History Omeprazole [PriLOSEC] 20 mg PO AC-BID #120 cap 10/05/23 11/28/23 Rx Ferrous Sulfate [Feosol] 325 mg PO BID 11/28/23 11/28/23 History Furosemide [Lasix] 40 mg PO DAILY 11/28/23 11/28/23 History Potassium Chloride ER [K-Dur 10] 10 meq PO DAILY 11/28/23 11/28/23 History Allergies Allergy/AdvReac Type Severity Reaction Status Date / Time Tetanus Vaccines and Toxoid Allergy Unknown Verified 11/28/23 18:04 Physical Exam Vitals: Vital Signs Temp Pulse Resp BP Pulse Ox 11/28/23 15:37 60 18 116/71 100 11/28/23 14:00 78 18 92/59 100 11/28/23 13:13 72 18 123/71 100 11/28/23 13:06 98.3 F 60 18 123/71 100 Intake and Output 11/28/23 11/28/23 11/28/23 06:59 14:59 22:59 Other: Weight 107.955 kg PHYSICAL EXAMINATION: Patient is lying in the bed comfortably, no acute distress, awake alert and oriented.. HEENT: Normocephalic. Neck is supple. Pupils reactive. Nostrils clear. Oral cavity is moist. Neck reveals no JVD, carotid bruits, or thyromegaly. CHEST EXAMINATION: Trachea is central. Symmetrical expansion. Lung ceja clear to auscultation and percussion. Bibasilar diminished sounds. CARDIAC: Normal S1, S2 with no gallops. No murmurs ABDOMEN: Soft. Bowel sounds normal. No organomegaly. No abdominal bruits. Extremities: Bilateral lower extremity trace edema. No clubbing or cyanosis Neurologically awake, alert, oriented x3 with well-coordinated movements. No focal deficits noted Skin: No rash or skin lesions. Psychiatric: Coperative. Nonsuicidal Musculoskeletal: No joint swelling or deformity. Normal range of motion. Results CBC & Chem 7: 11/28/23 13:46 11/28/23 13:46 Labs: Abnormal Lab Results - Last 24 Hours (Table) 11/28/23 11/28/23 11/28/23 Range/Units 13:46 13:46 13:46 RBC 3.58 L (4.30-5.90) m/uL Hgb 11.3 L (13.0-17.5) gm/dL Hct 34.9 L (39.0-53.0) % Plt Count 94 L D (150-450) k/uL PT 13.2 H (10.0-12.5) sec INR 1.3 H (<1.2) APTT 31.0 H (22.0-30.0) sec Sodium 134 L (137-145) mmol/L Potassium 3.4 L (3.5-5.1) mmol/L Total Bilirubin 2.6 H (0.2-1.3) mg/dL Alkaline Phosphatase 194 H (38-126) U/L Troponin I (0.000-0.034) ng/mL Albumin 2.9 L (3.5-5.0) g/dL 11/28/23 11/28/23 Range/Units 13:46 18:00 RBC (4.30-5.90) m/uL Hgb (13.0-17.5) gm/dL Hct (39.0-53.0) % Plt Count (150-450) k/uL PT (10.0-12.5) sec INR (<1.2) APTT (22.0-30.0) sec Sodium (137-145) mmol/L Potassium (3.5-5.1) mmol/L Total Bilirubin (0.2-1.3) mg/dL Alkaline Phosphatase (38-126) U/L Troponin I 0.068 H* 0.049 H* (0.000-0.034) ng/mL Albumin (3.5-5.0) g/dL Thrombosis Risk Factor Assmnt - DVT/VTE Prophylaxis DVT/VTE Prophylaxis: Pharmacologic Prophylaxis ordered Assessment and Plan Assessment: S/p fall likely mechanical. Patient lost balance and fell on the ground and stayed for 2 hours. Denies loss of consciousness. Elevated troponin level Dehydration volume depletion Coronary artery disease history of stent placement Paroxysmal atrial fibrillation. Not on anticoagulation. Status post permanent pacemaker placement Hypothyroidism History of prostate, liver and lung cancer Diet controlled diabetes type 2 Persistent right perihilar density. Will need CT chest to rule out neoplasm. DVT prophylaxis Plan: Patient was given IV hydration in the ER. Continue with daily monitoring. Orthostatic vitals were ordered. Lasix is on hold. Trend troponin. Cardiology was consulted for evaluation. Follow-up urinalysis. Continue empiric antibiotics. Procalcitonin level was ordered. PT OT consult Time with Patient: Greater than 30
[2023-11-29] MEDS: POTASSIUM CHLORIDE ER 20 MEQ TAB.ER PO STA (00:12)
[2023-11-29] MEDS: ISOSORBIDE MONONITRATE ER 30 MG TAB.ER.24H PO SCH (00:12)
[2023-11-29] MEDS: LEVOTHYROXINE 75 MCG TAB PO SCH (06:11)
[2023-11-29] MEDS: PANTOPRAZOLE 40 MG TABLET PO SCH (06:11)
[2023-11-29 06:35] LABS: Glucose,Whole Blood 75 mg/dL (70-110)
[2023-11-29 08:38] LABS: African American GFR (CKD) 68 (>60 ml/min/1.73 sqM); Anion Gap 7 mmol/L; Blood Urea Nitrogen 13 mg/dL (9-20); Calcium 8.3 mg/dL (8.4-10.2); Carbon Dioxide 20 mmol/L (22-30); Chloride 106 mmol/L (98-107); Glucose 91 mg/dL (74-99); Non-African American GFR(CKD) 59 (>60 ml/min/1.73 sqM); Sodium 133 mmol/L (137-145)
[2023-11-29 08:46] LABS: Potassium 4.3 mmol/L (3.5-5.1)
[2023-11-29 08:48] LABS: Amorphous Sediment,Urine Few /hpf; Appearance,Urine Cloudy (Clear); Bilirubin,Urine Negative (Negative); Blood,Urine Small (Negative); Color,Urine Yellow; Glucose,Urine (UA) Negative (Negative); Hyaline Casts,Urine 53 /lpf (0-2); Ketones,Urine Negative (Negative); Leukocyte Esterase,Urine Trace (Negative); Mucus,Urine Rare /hpf; Nitrite,Urine Negative (Negative); Protein,Urine Trace (Negative); RBC,Urine 3 /hpf (0-5); Specific Gravity,Urine 1.022 (1.001-1.035); Squamous Epithelial Cell,Urine 2 /hpf (0-4); Urobilinogen,Urine <2.0 mg/dL (<2.0); WBC,Urine 8 /hpf (0-5)
[2023-11-29 11:33] LABS: Glucose,Whole Blood 144 mg/dL (70-110)
--- NOTE | 2023-11-29 11:55 | P.PN ---
Subjective Patient is a 88-year-old male with a past medical history of atrial fibrillation not on anticoagulation, hypertension, hyperlipidemia, diabetes type 2 diet controlled, hypothyroidism and history of lung cancer s/p resection, history of prostate, liver cancer, history of pacemaker placement in 2017 and prior history of smoking and alcohol use presents to ER with complaints of generalized weakness and fall. Patient lives by himself and able to walk with a walker. His caregiver helps with house chores and cooking. Patient was found on the floor this morning by his caregiver. Patient has been laid on the ground for 2 hours. Patient states that he felt so weak and could not get up. States that he lost his balance and fell on the floor. Denies any hitting his head. Patient was previously on anticoagulation. Currently patient is awake alert and orient x 3. Denies any chest pain or shortness of. No worsening leg swelling. No nausea vomiting or diarrhea. Denies abdominal pain. Denies any recent illnesses. Chest x-ray showed correlate for mild CHF with small pleural effusion and basilar infiltrate. Improving right perihilar infiltrate with persistent density. Recommend short- term follow-up CT of the chest to rule out neoplasm. CT head showed age- appropriate changes. No acute bleed or mass effect or infarct. EKG showed electronic ventricular paced rhythm. Laboratory showed WBC 4.3 hemoglobin 11.3 and platelets 94. INR 1.3, sodium 134 potassium 3.4 chloride 103 bicarb is 24 BUN 11 and creatinine 1.25. AST 58 ALT 25 alk phos 194 Troponin 0.068, 0.049 and 0.040 proBNP 1340 and albumin 2.9. Objective - Vital Signs Vital signs: Vital Signs Temp 97.4 F L 11/29/23 07:48 Pulse 72 11/29/23 08:04 Resp 18 11/29/23 07:48 BP 101/66 11/29/23 08:04 Pulse Ox 94 L 11/29/23 07:48 FiO2 Intake & Output 11/28/23 11/29/23 11/29/23 18:59 06:59 18:59 Intake Total 660 Output Total 200 Balance 460 Weight 107.955 kg 107.955 kg Intake: IV 120 .9@10 120 Intake, IV Titration 300 Amount Azithromycin 500 mg In 250 Sodium Chloride 0.9% 250 ml @ 250 mls/hr IVPB DAILY@1600 [facility] Rx#: [id number] cefTRIAXone 2 gm In 50 Sodium Chloride 0.9% 50 ml @ 100 mls/hr IVPB Q24HR [facility] Rx#:[id number] Oral 240 Output: Urine 200 Other: Voiding Method External Catheter External Catheter # Voids 1 1 - Exam -GENERAL: The patient is alert and oriented x3, not in any acute distress. Obese, mildly generally weak HEENT: Pupils are round and equally reacting to light. EOMI. No scleral icterus. No conjunctival pallor. Normocephalic, atraumatic. No pharyngeal erythema. No thyromegaly. CARDIOVASCULAR: S1 and S2 present. No murmurs, rubs, or gallops. PULMONARY: Chest is clear to auscultation, no wheezing , no crackles. ABDOMEN: Soft, nontender, nondistended, normoactive bowel sounds. No palpable organomegaly. MUSCULOSKELETAL: No joint swelling or deformity. EXTREMITIES: No cyanosis, clubbing, or pedal edema. NEUROLOGICAL: Gross neurological examination did not reveal any focal deficits. SKIN: No rashes. no petechiae. - Labs CBC & Chem 7: 11/28/23 13:46 11/29/23 07:13 Labs: Abnormal Lab Results - Last 24 Hours (Table) 11/28/23 11/28/23 11/28/23 Range/Units 13:46 13:46 13:46 RBC 3.58 L (4.30-5.90) m/uL Hgb 11.3 L (13.0-17.5) gm/dL Hct 34.9 L (39.0-53.0) % Plt Count 94 L D (150-450) k/uL PT 13.2 H (10.0-12.5) sec INR 1.3 H (<1.2) APTT 31.0 H (22.0-30.0) sec Sodium 134 L (137-145) mmol/L Potassium 3.4 L (3.5-5.1) mmol/L Carbon Dioxide (22-30) mmol/L Calcium (8.4-10.2) mg/dL Total Bilirubin 2.6 H (0.2-1.3) mg/dL Alkaline Phosphatase 194 H (38-126) U/L Troponin I (0.000-0.034) ng/mL Albumin 2.9 L (3.5-5.0) g/dL Urine Protein (Negative) Urine Blood (Negative) Ur Leukocyte Esterase (Negative) Urine WBC (0-5) /hpf Amorphous Sediment (None) /hpf Hyaline Casts (0-2) /lpf Urine Mucus (None) /hpf 11/28/23 11/28/23 11/28/23 Range/Units 13:46 18:00 20:55 RBC (4.30-5.90) m/uL Hgb (13.0-17.5) gm/dL Hct (39.0-53.0) % Plt Count (150-450) k/uL PT (10.0-12.5) sec INR (<1.2) APTT (22.0-30.0) sec Sodium (137-145) mmol/L Potassium (3.5-5.1) mmol/L Carbon Dioxide (22-30) mmol/L Calcium (8.4-10.2) mg/dL Total Bilirubin (0.2-1.3) mg/dL Alkaline Phosphatase (38-126) U/L Troponin I 0.068 H* 0.049 H* 0.040 H* (0.000-0.034) ng/mL Albumin (3.5-5.0) g/dL Urine Protein (Negative) Urine Blood (Negative) Ur Leukocyte Esterase (Negative) Urine WBC (0-5) /hpf Amorphous Sediment (None) /hpf Hyaline Casts (0-2) /lpf Urine Mucus (None) /hpf 11/29/23 11/29/23 Range/Units 07:13 07:36 RBC (4.30-5.90) m/uL Hgb (13.0-17.5) gm/dL Hct (39.0-53.0) % Plt Count (150-450) k/uL PT (10.0-12.5) sec INR (<1.2) APTT (22.0-30.0) sec Sodium 133 L (137-145) mmol/L Potassium (3.5-5.1) mmol/L Carbon Dioxide 20 L (22-30) mmol/L Calcium 8.3 L (8.4-10.2) mg/dL Total Bilirubin (0.2-1.3) mg/dL Alkaline Phosphatase (38-126) U/L Troponin I (0.000-0.034) ng/mL Albumin (3.5-5.0) g/dL Urine Protein Trace H (Negative) Urine Blood Small H (Negative) Ur Leukocyte Esterase Trace H (Negative) Urine WBC 8 H (0-5) /hpf Amorphous Sediment Few H (None) /hpf Hyaline Casts 53 H (0-2) /lpf Urine Mucus Rare H (None) /hpf Assessment and Plan Assessment: S/p fall likely mechanical. Patient lost balance and fell on the ground and stayed for 2 hours. Denies loss of consciousness. Elevated troponin level Dehydration volume depletion Coronary artery disease history of stent placement Paroxysmal atrial fibrillation. Not on anticoagulation. Status post permanent pacemaker placement Hypothyroidism History of prostate, liver and lung cancer Diet controlled diabetes type 2 Persistent right perihilar density. rule out neoplasm. Obesity with BMI of 34.1 Plan: Patient was given IV hydration in the ER. Continue with daily monitoring. Orthostatic vitals were ordered. Lasix is on hold. Trend troponin. Cardiology was consulted for evaluation. Follow-up urinalysis. Continue empiric antibiotics. Procalcitonin level was ordered. Patient referred to pulmonary as an outpatient for his lung lesion PT OT consult GI prophylaxis: Pepcid DVT prophylaxis: Heparin Patient was cleared by cardiology and can be downgraded to MedSurg gupta with no telemetry
--- NOTE | 2023-11-29 13:26 | P.CRDCN ---
History of Present Illness Consult date: 11/29/23 Reason for Consult (text): Elevated troponin History of present illness: The patient is an 88-year-old male who is admitted to the hospital with generalized weakness and status post mechanical fall. The patient was found on his floor by his caregiver, where he was down for approximately 2 hours. The patient reports losing his balance and falling and denies any dizziness or lightheadedness. DIAGNOSTICS: EKG shows paced rhythm Chest x-ray shows mild congestive heart failure with small pleural effusion and basilar infiltrates CT scan of the head shows age-appropriate changes without acute process. Lab data: WBC 4.3, hemoglobin 11.3, platelet 94, sodium 134, potassium 3.4, BUN 11, creatinine 1.25, AST 58, ALT 25, ALP 194, troponin 0.06, 0.04, 0.04, proBNP 1340 REVIEW OF SYSTEMS: No fever or chills. No cough or expectoration. No justice phoresis. Patient denies headache, dizziness, blurred vision, double vision. Patient denies any stomach discomfort. No nausea, vomiting. No hematochezia. No hematemesis. Denies any black stools or blood in his stools. Denies dysuria or hematuria. Positive for weakness and fatigue. No chest pain. No difficulty breathing or orthopnea. PHYSICAL EXAMINATION: This is a 88-year-old male in no apparent distress at the time of my examination. HEENT: Head is atraumatic, normocephalic. Pupils are equal, round. There is no jugular venous distention. No carotid bruit is heard. CHEST EXAMINATION: Lungs are diminished to auscultation. No chest wall tenderness is noted on palpation or with deep breathing. Fine crackles noted in the bilateral bases HEART EXAMINATION: Heart regular rate and rhythm. S1, S2 heard. No murmurs, gallops or rub. ABDOMEN: Soft, nontender. Bowel sounds are heard. No organomegaly noted. EXTREMITIES: 2+ peripheral pulses with no evidence of peripheral edema and no calf tenderness noted. NEUROLOGIC EXAMINATION: Patient is awake, alert and oriented x3. FINAL ASSESSMENT AND PLAN: Status post mechanical fall Elevated troponin, secondary to supply demand mismatch Dehydration with volume depletion Coronary artery disease Paroxysmal atrial fibrillation, not on anticoagulation due to frequent falls Sick sinus syndrome, status post permanent pacemaker PLAN: Discontinue isosorbide as this worsens orthostatic hypotension Reduce furosemide Split beta-micha into twice daily dosing Further recommendations to be based upon clinical course I am dictating on behalf of Dr Lance Valencia's history/physical and assessment/plan. Past Medical History Past Medical History: Atrial Fibrillation, Cancer, Diabetes Mellitus, Hyperlipid emia, Hypertension, Prostate Disorder, Thyroid Disorder Additional Past Medical History / Comment(s): hx prostate,liver,lung cancer, see Dr Ambrosio H&P, diet control diabetic, A-fib with pacemaker in on 2017 History of Any Multi-Drug Resistant Organisms: None Reported Past Surgical History: Heart Catheterization With Stent, Prostate Surgery, Tonsillectomy Additional Past Surgical History / Comment(s): removal of rt lobe of liver, upper left lobe of lung removed, rt knee replacement, left arm-fx, pacemaker, (R) hip replacement. Past Anesthesia/Blood Transfusion Reactions: No Reported Reaction Date of Last Stent Placement:: 2019 Type of Cardiac Device: Permanent Pacemaker Device Placement Date:: 2005 Past Psychological History: No Psychological Hx Reported Additional Psychological History / Comment(s): Lives alone, . Son lives close by Smoking Status: Former smoker Past Alcohol Use History: Daily Additional Past Alcohol Use History / Comment(s): pt states he drinks 2 to 3 glasses of wine a day, denies having trouble not drinking Past Drug Use History: None Reported - Past Family History Mother Additional Family Medical History / Comment(s): Mother from complications of diabetes. No history of cancer. Brother(s) Additional Family Medical History / Comment(s): Patient has one brother and 4 sisters with no major medical problems. Patient has 2 sons with no major medical problems. No cancers. Father Family Medical History: Cancer Additional Family Medical History / Comment(s): Father from lung cancer with history of heavy smoking. Medications and Allergies Home Medications Medication Instructions Recorded Confirmed Type Levothyroxine Sodium [Levoxyl] 75 mcg PO DAILY 06/09/15 11/28/23 History Metoprolol Succinate [Toprol XL] 100 mg PO HS 06/09/15 11/28/23 History Isosorbide Mononitrate [Isosorbide 30 mg PO HS 03/14/20 11/28/23 History Mononitrate ER] Montelukast [Singulair] 10 mg PO HS 03/14/20 11/28/23 History Atorvastatin [Lipitor] 80 mg PO HS 09/30/23 11/28/23 History Fluticasone Nasal [place] [Flonase 2 spray EA NOSTRIL DAILY PRN 09/30/23 11/28/[address] [place]] HYDROcodone/APAP 7.5-325MG [[place] 1 tab PO QID PRN 09/30/23 11/28/23 History 7.5-325] Nitroglycerin Sl Tabs [Nitrostat] 0.4 mg SL Q5M PRN 09/30/23 11/28/23 History Omeprazole [PriLOSEC] 20 mg PO AC-BID #120 cap 10/05/23 11/28/23 Rx Ferrous Sulfate [Feosol] 325 mg PO BID 11/28/23 11/28/23 History Furosemide [Lasix] 20 mg PO DAILY 11/28/23 11/29/23 History Potassium Chloride ER [K-Dur 10] 10 meq PO DAILY 11/28/23 11/28/23 History Allergies Allergy/AdvReac Type Severity Reaction Status Date / Time Tetanus Vaccines and Toxoid Allergy Unknown Verified 11/28/23 18:04 Physical Exam Vitals: Vital Signs Temp Pulse Pulse Pulse Pulse Pulse Resp 11/29/23 11:21 97.6 F 60 18 11/29/23 08:04 96 74 72 11/29/23 07:48 97.4 F L 61 18 11/29/23 05:45 97.3 F L 60 20 11/29/23 01:40 97.1 F L 61 20 11/29/23 00:13 60 18 11/29/23 00:00 62 18 11/28/23 15:37 60 18 11/28/23 14:00 78 18 BP BP BP BP Pulse Ox 11/29/23 11:21 101/60 97 11/29/23 08:04 126/79 122/83 101/66 11/29/23 07:48 105/71 94 L 11/29/23 05:45 102/64 95 11/29/23 01:40 102/72 100 11/29/23 00:13 98/64 100 11/29/23 00:00 112/64 94 L 11/28/23 15:37 116/71 100 11/28/23 14:00 92/59 100 Intake and Output 11/28/23 11/29/23 11/29/23 22:59 06:59 14:59 Intake Total 840 Output Total 200 Balance 640 Intake: IV 120 .9@10 120 Intake, IV Titration 300 Amount Azithromycin 500 mg In 250 Sodium Chloride 0.9% 250 ml @ 250 mls/hr IVPB DAILY@1600 [facility] Rx#: [id number] cefTRIAXone 2 gm In 50 Sodium Chloride 0.9% 50 ml @ 100 mls/hr IVPB Q24HR [facility] Rx#:[id number] Oral 420 Output: Urine 200 Other: Voiding Method External Catheter External Catheter # Voids 1 1 Weight 107.955 kg Results 11/28/23 13:46 11/29/23 07:13 Cardiac Enzymes 11/28/23 11/28/23 11/28/23 Range/Units 13:46 13:46 18:00 AST 58 (17-59) U/L Troponin I 0.068 H* 0.049 H* (0.000-0.034) ng/mL 11/28/23 Range/Units 20:55 AST (17-59) U/L Troponin I 0.040 H* (0.000-0.034) ng/mL Coagulation 11/28/23 Range/Units 13:46 PT 13.2 H (10.0-12.5) sec APTT 31.0 H (22.0-30.0) sec CBC 11/28/23 Range/Units 13:46 WBC 4.3 (3.8-10.6) k/uL RBC 3.58 L (4.30-5.90) m/uL Hgb 11.3 L (13.0-17.5) gm/dL Hct 34.9 L (39.0-53.0) % Plt Count 94 L D (150-450) k/uL Comprehensive Metabolic Panel 11/28/23 11/29/23 Range/Units 13:46 07:13 Sodium 134 L 133 L (137-145) mmol/L Potassium 3.4 L 4.3 (3.5-5.1) mmol/L Chloride 103 106 (98-107) mmol/L Carbon Dioxide 24 20 L (22-30) mmol/L BUN 11 13 (9-20) mg/dL Creatinine 1.25 1.12 (0.66-1.25) mg/dL Glucose 96 91 (74-99) mg/dL Calcium 8.8 8.3 L (8.4-10.2) mg/dL AST 58 (17-59) U/L ALT 25 (4-49) U/L Alkaline Phosphatase 194 H (38-126) U/L Total Protein 6.4 (6.3-8.2) g/dL Albumin 2.9 L (3.5-5.0) g/dL Current Medications Generic Name Dose Route Start Last Admin Trade Name Freq PRN Reason Stop Dose Admin Atorvastatin Calcium 80 mg 11/29/23 21:00 Atorvastatin 80 Mg Tab PO HS [facility] Famotidine 10 mg 11/29/23 21:00 Famotidine 20 Mg Tab PO BID [facility] Fluticasone Propionate 2 spray 11/28/23 22:52 Fluticasone 50mcg/[place] Nasal 16gm EA NOSTRIL DAILY PRN Allergy Symptoms Heparin Sodium (Porcine) 5,000 unit 11/29/23 21:00 Heparin Sodium,Porcine 5,000 Unit/Ml [address] Q[address] [facility] Azithromycin 500 mg/ Sodium 250 mls @ 250 mls/hr 11/29/23 16:00 Chloride IVPB 12/01/23 16:59 DAILY@1600 [facility] Protocol Ceftriaxone Sodium 2 gm/ 50 mls @ 100 mls/hr 11/29/23 09:00 11/29/23 07:42 Sodium Chloride IVPB 100 mls/hr Q24HR [facility] Administration Protocol Levothyroxine Sodium 75 mcg 11/29/23 06:30 11/29/23 06:11 Levothyroxine 75 Mcg Tab PO 75 mcg DAILY@0630 [facility] Administration Metoprolol Succinate 50 mg 11/29/23 21:00 Metoprolol Succinate (Er) 50 Mg Tab.Er.24h PO BID [facility] Montelukast Sodium 10 mg 11/29/23 21:00 Montelukast 10 Mg Tab PO HS [facility] Naloxone HCl 0.2 mg 11/28/23 16:17 Naloxone 0.4 Mg/Ml 1 Ml Vial IV Q2M PRN Opioid Reversal Pantoprazole Sodium 40 mg 11/29/23 07:30 11/29/23 06:11 Pantoprazole 40 Mg Tablet PO 40 mg [id number] [facility] Administration Intake and Output 11/28/23 11/29/23 11/29/23 22:59 06:59 14:59 Intake Total 840 Output Total 200 Balance 640 Intake: IV 120 .9@10 120 Intake, IV Titration 300 Amount Azithromycin 500 mg In 250 Sodium Chloride 0.9% 250 ml @ 250 mls/hr IVPB DAILY@1600 [facility] Rx#: [id number] cefTRIAXone 2 gm In 50 Sodium Chloride 0.9% 50 ml @ 100 mls/hr IVPB Q24HR [facility] Rx#:[id number] Oral 420 Output: Urine 200 Other: Voiding Method External Catheter External Catheter # Voids 1 1 Weight 107.955 kg 11/28/23 13:46 11/29/23 07:13
[2023-11-29 15:17] LABS: Basophils % (A) 1 %; Eosinophils # (A) 0.4 k/uL (0-0.7); Eosinophils % (A) 7 %; HCT 32.4 % (39.0-53.0); HGB 10.2 gm/dL (13.0-17.5); Hypochromasia Slight; Lymphocytes # (A) 1.4 k/uL (1.0-4.8); Lymphocytes % (A) 26 %; MCH 31.5 pg (25.0-35.0); MCHC 31.6 g/dL (31.0-37.0); MCV 99.6 fL (80.0-100.0); Macrocytosis Slight; Mean Platelet Volume 8.6; Monocytes # (A) 0.5 k/uL (0-1.0); Monocytes % (A) 9 %; Neutrophils # (A) 2.9 k/uL (1.3-7.7); Neutrophils % (A) 55 %; RBC 3.25 m/uL (4.30-5.90); RDW 15.3 % (11.5-15.5); WBC 5.2 k/uL (3.8-10.6)
[2023-11-29 15:19] LABS: Platelet Count 92 k/uL (150-450)
[2023-11-29] MEDS: AZITHROMYCIN 500 MG in SODIUM CHLORIDE 0.9% 250 ML IVPB SCH (15:58)
[2023-11-29] MEDS: ATORVASTATIN 80 MG TAB PO SCH (19:52)
[2023-11-29] MEDS: MONTELUKAST 10 MG TAB PO SCH (19:52)
[2023-11-29] MEDS: FAMOTIDINE 20 MG TAB PO SCH (19:52)
[2023-11-29] MEDS: HEPARIN SODIUM,PORCINE 5,000 UNIT/ML 1 ML VIAL SQ SCH (19:53)
[2023-11-29] MEDS: METOPROLOL SUCCINATE (ER) 50 MG TAB.ER.24H PO SCH (19:53)
[2023-11-29] MEDS ORDERED: METOPROLOL SUCCINATE (ER) 100 MG TAB.ER.24H PO SCH (21:00)
[2023-11-29] MEDS ORDERED: FAMOTIDINE 20 MG/2 ML VIAL IV SCH (21:00)
[2023-11-30 09:07] LABS: African American GFR (CKD) 60 (>60 ml/min/1.73 sqM); Anion Gap 5 mmol/L; Blood Urea Nitrogen 12 mg/dL (9-20); Calcium 8.2 mg/dL (8.4-10.2); Carbon Dioxide 22 mmol/L (22-30); Chloride 107 mmol/L (98-107); Glucose 98 mg/dL (74-99); Non-African American GFR(CKD) 52 (>60 ml/min/1.73 sqM); Sodium 134 mmol/L (137-145)
[2023-11-30] MEDS: METOPROLOL SUCCINATE (ER) 25 MG TAB.ER.24H PO SCH (11:13)
[2023-11-30 11:54] LABS: Basophils % (A) 1 %; Eosinophils # (A) 0.3 k/uL (0-0.7); Eosinophils % (A) 6 %; HCT 29.8 % (39.0-53.0); HGB 9.7 gm/dL (13.0-17.5); Hypochromasia Slight; Lymphocytes # (A) 1.9 k/uL (1.0-4.8); Lymphocytes % (A) 34 %; MCH 31.5 pg (25.0-35.0); MCHC 32.6 g/dL (31.0-37.0); MCV 96.6 fL (80.0-100.0); Mean Platelet Volume 9.8; Monocytes # (A) 0.6 k/uL (0-1.0); Monocytes % (A) 11 %; Neutrophils # (A) 2.5 k/uL (1.3-7.7); Neutrophils % (A) 46 %; RBC 3.08 m/uL (4.30-5.90); RDW 15.2 % (11.5-15.5); WBC 5.5 k/uL (3.8-10.6)
[2023-11-30 12:01] LABS: Platelet Count 78 k/uL (150-450)
--- NOTE | 2023-11-30 12:36 | P.PN ---
Subjective Progress Note Date: 11/30/23 The patient is an 88-year-old male who is admitted to the hospital with generalized weakness status post me chanical fall. He was found on the floor by his caregiver, where he was noted to have approximately a 2-hour downtime. Since his admission to the hospital he states he is feeling better. He has been able to get up and ambulate to the re [facility] st[facility]. He denies any difficulty breathing, chest discomfort, or dizziness and lightheadedness. GENERAL: Well-appearing, well-nourished and in no acute distress. NECK: Supple without JVD or thyromegaly. LUNGS: Breath sounds clear to auscultation bilaterally. Respiration equal and unlabored. No wheezes, rales or rhonchi. HEART: Regular rate and rhythm without murmurs, rubs or gallops. S1 and S2 heard. EXTREMITIES: Normal range of motion, no edema. No clubbing or cyanosis. Peripheral pulses intact and strong. TELEMETRY: Sinus rhythm overnight IMPRESSION: Status post mechanical fall Elevated troponin, secondary to supply demand mismatch Dehydration with volume depletion Coronary artery disease Paroxysmal atrial fibrillation, not on anticoagulation due to frequent falls Sick sinus syndrome status post permanent pacemaker PLAN: Reduce metoprolol to 25 mg twice daily for borderline hypotension Encourage oral intake Continue aggressive pulmonary hygiene No further recommendations from the cardiac standpoint I am dictating on behalf of Dr Lance Valencia's history/physical and assessment/plan. Objective - Vital Signs Vital signs: Vital Signs Temp 97.6 F 11/30/23 11:05 Pulse 62 11/30/23 11:05 Resp 18 11/30/23 11:05 BP 94/56 11/30/23 11:05 Pulse Ox 96 11/30/23 11:05 FiO2 Intake & Output 11/29/23 11/30/23 11/30/23 18:59 06:59 18:59 Intake Total 1020 180 Output Total 400 150 Balance 620 -150 180 Intake: IV 120 .9@10 120 Intake, IV Titration 300 Amount Azithromycin 500 mg In 250 Sodium Chloride 0.9% 250 ml @ 250 mls/hr IVPB DAILY@1600 [facility] Rx#: [id number] cefTRIAXone 2 gm In 50 Sodium Chloride 0.9% 50 ml @ 100 mls/hr IVPB Q24HR [facility] Rx#:[id number] Oral 600 180 Output: Urine 400 150 Other: Voiding Method External Catheter External Catheter External Catheter # Voids 1 0 - Labs CBC & Chem 7: 11/30/23 10:20 11/30/23 08:16 Labs: Abnormal Lab Results - Last 24 Hours (Table) 11/29/23 11/30/23 11/30/23 Range/Units 14:02 08:16 10:20 RBC 3.25 L 3.08 L (4.30-5.90) m/uL Hgb 10.2 L 9.7 L (13.0-17.5) gm/dL Hct 32.4 L 29.8 L (39.0-53.0) % Plt Count 92 L 78 L (150-450) k/uL Sodium 134 L (137-145) mmol/L Calcium 8.2 L (8.4-10.2) mg/dL Microbiology - Last 24 Hours (Table) 11/28/23 18:00 Blood Culture Gram Stain - Preliminary Blood Blood Culture - Preliminary Coagulase Negative Staph
--- NOTE | 2023-11-30 13:02 | P.PN ---
Subjective Progress Note Date: 11/30/23 88-year-old male with a past medical history of atrial fibrillation not on anticoagulation, hypertension, hyperlipidemia, diabetes type 2 diet controlled, hypothyroidism and history of lung cancer s/p resection, history of prostate, liver cancer, history of pacemaker placement in 2017 and prior history of smoking and alcohol use presents to ER with complaints of generalized weakness and fall. Patient lives by himself and able to walk with a walker. His caregiver helps with house chores and cooking. Patient was found on the floor this morning by his caregiver. Patient has been laid on the ground for 2 hours. Patient states that he felt so weak and could not get up. States that he lost his balance and fell on the floor. Denies any hitting his head. Patient was previously on anticoagulation. Currently patient is awake alert and orient x 3. Denies any chest pain or shortness of. No worsening leg swelling. No nausea vomiting or diarrhea. Denies abdominal pain. Denies any recent illnesses. Chest x-ray showed correlate for mild CHF with small pleural effusion and basilar infiltrate. Improving right perihilar infiltrate with persistent density. Recommend short- term follow-up CT of the chest to rule out neoplasm. CT head showed age- appropriate changes. No acute bleed or mass effect or infarct. EKG showed electronic ventricular paced rhythm. Laboratory showed WBC 4.3 hemoglobin 11.3 and platelets 94. INR 1.3, sodium 134 potassium 3.4 chloride 103 bicarb is 24 BUN 11 and creatinine 1.25. AST 58 ALT 25 alk phos 194 Troponin 0.068, 0.049 and 0.040 proBNP 1340 and albumin 2.9. 11/30/2023: Patient seen and evaluated bedside, patient states does complain of weakness however denies of any acute issues of pain. CBC and basic metabolic panel reviewed. Heart rate 62 blood pressure 94/56 patient asymptomatic PHYSICAL EXAMINATION: GENERAL: The patient is alert and oriented x3, not in any acute distress. Well developed, well nourished. HEENT: Pupils are round and equally reacting to light. EOMI. No scleral icterus. No conjunctival pallor. Normocephalic, atraumatic. No pharyngeal erythema. No thyromegaly. CARDIOVASCULAR: S1 and S2 present. No murmurs, rubs, or gallops. PULMONARY: Chest is clear to auscultation, no wheezing or crackles. ABDOMEN: Soft, nontender, nondistended, normoactive bowel sounds. No palpable organomegaly. MUSCULOSKELETAL: No joint swelling or deformity. EXTREMITIES: No cyanosis, clubbing, or pedal edema. NEUROLOGICAL: Gross neurological examination did not reveal any focal deficits. SKIN: No rashes. Objective - Vital Signs Vital signs: Vital Signs Temp 97.6 F 11/30/23 11:05 Pulse 62 11/30/23 11:05 Resp 18 11/30/23 11:05 BP 94/56 11/30/23 11:05 Pulse Ox 96 11/30/23 11:05 FiO2 Intake & Output 11/29/23 11/30/23 11/30/23 18:59 06:59 18:59 Intake Total 1020 180 Output Total 400 150 Balance 620 -150 180 Intake: IV 120 .9@10 120 Intake, IV Titration 300 Amount Azithromycin 500 mg In 250 Sodium Chloride 0.9% 250 ml @ 250 mls/hr IVPB DAILY@1600 [facility] Rx#: [id number] cefTRIAXone 2 gm In 50 Sodium Chloride 0.9% 50 ml @ 100 mls/hr IVPB Q24HR [facility] Rx#:[id number] Oral 600 180 Output: Urine 400 150 Other: Voiding Method External Catheter External Catheter External Catheter # Voids 1 0 - Labs CBC & Chem 7: 11/30/23 10:20 11/30/23 08:16 Labs: Abnormal Lab Results - Last 24 Hours (Table) 11/29/23 11/30/23 11/30/23 Range/Units 14:02 08:16 10:20 RBC 3.25 L 3.08 L (4.30-5.90) m/uL Hgb 10.2 L 9.7 L (13.0-17.5) gm/dL Hct 32.4 L 29.8 L (39.0-53.0) % Plt Count 92 L 78 L (150-450) k/uL Sodium 134 L (137-145) mmol/L Calcium 8.2 L (8.4-10.2) mg/dL Microbiology - Last 24 Hours (Table) 11/28/23 18:00 Blood Culture Gram Stain - Preliminary Blood Blood Culture - Preliminary Coagulase Negative Staph Assessment and Plan Assessment: Assessment and plan S/p fall likely mechanical. Patient lost balance and fell on the ground and stayed for 2 hours. Denies loss of consciousness. Elevated troponin level secondary to type II RI Dehydration volume depletion, with hypotension Community-acquired pneumonia Coronary artery disease history of stent placement Paroxysmal atrial fibrillation. Not on anticoagulation. Status post permanent pacemaker placement Hypothyroidism History of prostate, liver and lung cancer Diet controlled diabetes type 2 Persistent right perihilar density. rule out neoplasm. Obesity with BMI of 34.1 * In regards to mechanical fall patient will need physical therapy Occupational Therapy evaluation * In regards to elevated troponin secondary to demand ischemia continue patient on medical management, dose of metoprolol decreased secondary to low blood pressure * Regards to community-acquired pneumonia continue patient on Rocephin and azithromycin day 2 * In regards to atrial fibrillation continue patient on metoprolol, monitor for hypotension * Regards to transient hypotension continue to hold Lasix, Imdur
[2023-12-01 09:06] LABS: HCT 31.7 % (39.0-53.0); HGB 9.7 gm/dL (13.0-17.5); Hypochromasia Moderate; MCHC 30.8 g/dL (31.0-37.0); MCV 100.8 fL (80.0-100.0); Macrocytosis Slight; Mean Platelet Volume 10.1; RBC 3.14 m/uL (4.30-5.90); RDW 15.6 % (11.5-15.5); WBC 5.2 k/uL (3.8-10.6)
[2023-12-01 09:17] LABS: Platelet Count 51 k/uL (150-450)
[2023-12-01 09:21] LABS: African American GFR (CKD) 60 (>60 ml/min/1.73 sqM); Anion Gap 7 mmol/L; Blood Urea Nitrogen 13 mg/dL (9-20); C Reactive Protein 4.1 mg/dL (<1.0); Calcium 8.2 mg/dL (8.4-10.2); Carbon Dioxide 17 mmol/L (22-30); Chloride 109 mmol/L (98-107); Glucose 79 mg/dL (74-99); Non-African American GFR(CKD) 52 (>60 ml/min/1.73 sqM); Sodium 133 mmol/L (137-145)
[2023-12-01 09:27] LABS: Potassium 4.1 mmol/L (3.5-5.1)
--- NOTE | 2023-12-01 10:51 | P.PN ---
Subjective Progress Note Date: 12/01/23 The patient is an 88-year-old male who is admitted to the hospital with generalized weakness status post mechanical fall. He was found on the floor by his caregiver, where he was noted to have approximately a 2-hour downtime. Since his admission to the hospital he states he is feeling better. He has been able to get up and ambulate to the restroom. He denies any difficulty breathing, chest discomfort, or dizziness and lightheadedness. Telemetry is ventricular paced rhythm. Blood pressure 118/79, heart rate in the 60s, pulse ox 99% on room air. Repeat blood work reveals hemoglobin of 9.7. Sodium 133, potassium 4.1, chloride 109, CO2 17, creatinine 1.24. GENERAL: Well-appearing, well-nourished and in no acute distress. NECK: Supple without JVD or thyromegaly. LUNGS: Breath sounds clear to auscultation bilaterally. Respiration equal and unlabored. No wheezes, rales or rhonchi. HEART: Regular rate and rhythm without murmurs, rubs or gallops. S1 and S2 heard. EXTREMITIES: Normal range of motion, no edema. No clubbing or cyanosis. Peripheral pulses intact and strong. IMPRESSION: Status post mechanical fall Elevated troponin, secondary to supply demand mismatch Dehydration with volume depletion Coronary artery disease Paroxysmal atrial fibrillation, not on anticoagulation due to frequent falls Sick sinus syndrome status post permanent pacemaker PLAN: Continue metoprolol tartrate 25 mg twice daily Encourage oral intake Continue aggressive pulmonary hygiene No further recommendations from the cardiac standpoint. Patient is cleared from cardiology for discharge Cardiology will sign off this case and follow on an as-needed basis. Please reconsult for any new concerns. Patient may follow-up in the office in one to 2 weeks. Nurse practitioner note has been reviewed, I agree with documented findings and plan of care. Patient was seen and examined. Objective - Vital Signs Vital signs: Vital Signs Temp 97.6 F 12/01/23 00:00 Pulse 64 12/01/23 04:00 Resp 16 12/01/23 04:00 BP 124/68 12/01/23 04:00 Pulse Ox 97 12/01/23 04:00 FiO2 Intake & Output 11/30/23 12/01/23 12/01/23 18:59 06:59 18:59 Intake Total 1560 Output Total 300 200 Balance 1260 -200 Intake: IV 120 .9@10 120 Intake, IV Titration 300 Amount Azithromycin 500 mg In 250 Sodium Chloride 0.9% 250 ml @ 250 mls/hr IVPB DAILY@1600 [facility] Rx#: [id number] cefTRIAXone 2 gm In 50 Sodium Chloride 0.9% 50 ml @ 100 mls/hr IVPB Q24HR [facility] Rx#:[id number] Oral 1140 Output: Urine 300 200 Other: Voiding Method External Catheter External Catheter # Voids 0 1 # Bowel Movements 1 - Labs CBC & Chem 7: 12/01/23 07:53 12/01/23 07:53 Labs: Abnormal Lab Results - Last 24 Hours (Table) 11/30/23 11/30/23 Range/Units 08:16 10:20 RBC 3.08 L (4.30-5.90) m/uL Hgb 9.7 L (13.0-17.5) gm/dL Hct 29.8 L (39.0-53.0) % Plt Count 78 L (150-450) k/uL Sodium 134 L (137-145) mmol/L Calcium 8.2 L (8.4-10.2) mg/dL Microbiology - Last 24 Hours (Table) 11/28/23 18:00 Blood Culture Gram Stain - Preliminary Blood Blood Culture - Preliminary Coagulase Negative Staph
[2023-12-01 11:41] LABS: Glucose,Whole Blood 83 mg/dL (70-110)
--- NOTE | 2023-12-01 11:42 | P.PN ---
Subjective Progress Note Date: 12/01/23 88-year-old male with a past medical history of atrial fibrillation not on anticoagulation, hypertension, hyperlipidemia, diabetes type 2 diet controlled, hypothyroidism and history of lung cancer s/p resection, history of prostate, liver cancer, history of pacemaker placement in 2017 and prior history of smoking and alcohol use presents to ER with complaints of generalized weakness and fall. Patient lives by himself and able to walk with a walker. His caregiver helps with house chores and cooking. Patient was found on the floor this morning by his caregiver. Patient has been laid on the ground for 2 hours. Patient states that he felt so weak and could not get up. States that he lost his balance and fell on the floor. Denies any hitting his head. Patient was previously on anticoagulation. Currently patient is awake alert and orient x 3. Denies any chest pain or shortness of. No worsening leg swelling. No nausea vomiting or diarrhea. Denies abdominal pain. Denies any recent illnesses. Chest x-ray showed correlate for mild CHF with small pleural effusion and basilar infiltrate. Improving right perihilar infiltrate with persistent density. Recommend short- term follow-up CT of the chest to rule out neoplasm. CT head showed age- appropriate changes. No acute bleed or mass effect or infarct. EKG showed electronic ventricular paced rhythm. Laboratory showed WBC 4.3 hemoglobin 11.3 and platelets 94. INR 1.3, sodium 134 potassium 3.4 chloride 103 bicarb is 24 BUN 11 and creatinine 1.25. AST 58 ALT 25 alk phos 194 Troponin 0.068, 0.049 and 0.040 proBNP 1340 and albumin 2.9. 11/30/2023: Patient seen and evaluated bedside, patient states does complain of weakness however denies of any acute issues of pain. CBC and basic metabolic panel reviewed. Heart rate 62 blood pressure 94/56 patient asymptomatic 12/01/23: Patient seen and evaluated bedside, patient will need evaluation with physical therapy. Seen by cardiology continue metoprolol twice a day. Cardiology will sign off. Will coordinate with case management regarding rehab versus home.. Continue patient on current antibiotic. PHYSICAL EXAMINATION: GENERAL: The patient is alert and oriented x3, not in any acute distress. Well developed, well nourished. HEENT: Pupils are round and equally reacting to light. EOMI. No scleral icterus. No conjunctival pallor. Normocephalic, atraumatic. CARDIOVASCULAR: S1 and S2 present. No murmurs, rubs, or gallops. PULMONARY: Please breath sounds bilateral ABDOMEN: Soft, nontender, nondistended, normoactive bowel sounds. No palpable organomegaly. MUSCULOSKELETAL: No joint swelling or deformity. EXTREMITIES: No cyanosis, clubbing, or pedal edema. NEUROLOGICAL: Gross neurological examination did not reveal any focal deficits. SKIN: No rashes. Objective - Vital Signs Vital signs: Vital Signs Temp 97.5 F L 12/01/23 08:00 Pulse 66 12/01/23 08:00 Resp 18 12/01/23 08:00 BP 118/79 12/01/23 08:00 Pulse Ox 99 12/01/23 08:00 FiO2 Intake & Output 11/30/23 12/01/23 12/01/23 18:59 06:59 18:59 Intake Total 1560 Output Total 300 200 Balance 1260 -200 Intake: IV 120 .9@10 120 Intake, IV Titration 300 Amount Azithromycin 500 mg In 250 Sodium Chloride 0.9% 250 ml @ 250 mls/hr IVPB DAILY@1600 [facility] Rx#: [id number] cefTRIAXone 2 gm In 50 Sodium Chloride 0.9% 50 ml @ 100 mls/hr IVPB Q24HR [facility] Rx#:[id number] Oral 1140 Output: Urine 300 200 Other: Voiding Method External Catheter External Catheter External Catheter # Voids 0 1 # Bowel Movements 1 - Labs CBC & Chem 7: 12/01/23 07:53 12/01/23 07:53 Labs: Abnormal Lab Results - Last 24 Hours (Table) 11/30/23 12/01/23 12/01/23 Range/Units 10:20 07:53 07:53 RBC 3.08 L 3.14 L (4.30-5.90) m/uL Hgb 9.7 L 9.7 L (13.0-17.5) gm/dL Hct 29.8 L 31.7 L (39.0-53.0) % MCV 100.8 H (80.0-100.0) fL MCHC 30.8 L (31.0-37.0) g/dL RDW 15.6 H (11.5-15.5) % Plt Count 78 L 51 L (150-450) k/uL Sodium 133 L (137-145) mmol/L Chloride 109 H (98-107) mmol/L Carbon Dioxide 17 L (22-30) mmol/L Calcium 8.2 L (8.4-10.2) mg/dL C-Reactive Protein 4.1 H (<1.0) mg/dL Microbiology - Last 24 Hours (Table) 11/28/23 18:00 Blood Culture Gram Stain - Preliminary Blood Blood Culture - Preliminary Coagulase Negative Staph Assessment and Plan Assessment: Assessment and plan S/p fall likely mechanical. Patient lost balance and fell on the ground and stayed for 2 hours. Denies loss of consciousness. Elevated troponin level secondary to type II PR Dehydration volume depletion, with hypotension Community-acquired pneumonia Coronary artery disease history of stent placement Paroxysmal atrial fibrillation. Not on anticoagulation. Status post permanent pacemaker placement Hypothyroidism History of prostate, liver and lung cancer Diet controlled diabetes type 2 Persistent right perihilar density. rule out neoplasm. Obesity with BMI of 34.1 * In regards to mechanical fall patient will need physical therapy Occupational Therapy evaluation, will need evaluation for discharge to rehab * In regards to elevated troponin secondary to demand ischemia continue patient on medical management, dose of metoprolol decreased secondary to low blood pressure * Regards to community-acquired pneumonia continue patient on Rocephin and azithromycin day 12/08 * In regards to atrial fibrillation continue patient on metoprolol, monitor for hypotension * Regards to transient hypotension, initially Imdur and Lasix was held however Lasix resumed 12/01 will monitor for hypotension. * In regards to perihilar opacity, will need CT chest outpatient and pulmonary medicine follow-up to rule out neoplasm Time with Patient: Greater than 30
[2023-12-01] MEDS: POTASSIUM CHLORIDE ER 10 MEQ TAB.ER.PRT PO SCH (11:51)
[2023-12-01] MEDS: FUROSEMIDE 20 MG TAB PO SCH (11:51)
[2023-12-01] MEDS: FERROUS SULFATE 325 MG TAB PO SCH (11:51)
[2023-12-01 16:41] LABS: Glucose,Whole Blood 100 mg/dL (70-110)
[2023-12-01 20:31] LABS: Glucose,Whole Blood 104 mg/dL (70-110)
[2023-12-02 06:17] LABS: Glucose,Whole Blood 75 mg/dL (70-110)
[2023-12-02 09:12] VITALS: PULSE 61; RESP 18; TEMP 97.4
[2023-12-02 09:27] LABS: HCT 30.6 % (39.0-53.0); HGB 9.9 gm/dL (13.0-17.5); Hypochromasia Slight; MCH 31.6 pg (25.0-35.0); MCHC 32.2 g/dL (31.0-37.0); MCV 98.4 fL (80.0-100.0); Macrocytosis Slight; Mean Platelet Volume 7.9; RBC 3.11 m/uL (4.30-5.90); RDW 15.5 % (11.5-15.5); WBC 4.3 k/uL (3.8-10.6)
[2023-12-02 09:31] LABS: Platelet Count 92 k/uL (150-450)
[2023-12-02 09:35] LABS: African American GFR (CKD) 58 (>60 ml/min/1.73 sqM); Anion Gap 4 mmol/L; Blood Urea Nitrogen 13 mg/dL (9-20); Calcium 8.1 mg/dL (8.4-10.2); Carbon Dioxide 23 mmol/L (22-30); Chloride 107 mmol/L (98-107); Glucose 94 mg/dL (74-99); Non-African American GFR(CKD) 51 (>60 ml/min/1.73 sqM); Potassium 3.6 mmol/L (3.5-5.1); Sodium 134 mmol/L (137-145)
[2023-12-02 10:23] LABS: C Reactive Protein 3.8 mg/dL (<1.0)
--- NOTE | 2023-12-02 11:17 | P.DS ---
Providers Date of admission: 11/28/23 16:33 Expected date of discharge: 12/02/23 Attending physician: Karen Bell Consults: 11/28/23 16:28 Consult Physician Routine Consulting Provider: [facility] Consult Reason/Comments: elevated troponin Do you want consulting provider notified?: Yes Primary care physician: Blake [facility] Course: 88-year-old male with a past medical history of atrial fibrillation not on anticoagulation, hypertension, hyperlipidemia, diabetes type 2 diet controlled, hypothyroidism and history of lung cancer s/p resection, history of prostate, liver cancer, history of pacemaker placement in 2017 and prior history of smoking and alcohol use presents to ER with complaints of generalized weakness and fall. Patient lives by himself and able to walk with a walker. His caregiver helps with house chores and cooking. Patient was found on the floor this morning by his caregiver. Patient has been laid on the ground for 2 hours. Patient states that he felt so weak and could not get up. States that he lost his balance and fell on the floor. Denies any hitting his head. Patient was previously on anticoagulation. Currently patient is awake alert and orient x 3. Denies any chest pain or shortness of. No worsening leg swelling. No nausea vomiting or diarrhea. Denies abdominal pain. Denies any recent illnesses. Chest x-ray showed correlate for mild CHF with small pleural effusion and basilar infiltrate. Improving right perihilar infiltrate with persistent density. Recommend short- term follow-up CT of the chest to rule out neoplasm. CT head showed age- appropriate changes. No acute bleed or mass effect or infarct. EKG showed electronic ventricular paced rhythm. Laboratory showed WBC 4.3 hemoglobin 11.3 and platelets 94. INR 1.3, sodium 134 potassium 3.4 chloride 103 bicarb is 24 BUN 11 and creatinine 1.25. AST 58 ALT 25 alk phos 194 Troponin 0.068, 0.049 and 0.040 proBNP 1340 and albumin 2.9. 11/30/2023: Patient seen and evaluated bedside, patient states does complain of weakness however denies of any acute issues of pain. CBC and basic metabolic panel reviewed. Heart rate 62 blood pressure 94/56 patient asymptomatic 12/01/23: Patient seen and evaluated bedside, patient will need evaluation with physical therapy. Seen by cardiology continue metoprolol twice a day. Cardiology will sign off. Will coordinate with case management regarding rehab versus home.. Continue patient on current antibiotic. 12/02/23: Patient seen and evaluated bedside, on evaluation patient is alert and oriented, patient appears at baseline completed course of antibiotic. Patient remains on room air patient to be discharged to subacute rehab patient in agreement. Care plan discussed with patient. PHYSICAL EXAMINATION: GENERAL: The patient is alert and oriented x3, not in any acute distress. Well developed, well nourished. HEENT: Pupils are round and equally reacting to light. EOMI.. Normocephalic, atraumatic. CARDIOVASCULAR: S1 and S2 present. No murmurs, rubs, or gallops. PULMONARY: Improved breath sounds bilaterally ABDOMEN: Soft, nontender, nondistended, normoactive bowel sounds. No palpable organomegaly. MUSCULOSKELETAL: No joint swelling or deformity. EXTREMITIES: No cyanosis, clubbing, or pedal edema. NEUROLOGICAL: Gross neurological examination did not reveal any focal deficits. SKIN: No rashes. Assessment and plan S/p fall likely mechanical. Patient lost balance and fell on the ground and stayed for 2 hours. Denies loss of consciousness. Elevated troponin level secondary to type II MA Dehydration volume depletion, with hypotension RESOLVED Community-acquired pneumonia TREATED Coronary artery disease history of stent placement Paroxysmal atrial fibrillation. Not on anticoagulation. Status post permanent pacemaker placement Hypothyroidism History of prostate, liver and lung cancer Diet controlled diabetes type 2 Persistent right perihilar density. rule out neoplasm. Obesity with BMI of 34.1 * In regards to mechanical fall patient will need physical therapy Occupational Therapy evaluation, will need evaluation for discharge to rehab * In regards to elevated troponin secondary to demand ischemia continue patient on medical management, dose of metoprolol decreased secondary to low blood pressure * Regards to community-acquired pneumonia , patient was on Rocephin and azithromycin day 5 * In regards to atrial fibrillation continue patient on metoprolol, blood pressure improved * Regards to transient hypotension, initially Imdur and Lasix was held however Lasix resumed , though resumed upon discharge * In regards to perihilar opacity, will need CT chest outpatient and pulmonary medicine follow-up to rule out neoplasm Patient Condition at Discharge: Fair Plan - Discharge Summary Discharge Rx Participant: No New Discharge Prescriptions: New Metoprolol Succinate (ER) [Toprol XL] 25 mg PO BID tab Continue Levothyroxine Sodium [Levoxyl] 75 mcg PO DAILY Montelukast [Singulair] 10 mg PO HS Isosorbide Mononitrate [Isosorbide Mononitrate ER] 30 mg PO HS Nitroglycerin Sl Tabs [Nitrostat] 0.4 mg SL Q5M PRN PRN Reason: Chest Pain Omeprazole [PriLOSEC] 20 mg PO AC-BID #120 cap Ferrous Sulfate [Iron (65 MG Elemental)] 325 mg PO BID Furosemide [Lasix] 20 mg PO DAILY Potassium Chloride ER [K-Dur 10] 10 meq PO DAILY Atorvastatin [Lipitor] 80 mg PO HS Fluticasone Nasal [place] [Flonase Nasal [place]] 2 spray EA NOSTRIL DAILY PRN PRN Reason: Allergy Symptoms HYDROcodone/APAP 7.5-325MG [[place] 7.5-325] 1 tab PO QID PRN 3 Days #12 tab PRN Reason: Pain Discontinued Metoprolol Succinate [Toprol XL] 100 mg PO HS Discharge Medication List Levothyroxine Sodium [Levoxyl] 75 mcg PO DAILY 06/09/15 [History] Isosorbide Mononitrate [Isosorbide Mononitrate ER] 30 mg PO HS 03/14/20 [History] Montelukast [Singulair] 10 mg PO HS 03/14/20 [History] Atorvastatin [Lipitor] 80 mg PO HS 09/30/23 [History] Fluticasone Nasal [place] [Flonase Nasal [place]] 2 spray EA NOSTRIL DAILY PRN 09/30/23 [History] Nitroglycerin Sl Tabs [Nitrostat] 0.4 mg SL Q5M PRN 09/30/23 [History] Omeprazole [PriLOSEC] 20 mg PO AC-BID #120 cap 10/05/23 [Rx] Ferrous Sulfate [Iron (65 MG Elemental)] 325 mg PO BID 11/28/23 [History] Furosemide [Lasix] 20 mg PO DAILY 11/28/23 [History] Potassium Chloride ER [K-Dur 10] 10 meq PO DAILY 11/28/23 [History] HYDROcodone/APAP 7.5-325MG [[place] 7.5-325] 1 tab PO QID PRN 3 Days #12 tab 12/02/23 [Rx] Metoprolol Succinate (ER) [Toprol XL] 25 mg PO BID tab 12/02/23 [Rx] Follow up Appointment(s)/Referral(s): Irving Krishnan DO [Doctor of Osteopathic Medicine] - 1 Week ( you will need outpatient CT chest rule out malignancy and follow-up with Pulmonary Medicine) Blake Patiño [Primary Care Provider] - 1-2 days Luis Enrique Khalil MD [STAFF PHYSICIAN] - 1 Week Discharge Disposition: TRANSFER TO SNF/ECF
[2023-12-02 11:21] VITALS: BP 124/78
[2023-12-02 11:35] LABS: Glucose,Whole Blood 99 mg/dL (70-110)
== END 2023-12-02 15:11 | DRG 640 ==
LOC: EC 12:57 → 3SCARD 16:33
PROVIDERS: ADMIT Internal Medicine; ATTEND Internal Medicine
DX: E86.0 Dehydration (principal); I21.A1 Myocardial infarction type 2; J18.9 Pneumonia, unspecified organism; Z11.52 Encounter for screening for COVID-19; R29.6 Repeated falls; I49.5 Sick sinus syndrome; E03.9 Hypothyroidism, unspecified; I48.0 Paroxysmal atrial fibrillation; E66.9 Obesity, unspecified; E78.5 Hyperlipidemia, unspecified; E86.9 Volume depletion, unspecified; D64.9 Anemia, unspecified; I25.10 Atherosclerotic heart disease of native coronary artery without angina pectoris; Z96.651 Presence of right artificial knee joint; Z96.641 Presence of right artificial hip joint; Z85.05 Personal history of malignant neoplasm of liver; Z95.0 Presence of cardiac pacemaker; Z85.118 Personal history of other malignant neoplasm of bronchus and lung; Z68.34 Body mass index [BMI] 34.0-34.9, adult; W01.0XXA Fall on same level from slipping, tripping and stumbling without subsequent striking against object, initial encounter; Z79.890 Hormone replacement therapy; Z88.7 Allergy status to serum and vaccine; Z79.899 Other long term (current) drug therapy; Z85.46 Personal history of malignant neoplasm of prostate; Z87.891 Personal history of nicotine dependence
CPT/HCPCS: 36415; 51798; 70450; 71046; 80048; 80053; 81001; 82550; 83605; 83735; 83880; 84145; 84484; 85025; 85027; 85610; 85730; 86140; 87040; 87077; 87186; 87636; 93005; 96361; 96365; 96367; 99285

== ENCOUNTER 2023-12-02 19:06 | Emergency (ER) | payer MEDICARE ==
--- NOTE | 2023-12-02 19:29 | ED ---
Fall HPI - General Chief Complaint: Fall Stated Complaint: Fall Time Seen by Provider: 12/02/23 19:12 Source: patient, EMS Mode of arrival: EMS - History of Present Illness Initial Comments: This patient is 88-year-old man sent here from care home to have evaluation after he had ground-level fall. The nurses there were concerned as the fall was unwitnessed and they were concerned about head injury. When I interviewed the patient he is oriented and he states that the fall was directly down onto his buttocks. He denies any injury to his head or neck. There was no loss of consciousness. The patient states that he was just weak. The placement at the care home is to have rehabilitation. I note that the patient did have recent fall and recent head CT related to that. MD Complaint: fall -: minutes(s) Fall From: standing When Fall Occurred: just prior to arrival Fall Witnessed: yes, by bystander Place Fall Occurred: care home/SNF Loss of Consciousness: none Prolonged Down Time?: no Symptoms Prior to Fall: none Location: buttocks Severity: moderate Quality: dull Context: history of frequent falls - Related Data Home Medications Medication Instructions Recorded Confirmed Levothyroxine Sodium [Levoxyl] 75 mcg PO HS 06/09/15 12/08/23 Isosorbide Mononitrate [Isosorbide 30 mg PO HS 03/14/20 12/08/23 Mononitrate ER] Montelukast [Singulair] 10 mg PO HS 03/14/20 12/08/23 Atorvastatin [Lipitor] 80 mg PO HS 09/30/23 12/08/23 Fluticasone Nasal [place] [Flonase 2 spray EA NOSTRIL DAILY PRN 09/30/23 12/08/23 Nasal [place]] Nitroglycerin Sl Tabs [Nitrostat] 0.4 mg SL Q5M PRN 09/30/23 12/08/23 Ferrous Sulfate [Iron (65 MG 325 mg PO Q12H 11/28/23 12/08/23 Elemental)] Furosemide [Lasix] 20 mg PO DAILY@59911/28/23 12/08/23 Potassium Chloride ER [K-Dur 10] 10 meq PO DAILY@59911/28/23 12/08/23 Metoprolol Succinate (ER) [Toprol 25 mg PO Q12H 12/08/23 12/08/23 XL] Previous Rx's Medication Instructions Recorded Omeprazole [PriLOSEC] 20 mg PO AC-BID #120 cap 10/05/23 HYDROcodone/APAP 7.5-325MG [[place] 1 tab PO QID PRN 3 Days #12 tab 12/02/23 7.5-325] Allergies Allergy/AdvReac Type Severity Reaction Status Date / Time Tetanus Vaccines and Toxoid Allergy Unknown Verified 12/08/23 14:01 Review of Systems ROS Statement: Those systems with pertinent positive or pertinent negative responses have been documented in the HPI. ROS Other: All systems not noted in ROS Statement are negative. Constitutional: Reports: weakness. Denies: fever, chills Eyes: Denies: vision change Respiratory: Denies: cough, dyspnea Cardiovascular: Reports: edema (Chronic). Denies: chest pain, palpitations Gastrointestinal: Denies: abdominal pain, vomiting, diarrhea Genitourinary: Denies: dysuria, hematuria Musculoskeletal: Denies: back pain Skin: Denies: rash Neurological: Denies: headache, weakness, confusion Past Medical History Past Medical History: Atrial Fibrillation, Cancer, Diabetes Mellitus, Hyperlipidemia, Hypertension, Prostate Disorder, Thyroid Disorder Additional Past Medical History / Comment(s): hx prostate,liver,lung cancer, see Dr Ambrosio H&P, diet control diabetic, A-fib with pacemaker in on 2016 History of Any Multi-Drug Resistant Organisms: None Reported Past Surgical History: Heart Catheterization With Stent, Prostate Surgery, Tonsillectomy Additional Past Surgical History / Comment(s): removal of rt lobe of liver, upper left lobe of lung removed, rt knee replacement, left arm-fx, pacemaker, (R) hip replacement. Past Anesthesia/Blood Transfusion Reactions: No Reported Reaction Date of Last Stent Placement:: 2019 Type of Cardiac Device: Permanent Pacemaker Device Placement Date:: 2005 Past Psychological History: No Psychological Hx Reported Smoking Status: Former smoker Past Alcohol Use History: Daily Past Drug Use History: None Reported - Past Family History Mother Additional Family Medical History / Comment(s): Mother from complications of diabetes. No history of cancer. Brother(s) Additional Family Medical History / Comment(s): Patient has one brother and 4 sisters with no major medical problems. Patient has 2 sons with no major medical problems. No cancers. Father Family Medical History: Cancer Additional Family Medical History / Comment(s): Father from lung cancer with history of heavy smoking. General Exam Limitations: no limitations General appearance: alert, in no apparent distress Head exam: Present: atraumatic, normocephalic Eye exam: Present: normal appearance, EOMI. Absent: scleral icterus, conjunctival injection Neck exam: Present: normal inspection, full ROM. Absent: tenderness Respiratory exam: Present: normal lung sounds bilaterally. Absent: respiratory distress, wheezes, rales, rhonchi, stridor, chest wall tenderness, accessory muscle use Cardiovascular Exam: Present: regular rate, normal rhythm, normal heart sounds. Absent: systolic murmur, diastolic murmur, rubs, gallop GI/Abdominal exam: Present: soft. Absent: distended, tenderness, guarding, rebound, rigid, mass Extremities exam: Present: normal inspection, normal capillary refill. Absent: tenderness Back exam: Present: normal inspection. Absent: CVA tenderness (R), CVA tenderness (L), vertebral tenderness Neurological exam: Present: alert, oriented X3. Absent: motor sensory deficit Course Vital Signs 12/02/23 12/02/23 19:14 23:03 Temperature 97.4 F L 97.6 F Pulse Rate 64 72 Respiratory 18 17 Rate Blood Pressure 120/77 120/82 O2 Sat by Pulse 99 98 Oximetry Medical Decision Making - Medical Decision Making The patient had x-ray of the pelvis that I interpreted as not showing acute bony injury. The patient denying other injuries, does appear to be stable to go back to the nursing facility to have his rehabilitation placement. Was pt. sent in by a medical professional or institution (, PA, WOOD STAINER, urgent care, hospital, or care home...) When possible be specific @ -Sent by care home to have evaluation of a fall Did you speak to anyone other than the patient for history (EMS, parent, family, police, friend...)? What history was obtained from this source @ -[No] Did you review nursing and triage notes (agree or disagree)? Why? @ -[I reviewed and agree with nursing and triage notes] Were old charts reviewed (outside hosp., previous admission, EMS record, old EKG, old radiological studies, urgent care reports/EKG's, care home records)? Report findings @ -[No old charts were reviewed] Differential Diagnosis (chest pain, altered mental status, abdominal pain women, abdominal pain men, vaginal bleeding, weakness, fever, dyspnea, syncope, headache, dizziness, GI bleed, back pain, seizure, CVA, palpatations, mental health, musculoskeletal)? @ -[The differential diagnosis includes contusion, fracture, muscle strain EKG interpreted by me (3pts min.). @ -[ X-rays interpreted by me (1pt min.). @ -[I interpreted as above CT interpreted by me (1pt min.). @ -[None done] U/S interpreted by me (1pt. min.). @ -[None done] What testing was considered but not performed or refused? (CT, X-rays, U/S, labs)? Why? @ -[None] What meds were considered but not given or refused? Why? @ -[None] Did you discuss the management of the patient with other professionals (professionals i.e. , PA, WOOD STAINER, lab, RT, psych nurse, drug abuse social worker, aerial advertiser, teacher, placement officer, showcase trimmer)? Give summary @ -[No] Was smoking cessation discussed for >3mins.? @ -[No] Was critical care preformed (if so, how long)? @ -[No] Were there social determinants of health that impacted care today? How? (Homelessness, low income, unemployed, alcoholism, drug addiction, transportation, low edu. Level, literacy, decrease access to med. care, group home, rehab)? @ -[No] Was there de-escalation of care discussed even if they declined (Discuss DNR or withdrawal of care, Hospice)? DNR status @ -[No] What co-morbidities impacted this encounter? (DM, HTN, Smoking, COPD, CAD, Cancer, CVA, ARF, Chemo, Hep., AIDS, mental health diagnosis, sleep apnea, morbid obesity)? @ -[None] Was patient admitted / discharged? Hospital course, mention meds given and route, prescriptions, significant lab abnormalities, going to OR and other pertinent info. @ -[See above Undiagnosed new problem with uncertain prognosis? @ -[No] Drug Therapy requiring intensive monitoring for toxicity (Heparin, Nitro, Insulin, Cardizem)? @ -[No] Were any procedures done? @ -[No] Diagnosis/symptom? @ -[Acute fall Contusion buttock Acute, or Chronic, or Acute on Chronic? @ -[Acute Uncomplicated (without systemic symptoms) or Complicated (systemic symptoms)? @ -[Uncomplicated Side effects of treatment? @ -[No] Exacerbation, Progression, or Severe Exacerbation? @ -[No] Poses a threat to life or bodily function? How? (Chest pain, [place], [place], pneumonia, PE, COPD, DKA, ARF, appy, cholecystitis, CVA, Diverticulitis, Homicidal, Suicidal, threat to staff... and all critical care pts) @ -[No] Disposition Clinical Impression: Fall Disposition: HOME SELF-CARE Condition: Good Instructions (If sedation given, give patient instructions): Fall Prevention for Older Adults (ED) Is patient prescribed a controlled substance at d/c from ED?: No Referrals: Blake Patiño [Primary Care Provider] - 1-2 days
--- NOTE | 2023-12-02 20:27 | XR ---
EXAMINATION TYPE: XR pelvis AP view DATE OF EXAM: 12/02/2023 8:01 PM CLINICAL INDICATION:Male, 88 years old with history of fall injury; COMPARISON: 10/27/2018. TECHNIQUE: The pelvis was examined in a single projection. FINDINGS: Right hip arthroplasty changes. Hardware appears intact. Surgical clips project over the pe lvis. There is no evidence of fracture or dislocation. There is no soft tissue abnormality. No abnor mal calcifications are present. The spine appears intact. The left hip appears intact. Osteophyte for mation of the superior acetabulum with moderate joint space narrowing. Multilevel degeneration change s of the spine. Atherosclerosis of the arterial vasculature. IMPRESSION: 1. No acute osseous pathology. 2. Moderate left hip osteoarthrosis. 3. Right hip arthroplasty with hardware intact.
[2023-12-02 23:25] VITALS: BP 120/82; PULSE 72; RESP 17; TEMP 97.6
== END 2023-12-02 23:03 | disposition home or self-care (01) ==
LOC: EC 19:06
DX: S09.90XA Unspecified injury of head, initial encounter (principal); I48.91 Unspecified atrial fibrillation; E11.9 Type 2 diabetes mellitus without complications; E78.5 Hyperlipidemia, unspecified; I10 Essential (primary) hypertension; E07.9 Disorder of thyroid, unspecified; Z87.891 Personal history of nicotine dependence; Z79.890 Hormone replacement therapy; Z79.899 Other long term (current) drug therapy; Z88.7 Allergy status to serum and vaccine; W18.30XA Fall on same level, unspecified, initial encounter
CPT/HCPCS: 72170; 99284

== ENCOUNTER 2023-12-08 11:07 | Emergency (ER) | payer MEDICARE ==
--- NOTE | 2023-12-08 11:16 | ED ---
General Adult HPI - General Stated complaint: AMS Time Seen by Provider: 12/08/23 11:08 Source: EMS, RN notes reviewed, old records reviewed Limitations: altered mental status - History of Present Illness Initial comments: 88-year-old male [facility] with altered mental status. Apparently the patient is typically alert and oriented x 4. He had a recent admission to this hospital with fall and debility. Patient was more confused this morning according to staff and then found just prior to arrival minimally responsive. He was hypoxic at 89 according to paramedics. He was thought to have a right gaze deviation. He is profoundly weak throughout all extremities but a stroke scale was unable to be completed due to his level of consciousness. He is a DNR. - Related Data Home Medications Medication Instructions Recorded Confirmed Levothyroxine Sodium [Levoxyl] 75 mcg PO DAILY 06/09/15 11/28/23 Isosorbide Mononitrate [Isosorbide 30 mg PO HS 03/14/20 11/28/23 Mononitrate ER] Montelukast [Singulair] 10 mg PO HS 03/14/20 11/28/23 Atorvastatin [Lipitor] 80 mg PO HS 09/30/23 11/28/23 Fluticasone Nasal [place] [Flonase 2 spray EA NOSTRIL DAILY PRN 09/30/23 11/28/23 Nasal [place]] Nitroglycerin Sl Tabs [Nitrostat] 0.4 mg SL Q5M PRN 09/30/23 11/28/23 Ferrous Sulfate [Iron (65 MG 325 mg PO BID 11/28/23 11/28/23 Elemental)] Furosemide [Lasix] 20 mg PO DAILY 11/28/23 11/29/23 Potassium Chloride ER [K-Dur 10] 10 meq PO DAILY 11/28/23 11/28/23 Previous Rx's Medication Instructions Recorded Omeprazole [PriLOSEC] 20 mg PO AC-BID #120 cap 10/05/23 HYDROcodone/APAP 7.5-325MG [[place] 1 tab PO QID PRN 3 Days #12 tab 12/02/23 7.5-325] Metoprolol Succinate (ER) [Toprol 25 mg PO BID tab 12/02/23 XL] Allergies Allergy/AdvReac Type Severity Reaction Status Date / Time Tetanus Vaccines and Toxoid Allergy Unknown Verified 12/02/23 19:24 Review of Systems ROS Statement: Those systems with pertinent positive or pertinent negative responses have been documented in the HPI. ROS Other: All systems not noted in ROS Statement are negative. Past Medical History Past Medical History: Atrial Fibrillation, Cancer, Diabetes Mellitus, Hy perlipidemia, Hypertension, Prostate Disorder, Thyroid Disorder Additional Past Medical History / Comment(s): hx prostate,liver,lung cancer, see Dr Ambrosio H&P, diet control diabetic, A-fib with pacemaker in on 2017 History of Any Multi-Drug Resistant Organisms: None Reported Past Surgical History: Heart Catheterization With Stent, Prostate Surgery, Tonsillectomy Additional Past Surgical History / Comment(s): removal of rt lobe of liver, upper left lobe of lung removed, rt knee replacement, left arm-fx, pacemaker, (R) hip replacement. Past Anesthesia/Blood Transfusion Reactions: No Reported Reaction Date of Last Stent Placement:: 2019 Type of Cardiac Device: Permanent Pacemaker Device Placement Date:: 2005 Past Psychological History: No Psychological Hx Reported Smoking Status: Former smoker Past Alcohol Use History: Daily Past Drug Use History: None Reported - Past Family History Mother Additional Family Medical History / Comment(s): Mother from complications of diabetes. No history of cancer. Brother(s) Additional Family Medical History / Comment(s): Patient has one brother and 4 sisters with no major medical problems. Patient has 2 sons with no major medical problems. No cancers. Father Family Medical History: Cancer Additional Family Medical History / Comment(s): Father from lung cancer with history of heavy smoking. General Exam General appearance: lethargic Head exam: Present: atraumatic, normocephalic Eye exam: Present: normal appearance, PERRL ENT exam: Present: mucous membranes dry Respiratory exam: Present: respiratory distress, rales, decreased breath sounds Cardiovascular Exam: Present: regular rate, normal rhythm GI/Abdominal exam: Present: distended. Absent: tenderness, guarding Extremities exam: Present: pedal edema Neurological exam: Present: other (Patient will follow basic commands and denies current pain, he is able to wiggle his fingers and move his toes bilaterally.) Skin exam: Present: warm Course Vital Signs 12/08/23 12/08/23 12/08/23 11:12 11:16 11:39 Temperature 97 F L Pulse Rate 60 60 60 Respiratory 16 16 12 Rate Blood Pressure 88/60 68/50 72/54 O2 Sat by Pulse 99 100 100 Oximetry 12/08/23 12:02 Temperature Pulse Rate 60 Respiratory 7 L Rate Blood Pressure 63/41 O2 Sat by Pulse 87 L Oximetry - Reevaluation(s) Reevaluation #1: 12/08/23 12:50 I did discuss at length goals of care with the patient's son and [id number]. Patient is a DNR and would not want heroic measures. Request for hospice evaluation. Medical Decision Making - Medical Decision Making Was pt. sent in by a medical professional or institution (, PA, PRINCIPAL STATISTICAL PROGRAMMER, urgent care, hospital, or penitentiary...) When possible be specific @ -No Did you speak to anyone other than the patient for history (EMS, parent, family, police, friend...)? What history was obtained from this source @ -No Did you review nursing and triage notes (agree or disagree)? Why? @ -I reviewed and agree with nursing and triage notes Were old charts reviewed (outside hosp., previous admission, EMS record, old EKG, old radiological studies, urgent care reports/EKG's, penitentiary records)? Report findings @ -No old charts were reviewed Differential Diagnosis (chest pain, altered mental status, abdominal pain women, abdominal pain men, vaginal bleeding, weakness, fever, dyspnea, syncope, headache, dizziness, GI bleed, back pain, seizure, CVA, palpatations, mental health, musculoskeletal)? @ -Differential Altered Mental Status: Hypoglycemia, DKA, hypercapnia, ETOH, overdose, CO poisoning, trauma, myxedema coma, HTN encephalopathy, infection, encephalitis, psychosis, intercranial hemorrhage, hepatic encephalopathy, meningitis, CVA, this is not meant to be an all-inclusive list EKG interpreted by me (3pts min.). @ -Paced rhythm rate of 60, QRS duration 180, QTc 625. X-rays interpreted by me (1pt min.). @ -[Chest x-ray showing diffuse pulmonary edema, worse on the left CT interpreted by me (1pt min.). @ -Negative for intracranial hemorrhage on head CT, no acute findings. U/S interpreted by me (1pt. min.). @ -[None done What testing was considered but not performed or refused? (CT, X-rays, U/S, labs)? Why? @ -None What meds were considered but not given or refused? Why? @ -None Did you discuss the management of the patient with other professionals (professionals i.e. , PA, PRINCIPAL STATISTICAL PROGRAMMER, lab, RT, psych nurse, elementary school social worker, teacher kindergarten, teacher, radio electronics officer, wrapper caser)? Give summary @ -No Was smoking cessation discussed for >3mins.? @ -No Was critical care preformed (if so, how long)? @ -Yes 35 minutes Were there social determinants of health that impacted care today? How? (Homelessness, low income, unemployed, alcoholism, drug addiction, transportation, low edu. Level, literacy, decrease access to med. care, assisted, rehab)? @ -No Was there de-escalation of care discussed even if they declined (Discuss DNR or withdrawal of care, Hospice)? DNR status @ -No What co-morbidities impacted this encounter? (DM, HTN, Smoking, COPD, CAD, Cancer, CVA, ARF, Chemo, Hep., AIDS, mental health diagnosis, sleep apnea, morbid obesity)? @ -[CAD, CHF Was patient admitted / discharged? Hospital course, mention meds given and route, prescriptions, significant lab abnormalities, going to OR and other pertinent info. @ -88-year-old male presents in extremis, lethargic, hypotensive. Workup was initiated, IV fluid was administered for hypotension although the patient is anasarcic. Chest x-ray shows diffuse pulmonary edema and patient has s ignificant oxygen requirements. The son and [id number] indicated the patient has had a steady decline over the past 1 month. They report he is a DNR and requesting comfort measures only at this time. Patient is admitted with a hospice consult and morphine for pain and air hunger. Undiagnosed new problem with uncertain prognosis? @ -[No Drug Therapy requiring intensive monitoring for toxicity (Heparin, Nitro, Insulin, Cardizem)? @ -No Were any procedures done? @ -No Diagnosis/symptom? @ -[Multiorgan failure, CHF, end-of-life Acute, or Chronic, or Acute on Chronic? @ -Acute Uncomplicated (without systemic symptoms) or Complicated (systemic symptoms)? @ -[default Side effects of treatment? @ -No Exacerbation, Progression, or Severe Exacerbation? @ -No Poses a threat to life or bodily function? How? (Chest pain, [place], [place], pneumonia, PE, COPD, DKA, ARF, appy, cholecystitis, CVA, Diverticulitis, Homicidal, Suicidal, threat to staff... and all critical care pts) @ -YES likely end-of-life - Lab Data Result diagrams: 12/08/23 11:14 12/08/23 11:14 Lab Results 12/08/23 12/08/23 12/08/23 Range/Units 11:13 11:14 11:14 WBC 3.7 L (3.8-10.6) k/uL RBC 3.02 L (4.30-5.90) m/uL Hgb 9.6 L (13.0-17.5) gm/dL Hct 29.6 L (39.0-53.0) % MCV 98.1 (80.0-100.0) fL MCH 31.6 (25.0-35.0) pg MCHC 32.3 (31.0-37.0) g/dL RDW 16.0 H (11.5-15.5) % MPV 9.8 Hypochromasia Slight Macrocytosis Slight PT 14.7 H (10.0-12.5) sec INR 1.4 H (<1.2) APTT 35.7 H (22.0-30.0) sec VBG pH 7.33 (7.31-7.41) VBG pCO2 41 (37-51) mmHg VBG HCO3 22 L (24-28) mmol/L Sodium (137-145) mmol/L Potassium (3.5-5.1) mmol/L Chloride (98-107) mmol/L Carbon Dioxide (22-30) mmol/L Anion Gap mmol/L BUN (9-20) mg/dL Creatinine (0.66-1.25) mg/dL Est GFR (CKD-EPI)AfAm (>60 ml/min/1.73 sqM) Est GFR (CKD-EPI)NonAf (>60 ml/min/1.73 sqM) Glucose (74-99) mg/dL POC Glucose (mg/dL) (70-110) mg/dL POC Glu [place]et [place]ucker ID Plasma Lactic Acid Aren (0.7-2.0) mmol/L Calcium (8.4-10.2) mg/dL Magnesium (1.6-2.3) mg/dL Total Bilirubin (0.2-1.3) mg/dL AST (17-59) U/L ALT (4-49) U/L Alkaline Phosphatase (38-126) U/L Troponin I (0.000-0.034) ng/mL NT-Pro-B Natriuret Pep pg/mL Total Protein (6.3-8.2) g/dL Albumin (3.5-5.0) g/dL 12/08/23 12/08/23 12/08/23 Range/Units 11:14 11:14 11:14 WBC (3.8-10.6) k/uL RBC (4.30-5.90) m/uL Hgb (13.0-17.5) gm/dL Hct (39.0-53.0) % MCV (80.0-100.0) fL MCH (25.0-35.0) pg MCHC (31.0-37.0) g/dL RDW (11.5-15.5) % MPV Hypochromasia Macrocytosis PT (10.0-12.5) sec INR (<1.2) APTT (22.0-30.0) sec VBG pH (7.31-7.41) VBG pCO2 (37-51) mmHg VBG HCO3 (24-28) mmol/L Sodium 135 L (137-145) mmol/L Potassium 5.8 H (3.5-5.1) mmol/L Chloride 111 H (98-107) mmol/L Carbon Dioxide 19 L (22-30) mmol/L Anion Gap 5 mmol/L BUN 17 (9-20) mg/dL Creatinine 2.08 H (0.66-1.25) mg/dL Est GFR (CKD-EPI)AfAm 32 (>60 ml/min/1.73 sqM) Est GFR (CKD-EPI)NonAf 28 (>60 ml/min/1.73 sqM) Glucose 83 (74-99) mg/dL POC Glucose (mg/dL) (70-110) mg/dL POC Glu [place]et [place]ucker ID Plasma Lactic Acid Aren 2.1 H* (0.7-2.0) mmol/L Calcium 8.9 (8.4-10.2) mg/dL Magnesium 2.0 (1.6-2.3) mg/dL Total Bilirubin 3.4 H (0.2-1.3) mg/dL AST 150 H (17-59) U/L ALT 39 (4-49) U/L Alkaline Phosphatase 155 H (38-126) U/L Troponin I 0.128 H* (0.000-0.034) ng/mL NT-Pro-B Natriuret Pep 1410 pg/mL Total Protein 6.1 L (6.3-8.2) g/dL Albumin 2.8 L (3.5-5.0) g/dL 12/08/23 Range/Units 11:24 WBC (3.8-10.6) k/uL RBC (4.30-5.90) m/uL Hgb (13.0-17.5) gm/dL Hct (39.0-53.0) % MCV (80.0-100.0) fL MCH (25.0-35.0) pg MCHC (31.0-37.0) g/dL RDW (11.5-15.5) % MPV Hypochromasia Macrocytosis PT (10.0-12.5) sec INR (<1.2) APTT (22.0-30.0) sec VBG pH (7.31-7.41) VBG pCO2 (37-51) mmHg VBG HCO3 (24-28) mmol/L Sodium (137-145) mmol/L Potassium (3.5-5.1) mmol/L Chloride (98-107) mmol/L Carbon Dioxide (22-30) mmol/L Anion Gap mmol/L BUN (9-20) mg/dL Creatinine (0.66-1.25) mg/dL Est GFR (CKD-EPI)AfAm (>60 ml/min/1.73 sqM) Est GFR (CKD-EPI)NonAf (>60 ml/min/1.73 sqM) Glucose (74-99) mg/dL POC Glucose (mg/dL) 82 (70-110) mg/dL POC Glu Bucket Chucker ID January Plasma Lactic Acid Aren (0.7-2.0) mmol/L Calcium (8.4-10.2) mg/dL Magnesium (1.6-2.3) mg/dL Total Bilirubin (0.2-1.3) mg/dL AST (17-59) U/L ALT (4-49) U/L Alkaline Phosphatase (38-126) U/L Troponin I (0.000-0.034) ng/mL NT-Pro-B Natriuret Pep pg/mL Total Protein (6.3-8.2) g/dL Albumin (3.5-5.0) g/dL Critical Care Time Critical Care Time: Yes Total Critical Care Time: 35 Disposition Clinical Impression: Pulmonary edema, Weakness, Delirium due to general medical condition Disposition: ADMITTED IP TO THIS [facility] Condition: Poor Is patient prescribed a controlled substance at d/c from ED?: No Referrals: Maxim Talavera MD [Primary Care Provider] - 1-2 days Time of Disposition: 12:54
[2023-12-08 11:25] LABS: Glucose,Whole Blood 82 mg/dL (70-110)
[2023-12-08] MEDS: SODIUM CHLORIDE 0.9% 500 ML 500 ML IV ONE (11:25)
[2023-12-08 11:27] VITALS: TEMP 97
[2023-12-08 11:30] LABS: Basophils % (A) 1 %; Eosinophils % (A) 1 %; HCT 29.6 % (39.0-53.0); HGB 9.6 gm/dL (13.0-17.5); Hypochromasia Slight; Lymphocytes # (A) 0.5 k/uL (1.0-4.8); Lymphocytes % (A) 15 %; MCH 31.6 pg (25.0-35.0); MCHC 32.3 g/dL (31.0-37.0); MCV 98.1 fL (80.0-100.0); Macrocytosis Slight; Mean Platelet Volume 9.8; Monocytes # (A) 0.3 k/uL (0-1.0); Monocytes % (A) 7 %; Neutrophils # (A) 2.8 k/uL (1.3-7.7); Neutrophils % (A) 75 %; RBC 3.02 m/uL (4.30-5.90); WBC 3.7 k/uL (3.8-10.6)
[2023-12-08 11:33] LABS: Platelet Count 63 k/uL (150-450)
[2023-12-08 11:37] LABS: INR 1.4 (<1.2); Partial Thromboplastin Time 35.7 sec (22.0-30.0); Prothrombin Time 14.7 sec (10.0-12.5)
[2023-12-08 11:39] LABS: ALT 39 U/L (4-49); AST 150 U/L (17-59); African American GFR (CKD) 32 (>60 ml/min/1.73 sqM); Albumin 2.8 g/dL (3.5-5.0); Alkaline Phosphatase 155 U/L (38-126); Anion Gap 5 mmol/L; Blood Urea Nitrogen 17 mg/dL (9-20); Calcium 8.9 mg/dL (8.4-10.2); Carbon Dioxide 19 mmol/L (22-30); Chloride 111 mmol/L (98-107); Glucose 83 mg/dL (74-99); Non-African American GFR(CKD) 28 (>60 ml/min/1.73 sqM); Sodium 135 mmol/L (137-145); Total Bilirubin 3.4 mg/dL (0.2-1.3); Total Protein 6.1 g/dL (6.3-8.2)
[2023-12-08] MEDS: SODIUM CHLORIDE 0.9% 500 ML 500 ML IV STA (11:43)
[2023-12-08 11:45] LABS: VBG PH 7.33 (7.31-7.41)
[2023-12-08 11:46] LABS: NT-Pro-B-Type Natriuretic Pept 1410 pg/mL
[2023-12-08 11:49] LABS: Potassium 5.8 mmol/L (3.5-5.1)
--- NOTE | 2023-12-08 12:05 | CT ---
EXAMINATION TYPE: CT brain wo con DATE OF EXAM: 12/08/2023 COMPARISON: 11/28/2023. HISTORY: Unresponsive. CT DLP: 1120.4 mGycm Automated exposure control for dose reduction was used. FINDINGS: There is no acute intracranial hemorrhage, mass, mass effect, midline shift, extra-axial fluid collec tion or hydrocephalus. There is some mild hypoattenuation in the periventricular white matter which is likely related to chr onic ischemic small vessel change. The flores-white distinction is otherwise intact without evidence of an acute major vessel infarct. This is unchanged since the previous examination. There is mild mucosal thickening seen within the right maxillary sinus. The visualized paranasal sinu ses and mastoid air cells otherwise appear clear. IMPRESSION: STABLE CHRONIC CHANGES WITH NO ACUTE INTRACRANIAL PROCESS OTHERWISE SEEN.
--- NOTE | 2023-12-08 12:26 | XR ---
EXAMINATION TYPE: XR chest 1V portable DATE OF EXAM: 12/08/2023 Comparison: 11/28/2023 Clinical History: 88-year-old male altered mental status Findings: Left anterior chest wall pacemaker generator with right atrial and right ventricular leads. Leftward patient rotation arc welder myocardial mediastinal contours. There is worsening aeration throug hout the left hemithorax with a meniscus of fluid tracking up the left lateral chest wall. Increasing perihilar and interstitial opacities on the right as well. Impression: Rotated exam. Worsening aeration throughout the left lung and worsening perihilar and interstitial op acities on the right. Consider CHF with pulmonary edema versus bilateral pneumonia.
[2023-12-08] MEDS ORDERED: MORPHINE SULFATE 4 MG/ML SYRINGE IVP PRN (12:49)
[2023-12-08] MEDS: MORPHINE SULFATE 4 MG/ML SYRINGE IVP STA (13:07)
[2023-12-08 13:08] LABS: Crenated RBC Present
[2023-12-08 13:09] LABS: RBC Fragments Present
[2023-12-08 13:42] VITALS: PULSE 60
[2023-12-08 14:18] VITALS: BP 70/30; RESP 12
== END 2023-12-08 14:07 | disposition other institution (70) ==
LOC: EC 11:07
DX: J81.1 Chronic pulmonary edema (principal); F05 Delirium due to known physiological condition; I10 Essential (primary) hypertension; I48.91 Unspecified atrial fibrillation; E78.5 Hyperlipidemia, unspecified; E11.9 Type 2 diabetes mellitus without complications; E07.9 Disorder of thyroid, unspecified; Z79.890 Hormone replacement therapy; Z79.899 Other long term (current) drug therapy; Z87.891 Personal history of nicotine dependence; Z88.7 Allergy status to serum and vaccine; Z95.0 Presence of cardiac pacemaker
CPT/HCPCS: 99291 ×2; 96374 ×2; 96361 ×2; 36415; 93005; 83880; 80053; 82803; 83605; 83735; 84484; 85025; 85610; 85730; 71045; 70450; J2270

== ENCOUNTER 2023-12-08 13:44 | Inpatient (IN) | payer MEDICAID, MEDICARE ==
--- NOTE | 2023-12-08 13:48 | P.HPIM ---
History of Present Illness This is a pleasant 88 years old male with past medical history of multiple medical problems including atrial fibrillation, diabetes mellitus, hypertension, hyperlipidemia, benign prostatic hypertrophy and hypothyroidism lung cancer. Presents because of altered mental health Patient currently obtained on nonrebreather and looks somewhat agitated Family at bedside and requesting comfort measures and hospice Hospice were consulted and they met with the patient family and they agreed for comfort measures, inpatient hospice as patient is agitated and required morphine Family confirms patient is DNR Vital signs labs reviewed, patient is hypotensive and a lot of abnormal labs including CBC, INR, BMP and troponin and liver enzymes all are abnormal Review of Systems ROS unobtainable: due to mental status Past Medical History Past Medical History: Atrial Fibrillation, Cancer, Diabetes Mellitus, Hyperlipidemia, Hypertension, Prostate Disorder, Thyroid Disorder Additional Past Medical History / Comment(s): hx prostate,liver,lung cancer, see Dr Ambrosio H&P, diet control diabetic, A-fib with pacemaker in on 2016 History of Any Multi-Drug Resistant Organisms: None Reported Past Surgical History: Heart Catheterization With Stent, Prostate Surgery, Tonsillectomy Additional Past Surgical History / Comment(s): removal of rt lobe of liver, uppe r left lobe of lung removed, rt knee replacement, left arm-fx, pacemaker, (R) hip replacement. Past Anesthesia/Blood Transfusion Reactions: No Reported Reaction Date of Last Stent Placement:: 2019 Type of Cardiac Device: Permanent Pacemaker Device Placement Date:: 2005 Past Psychological History: No Psychological Hx Reported Smoking Status: Former smoker Past Alcohol Use History: Daily Past Drug Use History: None Reported - Past Family History Mother Additional Family Medical History / Comment(s): Mother from complications of diabetes. No history of cancer. Brother(s) Additional Family Medical History / Comment(s): Patient has one brother and 4 sisters with no major medical problems. Patient has 2 sons with no major medical problems. No cancers. Father Family Medical History: Cancer Additional Family Medical History / Comment(s): Father from lung cancer with history of heavy smoking. Medications and Allergies Home Medications Medication Instructions Recorded Confirmed Type Levothyroxine Sodium [Levoxyl] 75 mcg PO DAILY 06/09/15 11/28/23 History Isosorbide Mononitrate [Isosorbide 30 mg PO HS 03/14/20 11/28/23 History Mononitrate ER] Montelukast [Singulair] 10 mg PO HS 03/14/20 11/28/23 History Atorvastatin [Lipitor] 80 mg PO HS 09/30/23 11/28/23 History Fluticasone Nasal [place] [Flonase 2 spray EA NOSTRIL DAILY PRN 09/30/23 11/28/23 History Nasal [place]] Nitroglycerin Sl Tabs [Nitrostat] 0.4 mg SL Q5M PRN 09/30/23 11/28/23 History Omeprazole [PriLOSEC] 20 mg PO AC-BID #120 cap 10/05/23 11/28/23 Rx Ferrous Sulfate [Iron (65 MG 325 mg PO BID 11/28/23 11/28/23 History Elemental)] Furosemide [Lasix] 20 mg PO DAILY 11/28/23 11/29/23 History Potassium Chloride ER [K-Dur 10] 10 meq PO DAILY 11/28/23 11/28/23 History HYDROcodone/APAP 7.5-325MG [[place] 1 tab PO QID PRN 3 Days #12 tab 12/02/23 Rx 7.5-325] Metoprolol Succinate (ER) [Toprol 25 mg PO BID tab 12/02/23 Rx XL] Allergies Allergy/AdvReac Type Severity Reaction Status Date / Time Tetanus Vaccines and Toxoid Allergy Unknown Verified 12/02/23 19:24 Physical Exam -GENERAL: The patient is obtained HEENT: Pupils are round and equally reacting to light. EOMI. No scleral icterus. No conjunctival pallor. Normocephalic, atraumatic. No pharyngeal erythema. No thyromegaly. CARDIOVASCULAR: S1 and S2 present. No murmurs, rubs, or gallops. -PULMONARY: no wheezing , no crackles. Tachypnea on nonrebreather with limited air entry on both sides ABDOMEN: Soft, nontender, nondistended, normoactive bowel sounds. No palpable organomegaly. MUSCULOSKELETAL: No joint swelling or deformity. EXTREMITIES: No cyanosis, clubbing, or pedal edema. NEUROLOGICAL: Gross neurological examination did not reveal any focal deficits. SKIN: No rashes. no petechiae. Assessment and Plan Assessment: End-stage/advanced lung cancer Metabolic/toxic encephalopathy secondary to above Diabetes mellitus Hypertension Hyperlipidemia History of osteoarthritis Hypothyroidism Plan: Hospice team met with the patient and family and they agreed for hospice care Patient admitted for inpatient hospice Will start comfort care measures Patient is DNR Family at bedside and agreeable with the plan Discussed with hospice nurse team Prognosis is very poor
[2023-12-08] MEDS ORDERED: DRY MOUTH SPRAY 44.3 SPRAY/44.3 ML SPRAY MUCOUS MEM PRN (13:53)
[2023-12-08] MEDS ORDERED: GLYCOPYRROLATE 0.2 MG/ML 2 ML VIAL IVP PRN (13:53)
[2023-12-08] MEDS ORDERED: ATROPINE OPHTH SOLN 1% 5ML BTL SUBLINGUAL PRN (13:53)
[2023-12-08] MEDS ORDERED: ACETAMINOPHEN SUPPOSITORY 650 MG SUPP RECTAL PRN (13:53)
[2023-12-08] MEDS ORDERED: MORPHINE SULFATE 4 MG/ML SYRINGE IV PRN (13:53)
[2023-12-08 14:18] VITALS: RESP 10; TEMP 97
[2023-12-08] MEDS: SCOPOLAMINE 1 MG/72 HR PATCH TRANSDERM SCH (14:31)
[2023-12-08] MEDS: MORPHINE SULFATE (100 MG/2 ML) 100 MG in SODIUM CHLORIDE 0.9% 100 ML IV SCH (14:35)
[2023-12-08 14:52] VITALS: BP 56/27
[2023-12-08] MEDS: LORazepam 2 MG/ML INJ IV PRN (16:12)
[2023-12-08 18:03] VITALS: PULSE 60
--- NOTE | 2023-12-09 10:38 | P.PN ---
Subjective This is a pleasant 88 years old male with past medical history of multiple medical problems including atrial fibrillation, diabetes mellitus, hypertension, hyperlipidemia, benign prostatic hypertrophy and hypothyroidism lung cancer. Presents because of altered mental health Patient currently obtained on nonrebreather and looks somewhat agitated Family at bedside and requesting comfort measures and hospice Hospice were consulted and they met with the patient family and they agreed for comfort measures, inpatient hospice as patient is agitated and required morphine Family confirms patient is DNR Vital signs labs reviewed, patient is hypotensive and a lot of abnormal labs including CBC, INR, BMP and troponin and liver enzymes all are abnormal 12/09/2023 Patient open, not in distress, looks not in pain Family/son at bedside and he confirms patient does not need more medication Continue with morphine IV drip Objective - Vital Signs Vital signs: Vital Signs Temp 97 F L 12/08/23 14:04 Pulse 60 12/08/23 17:49 Resp 10 L 12/08/23 14:04 BP 56/27 12/08/23 14:07 Pulse Ox 96 12/08/23 17:18 FiO2 Intake & Output 12/08/23 12/09/23 12/09/23 18:59 06:59 18:59 Intake Total 7.293 68 Balance 7.293 68 Weight 101 kg Intake: IV 68 Morphine Sulfate (100 mg/ 68 2 ml) 100 mg In Sodium Chloride 0.9% 100 ml @ 1 MG/HR 1.02 mls/hr IV . Q24H [facility] Rx#:[id number] Intake, IV Titration 7.293 Amount Morphine Sulfate (100 mg/ 7.293 2 ml) 100 mg In Sodium Chloride 0.9% 100 ml @ 1 MG/HR 1.02 mls/hr IV . Q24H [facility] Rx#:[id number] - Exam -GENERAL: The patient is obtund, nonverbal HEENT: Pupils are round and equally reacting to light. EOMI. No scleral icterus. No conjunctival pallor. Normocephalic, atraumatic. No pharyngeal erythema. No thyromegaly. CARDIOVASCULAR: S1 and S2 present. No murmurs, rubs, or gallops. PULMONARY: Chest is clear to auscultation, no wheezing , no crackles. ABDOMEN: Soft, nontender, nondistended, normoactive bowel sounds. No palpable organomegaly. MUSCULOSKELETAL: No joint swelling or deformity. EXTREMITIES: No cyanosis, clubbing, or pedal edema. NEUROLOGICAL: Gross neurological examination did not reveal any focal deficits. SKIN: No rashes. no petechiae. Assessment and Plan Assessment: End-stage/advanced lung cancer Metabolic/toxic encephalopathy secondary to above Diabetes mellitus Hypertension Hyperlipidemia History of osteoarthritis Hypothyroidism Plan: Hospice team met with the patient and family and they agreed for hospice care Patient admitted for inpatient hospice Will start comfort care measures Patient is DNR Family at bedside and agreeable with the plan Discussed with hospice nurse team Prognosis is very poor
== END 2023-12-09 16:32 | disposition expired | DRG 951 ==
LOC: EC 13:44 → 1SOBS 13:55
PROVIDERS: ADMIT Internal Medicine; ATTEND Internal Medicine
DX: Z51.5 Encounter for palliative care (principal); G92.8 Other toxic encephalopathy; C34.90 Malignant neoplasm of unspecified part of unspecified bronchus or lung; I95.9 Hypotension, unspecified; E11.9 Type 2 diabetes mellitus without complications; I48.91 Unspecified atrial fibrillation; I10 Essential (primary) hypertension; E03.9 Hypothyroidism, unspecified; Z66 Do not resuscitate; E78.5 Hyperlipidemia, unspecified; N40.0 Benign prostatic hyperplasia without lower urinary tract symptoms; M19.90 Unspecified osteoarthritis, unspecified site; Z79.890 Hormone replacement therapy; Z79.899 Other long term (current) drug therapy; Z96.651 Presence of right artificial knee joint; Z96.641 Presence of right artificial hip joint; Z95.0 Presence of cardiac pacemaker; Z87.891 Personal history of nicotine dependence; Z88.7 Allergy status to serum and vaccine